=== PATIENT | male | born 1950 | race Hispanic/Latino ===

== ENCOUNTER 2020-04-29 21:01 | Inpatient (IN) | payer OTHER ==
--- OUTSIDE RECORDS SUMMARY | 2020-04-29 21:08 | XMS REPORT | Continuity of Care Document ---
:[address] [facility] t Address [address] [place] [address] Care Team Providers Name Role Phone Juan Manuel Rice Attending Clinician Millie ALFARO Attending Clinician Problems This patient has no known problems. Allergies, Adverse Reactions, Alerts This patient has no known allergies or adverse reactions. Medications This patient has no known medications. Procedures This patient has no known procedures. Encounters Start End Encounter Admission Attending Care Care Encounter Source Date/Time Date/Time Type Type Clinicians Facility Department ID 2019-09-11 2019-09-11 Telephone DENYS James [id number] 00:00:00 00:00:00 [facility] [id number] [facility] [id number] 2019-01-11 2019-01-11 [facility] [id number] 10:33:32 23:59:00 Encounter Iliana Catherine [id number] [place] [id number] [place] [id number] 2019-01-11 2019-01-11 [place] [id number] 10:20:00 10:32:00 Encounter Iliana Catherine [id number] [place] [id number] [place] [id number] 2019-01-04 2019-01-04 [facility] [id number] 10:21:42 18:59:26 Visit Iliana Alexander [id number] [place] [id number] [place] [id number] [address] Results This patient has no known results.
[2020-04-29] MEDS ORDERED: IBUPROFEN 400 MG TAB ONE ×2 (22:07→22:15)
[2020-04-29] MEDS ORDERED: IBUPROFEN 200 MG TAB PO ONE ×2 (22:07→22:15)
[2020-04-29] MEDS ORDERED: NA CHLORIDE 0.9% 1,000 ML ONE ×2 (22:07→22:15)
[2020-04-29 22:09] LABS: Absolute Lymphocytes (CBC) 0.7 K/uL (0.7-4.9); Basophils % 0.2 % (0-1.3); Hematocrit 40.7 % (39.6-49.0); Lymphocytes % 3.8 % (15.3-44.8); MPV 9.4 fL (7.6-11.3)
[2020-04-29 22:12] LABS: Protime INR 1.02
[2020-04-29 22:30] LABS: ALT/SGPT 34 U/L (12-78); AST/SGOT 35 U/L (15-37); Albumin 3.7 g/dL (3.4-5.0); Alkaline Phosphatase 106 U/L (45-117); Amylase 57 U/L (25-115); BUN Blood Urea Nitrogen 6 mg/dL (7-18); Bicarbonate 19 mmol/L (21-32); Bilirubin Direct 0.2 mg/dL (0-0.2); Bilirubin Total 0.7 mg/dL (0.2-1.0); CKMB Creatine Kinase MB < 1.0 ng/mL (0.3-3.6); Creatine Phosphokinase 101 U/L (39-308); Glucose Level 118 mg/dL (74-106); Lipase 139 U/L (73-393); Potassium 3.5 mmol/L (3.5-5.1); Protein, Total 7.9 g/dL (6.4-8.2); Sodium Level 131 mmol/L (136-145); Troponin (Emerg Dept Use Only) < 0.02 ng/mL (0.0-0.045)
--- NOTE | 2020-04-30 00:45 | EDPHYS ---
Physician Documentation [facility] Name: Houston Neely Age: 69 yrs Sex: Male : 1950 Arrival Date: 04/29/2020 Time: 21:04 Bed 5 Private MD: ED Physician Dax Santacruz HPI: 04/30 00:10 This 69 yrs old Male presents to ER via Wheelchair with complaints of kb Abdominal Pain, Weakness. 00:12 The patient presents with abdominal pain that is diffuse. Onset: The symptoms/episode kb began/occurred today. The symptoms do not radiate. Associated signs and symptoms: Pertinent positives: fever. The symptoms are described as constant. Modifying factors: The symptoms are alleviated by nothing, the symptoms are aggravated by pressure. Severity of pain: At its worst the pain was moderate in the emergency department the pain is unchanged. The patient has not experienced similar symptoms in the past. The patient has not recently seen a physician. Daughter reports pt started complaining of abd pain today and seemed more weak. She felt his head and noticed he had a fever. Gave 500mg tylenol and brought pt in for evaluation. Historical: - Allergies: 04/29 21:21 No Known Allergies; ss - PMHx: 21:21 CVA; Hypertension; Seizures; R sided weakness; ss - Immunization history:: Adult Immunizations up to date. - Social history:: Smoking status: Patient reports the use of cigarette tobacco products, denies chronic smoking, but will smoke occasionally. ROS: 04/30 00:12 Cardiovascular: Negative for chest pain, palpitations, and edema, Respiratory: Negative kb for shortness of breath, cough, wheezing, and pleuritic chest pain, Back: Negative for injury and pain, MS/Extremity: Negative for injury and deformity, Skin: Negative for injury, rash, and discoloration. Constitutional: Positive for fever. Abdomen/GI: Positive for abdominal pain. Neuro: Positive for weakness. Exam: 00:12 Constitutional: This is a well developed, well nourished patient who is awake, alert, kb and in no acute distress. Head/Face: Normocephalic, atraumatic. Chest/axilla: Normal chest wall appearance and motion. Nontender with no deformity. No lesions are appreciated. Cardiovascular: Regular rate and rhythm with a normal S1 and S2. No gallops, murmurs, or rubs. Normal PMI, no JVD. No pulse deficits. Respiratory: Lungs have equal breath sounds bilaterally, clear to auscultation and percussion. No rales, rhonchi or wheezes noted. No increased work of breathing, no retractions or nasal flaring. Back: No spinal tenderness. No costovertebral tenderness. Full range of motion. Skin: Warm, dry with normal turgor. Normal color with no rashes, no lesions, and no evidence of cellulitis. MS/ Extremity: Pulses equal, no cyanosis. Neurovascular intact. Full, normal range of motion. Neuro: Awake and alert, GCS 15, oriented to person, place, time, and situation. Cranial nerves II-XII grossly intact. Motor strength 5/5 in all extremities. Sensory grossly intact. Cerebellar exam normal. Normal gait. 00:12 Abdomen/GI: Inspection: abdomen appears normal, Bowel sounds: normal, Palpation: soft, in all quadrants, moderate abdominal tenderness, in all quadrants. Vital Signs: 04/29 21:17 BP 111 / 58; Pulse 126; Resp 20; Temp 101.1(O); Pulse Ox 93% on R/A; Height 5 ft. 7 in. ss (170.18 cm); 22:10 BP 135 / 62; Pulse 123; Resp 25; Temp 100; Pulse Ox 95% ; ea 04/30 00:14 BP 115 / 65; Pulse 99; Resp 20; Pulse Ox 93% on R/A; ea MDM: 04/29 21:31 Patient medically screened. kb 04/30 00:14 Data reviewed: vital signs, nurses notes. Data interpreted: Pulse oximetry: on room air kb is 95 %. Interpretation: normal. 00:42 Counseling: I had a detailed discussion with the patient and/or guardian regarding: the kb historical points, exam findings, and any diagnostic results supporting the discharge/admit diagnosis, lab results, radiology results, the need for further work-up and treatment in the hospital. Physician consultation: Papa Ochoa MD was contacted at 00:43, regarding admission, to the telemetry unit. patient's condition, and will see patient in ED, shortly. 04/29 21:48 Order name: Amylase, Serum kb 04/29 21:48 Order name: Basic Metabolic Panel kb 04/29 21:48 Order name: Blood Culture Adult (2) kb 04/29 21:48 Order name: CBC with Diff kb 04/29 21:48 Order name: Ckmb kb 04/29 21:48 Order name: CPK; Complete Time: 22:52 kb 04/29 21:48 Order name: Lactate; Complete Time: 22:52 kb 04/29 21:48 Order name: LFT's; Complete Time: 22:52 kb 04/29 21:48 Order name: Lipase; Complete Time: 22:52 kb 04/29 21:48 Order name: Procalcitonin; Complete Time: 23:11 kb 04/29 21:48 Order name: Protime (+inr); Complete Time: 22:20 kb 04/29 21:48 Order name: Ptt, Activated; Complete Time: 22:20 kb 04/29 21:48 Order name: Troponin (emerg Dept Use Only); Complete Time: 22:52 kb 04/29 21:48 Order name: Urine Microscopic Only; Complete Time: 04:27 kb 04/29 21:48 Order name: Chest Single View XRAY; Complete Time: 12:59 kb 04/29 21:49 Order name: CT Abd/Pelvis - IV Contrast Only kb 04/29 21:49 Order name: Amylase; Complete Time: 22:52 EDMS 04/29 21:49 Order name: Basic Metabolic Panel; Complete Time: 22:52 EDMS 04/29 21:49 Order name: Blood Culture EDMS 04/29 21:49 Order name: CBC with Automated Diff; Complete Time: 22:20 EDMS 04/29 21:49 Order name: CKMB Creatine Kinase MB; Complete Time: 22:52 EDMS 04/30 01:01 Order name: SARS-COV-2 RT PCR; Complete Time: 04:27 EDMS 04/30 03:11 Order name: Urine Dipstick--Ancillary (enter results); Complete Time: 04:27 rv 04/30 05:10 Order name: CBC with Automated Diff EDMS 04/30 05:10 Order name: CBC with Automated Diff EDMS 04/30 05:10 Order name: Comprehensive Metabolic Panel EDMS 04/30 05:10 Order name: Comprehensive Metabolic Panel EDMS 04/30 12:07 Order name: CBC with Automated Diff; Complete Time: 12:59 EDMS 04/30 12:36 Order name: Manual Differential; Complete Time: 12:59 EDMS 04/29 21:48 Order name: Accucheck; Complete Time: 05:53 kb 04/29 21:48 Order name: Cardiac monitoring; Complete Time: 21:49 kb 04/29 21:49 Order name: EKG - Nurse/Tech; Complete Time: 21:50 kb 04/29 21:49 Order name: IV Saline Lock - Large Bore; Complete Time: 21:50 kb 04/29 21:49 Order name: Labs collected and sent; Complete Time: 21:50 kb 04/29 21:49 Order name: O2 Per Protocol; Complete Time: 21:50 kb 04/29 21:49 Order name: O2 Sat Monitoring; Complete Time: 21:50 kb 04/29 21:49 Order name: Urine Dipstick-Ancillary (obtain specimen); Complete Time: 11:54 kb 04/30 05:10 Order name: CONS Pharmacy Consult EDMT 04/30 05:10 Order name: Heart Healthy EDMT Administered Medications: 04/29 22:09 Drug: NS 0.9% 1000 ml Route: IV; Rate: 1000 ml; Site: left forearm; ea 04/30 00:38 Follow up: Response: No adverse reaction; IV Status: Completed infusion; IV Intake: ea 1000ml 04/29 22:10 Drug: Ibuprofen 600 mg Route: PO; ea 04/30 00:38 Follow up: Response: No adverse reaction ea 01:08 Drug: Rocephin 1 grams Route: IV; Rate: calculated rate; Site: left forearm; ea 01:19 Follow up: Response: No adverse reaction; IV Status: Completed infusion; IV Intake: 10mlea 01:19 Drug: Zithromax 500 mg Route: IVPB; Infused Over: 1 hrs; Site: left forearm; ea Disposition: 04/30/20 00:44 Hospitalization ordered by Papa Ochoa for Inpatient Admission. Preliminary diagnosis are Pneumonia, unspecified organism, Elevated white blood cell count. - Bed requested for Telemetry/MedSurg (Inpatient). - Status is Inpatient Admission. aa5 - Condition is Stable. - Problem is new. - Symptoms are unchanged. Signatures: Dispatcher [employer] EDMT Cierra Ruiz, EKTA DANG-Hillary Gamino RN RN Sujatha Connor RN RN aa5 Kim Molina RN RN Genesis Maradiaga, RN RN tl1 Julissa Sethi, FLAVIA RN ea Dax Santacruz MD MD [id number] Corrections: (The following items were deleted from the chart) 04/29 23:50 21:49 CORONAVIRUS+MR.LAB.BRZ ordered. EDMT EDMT 04/30 03:44 00:44 Hospitalization Ordered by Papa Ochoa MD for Inpatient Admission. Preliminary tl1 diagnosis is Pneumonia, unspecified organism; Elevated white blood cell count. Bed requested for Telemetry/MedSurg (Inpatient). Status is Inpatient Admission. Condition is Stable. Problem is new. Symptoms are unchanged. kb 13:49 03:44 04/30/2020 00:44 Hospitalization Ordered by Papa Ochoa MD for Inpatient dw Admission. Preliminary diagnosis is Pneumonia, unspecified organism; Elevated white blood cell count. Bed requested for [facility] ER HOLD. Status is Inpatient Admission. Condition is Stable. Problem is new. Symptoms are unchanged. tl1 15:25 13:49 04/30/2020 00:44 Hospitalization Ordered by Papa Ochoa MD for Inpatient aa5 Admission. Preliminary diagnosis is Pneumonia, unspecified organism; Elevated white blood cell count. Bed requested for Telemetry/MedSurg (Inpatient). Status is Inpatient Admission. Condition is Stable. Problem is new. Symptoms are unchanged. dw
--- NOTE | 2020-04-30 00:45 | ER ---
Nurse's Notes [facility] Name: Houston Neely Age: 69 yrs Sex: Male : 1950 Arrival Date: 04/29/2020 Time: 21:04 Bed 5 Private MD: Diagnosis: Pneumonia, unspecified organism;Elevated white blood cell count Presentation: 04/29 21:17 Chief complaint: Patient states: Fever and abd pain that began tonight. TMAX 101.7. 500 ss mg Tylenol given 20 minutes ago. Pt is also out of Lisinopril and Keppra. Coronavirus screen: fever, Client presents with at least one sign or symptom that may indicate coronavirus-19. Standard/surgical mask placed on the client. Provider contacted for isolation considerations. tested positive for COVID this morning. Ebola Screen: Patient denies exposure to infectious person. Patient denies travel to an Ebola-affected area in the 21 days before illness onset. Initial Sepsis Screen: Does the patient meet any 2 criteria? Temp <36.0*C (96.8*F)) or > 38.3*C (100.9*F). HR > 90 bpm. Does the patient have a suspected source of infection? No. Patient's initial sepsis screen is negative. Risk Assessment: Do you want to hurt yourself or someone else? Patient reports no desire to harm self or others. Onset of symptoms was April 29, 2020. 21:17 Method Of Arrival: Wheelchair ss 21:17 Acuity: CHUCK 2 ss Historical: - Allergies: 21:21 No Known Allergies; ss - PMHx: 21:21 CVA; Hypertension; Seizures; R sided weakness; ss - Immunization history:: Adult Immunizations up to date. - Social history:: Smoking status: Patient reports the use of cigarette tobacco products, denies chronic smoking, but will smoke occasionally. Screenin:12 Abuse screen: Denies threats or abuse. Nutritional screening: No deficits noted. ea Tuberculosis screening: No symptoms or risk factors identified. Fall Risk IV access (20 points). Assessment: 22:12 General: Appears uncomfortable, Behavior is calm, cooperative. Pain: Complains of pain ea in abdomen. Neuro: Level of Consciousness is awake, alert, obeys commands, Oriented to person, place, time, pt has aphasia from previous stroke . GI: Abdomen is non-distended. Derm: Skin is dry, Skin is pale, Skin temperature is warm. 23:02 Reassessment: Patient and/or family updated on plan of care and expected duration. Pain ea level reassessed. Patient is alert, oriented x 3, equal unlabored respirations, skin warm/dry/pink. Awaiting on lab results. 23:39 Reassessment: Pt taken to CT. ea 04/30 00:17 Reassessment: Patient and/or family updated on plan of care and expected duration. Pain ea level reassessed. Patient is alert, oriented x 3, equal unlabored respirations, skin warm/dry/pink. 01:09 Reassessment: Patient and/or family updated on plan of care and expected duration. Pain ea level reassessed. Patient is alert, oriented x 3, equal unlabored respirations, skin warm/dry/pink. 02:00 GI: Bowel sounds present X 4 quads. Abd is soft and non tender X 4 quads. rv Vital Signs: 04/29 21:17 BP 111 / 58; Pulse 126; Resp 20; Temp 101.1(O); Pulse Ox 93% on R/A; Height 5 ft. 7 in. ss (170.18 cm); 22:10 BP 135 / 62; Pulse 123; Resp 25; Temp 100; Pulse Ox 95% ; ea 04/30 00:14 BP 115 / 65; Pulse 99; Resp 20; Pulse Ox 93% on R/A; ea ED Course: 04/29 21:04 Patient arrived in ED. cl3 21:20 Triage completed. ss 21:21 Arm band placed on right wrist. ss 21:29 Adalberto Harris, FLAVIA is Primary Nurse. rv 21:30 Cierra Ruiz FNP-C is PHCP. kb 21:30 Dax Santacruz MD is Attending Physician. kb 21:48 Initial lab(s) drawn, by me, sent to lab. Inserted saline lock: 20 gauge in left rv forearm, using aseptic technique. 22:12 Patient has correct armband on for positive identification. Bed in low position. Call ea light in reach. Side rails up X 1. child monitor on. Pulse ox on. NIBP on. 22:14 Chest Single View XRAY In Process Unspecified. EDMS 04/30 00:20 CT Abd/Pelvis - IV Contrast Only In Process Unspecified. EDMS 00:44 Papa Ochoa MD is Hospitalizing Provider. kb 01:09 No provider procedures requiring assistance completed. Patient admitted, IV remains in ea place. Administered Medications: 04/29 22:09 Drug: NS 0.9% 1000 ml Route: IV; Rate: 1000 ml; Site: left forearm; ea 04/30 00:38 Follow up: Response: No adverse reaction; IV Status: Completed infusion; IV Intake: ea 1000ml 04/29 22:10 Drug: Ibuprofen 600 mg Route: PO; ea 04/30 00:38 Follow up: Response: No adverse reaction ea 01:08 Drug: Rocephin 1 grams Route: IV; Rate: calculated rate; Site: left forearm; ea 01:19 Follow up: Response: No adverse reaction; IV Status: Completed infusion; IV Intake: 10mlea 01:19 Drug: Zithromax 500 mg Route: IVPB; Infused Over: 1 hrs; Site: left forearm; ea Intake: 00:38 IV: 1000ml; Total: 1000ml. ea 01:19 IV: 10ml; Total: 1010ml. ea Outcome: 00:44 Decision to Hospitalize by Provider. kb 05:56 Admitted to ER Hold. Please see [facility] for further documentation. rv 05:56 Condition: good 05:56 Instructed on the need for admit. 15:20 Admitted to Tele accompanied by tech, room 223, with oxygen, with chart, Other via aa5 hospital bed Report called to FLAVIA Lebron 15:25 Patient left the ED. aa Signatures: Dispatcher [employer] EDMS Cierra Ruiz, EKTA DANG-Suajtha Holt, RN FLAVIA aa Kim Molina RN RN ss Antunez, Elena, RN RN ea Vicente, Ronaldo, RN RN rv Lewis, Charde cl3
[2020-04-30] MEDS ORDERED: CEFTRIAXONE/SWI 1gm 1 GM/10 ML SYR ONE (01:10)
[2020-04-30] MEDS ORDERED: NA CHLORIDE 0.9% 250 ML ONE ×2 (01:10→22:01)
[2020-04-30] MEDS ORDERED: AZITHROMYCIN 500 MG INJ IVPB ONE (01:10)
[2020-04-30 03:43] LABS: Urine Bacteria <20 /HPF (NONE SEEN); Urine RBC <5 /HPF (NONE SEEN)
[2020-04-30 03:46] LABS: Urine Blood NEGATIVE (NEG); Urine Glucose NEGATIVE (NEG); Urine Protein NEGATIVE (NEG); Urine Specific Gravity <1.005 (1.005-1.030); Urine pH 5.5 (5.0-7.0)
[2020-04-30] MEDS ORDERED: ACETAMINOPHEN 500 MG TAB PO PRN (05:06)
[2020-04-30] MEDS ORDERED: MORPHINE 2 MG/ML SYR IV PRN (05:06)
[2020-04-30] MEDS ORDERED: ONDANSETRON 4 MG/2 ML VIAL IV PRN (05:06)
--- NOTE | 2020-04-30 05:20 | P.HP ---
Certification for Inpatient Patient admitted to: Inpatient With expected LOS: >2 Midnights Practitioner: I am a practitioner with admitting privileges, knowledge of patient current condition, hospital course, and medical plan of care. Services: Services provided to patient in accordance with Admission requirements found in Title 42 Section 412.3 of the Code of Federal Regulations Patient History Date of Service: 04/30/20 Reason for admission: Fever, abdominal Pain , Generalised weakness History of Present Illness: 69 yrs old male with past medical history of Hypertension , Hyperlipidemia ,CVA and seizure disorder presents to ER with complaints of Abdominal Pain, Weakness and fever . Patient is a poor historian hence most of the history is obtained from chart review and also talking to the family member . He started having diffuse abdominal pain which started today associated with nausea but no vomiting or diarrhea. He was also having generalized weakness and subjective fever. Quick associated with cough. Denies any shortness of breath or chest pain.. No sick contacts. Pain is nonradiating not associated with any frequency of micturition or dysuria. He was given Tylenol for fever and was brought to ER. In the ER the patient was seen and underwent workup for abdominal pain and fever. Found to have leukocytosis and x-ray suggestive of atelectasis versus pneumonia. CT still pending. Patient is being admitted for further management Allergies No Known Allergies Allergy (Verified 06/19/15 00:27) Home medications list reviewed: Yes Home Medications: Amlodipine Besylate 10 mg PO DAILY 06/19/15 Atorvastatin Calcium [Lipitor] 80 mg PO BEDTIME 06/19/15 Folic Acid 1 mg PO DAILY 06/19/15 Levetiracetam 1,000 mg PO BID 06/19/15 Lisinopril 20 mg PO DAILY 06/19/15 Enoxaparin Sodium [Lovenox 80 MG INJ] 80 mg SQ BID #6 syr 10/21/15 Warfarin Sodium [Coumadin] 5 mg PO DAILY #90 tablet 10/21/15 Levetiracetam [Keppra] 1,000 mg PO DAILY 05/11/17 Albuterol Neb [Proventil 0.083% Neb Soln] 2.5 mg IH Q6HR PRN #100 amp 05/13/17 Budesonide [Pulmicort] 1 mg IH BID #180 ampul.neb 05/13/17 predniSONE [Deltasone*] 10 mg PO DAILY #9 tab 05/13/17 - Past Medical/Surgical History Diabetic: No Past Medical History: Reviewed- Non-Contributory -: CVA -: HTN -: hyperlipidemia Past Surgical History: Reviewed- Non-Contributory -: Appy - Family History Mother -: Hypertension Notes: states no health problems - Social History Smoking Status: Never smoker Alcohol use: No CD- Drugs: No Caffeine use: Yes Review of Systems 10-point ROS is otherwise unremarkable Physical Examination - Vital Signs Temperature: 99.2 F Blood Pressure: 128/68 Pulse: 88 Respirations: 18 - Physical Exam General: Alert, Mild distress HEENT: Atraumatic, Normocephalic Neck: Supple, 2+ carotid pulse no bruit Respiratory: Clear to auscultation bilaterally, Crackles/rales Cardiovascular: Normal pulses, Regular rate/rhythm, Normal S1 S2 Capillary refill: <2 Seconds Gastrointestinal: W/out hepatosplenomegaly, Tenderness Musculoskeletal: No clubbing, No swelling Integumentary: No rashes Neurological: Other (Alert, Awake ) Lymphatics: No axilla or inguinal lymphadenopathy - Studies Laboratory Data (last 24 hrs) 04/29/20 21:57: PT 12.0, INR 1.02, APTT 25.2 04/29/20 21:57: WBC 19.6 H, Hgb 13.9, Hct 40.7, Plt Count 228 04/29/20 21:57: Sodium 131 L, Potassium 3.5, BUN 6 L, Creatinine 0.88, Glucose 118 H, Total Bilirubin 0.7, AST 35, ALT 34, Alkaline Phosphatase 106, Amylase 57, Lipase 139 Assessment and Plan - Problems (Diagnosis) (1) Anticoagulant long-term use Onset Date: 05/11/17 Current Visit: No Status: Acute (2) HTN (hypertension) Onset Date: 05/11/17 Current Visit: No Status: Acute Qualifiers: (3) Hyperlipidemia Current Visit: No Status: Acute Qualifiers: (4) Leukocytosis Current Visit: No Status: Acute (5) Seizure disorder Current Visit: No Status: Chronic (6) Stroke Current Visit: No Status: Chronic - Plan Right lower lobe pneumonia Leukocytosis Elevated pro calcitonin Hypertension Hyperlipidemia History of CVA Seizure disorder Nonspecific abdominal pain Plan monitor closely under telemetry Start on empiric antibiotics will get cultures Covid 19 test is negative Change antibiotic as was sensitivities CT of the abdomen pelvis is still pending Continue home medications and titrate as needed GI/DVT prophylaxis Advanced directives full code - Advance Directives Does patient have a Living Will: No Does patient have a Durable POA for Healthcare: No Time Spent Managing Pts Care (In Minutes): 42
[2020-04-30 06:17] VITALS: BMI 25.0
--- NOTE | 2020-04-30 08:40 | RAD REPORT ---
EXAM DESCRIPTION: RAD - Chest Single View - 04/29/2020 10:17 pm CLINICAL HISTORY: DYSPNEA Chest pain. COMPARISON: Chest Single View dated 05/10/2017; Chest Single View dated 10/16/2015; CHEST SINGLE VIEW dated 06/20/2015; CHEST SINGLE VIEW dated 06/19/2015 FINDINGS: Portable technique limits examination quality. The lungs are grossly clear. The heart is normal in size. No displaced fractures. IMPRESSION: No acute intrathoracic process suspected.
[2020-04-30] MEDS ORDERED: CEFEPIME 1 GM/VIAL IV SCH (09:00)
[2020-04-30] MEDS: CEFEPIME/SWI 1gm 10 ML IV SCH ×2 (09:00→21:33)
[2020-04-30] MEDS ORDERED: CEFEPIME/SWI 1gm 10 ML ONE (09:35)
[2020-04-30 11:52] LABS: Absolute Lymphocytes (CBC) 1.6 K/uL (0.7-4.9); Basophils % 0.2 % (0-1.3); Hematocrit 38.3 % (39.6-49.0); Lymphocytes % 7.3 % (15.3-44.8); MPV 9.6 fL (7.6-11.3); RBC Red Blood Cell Count 3.84 M/uL (4.33-5.43)
[2020-04-30 12:36] LABS: Blood Morphology Comment NOT SEEN (NOT SEEN); Platelet Estimate ADEQ; Platelets, Giant FEW
--- NOTE | 2020-04-30 15:56 | P.PN ---
Date of Service: 04/30/20 Patient seen and examined. He is complaining of wheezing and shortness of breath. Nursing staff report patient desaturated to 88% on room air during sleep. Has significant leukocytosis. Imp: Pneumonia. Continue current antibiotics. Start bronchodilators. Follow cultures.
--- NOTE | 2020-04-30 18:56 | RAD REPORT ---
EXAM DESCRIPTION: CT Abdomen and Pelvis With Intravenous Contrast CLINICAL HISTORY: The patient is 69 years old and is Male; ABD PAIN TECHNIQUE: Axial computed tomography images of the abdomen and pelvis with intravenous contrast. S agittal and coronal reformatted images were created and reviewed. This CT exam was performed using one or more of the following dose reduction techniques: automated exposure control, adjustment of t he mA and/or kV according to patient size, and/or use of iterative reconstruction technique. COMPARISON: CT of the abdomen and pelvis September 16, 2016 FINDINGS: ARTIFACTS: The exam is suboptimal secondary to motion artifact. LUNG BASES: Patchy consolidation within the right lower lobe is present. A 6 mm left lower lobe pul monary nodule is present, unchanged from prior exam of September 16, 2016. No follow-up imaging is recommen ded. ABDOMEN: LIVER: The liver is enlarged and diffusely fatty. GALLBLADDER AND BILE DUCTS: No calcified stones. No ductal dilation. PANCREAS: No ductal dilation. No mass. SPLEEN: Unremarkable. ADRENALS: Unremarkable. No mass. KIDNEYS AND URETERS: Bilateral exophytic renal cysts are noted, the largest on the left measures 2.5 cm. No follow-up imaging is recommended. The kidneys enhance symmetrically. No obstructing renal or ureteral calculus is seen. There is no hydronephrosis or hydroureter of either kidney. STOMACH AND BOWEL: The stomach is decompressed. The small bowel is normal in caliber. Stool is pr esent throughout the colon. There is no mucosal thickening or evidence of bowel obstruction. PELVIS: APPENDIX: The appendix is surgically absent. BLADDER: The bladder is well distended. REPRODUCTIVE: Unremarkable as visualized. ABDOMEN and PELVIS: INTRAPERITONEAL SPACE: Unremarkable. No free air. No significant fluid collection. BONES/JOINTS: Minimal degenerative change of the bones is noted. SOFT TISSUES: The soft tissues are normal. VASCULATURE: Atherosclerosis of the vasculature is present. The vessels are normal in caliber. No abdominal aortic aneurysm. LYMPH NODES: Unremarkable. No enlarged lymph nodes. OTHER FINDINGS: Elevation right hemidiaphragm is present. IMPRESSION: 1. Findings suggest right lower lobe pneumonia. 2. No bowel obstruction. No renal or ureteral calculi. Electronically signed by: Angelina Fisher MD 04/30/2020 12:30 AM [employer]IST Due to temporary technical issues with the PACS/Fluency reporting system, reports are being signed by the in house radiologists without review as a courtesy to insure prompt reporting. The interpreting radiologist is fully responsible for the content of the report
[2020-04-30] MEDS: ALBUTEROL 2.5 MG/3 ML NEB SOL NEB SCH (19:45)
[2020-04-30] MEDS: IPRATROPIUM BROM 0.5MG/2.5ML NEB SCH (19:45)
[2020-04-30] MEDS: levETIRAcetam 500 MG TAB PO SCH (21:18)
[2020-04-30] MEDS: ATORVASTATIN 80 MG TAB PO SCH (21:18)
[2020-04-30] MEDS ORDERED: NA CHLORIDE 0.9% 0 ML ONE (22:00)
[2020-04-30] MEDS: AZITHROMYCIN IV 500 MG in NA CHLORIDE 0.9% 250 ML IVPB SCH (23:24)
[2020-05-01] MEDS: ALBUTEROL 2.5 MG/3 ML NEB SOL NEB SCH ×4 (02:25→20:50)
[2020-05-01] MEDS: IPRATROPIUM BROM 0.5MG/2.5ML NEB SCH ×4 (02:25→20:50)
[2020-05-01 05:43] LABS: Absolute Lymphocytes (CBC) 2.5 K/uL (0.7-4.9); Basophils % 0.2 % (0-1.3); Hematocrit 36.1 % (39.6-49.0); Lymphocytes % 13.3 % (15.3-44.8); MPV 10.1 fL (7.6-11.3); RBC Red Blood Cell Count 3.59 M/uL (4.33-5.43)
[2020-05-01 06:11] LABS: ALT/SGPT 22 U/L (12-78); AST/SGOT 22 U/L (15-37); Alkaline Phosphatase 81 U/L (45-117); BUN Blood Urea Nitrogen 8 mg/dL (7-18); Bicarbonate 23 mmol/L (21-32); Bilirubin Total 0.6 mg/dL (0.2-1.0); Ferritin 140.7 ng/mL (26-388); Glucose Level 103 mg/dL (74-106); Potassium 3.5 mmol/L (3.5-5.1); Protein, Total 6.9 g/dL (6.4-8.2); Sodium Level 136 mmol/L (136-145)
[2020-05-01] MEDS: ASPIRIN EC 81 MG TAB PO SCH (09:53)
[2020-05-01] MEDS: levETIRAcetam 500 MG TAB PO SCH ×2 (09:53→21:14)
[2020-05-01] MEDS: CEFEPIME/SWI 1gm 10 ML IV SCH ×2 (09:55→21:14)
--- NOTE | 2020-05-01 10:21 | P.PN ---
Subjective Date of Service: 05/01/20 Chief Complaint: Fever, abdominal Pain , Generalised weakness Patient states he feels much better. He desires to go home but he still has significant leukocytosis. He is saturating well on room air. He has been afebrile. Physical Examination - Vital Signs Temperature: 97.9 F Blood Pressure: 129/60 Pulse: 91 Respirations: 20 Pulse Ox (%): 93 - Physical Exam General: Alert, In no apparent distress, Oriented x3 Neck: Supple, JVD not distended Respiratory: Expiratory wheezes (Mild bilateral), Other (No crackles.) Cardiovascular: No edema, Regular rate/rhythm, Normal S1 S2 Gastrointestinal: Normal bowel sounds, Soft and benign, Non-distended, No tenderness Musculoskeletal: No swelling, No tenderness Integumentary: No rashes, No erythema Neurological: Normal speech, Normal strength at 5/5 x4 extr - Studies Laboratory Data (last 24 hrs) 04/30/20 11:43: WBC 21.8 H*, Hgb 12.8 L, Hct 38.3 L, Plt Count 222 Assessment And Plan - Current Problems (Diagnosis) (1) Pneumonia Current Visit: Yes Status: Acute (2) COPD (chronic obstructive pulmonary disease) with acute bronchitis Current Visit: No Status: Acute (3) Warfarin-induced coagulopathy Current Visit: No Status: Acute (4) Seizure disorder Current Visit: No Status: Chronic - Plan Continue current antibiotics. Scheduled Bronchodilators. Follow cultures. Monitor CBC. Continue treatment for pneumonia and COPD exacerbation for 1 more day as inpatient. Continue home medications for seizure disorder.
--- NOTE | 2020-05-01 16:12 | EKG ---
Test Date: 2020-04-29 Test Time: 21:37:39 [place] Net: CARLEE MEASUREMENT RESULTS: Intervals: Rate: 120 ID: [id number] QRSD: 64 QT: 298 QTc: 421 [place]: P: 45 ID: [id number] QRS: 54 T: 60 INTERPRETIVE STATEMENTS: Sinus tachycardia Nonspecific T wave abnormality Abnormal ECG Compared to ECG 05/10/2017 10:18:45 Sinus rhythm no longer present T-wave abnormality still present Electronically Signed On 05-01-20 16:09:41 CARTOGRAPHIC TECHNICIAN by Gustavo Limon
[2020-05-01] MEDS: ATORVASTATIN 80 MG TAB PO SCH (21:14)
[2020-05-02] MEDS: AZITHROMYCIN IV 500 MG in NA CHLORIDE 0.9% 250 ML IVPB SCH (00:01)
[2020-05-02] MEDS: IPRATROPIUM BROM 0.5MG/2.5ML NEB SCH ×2 (01:11→08:25)
[2020-05-02] MEDS: ALBUTEROL 2.5 MG/3 ML NEB SOL NEB SCH ×2 (01:11→08:25)
[2020-05-02 06:28] VITALS: O2SAT 96
[2020-05-02 06:44] LABS: Absolute Lymphocytes (CBC) 2.4 K/uL (0.7-4.9); Basophils % 0.5 % (0-1.3); Hematocrit 35.6 % (39.6-49.0); Lymphocytes % 17.8 % (15.3-44.8); MPV 11.3 fL (7.6-11.3); RBC Red Blood Cell Count 3.53 M/uL (4.33-5.43)
[2020-05-02 07:48] LABS: Blood Morphology Comment NOT SEEN (NOT SEEN); Platelet Estimate ADEQ; White Blood Cell Scan OK (OK)
[2020-05-02] MEDS: CEFEPIME/SWI 1gm 10 ML IV SCH (09:33)
[2020-05-02] MEDS: levETIRAcetam 500 MG TAB PO SCH (09:34)
[2020-05-02] MEDS: ASPIRIN EC 81 MG TAB PO SCH (09:34)
[2020-05-02 10:12] VITALS: BP 156/80; TEMP 98.2
--- NOTE | 2020-05-02 10:55 | P.DS ---
Admission Date: 04/30/20 Discharge Date: 05/02/20 Disposition: ROUTINE DISCHARGE Discharge Condition: FAIR Reason for Admission: Fever, abdominal Pain , Generalised weakness - Problems (1) Pneumonia Current Visit: Yes Status: Acute (2) COPD (chronic obstructive pulmonary disease) with acute bronchitis Current Visit: No Status: Acute (3) Warfarin-induced coagulopathy Current Visit: No Status: Acute (4) Seizure disorder Current Visit: No Status: Chronic Brief History of Present Illness: (69-year-old gentleman with a history of hypertension presented to the emergency department with a complaint of abdominal pain and fever. CT abdomen and pelvis show left lower lobe pneumonia. No other intra-abdominal pathology. Patient noted to have severe leukocytes. UA negative for UTI. Patient was started on antibiotic after blood cultures were taken and admitted for further management. Hospital Course: Patient admitted to the medical floor and treated for pneumonia with IV Zithromax and IV cefepime. He was also wheezing intermittently. Patient diagnosed with COPD exacerbation and also treated with bronchodilators. He clinically improved with treatment. Leukocytosis significantly improved. His symptoms got resolved. He was ambulatory without oxygen. He was not hypoxic. Patient deemed clinically stable for discharge. He is discharged with oral Augmentin to continue treatment for the pneumonia. Vital Signs/Physical Exam: Temp Pulse Resp BP Pulse Ox 98.2 F 86 24 H 156/80 H 94 05/02/20 08:00 05/02/20 08:00 05/02/20 08:00 05/02/20 08:00 05/02/20 08:00 General: Alert, In no apparent distress, Oriented x3 Neck: JVD not distended Respiratory: Clear to auscultation bilaterally, Normal air movement Cardiovascular: No edema, Regular rate/rhythm, Normal S1 S2 Gastrointestinal: Soft and benign, Non-distended, No tenderness Musculoskeletal: No swelling Integumentary: No rashes Neurological: Normal strength at 5/5 x4 extr Laboratory Data at Discharge: WBC 13.4 K/uL (4.3-10.9) H D 05/02/20 05:22 Hgb 11.8 g/dL (13.6-17.9) L 05/02/20 05:22 Hct 35.6 % (39.6-49.0) L 05/02/20 05:22 Plt Count 184 K/uL (152-406) 05/02/20 05:22 PT 12.0 SECONDS (9.5-12.5) 04/29/20 21:57 INR 1.02 04/29/20 21:57 APTT 25.2 SECONDS (24.3-36.9) 04/29/20 21:57 Sodium 136 mmol/L (136-145) 05/01/20 05:06 Potassium 3.5 mmol/L (3.5-5.1) 05/01/20 05:06 BUN 8 mg/dL (7-18) 05/01/20 05:06 Creatinine 0.83 mg/dL (0.55-1.3) 05/01/20 05:06 Glucose 103 mg/dL (74-106) 05/01/20 05:06 Total Bilirubin 0.6 mg/dL (0.2-1.0) 05/01/20 05:06 AST 22 U/L (15-37) 05/01/20 05:06 ALT 22 U/L (12-78) 05/01/20 05:06 Alkaline Phosphatase 81 U/L (45-117) 05/01/20 05:06 Amylase 57 U/L (25-115) 04/29/20 21:57 Lipase 139 U/L (73-393) 04/29/20 21:57 Home Medications: Amlodipine Besylate 10 mg PO DAILY 06/19/15 Atorvastatin Calcium [Lipitor] 80 mg PO BEDTIME 06/19/15 Lisinopril 20 mg PO DAILY 06/19/15 Levetiracetam [Keppra] 1,000 mg PO BID 05/11/17 Aspirin [Aspirin EC 81 MG] 81 mg PO DAILY 04/30/20 Albuterol Inhaler [Ventolin Inhaler*] 2 puff IH Q6H PRN #1 hfa.aer.ad 05/02/20 Amox/Clavulanate [Augmentin 875-125 Tab] 1 each PO BID #14 tab 05/02/20 Fluticasone/Salmeterol [Advair 250-50 Diskus] 1 each IH BID #1 disk.w.dev 05/02/20 New Medications: Fluticasone/Salmeterol [Advair 250-50 Diskus] 1 each IH BID #1 disk.w.dev Amox/Clavulanate [Augmentin 875-125 Tab] 1 each PO BID #14 tab Albuterol Inhaler [Ventolin Inhaler*] 2 puff IH Q6H PRN #1 hfa.aer.ad PRN Reason: Shortness Of Breath Diet: AHA Activity: Ad jalil Followup: NONE,NONE [Primary Care Provider] - 1-2 Weeks Time spent managing pt's care (in minutes): 38
== END 2020-05-02 11:50 | disposition home or self-care (01) | DRG 194 ==
LOC: ER 21:01 → INTOOBSV 04-30 05:14 → ERHOLD 04-30 05:14 → OBSVTOIN 04-30 14:23 → 2ND 04-30 15:16
PROVIDERS: ADMIT Family Medicine; ATTEND Internal Medicine
DX: J18.9 Pneumonia, unspecified organism (principal); J44.1 Chronic obstructive pulmonary disease with (acute) exacerbation; J44.0 Chronic obstructive pulmonary disease with (acute) lower respiratory infection; D68.9 Coagulation defect, unspecified; J20.9 Acute bronchitis, unspecified; I10 Essential (primary) hypertension; E78.5 Hyperlipidemia, unspecified; D72.829 Elevated white blood cell count, unspecified; F17.210 Nicotine dependence, cigarettes, uncomplicated; T45.515A Adverse effect of anticoagulants, initial encounter; Z79.01 Long term (current) use of anticoagulants; Z86.73 Personal history of transient ischemic attack (TIA), and cerebral infarction without residual deficits; Z79.82 Long term (current) use of aspirin; Z79.52 Long term (current) use of systemic steroids; Z79.899 Other long term (current) drug therapy; Z20.822 Contact with and (suspected) exposure to COVID-19
CPT/HCPCS: 36415; 71045; 74177; 80048; 80053; 80076; 81003; 81015; 82150; 82550; 82553; 82728; 83605; 83690; 84145; 84484; 85025; 85610; 85730; 86140; 87040; 93005; 94640; 94760; 96361; 96374; 96375; 99285; G0378; J0456; J0692; J0696; J7030; J7040; J7050; Q9967; U0003

== ENCOUNTER 2020-08-01 22:04 | Emergency (ER) | payer OTHER ==
--- OUTSIDE RECORDS SUMMARY | 2020-08-01 22:06 | XMS REPORT | Continuity of Care Document ---
:1950 Author Organization [facility] t Address [address] [place] [address] Care Team Providers Name Role Phone Juan [...] 2019-09-11 2019-09-11 Telephone DENYS James [id number] 00:00:00 00:00:00 [facility] [id number] [facility] [id number] [id number] 2019-01-11 2019-01-11 [place] [id number] 10:33:32 23:59:00 Encounter Iliana Catherine [id number] [place] [id number] [place] [id number] [id number] 2019-01-11 2019-01-11 [place] [id number] 10:20:00 10:32:00 Encounter Iliana Catherine [id number] [place] [id number] [place] [id number] 2019-01-04 2019-01-04 [place], [facility] [id number] 10:21:42 18:59:26 Visit Iliana Alexander [id number] [place] [id number] [place] [id number] [address] Results This patient has no known results.
--- NOTE | 2020-08-01 22:27 | EDPHYS ---
Physician Documentation [facility] Name: Houston Neely Age: 69 yrs Sex: Male : 1950 Arrival Date: 08/01/2020 Time: 22:08 Bed 15 Private MD: ED Physician Vincent Frias HPI: 08/02 03:52 This 69 yrs old Male presents to ER via Wheelchair with complaints of MOUTH tw4 PAIN. 03:52 The patient presents with pain. The problem is located in the lower left third molar, tw4 lower left second molar, lower left first molar, lower left cuspid, lower left central incisor and lower right central incisor. Onset: The symptoms/episode began/occurred today. Duration: The symptoms are continuous, and are steadily getting worse. Modifying factors: The symptoms are alleviated by nothing. Associated signs and symptoms: The patient has no apparent associated signs or symptoms. The patient has not experienced similar symptoms in the past. Historical: - Allergies: 08/01 22:29 No Known Allergies; sg - PMHx: 22:29 CVA; Hypertension; R sided weakness; Seizures; sg - Immunization history:: Adult Immunizations up to date. - Social history:: Smoking status: Patient denies any tobacco usage or history of. ROS: 08/02 03:52 Constitutional: Negative for fever, chills, and weight loss, Eyes: Negative for injury, tw4 pain, redness, and discharge, Cardiovascular: Negative for chest pain, palpitations, and edema, Respiratory: Negative for shortness of breath, cough, wheezing, and pleuritic chest pain, Abdomen/GI: Negative for abdominal pain, nausea, vomiting, diarrhea, and constipation, Back: Negative for injury and pain, MS/Extremity: Negative for injury and deformity, Skin: Negative for injury, rash, and discoloration. ENT: Positive for dental pain. Exam: 03:52 Constitutional: This is a well developed, well nourished patient who is awake, alert, tw4 and in no acute distress. Head/Face: Normocephalic, atraumatic. Chest/axilla: Normal chest wall appearance and motion. Nontender with no deformity. No lesions are appreciated. Cardiovascular: Regular rate and rhythm with a normal S1 and S2. No gallops, murmurs, or rubs. Normal PMI, no JVD. No pulse deficits. Respiratory: Lungs have equal breath sounds bilaterally, clear to auscultation and percussion. No rales, rhonchi or wheezes noted. No increased work of breathing, no retractions or nasal flaring. Abdomen/GI: Soft, non-tender, with normal bowel sounds. No distension or tympany. No guarding or rebound. No evidence of tenderness throughout. Back: No spinal tenderness. No costovertebral tenderness. Full range of motion. Skin: Warm, dry with normal turgor. Normal color with no rashes, no lesions, and no evidence of cellulitis. MS/ Extremity: Pulses equal, no cyanosis. Neurovascular intact. Full, normal range of motion. Vital Signs: 08/01 22:25 BP 158 / 91; Pulse 78; Resp 18; Temp 98(O); Pulse Ox 99% on R/A; em MDM: 22:13 Patient medically screened. tw4 22:25 Differential diagnosis: dental caries, gingivitis, dental abscess. Data reviewed: vital tw4 signs, nurses notes, EMS record. Data interpreted: Pulse oximetry: Interpretation: normal. Counseling: I had a detailed discussion with the patient and/or guardian regarding: the historical points, exam findings, and any diagnostic results supporting the discharge/admit diagnosis. Special discussion: I discussed with the patient/guardian in detail that at this point there is no indication for admission to the hospital. It is understood, however, that if the symptoms persist or worsen the patient needs to return immediately for re-evaluation. Administered Medications: 22:37 Drug: [place] (HYDROcodone-acetaminophen) (7.5 mg-325 mg) 1 tabs Route: PO; em Disposition: 08/01/20 22:27 Discharged to Home. Impression: Dental root caries, Dental caries on smooth surface penetrating into dentin, DENTAL PAIN. - Condition is Stable. - Discharge Instructions: Dental Caries, Adult, Dental Pain, Diet and Dental Disease, Dental Caries, [id number]. - Prescriptions for Amoxicillin 500 mg Oral Capsule - take 1 capsule by ORAL route every 8 hours for 10 days; 30 tablet. Tramadol 50 mg Oral Tablet - take 1 tablet by ORAL route every 8 hours as needed; 12 tablet. - Medication Reconciliation Form, Thank You Letter, Antibiotic Education, Prescription Opioid Use form. - Follow up: Private Physician; When: Upon discharge from the Emergency Department; Reason: Recheck today's complaints, Continuance of care, Re-evaluation by your physician. - Problem is an ongoing problem. - Symptoms have improved. Signatures: Carlos Saleh RN RN Nish Christina RN RN em Wadley, Terrence, MD MD tw4 Corrections: (The following items were deleted from the chart) 22:41 22:27 08/01/2020 22:27 Discharged to Home. Impression: Dental root caries; Dental em caries on smooth surface penetrating into dentin; DENTAL PAIN. Condition is Stable. Forms are Medication Reconciliation Form, Thank You Letter, Antibiotic Education, Prescription Opioid Use. Follow up: Private Physician; When: Upon discharge from the Emergency Department; Reason: Recheck today's complaints, Continuance of care, Re-evaluation by your physician. Problem is an ongoing problem. Symptoms have improved. tw4
--- NOTE | 2020-08-01 22:41 | ER ---
Nurse's Notes [facility] Name: Houston Neely Age: 69 yrs Sex: Male : 1950 Arrival Date: 08/01/2020 Time: 22:08 Bed 15 Private MD: Diagnosis: Dental root caries;Dental caries on smooth surface penetrating into dentin;DENTAL PAIN Presentation: 08/01 22:28 Chief complaint: Patient's son or daughter states: complaining of having pain to his sg mouth, like the inside. he had a stroke so his words are kind of hard to understand, but he is having pain he says. denies injury or trauma, states pain and swelling to the inside of mouth. Coronavirus screen: Client denies travel out of the [place] in the last 14 days. At this time, the client does not indicate any symptoms associated with coronavirus-19. Ebola Screen: Patient negative for fever greater than or equal to 101.5 degrees Fahrenheit, and additional compatible Ebola Virus Disease symptoms Patient denies exposure to infectious person. Patient denies travel to an Ebola-affected area in the 21 days before illness onset. No symptoms or risks identified at this time. Initial Sepsis Screen: Does the patient meet any 2 criteria? No. Patient's initial sepsis screen is negative. Does the patient have a suspected source of infection? No. Patient's initial sepsis screen is negative. Risk Assessment: Do you want to hurt yourself or someone else? Patient reports no desire to harm self or others. Onset of symptoms was August 01, 2020. Care prior to arrival: None. Transition of care: patient was not received from another setting of care. 22:28 Acuity: CHUCK 5 sg 22:28 Method Of Arrival: Wheelchair sg Historical: - Allergies: 22:29 No Known Allergies; sg - PMHx: 22:29 CVA; Hypertension; R sided weakness; Seizures; sg - Immunization history:: Adult Immunizations up to date. - Social history:: Smoking status: Patient denies any tobacco usage or history of. Screenin:25 Abuse screen: Denies threats or abuse. Nutritional screening: No deficits noted. em Tuberculosis screening: No symptoms or risk factors identified. Fall Risk None identified. Assessment: 22:25 General: Appears in no apparent distress. uncomfortable, Behavior is calm, cooperative, em appropriate for age. Pain: Complains of pain in mouth. Neuro: Level of Consciousness is awake, alert, obeys commands, Oriented to person, place, time, situation. Cardiovascular: Capillary refill < 3 seconds Patient's skin is warm and dry. Respiratory: Airway is patent Respiratory effort is even, unlabored, Respiratory pattern is regular, symmetrical. EENT: Oral mucosa is moist. Reports pain in right jaw. Derm: Skin is intact, is healthy with good turgor, Skin is pink, warm \T\ dry. Vital Signs: 22:25 BP 158 / 91; Pulse 78; Resp 18; Temp 98(O); Pulse Ox 99% on R/A; em ED Course: 22:08 Patient arrived in ED. cf2 22:13 Vincent Frias MD is Attending Physician. tw4 22:25 Patient has correct armband on for positive identification. Adult w/ patient. em 22:26 Nish Herrera RN is Primary Nurse. em 22:28 Arm band placed on. sg 22:29 Triage completed. sg 22:38 Patient did not have IV access during this emergency room visit. em 22:38 No provider procedures requiring assistance completed. em Administered Medications: 22:37 Drug: [place] (HYDROcodone-acetaminophen) (7.5 mg-325 mg) 1 tabs Route: PO; em Outcome: 22:27 Discharge ordered by . tw4 22:40 Discharged to home via wheelchair, with family. em 22:40 Condition: stable 22:40 Discharge instructions given to patient, Instructed on discharge instructions, follow up and referral plans. medication usage, Demonstrated understanding of instructions, follow-up care, medications, Prescriptions given X 2. 22:41 Patient left the ED. em Signatures: Carlos Saleh RN RN Nish Herrera, RN RN em Vincent Frias MD MD tw4 Lars Engel cf2
[2020-08-01] MEDS ORDERED: HYDROCODONE/APAP 7.5/325 MG TAB ONE (22:46)
[2020-08-02 01:41] VITALS: BP 158/91; TEMP 98; O2SAT 99
== END 2020-08-01 22:41 | disposition home or self-care (01) ==
LOC: ER 22:04
DX: K02.62 Dental caries on smooth surface penetrating into dentin (principal); K08.89 Other specified disorders of teeth and supporting structures; I69.351 Hemiplegia and hemiparesis following cerebral infarction affecting right dominant side; I10 Essential (primary) hypertension
CPT/HCPCS: 99283

== ENCOUNTER 2021-03-03 01:55 | Inpatient (IN) | payer OTHER ==
[2021-03-03 03:14] LABS: Urine Blood Negative (Negative); Urine Glucose Negative (Negative); Urine Protein Negative (Negative)
[2021-03-03 03:31] LABS: Protime INR 0.97
[2021-03-03 03:32] LABS: Absolute Lymphocytes (CBC) 1.5 K/uL (0.7-4.9); Basophils % 0.2 % (0-1.3); Hematocrit 45.1 % (39.6-49.0); Lymphocytes % 10.5 % (15.3-44.8); MPV 9.4 fL (7.6-11.3)
[2021-03-03] MEDS ORDERED: NA CHLORIDE 0.9% 1,000 ML ONE (03:36)
[2021-03-03 03:43] LABS: ALT/SGPT 43 U/L (12-78); AST/SGOT 39 U/L (15-37); Albumin 3.7 g/dL (3.4-5.0); Alkaline Phosphatase 103 U/L (45-117); BUN Blood Urea Nitrogen 5 mg/dL (7-18); Bicarbonate 25 mmol/L (21-32); Bilirubin Direct 0.1 mg/dL (0-0.2); Bilirubin Total 0.5 mg/dL (0.2-1.0); Glucose Level 121 mg/dL (74-106); Magnesium 1.9 mg/dL (1.8-2.4); NT PRO-BNP 41 pg/mL (<125); Potassium 3.9 mmol/L (3.5-5.1); Protein, Total 8.6 g/dL (6.4-8.2); Sodium Level 133 mmol/L (136-145); Troponin (Emerg Dept Use Only) < 0.02 ng/mL (0.0-0.045)
[2021-03-03 04:42] LABS: SARS-COV-2 RT PCR POSITIVE (NEGATIVE)
[2021-03-03] MEDS ORDERED: CEFTRIAXONE 1000 MG/VIAL ONE (04:54)
[2021-03-03] MEDS ORDERED: AZITHROMYCIN 500 MG INJ IVPB ONE (04:55)
[2021-03-03] MEDS ORDERED: NA CHLORIDE 0.9% 250 ML ONE (04:55)
--- NOTE | 2021-03-03 07:03 | ER ---
Nurse's Notes [facility] Name: Houston Neely Age: 70 yrs Sex: Male : 1950 Arrival Date: 03/03/2021 Time: 02:00 Bed 19 Private MD: Diagnosis: Coronavirus infection, unspecified;Chest pain, unspecified;Dyspnea;Tachycardia, unspecified Presentation: 03/03 02:17 Chief complaint: Patient states: cough, fever, SOB, sore throat x 1 day. Coronavirus df1 screen: Vaccine status: Patient reports receiving the 2nd dose of the covid vaccine. Client denies travel out of the [place] in the last 14 days. Client presents with at least one sign or symptom that may indicate coronavirus-19. Standard/surgical mask placed on the client. Ebola Screen: Patient negative for fever greater than or equal to 101.5 degrees Fahrenheit, and additional compatible Ebola Virus Disease symptoms Patient denies exposure to infectious person. Patient denies travel to an Ebola-affected area in the 21 days before illness onset. Initial Sepsis Screen: Does the patient meet any 2 criteria? RR > 20 per min. HR > 90 bpm. Does the patient have a suspected source of infection? Yes: Productive cough/pneumonia. Risk Assessment: Do you want to hurt yourself or someone else? Patient reports no desire to harm self or others. Onset of symptoms was March 02, 2021. 02:17 Method Of Arrival: Wheelchair df1 02:17 Acuity: CHUCK 3 df1 03:03 Note Pt nonverbal post CVA from home with family c/o sob, cough, sore throat and fever. df1 Pt has not taken HTN or Coumadin in 2 weeks. Family states young children in the house have had similar symptoms over past week. Covid vaccine up to date. Triage Assessment: 02:41 Respiratory: Airway is patent nonproductive cough Onset: The symptoms/episode cc4 began/occurred today, the patient has moderate shortness of breath. 02:41 Cardiovascular: Rhythm is sinus tachycardia. Respiratory: Reports cough that is cc4 non-productive, wheezing with at home albuterol nebulized treatment [employer]. Breath sounds with wheezes bilaterally. 03:07 General: Appears in no apparent distress. Behavior is calm, cooperative. df1 Historical: - Allergies: 02:19 No Known Allergies; df1 - Home Meds: 02:19 amlodipine 10 mg tab 1 tab once daily [Active]; atorvastatin 80 mg oral tab [Active]; df1 levetiracetam 500 mg oral tab 1 tab 2 times per day [Active]; lisinopril 20 mg Oral tab 1 tab once daily [Active]; warfarin 5 mg Oral tab 1 tab by mouth every Monday and at 5:00 pm [Active]; - PMHx: 02:19 CVA; Hypertension; R sided weakness; Seizures; df1 - PSHx: 02:21 Cholecystectomy; df1 - Immunization history:: Adult Immunizations unknown, Client reports receiving the 2nd dose of the Covid vaccine. - Social history:: Smoking status: Patient reports the use of cigarette tobacco products, smokes one-half pack cigarettes per day, Patient uses alcohol, on a daily basis. - Code Status:: Full code. Screenin:06 Abuse screen: Denies threats or abuse. Nutritional screening: No deficits noted. df1 Tuberculosis screening: No symptoms or risk factors identified. Fall Risk Fall in past 12 months (25 points). Secondary diagnosis (15 points) seizures, CVA, IV access (20 points). Ambulatory Aid- None/Bed Rest/Nurse Assist (0 pts). Gait- Impaired (20 pts.). Mental Status- Oriented to own ability (0 pts). Assessment: 02:41 General: Appears uncomfortable, Behavior is calm, cooperative. Pain: Denies pain. 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 son present \\T\\ answering for father.. Cardiovascular: Heart tones S1 S2 Capillary refill < 3 seconds Rhythm is sinus tachycardia. Respiratory: nonproductive cough noted. GI: No deficits noted. Abdomen is non-distended, Bowel sounds present X 4 quads. : No deficits noted. Urine is clear, yellow. EENT: No deficits noted. Eyes clear. Nares are clear Oral mucosa is moist. Derm: No deficits noted. Skin is intact. Musculoskeletal: Capillary refill < 3 seconds, right hemiplegia noted. 02:41 Respiratory: Breath sounds with wheezes bilaterally. cc4 02:50 Reassessment: # 20 g angiocath inserted right AC x 2 attempts \\T\\ converted to saline cc4 lock with blood drawn \\T\\ sent to lab; Dr. Santacruz in \\T\\ bedside \\T\\ assessing; CM intact \\T\\ monitoring S. tachycardia with VR 116-130; with son of pt reporting albuterol treatment [employer]. 03:06 Respiratory: Airway is patent Trachea midline Respiratory effort is even, Respiratory df1 pattern is regular, symmetrical, Breath sounds are clear bilaterally. 03:15 Reassessment: Standing \\T\\ bedside with assistance voiding 200 ml clear yellow urine; cc4 asst. back on stretcher. HR increases to 130's when up.\\T\\ decreases to 118-124 at rest. 05:00 Reassessment: Voiding approximately every 15 minutes clear yellow urine after asst up \\T\\ cc4 bedside 200 ml each time; son denies father having h/o enlarged prostate; condom catheter applied as ordered. 06:00 Reassessment: Returned from CT via stretcher; condom cath. lying in bed linen wet ; cc4 linen cahnged \\T\\ condom catheter reapplied; swinging \\T\\ staff with left hand when turned. 07:00 Reassessment: Report given to FLAVIA Vásquez. cc4 Vital Signs: 02:17 BP 171 / 78; Pulse 109; Resp 24; Temp 99.4; Pulse Ox 97% on R/A; Weight 86.18 kg; df1 Height 5 ft. 9 in. (175.26 cm); Pain 5/10; 02:41 BP 154 / 79; Pulse 115; Resp 22; Temp 99.2(O); Pulse Ox 97% on R/A; cc4 03:30 BP 165 / 82; Pulse 126; Resp 20; Pulse Ox 97% on R/A; cc4 04:30 BP 171 / 77; Pulse 118; Resp 24; Pulse Ox 95% on R/A; cc4 05:30 BP 155 / 82; Pulse 111; Resp 24; Pulse Ox 95% on R/A; cc4 06:23 BP 107 / 87; Pulse 107; Resp 23; Pulse Ox 93% on R/A; cc4 07:00 BP 145 / 81; Pulse 110; Resp 20; Pulse Ox 96% on R/A; cc4 07:45 BP 128 / 76; Pulse 112; Resp 20; Pulse Ox 96% on R/A; cc4 08:48 BP 148 / 71; Pulse 97; Resp 20; Temp 99.4; Pulse Ox 98% on 2 lpm NC; cc4 02:17 Body Mass Index 28.06 (86.18 kg, 175.26 cm) df1 ED Course: 02:00 Patient arrived in ED. bp1 02:19 Triage completed. df1 02:24 Dax Santacruz MD is Attending Physician. mh7 03:07 Arm band placed on right wrist. df1 03:07 Placed in gown. Bed in low position. Call light in reach. Side rails up X 1. Adult w/ df1 patient. 03:09 Inserted saline lock: 20 gauge in right antecubital area, using aseptic technique. oe Blood collected. 03:23 Dulce Durand, FLAVIA is Primary Nurse. cc4 03:34 COVID-19/FLU A+B Sent. cc4 03:34 Procalcitonin Sent. cc4 03:34 Lactate Sent. cc4 03:34 Blood Culture Adult (2) Sent. cc4 03:34 Rapid Strep Sent. cc4 03:34 Influenza Screen (a \\T\\ B) Sent. cc4 03:34 COVID-19 (Coronavirus) Document "Date of Onset" if Symptomatic Sent. cc4 03:34 Liver (Hepatic) Function Sent. cc4 03:35 Basic Metabolic Panel Sent. cc4 03:35 Basic Metabolic Panel Sent. cc4 03:35 CBC with Diff Sent. cc4 03:35 LFT's Sent. cc4 03:35 XRAY Chest (1 view) Sent. cc4 03:35 Magnesium Sent. cc4 03:35 NT PRO-BNP Sent. cc4 03:35 Troponin (emerg Dept Use Only) Sent. cc4 04:43 XRAY Chest (1 view) In Process Unspecified. EDMS 04:53 CT Chest For PE Angio Sent. cc4 05:56 CT Chest For PE Angio In Process Unspecified. EDMS 07:00 Ty Salomon MD is Hospitalizing Provider. 7 07:30 IV is patent, is intact, with fluids infusing freely, with good blood return, Flushed cc4 right antecubital. 07:59 Smith cath inserted, using sterile technique, 16 Fr., returned clear yellow urine. ss Patient tolerated well. 08:59 No apparent distress. transfer. cc4 08:59 No provider procedures requiring assistance completed. cc4 08:59 Repeat lab(s) drawn. by me, sent to lab. gd 09:30 Patient admitted, IV remains in place. cc4 Administered Medications: 03:35 Drug: NS 0.9% 1000 ml Route: IV; Rate: 1000 ml; Site: right antecubital; cc4 07:15 Follow up: Response: No adverse reaction; IV Status: Completed infusion; IV Intake: cc4 1000ml 04:58 Drug: Rocephin (cefTRIAXone) 1 grams Route: IV; Rate: per protocol; Site: right cc4 antecubital; 05:00 Drug: Zithromax (azithromycin) 500 mg Route: IVPB; Infused Over: 1 hrs; Site: right cc4 antecubital; 07:56 Drug: NS 0.9% 500 ml Route: IV; Rate: bolus; Site: left antecubital; cc4 08:26 Follow up: Response: No adverse reaction cc4 08:52 Follow up: IV Status: Completed infusion; IV Intake: 500ml cc4 07:56 Drug: SOLU-Medrol (methylPrednisoLONE) 80 mg Route: IVP; Site: left antecubital; cc4 08:24 Follow up: Response: No adverse reaction cc4 08:08 Drug: Albuterol HFA Inhaler 2 puffs Route: Inhalation; cc4 08:25 Follow up: Response: No adverse reaction cc4 08:25 Follow up: Response: No adverse reaction cc4 Intake: 07:15 IV: 1000ml; Total: 1000ml. cc4 08:52 IV: 500ml; Total: 1500ml. cc4 Outcome: 07:02 Decision to Hospitalize by Provider. [facility] 07:59 Instructed on the need for admit. 09:24 Admitted to ICU accompanied by nurse, via stretcher, room 3rd Floor - ICU # 7. cc4 09:24 Condition: stable 09:24 Discharge instructions given to patient, family, Instructed on the need for admit. 09:54 Patient left the ED. cc4 Signatures: Dispatcher [employer] EDMS Kim Molina RN RN Cody Henry Brittany bp1 Holmes, Maurice, MD MD 7 Dulce Durand RN RN cc4 [place] df1 Kel Ca gd Corrections: (The following items were deleted from the chart) 02:22 02:19 PSHx: Appendectomy; df1 df1 06:35 04:30 BP 107 / 87; Pulse 112bpm; Resp 23bpm; Pulse Ox 93% RA; cc4 cc4 06:55 02:41 Respiratory: Airway is patent Breath sounds are clear bilaterally. cc4 cc4
--- NOTE | 2021-03-03 07:03 | EDPHYS ---
Physician Documentation [facility] Name: Houston Neely Age: 70 yrs Sex: Male : 1950 Arrival Date: 03/03/2021 Time: 02:00 Bed 19 Private MD: ED Physician Dax Santacruz HPI: 03/03 02:48 This 70 yrs old Male presents to ER via Wheelchair with complaints of Cough, mh7 Breathing Difficulty, Chest Pain. 02:48 The patient or guardian reports cough, that is intermittent, described as moderate, mh7 with no sputum, difficulty breathing. Onset: The symptoms/episode began/occurred yesterday. Severity of symptoms: At their worst the symptoms were moderate, yesterday, in the emergency department the symptoms have improved, moderately. Modifying factors: The symptoms are alleviated by nebulizer treatment, the symptoms are aggravated by nothing. Associated signs and symptoms: Pertinent positives: chest pain, with cough, sore throat, Pertinent negatives: diarrhea, ear ache, fever, nausea, rhinorrhea, vomiting. Historical: - Allergies: 02:19 No Known Allergies; df1 - Home Meds: 02:19 amlodipine 10 mg tab 1 tab once daily [Active]; atorvastatin 80 mg oral tab [Active]; df1 levetiracetam 500 mg oral tab 1 tab 2 times per day [Active]; lisinopril 20 mg Oral tab 1 tab once daily [Active]; warfarin 5 mg Oral tab 1 tab by mouth every Monday and at 5:00 pm [Active]; - PMHx: 02:19 CVA; Hypertension; R sided weakness; Seizures; df1 - PSHx: 02:21 Cholecystectomy; df1 - Immunization history:: Adult Immunizations unknown, Client reports receiving the 2nd dose of the Covid vaccine. - Social history:: Smoking status: Patient reports the use of cigarette tobacco products, smokes one-half pack cigarettes per day, Patient uses alcohol, on a daily basis. - Code Status:: Full code. ROS: 02:48 Eyes: Negative for injury, pain, redness, and discharge, Neck: Negative for injury, mh7 pain, and swelling, Abdomen/GI: Negative for abdominal pain, nausea, vomiting, diarrhea, and constipation, Back: Negative for injury and pain, : Negative for injury, bleeding, discharge, and swelling, MS/Extremity: Negative for injury and deformity, Skin: Negative for injury, rash, and discoloration, Neuro: Negative for headache, weakness, numbness, tingling, and seizure, Psych: Negative for depression, anxiety, suicide ideation, homicidal ideation, and hallucinations, Allergy/Immunology: Negative for hives, rash, and allergies, Endocrine: Negative for neck swelling, polydipsia, polyuria, polyphagia, and marked weight changes, Hematologic/Lymphatic: Negative for swollen nodes, abnormal bleeding, and unusual bruising. Exam: 02:48 Constitutional: This is a well developed, well nourished patient who is awake, alert, mh7 and in no acute distress. Head/Face: Normocephalic, atraumatic. Eyes: Pupils equal round and reactive to light, extra-ocular motions intact. Lids and lashes normal. Conjunctiva and sclera are non-icteric and not injected. Cornea within normal limits. Periorbital areas with no swelling, redness, or edema. Neck: Trachea midline, no thyromegaly or masses palpated, and no cervical lymphadenopathy. Supple, full range of motion without nuchal rigidity, or vertebral point tenderness. No Meningismus. Chest/axilla: Normal chest wall appearance and motion. Nontender with no deformity. No lesions are appreciated. 02:48 ENT: Nares patent. No nasal discharge, no septal abnormalities noted. Tympanic membranes are normal and external auditory canals are clear. Oropharynx with no redness, swelling, or masses, exudates, or evidence of obstruction, uvula midline. Mucous membranes moist. Abdomen/GI: Soft, non-tender, with normal bowel sounds. No distension or tympany. No guarding or rebound. No evidence of tenderness throughout. Back: No spinal tenderness. No costovertebral tenderness. Full range of motion. Skin: Warm, dry with normal turgor. Normal color with no rashes, no lesions, and no evidence of cellulitis. MS/ Extremity: Pulses equal, no cyanosis. Neurovascular intact. Full, normal range of motion. Psych: Awake, alert, with orientation to person, place and time. Behavior, mood, and affect are within normal limits. 02:48 Cardiovascular: Rate: tachycardic, Rhythm: regular, Pulses: no pulse deficits are appreciated, Heart sounds: normal, normal S1and S2, Edema: is not appreciated, JVD: is not appreciated. 02:48 Respiratory: mild respiratory distress is noted, Respirations: prolonged exhalation, that is mild, Breath sounds: rhonchi, that are mild, are scattered, Respiratory rate: 24 02:48 Neuro: Orientation: appropriate for stated age, Mentation: is normal, Memory: mh7 appropriate for stated age, Cranial nerves: is grossly normal based on the patient's age, Cerebellar function: is grossly normal based on the patient's age, Motor: strength is 4/5 in the right arm, Baseline status post CVA, Sensation: no obvious gross deficits, Gait: not tested. seizure activity, is not displayed by the patient, Abnormal movements: there are no abnormal movements, Baseline nonverbal status post CVA but appropriate with questions. Vital Signs: 02:17 BP 171 / 78; Pulse 109; Resp 24; Temp 99.4; Pulse Ox 97% on R/A; Weight 86.18 kg; df1 Height 5 ft. 9 in. (175.26 cm); Pain 5/10; 02:41 BP 154 / 79; Pulse 115; Resp 22; Temp 99.2(O); Pulse Ox 97% on R/A; cc4 03:30 BP 165 / 82; Pulse 126; Resp 20; Pulse Ox 97% on R/A; cc4 04:30 BP 171 / 77; Pulse 118; Resp 24; Pulse Ox 95% on R/A; cc4 05:30 BP 155 / 82; Pulse 111; Resp 24; Pulse Ox 95% on R/A; cc4 06:23 BP 107 / 87; Pulse 107; Resp 23; Pulse Ox 93% on R/A; cc4 07:00 BP 145 / 81; Pulse 110; Resp 20; Pulse Ox 96% on R/A; cc4 07:45 BP 128 / 76; Pulse 112; Resp 20; Pulse Ox 96% on R/A; cc4 08:48 BP 148 / 71; Pulse 97; Resp 20; Temp 99.4; Pulse Ox 98% on 2 lpm NC; cc4 02:17 Body Mass Index 28.06 (86.18 kg, 175.26 cm) df1 MDM: 06:57 Differential Diagnosis: Bronchitis Influenza Upper Respiratory Infection Pharyngitis 7 Viral Syndrome Pneumonia Other chest pain. Data reviewed: vital signs, nurses notes, old medical records, lab test result(s), cardiac enzymes, CBC, electrolytes, Flu: negative Covid positive, EKG, radiologic studies, CT scan, plain films. Data interpreted: Pulse oximetry: on room air is 93 %. Interpretation: hypoxia. Plan: O2 by NC applied. Counseling: I had a detailed discussion with the patient and/or guardian regarding: the historical points, exam findings, and any diagnostic results supporting the discharge/admit diagnosis, lab results, radiology results, the need for further work-up and treatment in the hospital. Response to treatment: the patient's symptoms have mildly improved after treatment. 07:02 Patient medically screened. [facility] 03/03 02:45 Order name: Basic Metabolic Panel [facility] 03/03 02:45 Order name: CBC with Diff [facility] 03/03 02:45 Order name: LFT's [facility] 03/03 02:45 Order name: Magnesium; Complete Time: 04:06 [facility] 03/03 02:45 Order name: NT PRO-BNP; Complete Time: 04:06 [facility] 03/03 02:45 Order name: PT-INR; Complete Time: 03:34 [facility] 03/03 02:45 Order name: Troponin (emerg Dept Use Only); Complete Time: 04:06 [facility] 03/03 02:45 Order name: Basic Metabolic Panel; Complete Time: 04:06 [facility] 03/03 02:45 Order name: CBC with Automated Diff; Complete Time: 03:34 [facility] 03/03 02:46 Order name: Liver (Hepatic) Function; Complete Time: 04:06 [facility] 03/03 02:47 Order name: COVID-19 (Coronavirus) Document "Date of Onset" if Symptomatic [facility] 03/03 02:47 Order name: Influenza Screen (a \\T\\ B) [facility] 03/03 02:47 Order name: Rapid Strep; Complete Time: 04:06 [facility] 03/03 02:47 Order name: Blood Culture Adult (2) [facility] 03/03 02:45 Order name: XRAY Chest (1 view) [facility] 03/03 02:47 Order name: Lactate; Complete Time: 04:06 [facility] 03/03 02:47 Order name: Procalcitonin; Complete Time: 04:30 [facility] 03/03 03:13 Order name: Urine Dipstick-Ancillary; Complete Time: 03:23 [facility] 03/03 03:22 Order name: COVID-19/FLU A+B; Complete Time: 05:57 [facility] 03/03 03:57 Order name: Throat Culture [facility] 03/03 07:10 Order name: Basic Metabolic Panel [facility] 03/03 07:10 Order name: Basic Metabolic Panel [facility] 03/03 07:10 Order name: CBC with Automated Diff [facility] 03/03 07:10 Order name: Troponin I [facility] 03/03 07:10 Order name: Troponin I [facility] 03/03 07:10 Order name: Troponin I [facility] 03/03 07:10 Order name: CBC with Automated Diff [facility] 03/03 09:20 Order name: Lactate Sepsis 2 HR Follow-up [facility] 03/03 02:45 Order name: EKG; Complete Time: 02:46 [facility] 03/03 02:45 Order name: Cardiac monitoring; Complete Time: 03:35 [facility] 03/03 02:45 Order name: EKG - Nurse/Tech; Complete Time: 03:09 [facility] 03/03 02:45 Order name: IV Saline Lock; Complete Time: 03:09 [facility] 03/03 02:45 Order name: Labs collected and sent; Complete Time: 03:09 [facility] 03/03 02:45 Order name: O2 Sat Monitoring; Complete Time: 03:35 [facility] 03/03 02:47 Order name: Urine Dipstick-Ancillary (obtain specimen); Complete Time: 03:34 [facility] 03/03 04:45 Order name: CT Chest For PE Angio [facility] 03/03 06:59 Order name: Oxygen; Complete Time: 08:25 [facility] 03/03 07:10 Order name: 60g Consistent Carbohydrate (ADA 1800/2000) [facility] 03/03 07:10 Order name: EKG Electrocardiogram [facility] 03/03 07:10 Order name: EKG Electrocardiogram [facility] 03/03 07:10 Order name: EKG Electrocardiogram [facility] 03/03 07:10 Order name: EKG Electrocardiogram [facility] 03/03 07:25 Order name: Smith; Complete Time: 07:56 mh7 Administered Medications: 03:35 Drug: NS 0.9% 1000 ml Route: IV; Rate: 1000 ml; Site: right antecubital; cc4 07:15 Follow up: Response: No adverse reaction; IV Status: Completed infusion; IV Intake: cc4 1000ml 04:58 Drug: Rocephin (cefTRIAXone) 1 grams Route: IV; Rate: per protocol; Site: right cc4 antecubital; 05:00 Drug: Zithromax (azithromycin) 500 mg Route: IVPB; Infused Over: 1 hrs; Site: right cc4 antecubital; 07:56 Drug: NS 0.9% 500 ml Route: IV; Rate: bolus; Site: left antecubital; cc4 08:26 Follow up: Response: No adverse reaction cc4 08:52 Follow up: IV Status: Completed infusion; IV Intake: 500ml cc4 07:56 Drug: SOLU-Medrol (methylPrednisoLONE) 80 mg Route: IVP; Site: left antecubital; cc4 08:24 Follow up: Response: No adverse reaction cc4 08:08 Drug: Albuterol HFA Inhaler 2 puffs Route: Inhalation; cc4 08:25 Follow up: Response: No adverse reaction cc4 08:25 Follow up: Response: No adverse reaction cc4 Disposition Summary: 03/03/21 07:02 Hospitalization Ordered Hospitalization Status: Inpatient Admission [facility] Provider: Ty Salomon Christine Condition: Stable [facility] Problem: new [facility] Symptoms: have improved 7 Bed/Room Type: [place] [id number] Location: Intensive Care Unit(03/03/21 07:25) Room Assignment: 4-(03/03/21 07:25) dw Diagnosis - Coronavirus infection, unspecified mh7 - Chest pain, unspecified mh7 - Dyspnea mh7 - Tachycardia, unspecified mh7 Forms: - Medication Reconciliation Form 7 - SBAR form 7 Signatures: Dispatcher [employer] EDMS Hillary Zamora RN RN dw Dax Santacruz MD MD 7 Dulce Durand RN RN cc4 [place] df1 Corrections: (The following items were deleted from the chart) 02:22 02:19 PSHx: Appendectomy; df1 df1 03:22 02:47 CORONAVIRUS ordered. [facility] 03:22 02:47 Influenza Screen (A ordered. [facility] 07:25 07:02 Telemetry/MedSurg (Inpatient) 7 dw 07:25 07:02 [facility]
[2021-03-03] MEDS ORDERED: ONDANSETRON 4 MG/2 ML VIAL IV PRN (07:05)
[2021-03-03] MEDS ORDERED: ACETAMINOPHEN 325 MG TABLET PO PRN (07:05)
[2021-03-03] MEDS ORDERED: MORPHINE 2 MG/ML SYR IV PRN (07:05)
[2021-03-03] MEDS ORDERED: ALBUTEROL INHALER 60 PUFF/8 GM IH PRN (07:08)
[2021-03-03] MEDS ORDERED: ALBUTEROL INHALER 60 PUFF/8 GM IH ONE (07:50)
[2021-03-03] MEDS ORDERED: NA CHLORIDE 0.9% 500 ML ONE (07:50)
[2021-03-03] MEDS ORDERED: METHYLPREDNISOLONE 40 MG INJ ONE (07:50)
--- NOTE | 2021-03-03 07:52 | RAD REPORT ---
EXAM DESCRIPTION: Xiao Single View03/03/2021 4:43 am CLINICAL HISTORY: Chest pain COMPARISON: 2019 FINDINGS: The lungs appear clear of acute infiltrate. The heart is normal size IMPRESSION: No acute abnormalities displayed
--- NOTE | 2021-03-03 09:44 | P.HP ---
Certification for Inpatient Patient admitted to: Inpatient With expected LOS: >2 Midnights Patient will require the following post-hospital care: None Practitioner: I am a practitioner with admitting privileges, knowledge of patient current condition, hospital course, and medical plan of care. Services: Services provided to patient in accordance with Admission requirements found in Title 42 Section 412.3 of the Code of Federal Regulations Patient History Date of Service: 03/03/21 Primary Care Provider: Umm Reason for admission: covid infection History of Present Illness: Patient is a pleasant gentleman. 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 Has htn, hyperlipidemia. He as had a cough for 2 days Tues and today. The patient has had covid this past May. He has had 2 dosed of vaccination. Has not as yet had his booster vaccination. The patient is currently stable in the ER on 2 lts of o2. His cough seems to have improved with steroids. Allergies No Known Allergies Allergy (Verified 06/19/15 00:27) Home Medications: Amlodipine Besylate 10 mg PO DAILY 06/19/15 Atorvastatin Calcium [Lipitor] 80 mg PO BEDTIME 06/19/15 Lisinopril 20 mg PO DAILY 06/19/15 Levetiracetam [Keppra] 1,000 mg PO BID 05/11/17 Aspirin [Aspirin EC 81 MG] 81 mg PO DAILY 04/30/20 Albuterol Inhaler [Ventolin Inhaler*] 2 puff IH Q6H PRN #1 hfa.aer.ad 05/02/20 Amox/Clavulanate [Augmentin 875-125 Tab] 1 each PO BID #14 tab 05/02/20 Fluticasone/Salmeterol [Advair 250-50 Diskus] 1 each IH BID #1 disk.w.dev 05/02/20 - Past Medical/Surgical History Diabetic: No -: CVA -: HTN -: hyperlipidemia -: Appy - Family History Mother -: Hypertension Notes: states no health problems - Social History Alcohol use: No CD- Drugs: No Caffeine use: Yes Review of Systems 10-point ROS is otherwise unremarkable Respiratory: Cough Physical Examination - Physical Exam General: Alert, In no apparent distress HEENT: Atraumatic, PERRLA, Mucous membr. moist/pink, EOMI, Sclerae nonicteric Neck: Supple, 2+ carotid pulse no bruit, No LAD, Without JVD or thyroid abnormality Respiratory: Clear to auscultation bilaterally, Normal air movement Cardiovascular: Regular rate/rhythm, Normal S1 S2 Gastrointestinal: Normal bowel sounds, No tenderness Musculoskeletal: No tenderness Integumentary: No rashes Neurological: Normal gait, Normal speech, Normal strength at 5/5 x4 extr, Normal tone, Normal affect Lymphatics: No axilla or inguinal lymphadenopathy - Studies Laboratory Data (last 24 hrs) 03/03/21 02:45: PT 11.2, INR 0.97 03/03/21 02:45: WBC 13.90 H, Hgb 15.0, Hct 45.1, Plt Count 247 03/03/21 02:45: Sodium 133 L, Potassium 3.9, BUN 5 L, Creatinine 0.90, Glucose 121 H, Magnesium 1.9, Total Bilirubin 0.5, AST 39 H, ALT 43, Alkaline Phosphatase 103 Microbiology Data (last 24 hrs): 03/03/21 02:35 Throat Group A Streptococcus Rapid Screen - Final Assessment and Plan - Problems (Diagnosis) (1) COVID Current Visit: Yes Status: Acute Plan: Will continue him on methylprednisone. Add immune support Vitamin D, C Zinc and Melatonin. Discussed regeneron with Dr. Gambino. Would have worked earlier. He is doing well. Will see about possible discharge on home oxygen steroids. Can try fluvoxamine 100mg po tid for 15 days as per the NIH guidelines (2) HTN (hypertension) Onset Date: 05/11/17 Current Visit: No Status: Acute Plan: continue lisinopril and amlodipine Qualifiers: Hypertension type: primary hypertension Qualified Code(s): I10 - Essential (primary) hypertension (3) Hyperlipidemia Current Visit: No Status: Acute Plan: continue atorvastatin Qualifiers: Hyperlipidemia type: moderate mixed hyperlipidemia not requiring statin therapy Qualified Code(s): E78.2 - Mixed hyperlipidemia (4) Seizure Onset Date: 05/11/17 Current Visit: No Status: Acute Plan: restart Keppra Discharge Plan: Home Plan to discharge in: 24 Hours - Advance Directives Does patient have a Living Will: No Does patient have a Durable POA for Healthcare: No - Code Status/Comfort Care Code Status Assessed: No Code Status: Full Code Physician Review: Patient Assessed, Agree with Above Assessment and Plan Critical Care: No Time Spent Managing Pts Care (In Minutes): 75
[2021-03-03] MEDS: ASPIRIN EC 81 MG TAB PO SCH (10:15)
[2021-03-03] MEDS: VITAMIN D 5,000 UNIT CAP PO SCH (10:16)
[2021-03-03] MEDS: METHYLPREDNISOLONE 40 MG INJ IV SCH ×2 (10:16→17:00)
[2021-03-03] MEDS: ZINC SULFATE 220 MG CAP PO SCH (10:16)
[2021-03-03 10:29] VITALS: BMI 28.0
--- NOTE | 2021-03-03 11:22 | RAD REPORT ---
EXAM DESCRIPTION: CT - Chest For Pe Angio - 03/03/2021 6:46 am CLINICAL HISTORY: The patient is 70 years old and is Male; Cough;Dyspnea TECHNIQUE: Axial computed tomographic angiography images of the chest with intravenous contrast. S agittal and coronal reformatted images were created and reviewed. This CT exam was performed using one or more of the following dose reduction techniques: automated exposure control, adjustment of t he mA and/or kV according to patient size, and/or use of iterative reconstruction technique. MIP reconstructed images were created and reviewed. COMPARISON: No relevant prior studies available. FINDINGS: ARTIFACTS: The exam is suboptimal secondary to motion artifact. PULMONARY ARTERIES: The main pulmonary arteries and proximal segmental branches opacify normally and are without filling defect. AORTA: Atherosclerosis of the aorta is present. No thoracic aortic aneurysm. SUPERIOR VENA CAVA: Artifact from the bolus of contrast within the SVC limits evaluation. LUNGS: The lungs are clear. There is no mass or consolidation. PLEURAL SPACE: Unremarkable. No significant effusion. No pneumothorax. HEART: Unremarkable. No cardiomegaly. No significant pericardial effusion. No evidence of RV dysfunction. MEDIASTINUM: The tracheobronchial tree is widely patent. BONES/JOINTS: No acute fracture. No dislocation. SOFT TISSUES: Unremarkable. LYMPH NODES: Unremarkable. No enlarged lymph nodes. LIVER: The liver is enlarged and mildly fatty. IMPRESSION: 1. The main pulmonary arteries and proximal segmental branches opacify normally and ar e without filling defect. The remainder of the pulmonary vessels are not as well evaluated secondar y to motion and streak artifact. 2. No acute findings. Electronically signed by: Angelina Fisher MD 03/03/2021 6:25 AM CDT Due to temporary technical issues with the PACS/Fluency reporting system, reports are being signed by the in house radiologist without review as a courtesy to ensure prompt reporting. The interpreting r adiologist is fully responsible for the content of the report.
[2021-03-03] MEDS: ASCORBIC ACID 500 MG TABLET PO SCH ×3 (12:42→23:45)
--- NOTE | 2021-03-03 13:12 | EKG ---
Test Date: 2021-03-03 Test Time: 02:40:17 Print Line Feeder: ANA MEASUREMENT RESULTS: Intervals: Rate: 108 CO: 160 QRSD: 68 QT: 316 QTc: 423 Belt: P: 67 CO: 160 QRS: 61 T: 65 INTERPRETIVE STATEMENTS: Sinus tachycardia with occasional premature ventricular complexes Nonspecific T wave abnormality Abnormal ECG Compared to ECG 04/29/2020 21:37:39 Ventricular premature complex(es) now present T-wave abnormality still present Electronically Signed On 03-03-21 13:10:21 CDT by Gustavo Limon
[2021-03-03] MEDS: levETIRAcetam 500 MG TAB PO SCH (20:17)
[2021-03-03] MEDS ORDERED: ATORVASTATIN 80 MG TAB PO SCH (21:00)
[2021-03-03] MEDS ORDERED: HOME MED 1 EA UNK (Fluticasone/Salmeterol [Advair 250-50 Diskus] Blst.W.Dev) IH SCH (21:00)
[2021-03-04] MEDS: METHYLPREDNISOLONE 40 MG INJ IV SCH ×2 (00:01→08:05)
[2021-03-04 04:07] VITALS: TEMP 97.1
[2021-03-04 04:48] LABS: Basophils % 0.1 % (0-1.3); Hematocrit 43.8 % (39.6-49.0); Lymphocytes % 7.1 % (15.3-44.8); MPV 9.7 fL (7.6-11.3); RBC Red Blood Cell Count 4.54 M/uL (4.33-5.43)
[2021-03-04 05:03] LABS: BUN Blood Urea Nitrogen 8 mg/dL (7-18); Bicarbonate 25 mmol/L (21-32); Glucose Level 162 mg/dL (74-106); Potassium 3.8 mmol/L (3.5-5.1); Sodium Level 136 mmol/L (136-145)
[2021-03-04] MEDS: ASCORBIC ACID 500 MG TABLET PO SCH (05:16)
[2021-03-04 05:47] LABS: Blood Morphology Comment NOT SEEN (NOT SEEN); Platelet Estimate ADEQ
[2021-03-04] MEDS: ZINC SULFATE 220 MG CAP PO SCH (08:00)
[2021-03-04] MEDS: levETIRAcetam 500 MG TAB PO SCH (08:00)
[2021-03-04] MEDS: ASPIRIN EC 81 MG TAB PO SCH (08:04)
[2021-03-04] MEDS: VITAMIN D 5,000 UNIT CAP PO SCH (08:07)
[2021-03-04 08:08] VITALS: BP 126/66
--- NOTE | 2021-03-04 08:55 | P.DS ---
Admission Date: 03/03/21 Discharge Date: 03/04/21 Primary Care Provider: Umm Disposition: ROUTINE DISCHARGE Discharge Condition: GOOD Reason for Admission: covid infection - Problems (1) COVID Current Visit: Yes Status: Acute (2) HTN (hypertension) Onset Date: 05/11/17 Current Visit: No Status: Acute Qualifiers: Hypertension type: primary hypertension Qualified Code(s): I10 - Essential (primary) hypertension (3) Hyperlipidemia Current Visit: No Status: Acute Qualifiers: Hyperlipidemia type: moderate mixed hyperlipidemia not requiring statin therapy Qualified Code(s): E78.2 - Mixed hyperlipidemia (4) Seizure Onset Date: 05/11/17 Current Visit: No Status: Acute Brief History of Present Illness: Patient is a pleasant gentleman. 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 Has htn, hyperlipidemia. He as had a cough for 2 days Tues and today. The patient has had covid this past May. He has had 2 dosed of vaccination. Has not as yet had his booster vaccination. The patient is currently stable in the ER on 2 lts of o2. His cough seems to have improved with steroids. Hospital Course: Patient is doing well this morning. No fevers, sob, no loss of taste. Occasional cough. He is on no oxygen. Will discharge him home on [facility]. Fluvoxamine and prednisone taper. Vital Signs/Physical Exam: Temp Pulse Resp BP Pulse Ox 97.1 F 77 15 126/66 96 03/04/21 04:00 03/04/21 08:07 03/04/21 08:00 03/04/21 08:07 03/04/21 08:00 General: Alert, In no apparent distress HEENT: Atraumatic, PERRLA, EOMI Neck: Supple, JVD not distended Respiratory: Clear to auscultation bilaterally, Normal air movement Cardiovascular: Regular rate/rhythm, Normal S1 S2 Gastrointestinal: Normal bowel sounds, No tenderness Musculoskeletal: No tenderness Integumentary: No rashes Neurological: Normal speech, Normal tone, Normal affect Lymphatics: No axilla or inguinal lymphadenopathy Laboratory Data at Discharge: WBC 13.70 K/uL (4.3-10.9) H 03/04/21 04:30 Hgb 14.5 g/dL (13.6-17.9) 03/04/21 04:30 Hct 43.8 % (39.6-49.0) 03/04/21 04:30 Plt Count 222 K/uL (152-406) 03/04/21 04:30 PT 11.2 SECONDS (9.5-12.5) 03/03/21 02:45 INR 0.97 03/03/21 02:45 Sodium 136 mmol/L (136-145) 03/04/21 04:30 Potassium 3.8 mmol/L (3.5-5.1) 03/04/21 04:30 BUN 8 mg/dL (7-18) 03/04/21 04:30 Creatinine 0.78 mg/dL (0.55-1.3) 03/04/21 04:30 Glucose 162 mg/dL (74-106) H 03/04/21 04:30 Magnesium 1.9 mg/dL (1.8-2.4) 03/03/21 02:45 Total Bilirubin 0.5 mg/dL (0.2-1.0) 03/03/21 02:45 AST 39 U/L (15-37) H 03/03/21 02:45 ALT 43 U/L (12-78) 03/03/21 02:45 Alkaline Phosphatase 103 U/L (45-117) 03/03/21 02:45 Troponin I < 0.02 ng/mL (0.0-0.045) 03/03/21 16:42 Home Medications: Amlodipine Besylate 10 mg PO DAILY 06/19/15 Atorvastatin Calcium [Lipitor] 80 mg PO BEDTIME 06/19/15 Lisinopril 20 mg PO DAILY 06/19/15 Levetiracetam [Keppra] 1,000 mg PO BID 05/11/17 Aspirin [Aspirin EC 81 MG] 81 mg PO DAILY 04/30/20 Albuterol Inhaler [Ventolin Inhaler*] 2 puff IH Q6H PRN #1 hfa.aer.ad 05/02/20 Amox/Clavulanate [Augmentin 875-125 Tab] 1 each PO BID #14 tab 05/02/20 Fluticasone/Salmeterol [Advair 250-50 Diskus] 1 each IH BID #1 disk.w.dev 05/02/20 Ascorbic Acid [Vitamin C*] 500 mg PO BID 90 Days #180 tablet 03/04/21 Cholecalciferol (Vitamin D3) [Vitamin D 5,000 IU Cap*] 5,000 unit PO DAILY 90 Days #90 cap 03/04/21 Fluvoxamine Maleate [Fluvoxamine Maleate ER] 100 mg PO TID 7 Days #21 cap.er.24h 03/04/21 Prednisone [Sterapred Ds] 10 mg PO BID #21 tab.ds.pk 03/04/21 Zinc 50 mg PO 30 MIN BEFORE HS 30 Days #30 tablet 03/04/21 New Medications: Fluvoxamine Maleate [Fluvoxamine Maleate ER] 100 mg PO TID 7 Days #21 cap.er.24h Prednisone [Sterapred Ds] 10 mg PO BID #21 tab.ds.pk Ascorbic Acid [Vitamin C*] 500 mg PO BID 90 Days #180 tablet Cholecalciferol (Vitamin D3) [Vitamin D 5,000 IU Cap*] 5,000 unit PO DAILY 90 Days #90 cap Zinc 50 mg PO 30 MIN BEFORE HS 30 Days #30 tablet Diet: Regular Activity: Ad jalil Followup: NONE,NONE [Primary Care Provider] - Ty Salomon MD [ACTIVE - CAN ADMIT] - (Monday telehealth appointment) Physician Review: Patient Assessed, Agree with Above Assessment and Plan Time spent managing pt's care (in minutes): 30
[2021-03-04] MEDS ORDERED: AMLODIPINE 10 MG TAB PO SCH (09:00)
[2021-03-04] MEDS ORDERED: ASPIRIN EC 81 MG TAB PO SCH (09:00)
[2021-03-04] MEDS ORDERED: lisinopriL 20 MG TAB PO SCH (09:00)
[2021-03-04] MEDS ORDERED: FINASTERIDE 5 MG TAB PO SCH (09:00)
[2021-03-04 13:16] VITALS: O2SAT 92
== END 2021-03-04 12:43 | disposition home or self-care (01) | DRG 178 ==
LOC: ER 01:55 → ERHOLD 07:04 → 3RD-ICU 09:17
PROVIDERS: ADMIT Internal Medicine; ATTEND Internal Medicine
DX: U07.1 COVID-19 (principal); I69.351 Hemiplegia and hemiparesis following cerebral infarction affecting right dominant side; I10 Essential (primary) hypertension; E78.5 Hyperlipidemia, unspecified; R56.9 Unspecified convulsions
CPT/HCPCS: 0240U; 36415; 51702; 71045; 71275; 80048; 80076; 81003; 83605; 83735; 83880; 84145; 84484; 85025; 85610; 87040; 87070; 87081; 93005; 99285; J0456; J2920; J7030; J7040; J7050; Q9967

== ENCOUNTER 2021-03-14 21:27 | Emergency (ER) | payer OTHER ==
--- OUTSIDE RECORDS SUMMARY | 2021-03-14 21:32 | XMS REPORT | Continuity of Care Document ---
:1950 Author Organization [facility] t Address [address] [place] [address] [address]. [address] [place] [address] Care Team Providers Name Role Phone RANI Attending Clinician Unavailable Juan Manuel Rice Attending Clinician Millie ALFARO Attending Clinician Rani ALFARO Attending Clinician Tech, Cardio Fac Attending Clinician Unavailable 1, Cardio Fac Room Attending Clinician Unavailable 2, Cardio Fac Room Attending Clinician Unavailable Doctor Unassigned, Name Attending Clinician Unavailable Payers Payer Name Policy Type Policy Number Effective Date Expiration Date S jose MEDICARE PART A [id number] 2016 \T\ B 00:00:00 MEDICAID OF [place] [id number] 2016 00:00:00 Problems This patient has no known problems. Allergies, Adverse Reactions, Alerts Allergy Allergy Status Severity Reaction(s) Onset Inactive Treating Comm ents Source Name Type Date Date Clinician NO KNOWN Drug Active Univers ALLERGIE Class ity of S [facility] Social History Social Habit Start Date Stop Date Quantity Comments Source History of tobacco Cigarette Smoker University of use [facility] Sex Assigned At Universit y of [facility] Cigarettes smoked 2018-12-19 2018-12-19 Univers ity of current (pack per 00:00:00 00:00:00 [facility] ) - Reported Branch Alcohol intake 2018-12-19 2018-12-19 University of 00:00:00 00:00:00 [facility] Smoking Status Start Date Stop Date Source Current every day smoker 2018-12-19 00:00:00 Uni versity of [facility] Medications Ordered Filled Start Stop Current Ordering Indication Dosage Frequency Signature Comments Components Source Medication Medication Date Date Medication? Clinician (SIG) Name Name marck 2020- No [id number] 40mg Take 1 Univers n 40 mg 09-10 tablet by ity of tablet 00:00: 04:59 mouth at [place] 00 :00 bedtime Medical for 90 Branch days. contrast 2019- No Intravenou Un royal previously 01-11 s, ONCE, 1 it y of administere 17:15: 16:30 dose, Fri [place] d 0 mL 00 :00 01/11/19 at Medical 1215, Branch Routine iohexol 2019- No 100mL 100 mL, Unive rs (OMNIPAQUE 01-11 Intravenou it y of 350 17:15: 16:30 s, ONCE, 1 [place] BULK-100 00 :00 dose, Fri Medica l mL) 01/11/19 at [place] injection 1215, 100 mL Routine ezetimibe Yes 10mg Take 10 mg Un royal 10 mg 9-06 by mouth ity of tablet 15:56: daily. [address] albuterol Yes 2.5mg Inhale 2.5 U nivers 2.5 mg /3 9-06 mg every 8 ity of mL (0.083 15:56: (eight) [place] %) 28 hours as Medical nebulizer needed. [place] solution albuterol Yes 2{puff} Inhale 2 U nivers 90 9-06 Puffs ity of mcg/actuati 15:56: every 6 [place] as on inhaler 28 (six) Medical hours as Branch needed. montelukast Yes 10mg Take 10 mg Univers 10 mg 9-06 by mouth ity of tablet 15:56: daily. [address] ezetimibe 0 Yes 10mg Take 10 mg Un royal 10 mg 9-06 by mouth ity of tablet 15:56: daily. [address] albuterol 0 Yes 2.5mg Inhale 2.5 U nivers 2.5 mg /3 9-06 mg every 8 ity of mL (0.083 15:56: (eight) [place] %) 28 hours as Medical nebulizer needed. [place] solution albuterol Yes 2{puff} Inhale 2 U nivers 90 9-06 Puffs ity of mcg/actuati 15:56: every 6 [place] on inhaler 28 (six) Medical hours as Branch needed. montelukast Yes 10mg Take 10 mg Univers 10 mg 9-06 by mouth ity of tablet 15:56: daily. [address] ezetimibe Yes 10mg Take 10 mg Un royal 10 mg 9-06 by mouth ity of tablet 15:56: daily. [address] albuterol Yes 2.5mg Inhale 2.5 U nivers 2.5 mg /3 9-06 mg every 8 ity of mL (0.083 15:56: (eight) [place] %) 28 hours as Medical nebulizer needed. [place] solution albuterol Yes 2{puff} Inhale 2 U nivers 90 9-06 Puffs ity of mcg/actuati 15:56: every 6 [place] on inhaler 28 (six) Medical hours as Branch needed. montelukast Yes 10mg Take 10 mg Univers 10 mg 9-06 by mouth ity of tablet 15:56: daily. [address] ezetimibe Yes 10mg Take 10 mg Un royal 10 mg 9-06 by mouth ity of tablet 15:56: daily. [address] albuterol 0 Yes 2.5mg Inhale 2.5 U nivers 2.5 mg /3 9-06 mg every 8 ity of mL (0.083 15:56: (eight) [place] %) 28 hours as Medical nebulizer needed. [place] solution albuterol Yes 2{puff} Inhale 2 U nivers 90 9-06 Puffs ity of mcg/actuati 15:56: every 6 [place] as on inhaler 28 (six) Medical hours as Branch needed. montelukast 2018-0 Yes 10mg Take 10 mg Univers 10 mg 9-06 by mouth ity of tablet 15:56: daily. [address] ezetimibe 0 Yes 10mg Take 10 mg Un royal 10 mg 9-06 by mouth ity of tablet 15:56: daily. [address] albuterol 2019-0 Yes 2.5mg Inhale 2.5 U nivers 2.5 mg /3 9-06 mg every 8 ity of mL (0.083 15:56: (eight) [place] %) 28 hours as Medical nebulizer needed. [place] solution albuterol 2019-0 Yes 2{puff} Inhale 2 U nivers 90 9-06 Puffs ity of mcg/actuati 15:56: every 6 [place] on inhaler 28 (six) Medical hours as Branch needed. montelukast 2019-0 Yes 10mg Take 10 mg Univers 10 mg 9-06 by mouth ity of tablet 15:56: daily. [address] ezetimibe 2019-0 Yes 10mg Take 10 mg Un royal 10 mg 9-06 by mouth ity of tablet 15:56: daily. [address] albuterol 2019-0 Yes 2.5mg Inhale 2.5 U nivers 2.5 mg /3 9-06 mg every 8 ity of mL (0.083 15:56: (eight) [place] %) 28 hours as Medical nebulizer needed. [place] solution albuterol 2019-0 Yes 2{puff} Inhale 2 U nivers 90 9-06 Puffs ity of mcg/actuati 15:56: every 6 [place] on inhaler 28 (six) Medical hours as Branch needed. montelukast 2019-0 Yes 10mg Take 10 mg Univers 10 mg 9-06 by mouth ity of tablet 15:56: daily. [address] lisinopril 2019-0 Yes 20mg Take 20 mg U nivers 20 mg 9-06 by mouth ity of tablet 15:53: daily. [address] foLIC acid 2019-0 Yes 1mg Take 1 mg Un royal 1 mg tablet 9-06 by mouth ity of 15:53: daily. [address] levETIRAcet 2019-0 Yes 1000mg Take 1,000 Univers am (KEPPRA) 9-06 mg by ity of 1,000 mg 15:53: mouth 2 [place] tablet 50 (two) Medical times Branch daily. amLODIPine 2019-0 Yes 10mg Take 10 mg U nivers 10 mg 9-06 by mouth ity of tablet 15:53: daily. [address] lisinopril 2019-0 Yes 20mg Take 20 mg U nivers 20 mg 9-06 by mouth ity of tablet 15:53: daily. [address] foLIC acid 2019-0 Yes 1mg Take 1 mg Un royal 1 mg tablet 9-06 by mouth ity of 15:53: daily. [address] levETIRAcet 2019-0 Yes 1000mg Take 1,000 Univers am (KEPPRA) 9-06 mg by ity of 1,000 mg 15:53: mouth 2 [place] tablet 50 (two) Medical times [place] daily. amLODIPine 2019-0 Yes 10mg Take 10 mg U nivers 10 mg 9-06 by mouth ity of tablet 15:53: daily. [address] lisinopril 2019-0 Yes 20mg Take 20 mg U nivers 20 mg 9-06 by mouth ity of tablet 15:53: daily. [address] foLIC acid 2019-0 Yes 1mg Take 1 mg Un royal 1 mg tablet 9-06 by mouth ity of 15:53: daily. [address] levETIRAcet 2019-0 Yes 1000mg Take 1,000 Univers am (KEPPRA) 9-06 mg by ity of 1,000 mg 15:53: mouth 2 [place] tablet 50 (two) Medical times [place] daily. amLODIPine 2019-0 Yes 10mg Take 10 mg U nivers 10 mg 9-06 by mouth ity of tablet 15:53: daily. [address] lisinopril 2019-0 Yes 20mg Take 20 mg U nivers 20 mg 9-06 by mouth ity of tablet 15:53: daily. [address] foLIC acid 2019-0 Yes 1mg Take 1 mg Un royal 1 mg tablet 9-06 by mouth ity of 15:53: daily. [address] levETIRAcet 2019-0 Yes 1000mg Take 1,000 Univers am (KEPPRA) 9-06 mg by ity of 1,000 mg 15:53: mouth 2 [place] tablet 50 (two) Medical times [place] daily. amLODIPine 2019-0 Yes 10mg Take 10 mg U nivers 10 mg 9-06 by mouth ity of tablet 15:53: daily. [address] lisinopril 2019-0 Yes 20mg Take 20 mg U nivers 20 mg 9-06 by mouth ity of tablet 15:53: daily. [address] foLIC acid 2019-0 Yes 1mg Take 1 mg Un royal 1 mg tablet 9-06 by mouth ity of 15:53: daily. [address] levETIRAcet Yes 1000mg Take 1,000 Univers am (KEPPRA) 9-06 mg by ity of 1,000 mg 15:53: mouth 2 [place] tablet 50 (two) Medical times [place] daily. amLODIPine 20190 Yes 10mg Take 10 mg U nivers 10 mg 9-06 by mouth ity of tablet 15:53: daily. [address] lisinopril 0 Yes 20mg Take 20 mg U nivers 20 mg 9-06 by mouth ity of tablet 15:53: daily. [address] foLIC acid 0 Yes 1mg Take 1 mg Un royal 1 mg tablet 9-06 by mouth ity of 15:53: daily. [address] levETIRAcet Yes 1000mg Take 1,000 Univers am (KEPPRA) 9-06 mg by ity of 1,000 mg 15:53: mouth 2 [place] tablet 50 (two) Medical times [place] daily. amLODIPine Yes 10mg Take 10 mg U nivers 10 mg 9-06 by mouth ity of tablet 15:53: daily. [address] atorvastati Yes [id number] 40mg Take 1 Univers n 40 mg 9-06 07 tablet by ity of tablet 00:00: mouth at [place] [address] bedtime. [facility] Branch atorvastati Yes [id number] 40mg Take 1 Univers n 40 mg 9-06 07 tablet by ity of tablet 00:00: mouth at [place] [address] bedtime. [facility] Branch atorvastati Yes [id number] 40mg Take 1 Univers n 40 mg 9-06 07 tablet by ity of tablet 00:00: mouth at [place] [address] bedtime. [facility] Branch atorvastati Yes [id number] 40mg Take 1 Univers n 40 mg 9-06 07 tablet by ity of tablet 00:00: mouth at [place] [address] bedtime. [facility] Branch atorvastati Yes [id number] 40mg Take 1 Univers n 40 mg 9-06 07 tablet by ity of tablet 00:00: mouth at [place] [address] bedtime. [facility] Branch atorvastati Yes [id number] 40mg Take 1 Univers n 40 mg 01-04 07 tablet by ity of tablet 00:00: mouth at [place] 00 bedtime. Medical Branch sulfur 2019- No 5mL Univers hexafluorid 01-01 ity of e microsphr 22:30: 21:28 [place] (LUMASON) 00 :00 Medical injection 5 Branch mL sulfur 2019- No 5mL 5 mL, Univers hexafluorid 01-01 Intravenou i ty of e microsphr 22:30: 21:28 s, ONCE, 1 [place] (LUMASON) 00 :00 dose, Tue Medic al injection 5 01/01/19 at [facility] mL 1730, Routine montelukast Yes 10mg Take 10 mg Univers 10 mg 8-26 by mouth ity of tablet 14:36: daily. [address] montelukast Yes 10mg Take 10 mg Univers 10 mg 8-26 by mouth ity of tablet 14:36: daily. [address] montelukast Yes 10mg Take 10 mg Univers 10 mg 8-26 by mouth ity of tablet 14:36: daily. [address] montelukast Yes 10mg Take 10 mg Univers 10 mg 8-26 by mouth ity of tablet 14:36: daily. [address] montelukast Yes 10mg Take 10 mg Univers 10 mg 8-26 by mouth ity of tablet 14:36: daily. [address] albuterol Yes 2{puff} Inhale 2 U nivers 90 8-26 Puffs ity of mcg/actuati 14:36: every 6 [place] on inhaler 28 (six) Medical hours as Branch needed. albuterol Yes 2{puff} Inhale 2 U nivers 90 8-26 Puffs ity of mcg/actuati 14:36: every 6 [place] on inhaler 28 (six) Medical hours as Branch needed. albuterol Yes 2{puff} Inhale 2 U nivers 90 8-26 Puffs ity of mcg/actuati 14:36: every 6 [place] on inhaler 28 (six) Medical hours as Branch needed. albuterol Yes 2{puff} Inhale 2 U nivers 90 8-26 Puffs ity of mcg/actuati 14:36: every 6 [place] on inhaler 28 (six) Medical hours as Branch needed. albuterol 2019-0 Yes 2{puff} Inhale 2 U nivers 90 8-26 Puffs ity of mcg/actuati 14:36: every 6 [place] on inhaler 28 (six) Medical hours as Branch needed. albuterol 2019-0 Yes 2.5mg Inhale 2.5 U nivers 2.5 mg /3 8-26 mg every 8 ity of mL (0.083 14:35: (eight) [place] %) 59 hours as Medical nebulizer needed. Branch solution albuterol 2019-0 Yes 2.5mg Inhale 2.5 U nivers 2.5 mg /3 8-26 mg every 8 ity of mL (0.083 14:35: (eight) [place] %) 59 hours as Medical nebulizer needed. Branch solution albuterol 2018-0 Yes 2.5mg Inhale 2.5 U nivers 2.5 mg /3 8-26 mg every 8 ity of mL (0.083 14:35: (eight) [place] %) 59 hours as Medical nebulizer needed. Branch solution albuterol 2019-0 Yes 2.5mg Inhale 2.5 U nivers 2.5 mg /3 8-26 mg every 8 ity of mL (0.083 14:35: (eight) [place] %) 59 hours as Medical nebulizer needed. Branch solution albuterol 2019-0 Yes 2.5mg Inhale 2.5 U nivers 2.5 mg /3 8-26 mg every 8 ity of mL (0.083 14:35: (eight) [place] %) 59 hours as Medical nebulizer needed. Branch solution ezetimibe 2018-0 Yes 10mg Take 10 mg Un royal 10 mg 8-26 by mouth ity of tablet 14:34: daily. [address] ezetimibe 2019-0 Yes 10mg Take 10 mg Un royal 10 mg 8-26 by mouth ity of tablet 14:34: daily. [address] ezetimibe 2019-0 Yes 10mg Take 10 mg Un royal 10 mg 8-26 by mouth ity of tablet 14:34: daily. [address] ezetimibe 2019-0 Yes 10mg Take 10 mg Un royal 10 mg 8-26 by mouth ity of tablet 14:34: daily. [address] ezetimibe 2019-0 Yes 10mg Take 10 mg Un royal 10 mg 8-26 by mouth ity of tablet 14:34: daily. [address] foLIC acid 2018-0 Yes 1mg Take 1 mg Un royal 1 mg tablet 8-21 by mouth ity of 14:22: daily. [address] levETIRAcet 2018-0 Yes 1000mg Take 1,000 Univers am (KEPPRA) 8-21 mg by ity of 1,000 mg 14:22: mouth 2 [place] tablet 48 (two) Medical times [place] daily. amLODIPine 2018-0 Yes 10mg Take 10 mg U nivers 10 mg 8-21 by mouth ity of tablet 14:22: daily. [address] foLIC acid 0 Yes 1mg Take 1 mg Un royal 1 mg tablet 8-21 by mouth ity of 14:22: daily. [address] levETIRAcet 0 Yes 1000mg Take 1,000 Univers am (KEPPRA) 8-21 mg by ity of 1,000 mg 14:22: mouth 2 [place] tablet 48 (two) Medical times [place] daily. amLODIPine 2018-0 Yes 10mg Take 10 mg U nivers 10 mg 8-21 by mouth ity of tablet 14:22: daily. [address] foLIC acid 2018-0 Yes 1mg Take 1 mg Un royal 1 mg tablet 8-21 by mouth ity of 14:22: daily. [address] levETIRAcet 0 Yes 1000mg Take 1,000 Univers am (KEPPRA) 8-21 mg by ity of 1,000 mg 14:22: mouth 2 [place] tablet 48 (two) Medical times [place] daily. amLODIPine 2019-0 Yes 10mg Take 10 mg U nivers 10 mg 8-21 by mouth ity of tablet 14:22: daily. [address] foLIC acid 2019-0 Yes 1mg Take 1 mg Un royal 1 mg tablet 8-21 by mouth ity of 14:22: daily. [address] levETIRAcet 2018-0 Yes 1000mg Take 1,000 Univers am (KEPPRA) 8-21 mg by ity of 1,000 mg 14:22: mouth 2 [place] tablet 48 (two) Medical times [place] daily. amLODIPine 2019-0 Yes 10mg Take 10 mg U nivers 10 mg 8-21 by mouth ity of tablet 14:22: daily. [address] foLIC acid 2019-0 Yes 1mg Take 1 mg Un royal 1 mg tablet 8-21 by mouth ity of 14:22: daily. [address] levETIRAcet 2019-0 Yes 1000mg Take 1,000 Univers am (KEPPRA) 8-21 mg by ity of 1,000 mg 14:22: mouth 2 [place] tablet 48 (two) Medical times [place] daily. amLODIPine 2019-0 Yes 10mg Take 10 mg U nivers 10 mg 8-21 by mouth ity of tablet 14:22: daily. [address] foLIC acid 2019-0 Yes 1mg Take 1 mg Un royal 1 mg tablet 8-21 by mouth ity of 14:22: daily. [address] levETIRAcet 2019-0 Yes 1000mg Take 1,000 Univers am (KEPPRA) 8-21 mg by ity of 1,000 mg 14:22: mouth 2 [place] tablet 48 (two) Medical times [place] daily. amLODIPine 2019-0 Yes 10mg Take 10 mg U nivers 10 mg 8-21 by mouth ity of tablet 14:22: daily. [address] foLIC acid 2019-0 Yes 1mg Take 1 mg Un royal 1 mg tablet 8-21 by mouth ity of 14:22: daily. [address] levETIRAcet 2019-0 Yes 1000mg Take 1,000 Univers am (KEPPRA) 8-21 mg by ity of 1,000 mg 14:22: mouth 2 [place] tablet 48 (two) Medical times [place] daily. amLODIPine 2019-0 Yes 10mg Take 10 mg U nivers 10 mg 8-21 by mouth ity of tablet 14:22: daily. [address] foLIC acid 2019-0 Yes 1mg Take 1 mg Un royal 1 mg tablet 8-21 by mouth ity of 14:22: daily. [address] levETIRAcet 2019-0 Yes 1000mg Take 1,000 Univers am (KEPPRA) 8-21 mg by ity of 1,000 mg 14:22: mouth 2 [place] tablet 48 (two) Medical times Branch daily. amLODIPine 2019-0 Yes 10mg Take 10 mg U nivers 10 mg 8-21 by mouth ity of tablet 14:22: daily. [address] Branch foLIC acid 2019-0 Yes 1mg Take 1 mg Un royal 1 mg tablet 8-21 by mouth ity of 14:22: daily. [address] Branch levETIRAcet 2019-0 Yes 1000mg Take 1,000 Univers am (KEPPRA) 8-21 mg by ity of 1,000 mg 14:22: mouth 2 [place] tablet 48 (two) Medical times Branch daily. amLODIPine 2019-0 Yes 10mg Take 10 mg U nivers 10 mg 8-21 by mouth ity of tablet 14:22: daily. [address] foLIC acid 2019-0 Yes 1mg Take 1 mg Un royal 1 mg tablet 8-21 by mouth ity of 14:22: daily. [address] levETIRAcet 2019-0 Yes 1000mg Take 1,000 Univers am (KEPPRA) 8-21 mg by ity of 1,000 mg 14:22: mouth 2 [place] tablet 48 (two) Medical times [place] daily. amLODIPine 2019-0 Yes 10mg Take 10 mg U nivers 10 mg 8-21 by mouth ity of tablet 14:22: daily. [address] lisinopril 2019-0 Yes 20mg Take 20 mg U nivers 20 mg 8-21 by mouth ity of tablet 14:22: daily. [address] lisinopril 2019-0 Yes 20mg Take 20 mg U nivers 20 mg 8-21 by mouth ity of tablet 14:22: daily. [address] lisinopril 2019-0 Yes 20mg Take 20 mg U nivers 20 mg 8-21 by mouth ity of tablet 14:22: daily. [address] lisinopril 2019-0 Yes 20mg Take 20 mg U nivers 20 mg 8-21 by mouth ity of tablet 14:22: daily. [address] lisinopril 2019-0 Yes 20mg Take 20 mg U nivers 20 mg 8-21 by mouth ity of tablet 14:22: daily. [address] lisinopril 2019-0 Yes 20mg Take 20 mg U nivers 20 mg 8-21 by mouth ity of tablet 14:22: daily. [address] lisinopril Yes 20mg Take 20 mg U nivers 20 mg 8-21 by mouth ity of tablet 14:22: daily. [address] lisinopril 2019 Yes 20mg Take 20 mg U nivers 20 mg 8-21 by mouth ity of tablet 14:22: daily. [address] lisinopril Yes 20mg Take 20 mg U nivers 20 mg 8-21 by mouth ity of tablet 14:22: daily. [address] lisinopril Yes 20mg Take 20 mg U nivers 20 mg 8-21 by mouth ity of tablet 14:22: daily. [address] atorvastati 2017-05 Yes 80mg Take 1 Univ ers n 80 mg 2-06 tablet by ity of tablet 00:00: mouth at [place] 00 bedtime. Medical onstatin Branch per recent notes. Updated chart with new order atorvastati 2017-05 Yes 80mg Take 1 Univ ers n 80 mg 2-06 tablet by ity of tablet 00:00: mouth at [place] [address] bedtime. Medical onstatin Branch per recent notes. Updated chart with new order atorvastati 2017-05 Yes 80mg Take 1 Univ ers n 80 mg 2-06 tablet by ity of tablet 00:00: mouth at [place] 00 bedtime. Medical onstatin Branch per recent notes. Updated chart with new order atorvastati 2017-05 Yes 80mg Take 1 Univ ers n 80 mg 2-06 tablet by ity of tablet 00:00: mouth at [place] 00 bedtime. Medical onstatin Branch per recent notes. Updated chart with new order atorvastati 2017-05 Yes 80mg Take 1 Univ ers n 80 mg 2-06 tablet by ity of tablet 00:00: mouth at [place] 00 bedtime. Medical onstatin Branch per recent notes. Updated chart with new order atorvastati 2017-05 Yes 80mg Take 1 Univ ers n 80 mg 2-06 tablet by ity of tablet 00:00: mouth at [place] 00 bedtime. Medical onstatin Branch per recent notes. Updated chart with new order atorvastati 2017-05 Yes 80mg Take 1 Univ ers n 80 mg 2-06 tablet by ity of tablet 00:00: mouth at [place] [address] bedtime. Medical onstatin Branch per recent notes. Updated chart with new order atorvastati 2017-05 Yes 80mg Take 1 Univ ers n 80 mg 2-06 tablet by ity of tablet 00:00: mouth at [place] 00 bedtime. Medical onstatin Branch per recent notes. Updated chart with new order atorvastati 2017-05 Yes 80mg Take 1 Univ ers n 80 mg 2-06 tablet by ity of tablet 00:00: mouth at [place] 00 bedtime. Medical onstatin Branch per recent notes. Updated chart with new order atorvastati 2017-05 Yes 80mg Take 1 Univ ers n 80 mg 2-06 tablet by ity of tablet 00:00: mouth at [place] 00 bedtime. Medical onstatin Branch per recent notes. Updated chart with new order atorvastati 2017-05 Yes 80mg Take 1 Univ ers n 80 mg 2-06 tablet by ity of tablet 00:00: mouth at [place] 00 bedtime. Medical onstatin Branch per recent notes. Updated chart with new order atorvastati 2017-05 Yes 80mg Take 1 Univ ers n 80 mg 2-06 tablet by ity of tablet 00:00: mouth at [place] 00 bedtime. Medical onstatin Branch per recent notes. Updated chart with new order atorvastati 2017-05 Yes 80mg Take 1 Univ ers n 80 mg 2-06 tablet by ity of tablet 00:00: mouth at [place] 00 bedtime. Medical onstatin Branch per recent notes. Updated chart with new order atorvastati 2017-05 Yes 80mg Take 1 Univ ers n 80 mg 2-06 tablet by ity of tablet 00:00: mouth at [place] 00 bedtime. Medical onstatin Branch per recent notes. Updated chart with new order atorvastati 2017-05 Yes 80mg Take 1 Univ ers n 80 mg 2-06 tablet by ity of tablet 00:00: mouth at [place] 00 bedtime. Medical onstatin Branch per recent notes. Updated chart with new order atorvastati 2017-05 Yes 80mg Take 1 Univ ers n 80 mg 2-06 tablet by ity of tablet 00:00: mouth at [place] 00 bedtime. Medical onstatin Branch per recent notes. Updated chart with new order atorvastati 2017-05 Yes 80mg Take 1 Univ ers n 80 mg 2-06 tablet by ity of tablet 00:00: mouth at [place] 00 bedtime. Medical onstatin Branch per recent notes. Updated chart with new order amLODIPine 2018-0 Yes 10mg Take 10 mg U nivers 10 mg 8-21 by mouth ity of tablet 14:41: daily. [place] [address] Medical Branch lisinopril 2018-0 Yes 20mg Take 20 mg U nivers 20 mg 8-21 by mouth ity of tablet 14:41: daily. [place] [address] Medical Branch foLIC acid 2018-0 Yes 1mg Take 1 mg Un royal 1 mg tablet 8-21 by mouth ity of 14:41: daily. [place] [address] Medical Branch levETIRAcet 2018-0 Yes 1000mg Take 1,000 Univers am (KEPPRA) 8-21 mg by ity of 1,000 mg 14:41: mouth 2 [place] tablet 35 (two) Medical times Branch daily. aspirin 81 2018-0 Yes 81mg Take 1 Unive rs mg EC 8-21 tablet by ity of tablet 00:00: mouth [place] 00 daily. Medical Branch aspirin 81 2018-0 Yes 81mg Take 1 Unive rs mg EC 8-21 tablet by ity of tablet 00:00: mouth [place] 00 daily. Medical Branch aspirin 81 2018-0 Yes 81mg Take 1 Unive rs mg EC 8-21 tablet by ity of tablet 00:00: mouth [place] 00 daily. Medical Branch aspirin 81 2018-0 Yes 81mg Take 1 Unive rs mg EC 8-21 tablet by ity of tablet 00:00: mouth [place] 00 daily. Medical Branch aspirin 81 2018-0 Yes 81mg Take 1 Unive rs mg EC 8-21 tablet by ity of tablet 00:00: mouth [place] 00 daily. Medical Branch aspirin 81 2018-0 Yes 81mg Take 1 Unive rs mg EC 8-21 tablet by ity of tablet 00:00: mouth [place] 00 daily. Medical Branch aspirin 81 2018-0 Yes 81mg Take 1 Unive rs mg EC 8-21 tablet by ity of tablet 00:00: mouth [place] 00 daily. Medical Branch aspirin 81 2018-0 Yes 81mg Take 1 Unive rs mg EC 8-21 tablet by ity of tablet 00:00: mouth [place] 00 daily. Medical Branch aspirin 81 2018-0 Yes 81mg Take 1 Unive rs mg EC 8-21 tablet by ity of tablet 00:00: mouth [place] 00 daily. Medical Branch aspirin 81 2018-0 Yes 81mg Take 1 Unive rs mg EC 8-21 tablet by ity of tablet 00:00: mouth [place] 00 daily. Medical Branch aspirin 81 2018-0 Yes 81mg Take 1 Unive rs mg EC 8-21 tablet by ity of tablet 00:00: mouth [place] 00 daily. Medical Branch aspirin 81 2018-0 Yes 81mg Take 1 Unive rs mg EC 8-21 tablet by ity of tablet 00:00: mouth [place] 00 daily. Medical Branch aspirin 81 2018-0 Yes 81mg Take 1 Unive rs mg EC 8-21 tablet by ity of tablet 00:00: mouth [place] 00 daily. Medical Branch aspirin 81 2018-0 Yes 81mg Take 1 Unive rs mg EC 8-21 tablet by ity of tablet 00:00: mouth [place] 00 daily. Medical Branch aspirin 81 2018-0 Yes 81mg Take 1 Unive rs mg EC 8-21 tablet by ity of tablet 00:00: mouth [place] 00 daily. Medical Branch aspirin 81 2018-0 Yes 81mg Take 1 Unive rs mg EC 8-21 tablet by ity of tablet 00:00: mouth [place] 00 daily. Medical Branch aspirin 81 2018-0 Yes 81mg Take 1 Unive rs mg EC 8-21 tablet by ity of tablet 00:00: mouth [place] 00 daily. Medical Branch Vital Signs Vital Name Observation Time Observation Value Comments Source Systolic blood 2019-01-04 15:52:00 133 mm[Hg] Univer sity of [facility] Diastolic blood 2019-01-04 15:52:00 67 mm[Hg] Unive rsity [facility] [place] [facility] Heart rate 2019-01-04 15:52:00 75 /min [facility] Body temperature 2019-01-04 15:52:00 36.78 [facility] 2019-01-04 15:52:00 20 /min [facility] Body weight 2019-01-04 15:52:00 84.732 kg [facility] BMI 2019-01-04 15:52:00 29.26 kg/m2 [facility] Systolic blood 2019-01-04 15:52:00 133 mm[Hg] [facility]iver [facility]ity [facility] [place] Diastolic blood 2019-01-04 15:52:00 67 mm[Hg] [facility] Heart rate 2019-01-04 15:52:00 75 /min [facility] Body temperature 2019-01-04 15:52:00 36.78 Janett [facility] Respiratory rate 2019-01-04 15:52:00 20 /min [facility] Body weight 2019-01-04 15:52:00 84.732 kg [facility] BMI 2019-01-04 15:52:00 29.26 kg/m2 [facility] Systolic blood 2018-12-19 14:21:00 111 mm[Hg] [facility] Diastolic blood 2018-12-19 14:21:00 62 mm[Hg] [facility] Heart rate 2018-12-19 14:21:00 68 /min [facility] Respiratory rate 2018-12-19 14:21:00 18 /min Univ [facility] Body height 2018-12-19 14:21:00 170.2 cm [facility] Body weight 2018-12-19 14:21:00 85.684 kg [facility] BMI 2018-12-19 14:21:00 29.59 kg/m2 [facility] Oxygen saturation in 2018-12-19 14:21:00 97 /min [facility] Arterial blood by [facility] Pulse oximetry Branch Systolic blood 2019-01-01 20:52:00 141 mm[Hg] [facility] Diastolic blood 2019-01-01 20:52:00 71 mm[Hg] [facility] Heart rate 2019-01-01 20:52:00 87 /min [facility] Body height 2019-01-01 20:52:00 170.2 cm [facility] Body weight 2019-01-01 20:52:00 85.276 kg [facility] BMI 2019-01-01 20:52:00 29.44 kg/m2 [facility] Procedures Procedure Date / Time Performed Performing Clinician Britta campos CT ANGIOGRAM NECK 2019-01-11 17:12:41 Adolph Huitron [facility] CT ANGIOGRAM HEAD 2019-01-11 17:10:04 Adolph Huitron [facility] NOTICE OF BILLING 2019-01-11 15:34:57 Doctor Unassigned, No [facility] PRACTICES FOR MEDICARE Name Medical B ranch PATIENTS [facility] PATIENT FINANCIAL 2019-01-11 15:34:09 Doctor Unassigned, No [facility] POLICY Name Medical Branch POCT CREATININE 2019-01-11 15:10:00 Iliana Pinto [facility] EKG-12 LEAD 2018-12-19 14:29:02 Sudhir Downs [facility] ASSIGNMENT OF BENEFITS 2018-12-19 14:07:02 Doctor Unassigned, No [facility] Encounters Start End Encounter Admission Attending Care Care Encounter Source Date/Time Date/Time Type Type Clinicians Facility Department ID 2020-01-22 2020-01-22 Outpatient R RANI, [facility] [id number] Univers 15:20:00 15:20:00 SUDHIR [id number] [facility] 2020-01-22 2020-01-22 Outpatient R RANI, [facility] [id number] Univers 15:20:00 15:20:00 [facility] 2019-12-23 2019-12-23 Outpatient R RANI, [facility] [id number] Univers 09:40:00 09:40:00 SUDHIR [id number] [facility] 2019-12-23 2019-12-23 Outpatient R RANI, [facility] [id number] Univers 09:40:00 09:40:00 [facility] 2019-09-11 2019-09-11 Telephone James, [facility]ERS[facility] [id number] 00:00:00 00:00:00 [facility] [id number] [facility] [id number] 2019-09-11 2019-09-11 Telephone James, UNIVERSIT [id number] Univers 00:00:00 00:00:00 [facility] [id number] [id number] [id number] [address] 2019-01-11 2019-01-11 [facility] [id number] 10:33:32 23:59:00 Encounter Iliana Rodriguezton [id number] [place] [id number] [place] [id number] [facility] 2019-01-11 2019-01-11 [facility] [id number] [facility] 10:33:32 23:59:00 Encounter Iliana Catherine [id number] [id number] [phone] [address] 2019-01-11 2019-01-11 [facility] [id number] 10:20:00 10:32:00 Encounter Iliana Rodriguezton [id number] [place] [id number] [place] [address] [id number] [facility] 2019-01-11 2019-01-11 [facility] [id number] [facility] 10:20:00 10:32:00 Encounter Iilana Rodriguezton [id number] [id number] [phone] [address] 2019-01-04 2019-01-04 [facility] [id number] 10:21:42 18:59:26 Visit Iliana Catherine [id number] [place] 4.2.7.2.686 Professio [id number] [address] 2019-01-04 2019-01-04 [facility] [id number] [facility] 10:21:42 18:59:26 Visit Iliana Alexander [id number] [id number] [phone] [place] [address] 2018-12-19 2019-01-03 Office [facility] [id number] Univers 09:07:06 15:22:45 Visit Sudhir Alexander [id number] [id number] [phone] [place] [id number] [facility] 2019-01-03 2019-01-03 Telephone [facility] [id number] [facility] 00:00:00 00:00:00 Sudhir Alexander [id number] ity of [place] [phone] [address] 2019-01-01 2019-01-01 [employer] Hel[employer], Adc Cardio Fac [facility] 1. [id number] [facility] 14:30:23 16:38:50 Only 1, [facility] Cardio Fac Room [place] 350.1. 13.10 ity of Sudhir Downs 4.2.7.2.686 [place] Professio [phone] [address] 2019-01-01 2019-01-01 [employer] Tech, Adc Cardio Fac [facility] 1. [id number] [facility] 14:29:39 15:29:39 Visit 2, [facility] Cardio Fac Room [place] 350.1. 13.10 ity of Sudhir Downs 4.2.7.2.686 [place] Professio [phone] [address] 2018-12-24 2018-12-24 Telephone [facility] [id number] [facility] 00:00:00 00:00:00 Sudhir Alexander 350.1.13.10 ity [place] [phone] [address] 2018-12-19 2018-12-19 Orders Doctor DELTA [id number] Univers 00:00:00 00:00:00 Only Unassigned, DONITA 350.1.13.10 ity of [facility] 4.2.7.2.686 [place] [phone] [place] [address] Branch Results Test Test Test Results Result Source Description Time Comments Comments CT ANGIOGRAM 2019-09 Nonvisualization of the left University of NECK -13 internal carotid artery from [facility] 19:52:1 its cervicalorigin/carotid Branch 1 bifurcation up to its terminal intracranial segment. This issuggestive of occlusion due to atherosclerotic disease. Diffuse attenuation of the left MCA is noted. A large, chronic left MCAterritory infarct is also identified. Moderate to severe atherosclerotic disease in the right carotid bifurcationwith stenosis that is slightly greater than 50%. This is concerning forflow limitation. Distal to this the right ICA remains opacified. Moderate atherosclerotic the vertebral artery origins bilaterally, leftgreater than right. Dense calcification limits evaluation of the underlyinglumen. The stenosis is borderline and felt to be close to 50%. No other significant stenosis is seen in the head and neck vessels.? I, Violet Yang MD., have reviewed this study and agree with the abovereport.CT ANGIOGRAM NECK, CT ANGIOGRAM HEAD HISTORY: Male 68 years hx of right carotid artery stenosis, left carotidartery occlusion COMPARISON: None TECHNIQUE: CT angiographic is of the head and neck were obtained afteradministration of IV contrast. FINDINGS: CTA NECK: A three-vessel aortic arch is seen. Bjwe-sc-htszxftw atheroscleroticdisease is noted in the arch. The vessels originating from the arch arepatent. Mild scattered atherosclerotic disease is noted in the common carotidarteries bilaterally, left greater than right. No flow-limiting stenosis isidentified. Prou-sh-ciiampko atherosclerotic disease is seen in the left subclavianartery without flow-limiting stenosis. Moderate to severe atherosclerotic disease is seen in the right carotidbifurcation and proximal ICA. The atherosclerotic disease is probablycalcified. The stenosis is slightly greater than 50% and borderline forflow limitation. Severe atherosclerotic disease is seen in the left carotid bifurcation andproximal ICA with nonopacification of the left ICA throughout itsvisualized cervical course. The vertebral arteries originate from the subclavian arteries bilaterally.Moderate atherosclerotic disease is seen at the vertebral artery originsbilaterally, left greater than right the stenosis is close to 50% andborderline for flow limitation. Dense atherosclerotic calcifications,especially of the left vertebral artery origin limits evaluation of theunderlying lumen. Distal to this, the vessels remain opacified withoutother foci of stenosis. Mild scattered atherosclerotic calcifications arenoted in the left cervical ICA. CTA HEAD: The left internal carotid artery remains nonopacified majority of itsintracranial course with mild reconstitution in its terminal segment. Theleft MCA is diffusely attenuated with a small left A1. The remaining CHIDI and MCA branches are unremarkable. Mild atheroscleroticdisease is seen in the right intracranial ICA without flow-limitingstenosis. A small left P-comm is seen. No sizable right P-comm is identified. Thebasilar and posterior cerebral vertebral arteries are unremarkable. ThePICA origins are seen. Large chronic infarction identified in the left MCA territory involving theleft frontal, parietal and temporal lobes. [facility], Radiant Results Inft User - 01/11/2019 2:52 PM CDTCT ANGIOGRAM NECK, CT ANGIOGRAM HEADHISTORY: Male 68 years hx of right carotid artery stenosis, left carotidartery occlusion COMPARISON: NoneTECHNIQUE: CT angiographic is of the head and neck were obtained afteradministration of IV contrast.FINDINGS:CTA NECK: A three-vessel aortic arch is seen. Coyq-ia-rmwguqwc atheroscleroticdisease is noted in the arch. The vessels originating from the arch arepatent.Mild scattered atherosclerotic disease is noted in the common carotidarteries bilaterally, left greater than right. No flow-limiting stenosis isidentified.Sxcc-kx-mucehnzf atherosclerotic disease is seen in the left subclavianartery without flow-limiting stenosis.Moderate to severe atherosclerotic disease is seen in the right carotidbifurcation and proximal ICA. The atherosclerotic disease is probablycalcified. The stenosis is slightly greater than 50% and borderline forflow limitation.Severe atherosclerotic disease is seen in the left carotid bifurcation andproximal ICA with nonopacification of the left ICA throughout itsvisualized cervical course.The vertebral arteries originate from the subclavian arteries bilaterally.Moderate atherosclerotic disease is seen at the vertebral artery originsbilaterally, left greater than right the stenosis is close to 50% andborderline for flow limitation. Dense atherosclerotic calcifications,especially of the left vertebral artery origin limits evaluation of theunderlying lumen. Distal to this, the vessels remain opacified withoutother foci of stenosis. Mild scattered atherosclerotic calcifications arenoted in the left cervical ICA.CTA HEAD:The left internal carotid artery remains nonopacified majority of itsintracranial course with mild reconstitution in its terminal segment. Theleft MCA is diffusely attenuated with a small left A1. The remaining CHIDI and MCA branches are unremarkable. Mild atheroscleroticdisease is seen in the right intracranial ICA without flow-limitingstenosis.A small left P-comm is seen. No sizable right P-comm is identified. Thebasilar and posterior cerebral vertebral arteries are unremarkable. ThePICA origins are seen. Large chronic infarction identified in the left MCA territory involving theleft frontal, parietal and temporal lobes. IMPRESSIONNonvisualization of the left internal carotid artery from its cervicalorigin/carotid bifurcation up to its terminal intracranial segment. This issuggestive of occlusion due to atherosclerotic disease.Diffuse attenuation of the left MCA is noted. A large, chronic left MCAterritory infarct is also identified.Moderate to severe atherosclerotic disease in the right carotid bifurcationwith stenosis that is slightly greater than 50%. This is concerning forflow limitation. Distal to this the right ICA remains opacified. Moderate atherosclerotic the vertebral artery origins bilaterally, leftgreater than right. Dense calcification limits evaluation of the underlyinglumen. The stenosis is borderline and felt to be close to 50%. No other significant stenosis is seen in the head and neck vessels. IViolet MD., have reviewed this study and agree with the abovereport. CT ANGIOGRAM 2018-12 Nonvisualization of the left University of HEAD -13 internal carotid artery from [facility] 19:52:1 its cervicalorigin/carotid Branch 1 bifurcation up to its terminal intracranial segment. This issuggestive of occlusion due to atherosclerotic disease. Diffuse attenuation of the left MCA is noted. A large, chronic left MCAterritory infarct is also identified. Moderate to severe atherosclerotic disease in the right carotid bifurcationwith stenosis that is slightly greater than 50%. This is concerning forflow limitation. Distal to this the right ICA remains opacified. Moderate atherosclerotic the vertebral artery origins bilaterally, leftgreater than right. Dense calcification limits evaluation of the underlyinglumen. The stenosis is borderline and felt to be close to 50%. No other significant stenosis is seen in the head and neck vessels.? Violet Hughes MD., have reviewed this study and agree with the abovereport.CT ANGIOGRAM NECK, CT ANGIOGRAM HEAD HISTORY: Male 68 years hx of right carotid artery stenosis, left carotidartery occlusion COMPARISON: None TECHNIQUE: CT angiographic is of the head and neck were obtained afteradministration of IV contrast. FINDINGS: CTA NECK: A three-vessel aortic arch is seen. Ahir-yo-zpnocwml atheroscleroticdisease is noted in the arch. The vessels originating from the arch arepatent. Mild scattered atherosclerotic disease is noted in the common carotidarteries bilaterally, left greater than right. No flow-limiting stenosis isidentified. Wkbh-oo-wbhczftx atherosclerotic disease is seen in the left subclavianartery without flow-limiting stenosis. Moderate to severe atherosclerotic disease is seen in the right carotidbifurcation and proximal ICA. The atherosclerotic disease is probablycalcified. The stenosis is slightly greater than 50% and borderline forflow limitation. Severe atherosclerotic disease is seen in the left carotid bifurcation andproximal ICA with nonopacification of the left ICA throughout itsvisualized cervical course. The vertebral arteries originate from the subclavian arteries bilaterally.Moderate atherosclerotic disease is seen at the vertebral artery originsbilaterally, left greater than right the stenosis is close to 50% andborderline for flow limitation. Dense atherosclerotic calcifications,especially of the left vertebral artery origin limits evaluation of theunderlying lumen. Distal to this, the vessels remain opacified withoutother foci of stenosis. Mild scattered atherosclerotic calcifications arenoted in the left cervical ICA. CTA HEAD: The left internal carotid artery remains nonopacified majority of itsintracranial course with mild reconstitution in its terminal segment. Theleft MCA is diffusely attenuated with a small left A1. The remaining CHIDI and MCA branches are unremarkable. Mild atheroscleroticdisease is seen in the right intracranial ICA without flow-limitingstenosis. A small left P-comm is seen. No sizable right P-comm is identified. Thebasilar and posterior cerebral vertebral arteries are unremarkable. ThePICA origins are seen. Large chronic infarction identified in the left MCA territory involving theleft frontal, parietal and temporal lobes. [facility], Radiant Results Inft User - 01/11/2019 2:52 PM CDTCT ANGIOGRAM NECK, CT ANGIOGRAM HEADHISTORY: Male 68 years hx of right carotid artery stenosis, left carotidartery occlusion COMPARISON: NoneTECHNIQUE: CT angiographic is of the head and neck were obtained afteradministration of IV contrast.FINDINGS:CTA NECK: A three-vessel aortic arch is seen. Rvyh-tp-vnjhxilj atheroscleroticdisease is noted in the arch. The vessels originating from the arch arepatent.Mild scattered atherosclerotic disease is noted in the common carotidarteries bilaterally, left greater than right. No flow-limiting stenosis isidentified.Locj-hw-tzmtikii atherosclerotic disease is seen in the left subclavianartery without flow-limiting stenosis.Moderate to severe atherosclerotic disease is seen in the right carotidbifurcation and proximal ICA. The atherosclerotic disease is probablycalcified. The stenosis is slightly greater than 50% and borderline forflow limitation.Severe atherosclerotic disease is seen in the left carotid bifurcation andproximal ICA with nonopacification of the left ICA throughout itsvisualized cervical course.The vertebral arteries originate from the subclavian arteries bilaterally.Moderate atherosclerotic disease is seen at the vertebral artery originsbilaterally, left greater than right the stenosis is close to 50% andborderline for flow limitation. Dense atherosclerotic calcifications,especially of the left vertebral artery origin limits evaluation of theunderlying lumen. Distal to this, the vessels remain opacified withoutother foci of stenosis. Mild scattered atherosclerotic calcifications arenoted in the left cervical ICA.CTA HEAD:The left internal carotid artery remains nonopacified majority of itsintracranial course with mild reconstitution in its terminal segment. Theleft MCA is diffusely attenuated with a small left A1. The remaining CHIDI and MCA branches are unremarkable. Mild atheroscleroticdisease is seen in the right intracranial ICA without flow-limitingstenosis.A small left P-comm is seen. No sizable right P-comm is identified. Thebasilar and posterior cerebral vertebral arteries are unremarkable. ThePICA origins are seen. Large chronic infarction identified in the left MCA territory involving theleft frontal, parietal and temporal lobes. IMPRESSIONNonvisualization of the left internal carotid artery from its cervicalorigin/carotid bifurcation up to its terminal intracranial segment. This issuggestive of occlusion due to atherosclerotic disease.Diffuse attenuation of the left MCA is noted. A large, chronic left MCAterritory infarct is also identified.Moderate to severe atherosclerotic disease in the right carotid bifurcationwith stenosis that is slightly greater than 50%. This is concerning forflow limitation. Distal to this the right ICA remains opacified. Moderate atherosclerotic the vertebral artery origins bilaterally, leftgreater than right. Dense calcification limits evaluation of the underlyinglumen. The stenosis is borderline and felt to be close to 50%. No other significant stenosis is seen in the head and neck vessels. IViolet MD., have reviewed this study and agree with the abovereport. POCT CREATININE 2019-01-11 19:18:00 Test Item Value Reference Range Interpretation Comme nts POCT Creatinine (test code = [id number]) 0.8 mg/dL 0.6-1.3 Lab Interpretation (test code = 39533-6) Normal [facility]
--- NOTE | 2021-03-14 22:00 | RAD REPORT ---
EXAM DESCRIPTION: CT - Head Brain Wo Cont - 03/14/2021 9:49 pm CLINICAL HISTORY: CONFUSED COMPARISON: Head angio dated 10/17/2015; Ct Stroke Brain Wo Cont dated 10/16/2015 TECHNIQUE: All CT scans are performed using dose optimization technique as appropriate and may inclu de automated exposure control or mA/KV adjustment according to patient size. FINDINGS: No intracranial hemorrhage, hydrocephalus or extra-axial fluid collection.No areas of brai n edema or evidence of midline shift. Limited by motion. Sequela of remote large left MCA territory i nfarct. Cerebral atrophy. The paranasal sinuses and mastoids are clear. The calvarium is intact. IMPRESSION: Mild limitation due to motion. Re- demonstrated remote large left MCA territory infarct. No acute intracranial abnormality is identified.
[2021-03-14] MEDS ORDERED: LEVETIRACETAM 500 MG/5 ML VIAL IV ONE (22:11)
[2021-03-14 22:23] LABS: Absolute Lymphocytes (CBC) 2.4 K/uL (0.7-4.9); Basophils % 0.5 % (0-1.3); Hematocrit 43.5 % (39.6-49.0); Lymphocytes % 31.1 % (15.3-44.8); RBC Red Blood Cell Count 4.49 M/uL (4.33-5.43)
[2021-03-14 22:25] LABS: Protime INR 0.94
[2021-03-14 22:46] LABS: ALT/SGPT 79 U/L (12-78); AST/SGOT 53 U/L (15-37); Albumin 3.3 g/dL (3.4-5.0); Alkaline Phosphatase 89 U/L (45-117); BUN Blood Urea Nitrogen 9 mg/dL (7-18); Bicarbonate 21 mmol/L (21-32); Bilirubin Direct 0.1 mg/dL (0-0.2); Bilirubin Total 0.3 mg/dL (0.2-1.0); Glucose Level 100 mg/dL (74-106); Potassium 3.8 mmol/L (3.5-5.1); Protein, Total 7.5 g/dL (6.4-8.2); Sodium Level 135 mmol/L (136-145)
[2021-03-14 23:19] LABS: Urine Blood Negative (Negative); Urine Glucose Negative (Negative); Urine Protein Negative (Negative); Urine Specific Gravity 1.025 (1.005-1.030)
--- NOTE | 2021-03-14 23:20 | ER ---
Nurse's Notes [facility] Name: Houston Neely Age: 70 yrs Sex: Male : 1950 Arrival Date: 03/14/2021 Time: 21:30 Bed 6 Private MD: Diagnosis: Other seizures Presentation: 03/14 21:41 Chief complaint: Patient's son or daughter states: pt fell out of recliner with seizure bs2 per daughter pt has no had Keppra or lisinopril in approximately 2 weeks. Coronavirus screen: Vaccine status: Patient reports receiving the 2nd dose of the covid vaccine. At this time, the client does not indicate any symptoms associated with coronavirus-19. pt is 10 days post positive covid results, was admitted here for covid sypmtoms. Ebola Screen: No symptoms or risks identified at this time. Initial Sepsis Screen: Does the patient meet any 2 criteria? No. Patient's initial sepsis screen is negative. Does the patient have a suspected source of infection? No. Patient's initial sepsis screen is negative. Risk Assessment: Do you want to hurt yourself or someone else? Patient reports no desire to harm self or others. Onset of symptoms was March 14, 2021. 21:41 Method Of Arrival: EMS: [facility] bs2 21:41 Acuity: CHUCK 3 bs2 21:41 Care prior to arrival: IV initiated. 20 GA, in the left hand, Glucose check: 70. bs2 Historical: - Home Meds: 23:54 lisinopril 20 mg Oral tab 1 tab once daily [Active]; Keppra Oral [Active]; bs2 - PMHx: 23:54 CVA; Hypertension; R sided weakness; Seizures; bs2 - PSHx: 23:54 Cholecystectomy; bs2 - Immunization history:: Adult Immunizations up to date. - Social history:: Patient/guardian denies using alcohol, street drugs, The patient lives with family, Smoking status: Patient reports the use of cigarette tobacco products, smokes one pack cigarettes per day. Screenin:30 Abuse screen: Denies threats or abuse. Denies injuries from another. Nutritional bs2 screening: No deficits noted. Tuberculosis screening: No symptoms or risk factors identified. Fall Risk None identified. Secondary diagnosis (15 points) CVA, Ambulatory Aid- None/Bed Rest/Nurse Assist (0 pts). Gait- Impaired (20 pts.). Assessment: 21:30 General: Appears in no apparent distress. comfortable, well groomed, well developed, bs2 well nourished, Behavior is cooperative, anxious. Pain: Denies pain. Neuro: Level of Consciousness is awake, alert, obeys commands, pt has residual symptoms of an old CVA, per family pt is normal for him. Neuro: Seizure activity reported prior to arrival. Seizure lasted approximately 10 minutes. Family reports 10 min seizure and EMS reports pt was postictal upon their arrival and it lasted about 10 minutes for them. Cardiovascular: No deficits noted. Respiratory: No deficits noted. GI: No signs and/or symptoms were reported involving the gastrointestinal system. : Parent/caregiver report the patient having urinary frequency. EENT: No signs and/or symptoms were reported regarding the EENT system. Derm: No signs and/or symptoms reported regarding the dermatologic system. Vital Signs: 21:41 BP 149 / 79 LA Sitting (auto/reg); Pulse 104 MON; Resp 19 S; Temp 98.1(O); Pulse Ox 97% bs2 on R/A; Weight 90.72 kg (R); Height 5 ft. 8 in. (172.72 cm) (R); Pain 0/10; 03/15 00:32 BP 137 / 66 LA Sitting (auto/reg); Pulse 74 MON; Resp 17 S; Temp 98.6(O); Pulse Ox 100% bs2 on R/A; Pain 0/10; 03/14 21:41 Body Mass Index 30.41 (90.72 kg, 172.72 cm) bs2 ED Course: 03/14 21:30 Patient arrived in ED. mw2 21:30 No provider procedures requiring assistance completed. Maintain EMS IV. Dressing bs2 intact. Site clean \T\ dry. Gauge \T\ site: 20 ga RT hand. 21:31 Hugo Elkins MD is Attending Physician. ma2 21:39 Aide Gonzalez, FLAVIA is Primary Nurse. bs2 21:44 Triage completed. bs2 21:50 CT Head Brain wo Cont In Process Unspecified. EDMS 22:00 Door closed. Noise minimized. Lights dimmed. Warm blanket given. PO fluids given. bs2 23:12 Acetaminophen Sent. bs2 23:12 Urine Drug Screen Sent. bs2 23:33 Urine Drug Screen Sent. bs2 03/15 00:30 Arm band placed on right wrist. bs2 00:30 Patient has correct armband on for positive identification. Call light in reach. Side bs2 rails up X2. Adult w/ patient. first breaker feeder on. Pulse ox on. NIBP on. 00:31 IV discontinued, intact, bleeding controlled, No redness/swelling at site. bs2 Administered Medications: 03/14 22:13 Drug: Keppra (levETIRAcetam) 1000 mg Route: IV; Rate: bolus; Site: left antecubital; mr2 23:33 Follow up: IV Status: Completed infusion bs2 22:14 Drug: NS 0.9% 1000 ml Route: IV; Rate: 1 bolus; Site: right antecubital; mr2 03/15 00:16 Follow up: IV Status: Completed infusion bs2 Outcome: 03/14 23:19 Discharge ordered by . vt2 03/15 00:31 Discharged to home via wheelchair, with family. bs2 Condition: improved Discharge instructions given to patient, family, Instructed on discharge instructions, follow up and referral plans. medication usage, Demonstrated understanding of instructions, follow-up care, medications, Prescriptions given X 1. 00:32 Patient left the ED. bs2 Signatures: Dispatcher [employer] EDMS Hugo Elkins MD MD vt2 Claire Christianson 2 Aide Gonzalez RN RN bs2 Mikey Reese RN RN mr2
--- NOTE | 2021-03-14 23:21 | EDPHYS ---
Physician Documentation [facility] Name: Houston Neely Age: 70 yrs Sex: Male : 1950 Arrival Date: 03/14/2021 Time: 21:30 Bed 6 Private MD: ED Physician Hugo Elkins HPI: 03/14 21:32 This 70 yrs old Male presents to ER via Unassigned with complaints of seizure. ma2 21:32 The patient presents after having a single isolated seizure. Character of seizure(s): ma2 Loss of consciousness: the patient experienced loss of consciousness, Motor activity: generalized, Incontinence: none. Seizure onset: just prior to arrival. Seizure Hx: the patient has no previous seizure history. Associated injury: The patient did not suffer any apparent associated injury. Current symptoms: confusion. The patient has not experienced similar symptoms in the past. 22:12 The patient has experienced similar episodes in the past, Altered patient does have ma2 history of seizure, last seizure was a year ago, they are out of [place] because unable to get hold of the primary care doctor.. Historical: - Home Meds: 23:54 lisinopril 20 mg Oral tab 1 tab once daily [Active]; Keppra Oral [Active]; bs2 - PMHx: 23:54 CVA; Hypertension; R sided weakness; Seizures; bs2 - PSHx: 23:54 Cholecystectomy; bs2 - Immunization history:: Adult Immunizations up to date. - Social history:: Patient/guardian denies using alcohol, street drugs, The patient lives with family, Smoking status: Patient reports the use of cigarette tobacco products, smokes one pack cigarettes per day. ROS: 21:32 Constitutional: Negative for fever, chills, and weight loss. ma2 21:32 All other systems are negative. Exam: 21:32 Constitutional: This is a well developed, well nourished patient who is awake, alert, ma2 and is post ectal, patient is non verbal at this time Head/Face: Normocephalic, atraumatic. Eyes: Pupils equal round and reactive to light, extra-ocular motions intact. Lids and lashes normal. Conjunctiva and sclera are non-icteric and not injected. Cornea within normal limits. Periorbital areas with no swelling, redness, or edema. ENT: Nares patent. No nasal discharge, no septal abnormalities noted. Tympanic membranes are normal and external auditory canals are clear. Oropharynx with no redness, swelling, or masses, exudates, or evidence of obstruction, uvula midline. Mucous membranes moist. Neck: Trachea midline, no thyromegaly or masses palpated, and no cervical lymphadenopathy. Supple, full range of motion without nuchal rigidity, or vertebral point tenderness. No Meningismus. Chest/axilla: Normal chest wall appearance and motion. Nontender with no deformity. No lesions are appreciated. Cardiovascular: Regular rate and rhythm with a normal S1 and S2. No gallops, murmurs, or rubs. Normal PMI, no JVD. No pulse deficits. Respiratory: Lungs have equal breath sounds bilaterally, clear to auscultation and percussion. No rales, rhonchi or wheezes noted. No increased work of breathing, no retractions or nasal flaring. Abdomen/GI: Soft, non-tender, with normal bowel sounds. No distension or tympany. No guarding or rebound. No evidence of tenderness throughout. Back: No spinal tenderness. No costovertebral tenderness. Full range of motion. Skin: Warm, dry with normal turgor. Normal color with no rashes, no lesions, and no evidence of cellulitis. MS/ Extremity: Pulses equal, no cyanosis. Neurovascular intact. Full, normal range of motion. Neuro: Awake and alert, no nverbal post etal, moving all extremities, he is uncooperative with exam Vital Signs: 21:41 BP 149 / 79 LA Sitting (auto/reg); Pulse 104 MON; Resp 19 S; Temp 98.1(O); Pulse Ox 97% bs2 on R/A; Weight 90.72 kg (R); Height 5 ft. 8 in. (172.72 cm) (R); Pain 0/10; 03/15 00:32 BP 137 / 66 LA Sitting (auto/reg); Pulse 74 MON; Resp 17 S; Temp 98.6(O); Pulse Ox 100% bs2 on R/A; Pain 0/10; 03/14 21:41 Body Mass Index 30.41 (90.72 kg, 172.72 cm) bs2 MDM: 03/14 21:32 Differential diagnosis: cerebral vascular accident, drug overdose, cardiac arrhythmia, [facility] seizure, TIA. 21:36 Patient medically screened. [facility] 23:19 Data reviewed: vital signs, nurses notes. Counseling: I had a detailed discussion with [facility] the patient and/or guardian regarding: the historical points, exam findings, and any diagnostic results supporting the discharge/admit diagnosis, the presence of at least one elevated blood pressure reading (>120/80) during this emergency department visit, the need for outpatient follow up. Response to treatment: the patient's symptoms have markedly improved after treatment. 23:20 ED course: Seizure is likely patient does not take medication, for seizure,. In the [facility] setting of concurrent Covid infection.. 03/14 21:32 Order name: Acetaminophen [facility] 03/14 21:32 Order name: Basic Metabolic Panel; Complete Time: 23:07 [facility] 03/14 21:32 Order name: CBC with Diff; Complete Time: 22:25 [facility] 03/14 21:32 Order name: ETOH Level; Complete Time: 23:07 [facility] 03/14 21:32 Order name: Hepatic Function; Complete Time: 23:07 [facility] 03/14 21:32 Order name: PT-INR; Complete Time: 23:07 [facility] 03/14 21:32 Order name: Ptt, Activated; Complete Time: 23:07 [facility] 03/14 21:32 Order name: Salicylate; Complete Time: 23:07 [facility] 03/14 21:32 Order name: Urine Drug Screen [facility] 03/14 21:32 Order name: CT Head Brain wo Cont; Complete Time: 22:18 [facility] 03/14 21:33 Order name: Acetaminophen Level; Complete Time: 23:07 [facility] 03/14 23:18 Order name: Urine Dipstick-Ancillary; Complete Time: 23:21 [facility] 03/14 21:32 Order name: EKG; Complete Time: 21:33 [facility] 03/14 21:32 Order name: EKG - Nurse/Tech; Complete Time: 23:33 [facility] 03/14 21:32 Order name: IV Saline Lock; Complete Time: 23:12 [facility] 03/14 21:32 Order name: Labs collected and sent; Complete Time: 23:12 [facility] 03/14 21:32 Order name: Urine Dipstick-Ancillary (obtain specimen); Complete Time: 23:12 ma2 Administered Medications: 22:13 Drug: Keppra (levETIRAcetam) 1000 mg Route: IV; Rate: bolus; Site: left antecubital; mr2 23:33 Follow up: IV Status: Completed infusion bs2 22:14 Drug: NS 0.9% 1000 ml Route: IV; Rate: 1 bolus; Site: right antecubital; mr2 03/15 00:16 Follow up: IV Status: Completed infusion bs2 Disposition Summary: 03/14/21 23:19 Discharge Ordered Location: Home ma2 Condition: Stable ma2 Diagnosis - Other seizures ma2 Followup: ma2 - With: Private Physician - When: Tomorrow - Reason: If symptoms return, Continuance of care Discharge Instructions: - Discharge Summary Sheet ma2 - Seizure, Adult ma2 Forms: - Medication Reconciliation Form ma2 - Thank You Letter ma2 - Antibiotic Education ma2 - Prescription Opioid Use ma2 Prescriptions: - Keppra 500 mg Oral Tablet - take 1 tablet by ORAL route every 12 hours; 20 tablet; Refills: 0, Product ma2 Selection Permitted Signatures: Dispatcher [employer] EDMS Hugo Elkins MD MD ma2 Aide Gonzalez RN RN bs2 Mikey Reese RN RN mr2
[2021-03-14 23:38] LABS: Barbiturates NEGATIVE (NEGATIVE); Benzodiazepines NEGATIVE (NEGATIVE); Cocaine NEGATIVE (NEGATIVE); METHAMPHETAM NEGATIVE (NEGATIVE); Methadone NEGATIVE (NEGATIVE); Opiates NEGATIVE (NEGATIVE); Phencyclidine NEGATIVE (NEGATIVE); THC Cannibis NEGATIVE (NEGATIVE)
[2021-03-15 01:12] VITALS: BP 137/66; TEMP 98.6; O2SAT 100
== END 2021-03-15 00:32 | disposition home or self-care (01) ==
LOC: ER 21:27
DX: G40.909 Epilepsy, unspecified, not intractable, without status epilepticus (principal); I10 Essential (primary) hypertension; F17.210 Nicotine dependence, cigarettes, uncomplicated
CPT/HCPCS: 96365; 96361; 93005; 85025; 80048; 36415; 80320; 80329 ×2; 85610; 80076; 85730; 81003; 80307; 70450; 99284; J1953

== ENCOUNTER 2021-05-15 14:03 | Emergency (ER) | payer OTHER ==
--- OUTSIDE RECORDS SUMMARY | 2021-05-15 14:07 | XMS REPORT | Continuity of Care Document ---
:1950 Author Organization [facility] t Address [address] [place] [address] Dr. Boss. [address] [place] [address] Care Team Providers Name Role Phone RANI Attending Clinician Unavailable Juan Manuel Rice Attending Clinician C_Hall Attending Clinician Unavailable Millie ALFARO Attending Clinician Rani ALFARO Attending Clinician Tech, Cardio Fac Attending Clinician Unavailable 1, Cardio Fac Room Attending Clinician Unavailable 2, Cardio Fac Room Attending Clinician Unavailable Doctor Unassigned, Name Attending Clinician Unavailable C_Hall Admitting Clinician Unavailable Payers Payer Name Policy Type Policy Number Effective Date Expiration Date Bernie garcia MEDICARE PART A [id number] 2016 \T\ B 00:00:00 MEDICAID OF [place] [id number] 2016 00:00:00 Problems This patient has no known problems. Allergies, Adverse Reactions, Alerts Allergy Allergy Status Severity Reaction(s) Onset Inactive Treating Comm ents Source Name Type Date Date Clinician NO KNOWN Drug Active Univers ALLERGIE Class ity of S [facility] Social History Social Habit Start Date Stop Date Quantity Comments Source History of tobacco Cigarette Smoker University of use [facility] Sex Assigned At [facility]it y of [facility] Cigarettes smoked 2018-12-19 2018-12-19 Univers ity of current (pack per 00:00:00 00:00:00 ) - Reported Branch Alcohol intake 2018-12-19 2018-12-19 University 00:00:00 00:00:00 [facility] Smoking Status Start Date Stop Date Source Current every day smoker 2018-12-19 00:00:00 Uni versity of [facility] Medications Ordered Filled Start Stop Current Ordering Indication Dosage Frequency Signature Comments Components Source Medication Medication Date Date Medication? Clinician (SIG) Name Name marck 2020- No [id number] 40mg Take 1 Univers n 40 mg 09-10 tablet by ity of tablet 00:00: 04:59 mouth at [place] 00 :00 bedtime Medical for 90 Branch days. contrast 2019- No Intravenou Un royal previously 01-11 s, ONCE, 1 it y of administere 17:15: 16:30 dose, Fri [place] d 0 mL 00 :00 01/11/19 at [facility] 1215, [place] Routine iohexol 2019- No 100mL 100 mL, Unive rs (OMNIPAQUE 01-11 Intravenou it y of 350 17:15: 16:30 s, ONCE, 1 [place] BULK-100 00 :00 dose, Fri Medica l mL) 01/11/19 at Branch injection 1215, 100 mL Routine ezetimibe Yes 10mg Take 10 mg Un royal 10 mg 9-06 by mouth ity of tablet 15:56: daily. [address] albuterol Yes 2.5mg Inhale 2.5 U nivers 2.5 mg /3 9-06 mg every 8 ity of mL (0.083 15:56: (eight) [place] %) 28 hours as Medical nebulizer needed. [place] solution albuterol Yes 2{puff} Inhale 2 U nivers 90 9-06 Puffs ity of mcg/actuati 15:56: every 6 [place] as on inhaler 28 (six) Medical hours as Branch needed. montelukast Yes 10mg Take 10 mg Univers 10 mg 9-06 by mouth ity of tablet 15:56: daily. [address] ezetimibe Yes 10mg Take 10 mg Un royal 10 mg 9-06 by mouth ity of tablet 15:56: daily. [address] albuterol 2018-0 Yes 2.5mg Inhale 2.5 U nivers 2.5 mg /3 9-06 mg every 8 ity of mL (0.083 15:56: (eight) [place] %) 28 hours as Medical nebulizer needed. Branch solution albuterol 2019-0 Yes 2{puff} Inhale 2 U nivers 90 9-06 Puffs ity of mcg/actuati 15:56: every 6 [place] as on inhaler 28 (six) Medical hours as Branch needed. montelukast 2019-0 Yes 10mg Take 10 mg Univers 10 mg 9-06 by mouth ity of tablet 15:56: daily. [address] ezetimibe 2018-0 Yes 10mg Take 10 mg Un royal 10 mg 9-06 by mouth ity of tablet 15:56: daily. [address] Branch albuterol 2018- Yes 2.5mg Inhale 2.5 U nivers 2.5 mg /3 9-06 mg every 8 ity of mL (0.083 15:56: (eight) [place] %) 28 hours as Medical nebulizer needed. [place] solution albuterol 2018- Yes 2{puff} Inhale 2 U nivers 90 9-06 Puffs ity of mcg/actuati 15:56: every 6 [place] as on inhaler 28 (six) Medical hours as Branch needed. montelukast 2018-0 Yes 10mg Take 10 mg Univers 10 mg 9-06 by mouth ity of tablet 15:56: daily. [address] ezetimibe 2018-0 Yes 10mg Take 10 mg Un royal 10 mg 9-06 by mouth ity of tablet 15:56: daily. [address] albuterol 2018-0 Yes 2.5mg Inhale 2.5 U nivers 2.5 mg /3 9-06 mg every 8 ity of mL (0.083 15:56: (eight) [place] %) 28 hours as Medical nebulizer needed. [place] solution albuterol 0 Yes 2{puff} Inhale 2 U nivers 90 9-06 Puffs ity of mcg/actuati 15:56: every 6 [place] as on inhaler 28 (six) Medical hours as Branch needed. montelukast 2019-0 Yes 10mg Take 10 mg Univers 10 mg 9-06 by mouth ity of tablet 15:56: daily. [address] ezetimibe 2019-0 Yes 10mg Take 10 mg Un royal 10 mg 9-06 by mouth ity of tablet 15:56: daily. [address] albuterol 2019-0 Yes 2.5mg Inhale 2.5 U nivers 2.5 mg /3 9-06 mg every 8 ity of mL (0.083 15:56: (eight) [place] %) 28 hours as Medical nebulizer needed. [place] solution albuterol 2018-0 Yes 2{puff} Inhale 2 U nivers 90 9-06 Puffs ity of mcg/actuati 15:56: every 6 [place] as on inhaler 28 (six) Medical hours as Branch needed. montelukast 2019-0 Yes 10mg Take 10 mg Univers 10 mg 9-06 by mouth ity of tablet 15:56: daily. [address] ezetimibe 2018-0 Yes 10mg Take 10 mg Un royal 10 mg 9-06 by mouth ity of tablet 15:56: daily. [address] albuterol 2018-0 Yes 2.5mg Inhale 2.5 U nivers 2.5 mg /3 9-06 mg every 8 ity of mL (0.083 15:56: (eight) [place] %) 28 hours as Medical nebulizer needed. [place] solution albuterol 0 Yes 2{puff} Inhale 2 U nivers 90 9-06 Puffs ity of mcg/actuati 15:56: every 6 [place] as on inhaler 28 (six) Medical hours as Branch needed. montelukast 2018-0 Yes 10mg Take 10 mg Univers 10 mg 9-06 by mouth ity of tablet 15:56: daily. [address] lisinopril 2018-0 Yes 20mg Take 20 mg U nivers 20 mg 9-06 by mouth ity of tablet 15:53: daily. [address] foLIC acid 2018-0 Yes 1mg Take 1 mg Un royal 1 mg tablet 9-06 by mouth ity of 15:53: daily. [address] levETIRAcet 2019-0 Yes 1000mg Take 1,000 Univers am (KEPPRA) 9-06 mg by ity of 1,000 mg 15:53: mouth 2 [place] tablet 50 (two) Medical times Branch daily. amLODIPine 2019-0 Yes 10mg Take 10 mg U nivers 10 mg 9-06 by mouth ity of tablet 15:53: daily. [address] lisinopril 2019-0 Yes 20mg Take 20 mg U nivers 20 mg 9-06 by mouth ity of tablet 15:53: daily. [address] foLIC acid 2019-0 Yes 1mg Take 1 mg Un royal 1 mg tablet 9-06 by mouth ity of 15:53: daily. [address] levETIRAcet 2019-0 Yes 1000mg Take 1,000 Univers am (KEPPRA) 9-06 mg by ity of 1,000 mg 15:53: mouth 2 [place] tablet 50 (two) Medical times [place] daily. amLODIPine 2019-0 Yes 10mg Take 10 mg U nivers 10 mg 9-06 by mouth ity of tablet 15:53: daily. [address] lisinopril 2019-0 Yes 20mg Take 20 mg U nivers 20 mg 9-06 by mouth ity of tablet 15:53: daily. [address] foLIC acid 2019-0 Yes 1mg Take 1 mg Un royal 1 mg tablet 9-06 by mouth ity of 15:53: daily. [address] levETIRAcet 2019-0 Yes 1000mg Take 1,000 Univers am (KEPPRA) 9-06 mg by ity of 1,000 mg 15:53: mouth 2 [place] tablet 50 (two) [facility] times [place] daily. amLODIPine 2019-0 Yes 10mg Take 10 mg U nivers 10 mg 9-06 by mouth ity of tablet 15:53: daily. [address] lisinopril 2019-0 Yes 20mg Take 20 mg U nivers 20 mg 9-06 by mouth ity of tablet 15:53: daily. [address] foLIC acid 2019-0 Yes 1mg Take 1 mg Un royal 1 mg tablet 9-06 by mouth ity of 15:53: daily. [address] levETIRAcet 2019-0 Yes 1000mg Take 1,000 Univers am (KEPPRA) 9-06 mg by ity of 1,000 mg 15:53: mouth 2 [place] tablet 50 (two) Medical times [place] daily. amLODIPine 2019-0 Yes 10mg Take 10 mg U nivers 10 mg 9-06 by mouth ity of tablet 15:53: daily. [address] lisinopril 2019-0 Yes 20mg Take 20 mg U nivers 20 mg 9-06 by mouth ity of tablet 15:53: daily. [address] foLIC acid Yes 1mg Take 1 mg Un royal 1 mg tablet 9-06 by mouth ity of 15:53: daily. [address] levETIRAcet Yes 1000mg Take 1,000 Univers am (KEPPRA) 9-06 mg by ity of 1,000 mg 15:53: mouth 2 [place] tablet 50 (two) Medical times [place] daily. amLODIPine Yes 10mg Take 10 mg U nivers 10 mg 9-06 by mouth ity of tablet 15:53: daily. [address] lisinopril Yes 20mg Take 20 mg U nivers 20 mg 9-06 by mouth ity of tablet 15:53: daily. [address] foLIC acid Yes 1mg Take 1 mg Un royal 1 mg tablet 9-06 by mouth ity of 15:53: daily. [address] levETIRAcet Yes 1000mg Take 1,000 Univers am (KEPPRA) 9-06 mg by ity of 1,000 mg 15:53: mouth 2 [place] tablet 50 (two) Medical times [place] daily. amLODIPine Yes 10mg Take 10 mg U nivers 10 mg 9-06 by mouth ity of tablet 15:53: daily. [address] atorvastati Yes [id number] 40mg Take 1 Univers n 40 mg 9-06 07 tablet by ity of tablet 00:00: mouth at [place] [address] bedtime. [facility] Branch atorvastati Yes [id number] 40mg Take 1 Univers n 40 mg 9-06 07 tablet by ity of tablet 00:00: mouth at [place] [address] bedtime. [facility] Branch atorvastati Yes [id number] 40mg Take 1 Univers n 40 mg 9-06 07 tablet by ity of tablet 00:00: mouth at [place] 00 bedtime. [facility] Branch atorvastati Yes [id number] 40mg Take 1 Univers n 40 mg 9-06 07 tablet by ity of tablet 00:00: mouth at [place] [address] bedtime. [facility] Branch atorvastati Yes [id number] 40mg Take 1 Univers n 40 mg 9-06 07 tablet by ity of tablet 00:00: mouth at [place] 00 bedtime. Medical Branch atorvastati Yes [id number] 40mg Take 1 Univers n 40 mg 01-04 07 tablet by ity of tablet 00:00: mouth at [place] 00 bedtime. Medical Branch sulfur 2019- No 5mL Univers hexafluorid 01-01 ity of e microsphr 22:30: 21:28 [place] (LUMASON) 00 :00 Medical injection 5 Branch mL sulfur 2019- No 5mL 5 mL, Univers hexafluorid 01-01 Intravenou i ty of e microsphr 22:30: 21:28 s, ONCE, 1 [place] (LUMASON) 00 :00 dose, Tue Medic al injection 5 01/01/19 at [facility] mL 1730, Routine montelukast Yes 10mg Take 10 mg Univers 10 mg 8-26 by mouth ity of tablet 14:36: daily. [address] montelukast Yes 10mg Take 10 mg Univers 10 mg 8-26 by mouth ity of tablet 14:36: daily. [address] montelukast Yes 10mg Take 10 mg Univers 10 mg 8-26 by mouth ity of tablet 14:36: daily. [address] montelukast Yes 10mg Take 10 mg Univers 10 mg 8-26 by mouth ity of tablet 14:36: daily. [address] montelukast Yes 10mg Take 10 mg Univers 10 mg 8-26 by mouth ity of tablet 14:36: daily. [address] albuterol Yes 2{puff} Inhale 2 U [...] (six) Medical hours as Branch needed. albuterol 2018-0 Yes 2.5mg Inhale 2.5 U nivers 2.5 mg /3 8-26 mg every 8 ity of mL (0.083 14:35: (eight) [place] %) 59 hours as Medical nebulizer needed. Branch solution albuterol 2018-0 Yes 2.5mg Inhale 2.5 U nivers 2.5 mg /3 8-26 mg every 8 ity of mL (0.083 14:35: (eight) [place] %) 59 hours as Medical nebulizer needed. Branch solution albuterol 0 Yes 2.5mg Inhale 2.5 U [...] by mouth ity of tablet 14:34: daily. [address] Branch ezetimibe 2018-0 Yes 10mg Take 10 mg Un royal 10 mg 8-26 by mouth ity of tablet 14:34: daily. [address] Branch ezetimibe 2018-0 Yes 10mg Take 10 mg Un royal 10 mg 8-26 by mouth ity of tablet 14:34: daily. [address] ezetimibe 2019-0 Yes 10mg Take 10 mg Un royal 10 mg 8-26 by mouth ity of tablet 14:34: daily. [address] ezetimibe 2019-0 Yes 10mg Take 10 mg Un royal 10 mg 8-26 by mouth ity of tablet 14:34: daily. [address] foLIC acid 2019-0 Yes 1mg Take 1 mg Un royal 1 mg tablet 8-21 by mouth ity of 14:22: daily. [address] levETIRAcet 2019-0 Yes 1000mg Take 1,000 Univers am (KEPPRA) 8-21 mg by ity of 1,000 mg 14:22: mouth 2 [place] tablet 48 (two) Medical times [place] daily. amLODIPine 2019-0 Yes 10mg Take 10 mg U nivers 10 mg 8-21 by mouth ity of tablet 14:22: daily. [address] foLIC acid 2018-0 Yes 1mg Take 1 mg Un royal 1 mg tablet 8-21 by mouth ity of 14:22: daily. [address] levETIRAcet 2018-0 Yes 1000mg Take 1,000 Univers am (KEPPRA) 8-21 mg by ity of 1,000 mg 14:22: mouth 2 [place] tablet 48 (two) Medical times [place] daily. amLODIPine 2019-0 Yes 10mg Take 10 mg U nivers 10 mg 8-21 by mouth ity of tablet 14:22: daily. [address] foLIC acid 2019-0 Yes 1mg Take 1 mg Un royal 1 mg tablet 8-21 by mouth ity of 14:22: daily. [address] levETIRAcet 2019-0 Yes 1000mg Take 1,000 Univers am (KEPPRA) 8-21 mg by ity of 1,000 mg 14:22: mouth 2 [place] tablet 48 (two) Medical times [place] daily. amLODIPine 2019-0 Yes 10mg Take 10 mg U nivers 10 mg 8-21 by mouth ity of tablet 14:22: daily. [address] foLIC acid 2019-0 Yes 1mg Take 1 mg Un royal 1 mg tablet 8-21 by mouth ity of 14:22: daily. [address] levETIRAcet 2019-0 Yes 1000mg Take 1,000 Univers am (KEPPRA) 8-21 mg by ity of 1,000 mg 14:22: mouth 2 [place] tablet 48 (two) Medical times [place] daily. amLODIPine 2019-0 Yes 10mg Take 10 mg U nivers 10 mg 8-21 by mouth ity of tablet 14:22: daily. [address] foLIC acid 2018-0 Yes 1mg Take 1 mg Un royal 1 mg tablet 8-21 by mouth ity of 14:22: daily. [address] levETIRAcet 2018-0 Yes 1000mg Take 1,000 Univers am (KEPPRA) 8-21 mg by ity of 1,000 mg 14:22: mouth 2 [place] tablet 48 (two) Medical times [place] daily. amLODIPine 2018-0 Yes 10mg Take 10 mg U nivers 10 mg 8-21 by mouth ity of tablet 14:22: daily. [address] foLIC acid 2018-0 Yes 1mg Take 1 mg Un royal 1 mg tablet 8-21 by mouth ity of 14:22: daily. [address] levETIRAcet 0 Yes 1000mg Take 1,000 Univers am (KEPPRA) 8-21 mg by ity of 1,000 mg 14:22: mouth 2 [place] tablet 48 (two) Medical times [place] daily. amLODIPine 2018-0 Yes 10mg Take 10 mg U nivers 10 mg 8-21 by mouth ity of tablet 14:22: daily. [address] foLIC acid 2018-0 Yes 1mg Take 1 mg Un royal 1 mg tablet 8-21 by mouth ity of 14:22: daily. [address] levETIRAcet 0 Yes 1000mg Take 1,000 Univers am (KEPPRA) 8-21 mg by ity of 1,000 mg 14:22: mouth 2 [place] tablet 48 (two) Medical times [place] daily. amLODIPine 2019-0 Yes 10mg Take 10 mg U nivers 10 mg 8-21 by mouth ity of tablet 14:22: daily. [address] foLIC acid 2019-0 Yes 1mg Take 1 mg Un royal 1 mg tablet 8-21 by mouth ity of 14:22: daily. [address] levETIRAcet 2018-0 Yes 1000mg Take 1,000 Univers am (KEPPRA) 8-21 mg by ity of 1,000 mg 14:22: mouth 2 [place] tablet 48 (two) Medical times Branch daily. amLODIPine 2019-0 Yes 10mg Take 10 mg U nivers 10 mg 8-21 by mouth ity of tablet 14:22: daily. [address] foLIC acid 2019-0 Yes 1mg Take 1 mg Un royal 1 mg tablet 8-21 by mouth ity of 14:22: daily. [address] levETIRAcet 2019-0 Yes 1000mg Take 1,000 Univers am (KEPPRA) 8-21 mg by ity of 1,000 mg 14:22: mouth 2 [place] tablet 48 (two) Medical times [place] daily. amLODIPine 2019-0 Yes 10mg Take 10 mg U nivers 10 mg 8-21 by mouth ity of tablet 14:22: daily. [address] foLIC acid 2019-0 Yes 1mg Take 1 mg Un royal 1 mg tablet 8-21 by mouth ity of 14:22: daily. [address] levETIRAcet 2019-0 Yes 1000mg Take 1,000 Univers am (KEPPRA) 8-21 mg by ity of 1,000 mg 14:22: mouth 2 [place] tablet 48 (two) Medical times [place] daily. amLODIPine 2019-0 Yes 10mg Take 10 mg U nivers 10 mg 8-21 by mouth ity of tablet 14:22: daily. [address] lisinopril 2019-0 Yes 20mg Take 20 mg U nivers 20 mg 8-21 by mouth ity of tablet 14:22: daily. [address] lisinopril 2019-0 Yes 20mg Take 20 mg U nivers 20 mg 8-21 by mouth ity of tablet 14:22: daily. [address] lisinopril 2019-0 Yes 20mg Take 20 mg U nivers 20 mg 8-21 by mouth ity of tablet 14:22: daily. [address] lisinopril 2019-0 Yes 20mg Take 20 mg U nivers 20 mg 8-21 by mouth ity of tablet 14:22: daily. [address] lisinopril 2019-0 Yes 20mg Take 20 mg U nivers 20 mg 8-21 by mouth ity of tablet 14:22: daily. [address] lisinopril 2019-0 Yes 20mg Take 20 mg U nivers 20 mg 8-21 by mouth ity of tablet 14:22: daily. [address] lisinopril Yes 20mg Take 20 mg U nivers 20 mg 8-21 by mouth ity of tablet 14:22: daily. [address] lisinopril Yes 20mg Take 20 mg U nivers 20 mg 8-21 by mouth ity of tablet 14:22: daily. [address] lisinopril Yes 20mg Take 20 mg U nivers 20 mg 8-21 by mouth ity of tablet 14:22: daily. [address] lisinopril Yes 20mg Take 20 mg U nivers 20 mg 8-21 by mouth ity of tablet 14:22: daily. [address] atorvastati 2017-05 Yes 80mg Take 1 Univ ers n 80 mg 2-06 tablet by ity of tablet 00:00: mouth at [place] [address] bedtime. Medical onstatin Branch per recent notes. Updated chart with new order atorvastati 2017-05 Yes 80mg Take 1 Univ ers n 80 mg 2-06 tablet by ity of tablet 00:00: mouth at [place] [address] bedtime. Medical onstatin Branch per recent notes. Updated chart with new order atorvastati 2017-05 Yes 80mg Take 1 Univ ers n 80 mg 2-06 tablet by ity of tablet 00:00: mouth at [place] [address] bedtime. Medical onstatin Branch per recent notes. Updated chart with new order atorvastati 2017-05 Yes 80mg Take 1 Univ ers n 80 mg 2-06 tablet by ity of tablet 00:00: mouth at [place] [address] bedtime. Medical onstatin Branch per recent notes. Updated chart with new order atorvastati 2017-05 Yes 80mg Take 1 Univ ers n 80 mg 2-06 tablet by ity of tablet 00:00: mouth at [place] 00 bedtime. Medical onstatin Branch per recent notes. Updated chart with new order atorvastati 2017-05 Yes 80mg Take 1 Univ ers n 80 mg 2-06 tablet by ity of tablet 00:00: mouth at [place] [address] bedtime. Medical onstatin Branch per recent notes. Updated chart with new order atorvastati 2017-05 Yes 80mg Take 1 Univ ers n 80 mg 2-06 tablet by ity of tablet 00:00: mouth at [place] 00 bedtime. Medical onstatin Branch per recent notes. Updated chart with new order atorvastati 2017-05 Yes 80mg Take 1 Univ ers n 80 mg 2-06 tablet by ity of tablet 00:00: mouth at [place] 00 bedtime. Medical onstatin Branch per recent notes. Updated chart with new order atorvastati 2017-05 Yes 80mg Take 1 Univ ers n 80 mg 2-06 tablet by ity of tablet 00:00: mouth at [place] 00 bedtime. Medical onstatin Branch per recent notes. Updated chart with new order atorvastati 2017-05 Yes 80mg Take 1 Univ ers n 80 mg 2-06 tablet by ity of tablet 00:00: mouth at [place] 00 bedtime. Medical onstatin Branch per recent notes. Updated chart with new order atorvastati 2017-05 Yes 80mg Take 1 Univ ers n 80 mg 2-06 tablet by ity of tablet 00:00: mouth at [place] 00 bedtime. Medical onstatin Branch per recent notes. Updated chart with new order atorvastati 2017-05 Yes 80mg Take 1 Univ ers n 80 mg 2-06 tablet by ity of tablet 00:00: mouth at [place] 00 bedtime. Medical onstatin Branch per recent notes. Updated chart with new order atorvastati 2017-05 Yes 80mg Take 1 Univ ers n 80 mg 2-06 tablet by ity of tablet 00:00: mouth at [place] 00 bedtime. Medical onstatin Branch per recent notes. Updated chart with new order atorvastati 2017-05 Yes 80mg Take 1 Univ ers n 80 mg 2-06 tablet by ity of tablet 00:00: mouth at [place] 00 bedtime. Medical onstatin Branch per recent notes. Updated chart with new order atorvastati 2017-05 Yes 80mg Take 1 Univ ers n 80 mg 2-06 tablet by ity of tablet 00:00: mouth at [place] 00 bedtime. Medical onstatin Branch per recent notes. Updated chart with new order atorvastati 2017-05 Yes 80mg Take 1 Univ ers n 80 mg 2-06 tablet by ity of tablet 00:00: mouth at [place] 00 bedtime. Medical onstatin Branch per recent notes. Updated chart with new order atorvastati 2017-05 Yes 80mg Take 1 Univ ers n 80 mg 2-06 tablet by ity of tablet 00:00: mouth at [place] 00 bedtime. Medical onstatin Branch per recent notes. Updated chart with new order amLODIPine 2017-0 Yes 10mg Take 10 mg U nivers 10 mg 8-21 by mouth ity of tablet 14:41: daily. [place] [address] Medical Branch lisinopril 2017-0 Yes 20mg Take 20 mg U nivers 20 mg 8-21 by mouth ity of tablet 14:41: daily. [place] [address] Medical Branch foLIC acid 2017-0 Yes 1mg Take 1 mg Un royal 1 mg tablet 8-21 by mouth ity of 14:41: daily. [place] [address] Medical Branch levETIRAcet 2017-0 Yes 1000mg Take 1,000 Univers am (KEPPRA) [...] 2019-01-04 15:52:00 133 mm[Hg] Univer sity of [facility] Diastolic blood 2019-01-04 15:52:00 67 mm[Hg] [facility] 2019-01-04 15:52:00 75 /min [facility] Body temperature 2019-01-04 15:52:00 36.78 Janett [facility] [place] [facility] 2019-01-04 15:52:00 20 /min [facility] [place] [facility] Body weight 2019-01-04 15:52:00 84.732 kg [facility] BMI 2019-01-04 15:52:00 29.26 kg/m2 [facility] Systolic blood 2019-01-04 15:52:00 133 mm[Hg] Univer sity [facility] Diastolic blood 2019-01-04 15:52:00 67 mm[Hg] Unive rsity of pressure [place] [facility] Heart rate 2019-01-04 15:52:00 75 /min Universi ty [facility] [place] [facility] Body temperature 2019-01-04 15:52:00 36.78 Janett Univ ersity of [place] [facility] Respiratory rate 2019-01-04 15:52:00 20 /min Univ ersity of [place] [facility] Body weight 2019-01-04 15:52:00 84.732 kg Universi ty of [place] [facility] BMI 2019-01-04 15:52:00 29.26 kg/m2 [facility] [place] [facility] Systolic blood 2018-12-19 14:21:00 111 mm[Hg] Univer sity of pressure [place] [facility] Diastolic blood 2018-12-19 14:21:00 62 mm[Hg] Unive rsity of pressure [place] [facility] Heart rate 2018-12-19 14:21:00 68 /min Universi ty of [place] [facility] Respiratory rate 2018-12-19 14:21:00 18 /min Univ ersity of [facility] Body height 2018-12-19 14:21:00 170.2 cm Universi [facility] [place] [facility] Body weight 2018-12-19 14:21:00 85.684 kg [facility]i ty [facility] [place] [facility] BMI 2018-12-19 14:21:00 29.59 kg/m2 [facility] [place] [facility] Oxygen saturation in 2018-12-19 14:21:00 97 /min [facility] Arterial blood by [facility] Pulse oximetry Branch Systolic blood 2019-01-01 20:52:00 141 mm[Hg] Univer sity of [facility] [place] [facility] Diastolic blood 2019-01-01 20:52:00 71 mm[Hg] Unive rsity of pressure [place] [facility] Heart rate 2019-01-01 20:52:00 87 /min [facility] [place] [facility] Body height 2019-01-01 20:52:00 170.2 cm [facility] [place] [facility] Body weight 2019-01-01 20:52:00 85.276 kg [facility] [place] [facility] BMI 2019-01-01 20:52:00 29.44 kg/m2 [facility] [place] [facility] Procedures Procedure Date / Time Performed Performing Clinician Britta campos CT ANGIOGRAM NECK 2019-01-11 17:12:41 Adolph Huitron [facility] [place] CT ANGIOGRAM HEAD 2019-01-11 17:10:04 Adolph Huitron [facility] [place] NOTICE OF BILLING 2019-01-11 15:34:57 Doctor Unassigned, No [facility] PRACTICES FOR MEDICARE Name [facility] PATIENTS [facility] PATIENT FINANCIAL 2019-01-11 15:34:09 Doctor Unassigned, No [facility] POLICY Name [facility] Branch POCT CREATININE 2019-01-11 15:10:00 Iliana Pinto [facility] [place] EKG-12 LEAD 2018-12-19 14:29:02 Migue Downsjelena [facility] ASSIGNMENT OF BENEFITS 2018-12-19 14:07:02 Doctor Unassigned, No [facility] Encounters Start End Encounter Admission Attending Care Care Encounter Source Date/Time Date/Time Type Type Clinicians Facility Department ID 2020-01-22 2020-01-22 Outpatient R RANI, [facility] [id number] Univers 15:20:00 15:20:00 SUDHIR [id number] [facility] 2020-01-22 2020-01-22 Outpatient R RANI, [facility] [id number] Univers 15:20:00 15:20:00 [facility] 2019-12-23 2019-12-23 Outpatient R RANI, [facility] [id number] Univers 09:40:00 09:40:00 SUDHIR [id number] [facility] 2019-12-23 2019-12-23 Outpatient R RANI, [facility] [id number] Univers 09:40:00 09:40:00 MIGUEJELENA [facility] 2019-09-11 2019-09-11 Telephone James, UNIVERSIT 1.2.840.11 [id number] 00:00:00 00:00:00 [facility] [id number] CLINICS 4.2.7.2.686 [id number] [facility] 2019-09-11 2019-09-11 Telephone James, UNIVERSIT 1.2.840.11 [id number] [facility] 00:00:00 00:00:00 [facility] HE[facility] 350.1.13.10 it[place] CLINICS [place] [id number] [facility] [address] 2019-08-27 2019-08-27 [id number] [place] 04:13:00 04:13:00 0428 Medical Group 2019-01-11 2019-01-11 [facility] [id number] 10:33:32 23:59:00 Encounter Iliana Alexander 350.1.13.10 [place] 4.2.7.2.686 [place] [id number] [facility] 2019-01-11 2019-01-11 [facility] [id number] [facility] 10:33:32 23:59:00 Encounter Iliana Alexander 350.1.13.10 ity of [place].2.[place] [phone] [place] [address] [address] 2019-01-11 2019-01-11 [facility] [id number] 10:20:00 10:32:00 Encounter Iliana [place] 350.1.13.10 [place] 4.2.7.2.686 [place] [id number] [facility] 2019-01-11 2019-01-11 [facility] [id number] [facility] 10:20:00 10:32:00 Encounter Iliana [place] 350.1.13.10 it[place]2.[place].2.686 [place] [id number] [place] [address] [address] 2019-01-04 2019-01-04 [facility] 1.2.840.114 [id number] 10:21:42 18:59:26 Visit Iliana Alexander 350.1.13.10 [place] 4.2.7.2.686 Professio [id number] [address] 2019-01-04 2019-01-04 [facility] 1.2.840.114 [id number] [facility] 10:21:42 18:59:26 Visit Iliana Alexander 350.1.13.10 [place]2.[place] [phone] Fl collette herron 205 [facility] 2018-12-19 2019-01-03 Office [facility] 1.2.840.114 [id number] Univers 09:07:06 15:22:45 Visit Sudhir Alexander 350.1.13.10 ity [place] 4.2.7.2.[place] [phone] [place] [id number] [facility] 2019-01-03 2019-01-03 Telephone [facility] [id number] [facility] 00:00:00 00:00:00 Sudhir Alexander 350.1.13.10 it[place]2.[place] [phone] [address] 2019-01-01 2019-01-01 Lead Mason Tender, [facility] Cardio Fac [facility] 1. 2.840.114 [id number] [facility] 14:30:23 16:38:50 Only 1, [facility] Room [place] 350.1. 13.10 ity of [place] 4.2.7.2.686 [place] Professio [id number] [address] 2019-01-01 2019-01-01 Adjunct English Instructor [facility], [facility] 1. 2.840.114 [id number] [facility] 14:29:39 15:29:39 Visit 2, [facility] Room [place] 350.1. 13.10 ity of [place] 4.2.7.2.686 [place] Professio [id number] [address] 2018-12-24 2018-12-24 Telephone [facility] [id number] [facility] 00:00:00 00:00:00 Miguedenysjelena [place] 350.1.13.10 ity [place] 4[place]2.[place].2.[place] [id number] [address] 2018-12-19 2018-12-19 Orders Doctor SORENSON 1.2.840.114 [id number] Univers 00:00:00 00:00:00 Only Unassigned, DONITA 350.1.13.10 ity of [place] [facility] 4.2.7.2.686 [place] [phone] [facility] [address] Results Test Test Test Results Result Source Description Time Comments Comments CT ANGIOGRAM 2018-12 Nonvisualization of the left University of NECK -13 internal carotid artery from [facility] 19:52:1 its cervicalorigin/carotid Branch 1 bifurcation up [...] NECK: A three-vessel aortic arch is seen. Xknc-zb-tawsdtuk atheroscleroticdisease is noted in the arch. The vessels originating from the arch arepatent. Mild scattered atherosclerotic disease is noted in the common carotidarteries bilaterally, left greater than right. No flow-limiting stenosis isidentified. Wpsu-xh-denhmthi atherosclerotic disease is seen in the left [...] involving theleft frontal, parietal and temporal lobes. Vamb, Radiant Results Inft User - 01/11/2019 2:52 PM CDTCT ANGIOGRAM NECK, CT ANGIOGRAM HEADHISTORY: Male 68 years hx of right carotid artery stenosis, left carotidartery occlusion COMPARISON: NoneTECHNIQUE: CT angiographic is of the head and neck were obtained afteradministration of IV contrast.FINDINGS:CTA NECK: A three-vessel aortic arch is seen. Zvur-an-zwjrgnyg atheroscleroticdisease is noted in the arch. The vessels originating from the arch arepatent.Mild scattered atherosclerotic disease is noted in the common carotidarteries bilaterally, left greater than right. No flow-limiting stenosis isidentified.Efla-vu-chscdhha atherosclerotic disease is seen in the left [...] seen in the head and neck vessels. Violet Hughes MD., have reviewed this study and agree with the abovereport. CT ANGIOGRAM 2018-12 Nonvisualization of the left University of HEAD -13 internal carotid artery from [facility] 19:52:1 its cervicalorigin/carotid Branch 1 bifurcation up [...] NECK: A three-vessel aortic arch is seen. Ywru-ri-zrlaaunx atheroscleroticdisease is noted in the arch. The vessels originating from the arch arepatent. Mild scattered atherosclerotic disease is noted in the common carotidarteries bilaterally, left greater than right. No flow-limiting stenosis isidentified. Xmbc-yc-wqvoghpy atherosclerotic disease is seen in the left [...] involving theleft frontal, parietal and temporal lobes. Vamb, Radiant Results Inft User - 01/11/2019 2:52 PM CDTCT ANGIOGRAM NECK, CT ANGIOGRAM HEADHISTORY: Male 68 years hx of right carotid artery stenosis, left carotidartery occlusion COMPARISON: NoneTECHNIQUE: CT angiographic is of the head and neck were obtained afteradministration of IV contrast.FINDINGS:CTA NECK: A three-vessel aortic arch is seen. Gfhs-dj-jkoriwha atheroscleroticdisease is noted in the arch. The vessels originating from the arch arepatent.Mild scattered atherosclerotic disease is noted in the common carotidarteries bilaterally, left greater than right. No flow-limiting stenosis isidentified.Mxhj-vf-fgbkqayj atherosclerotic disease is seen in the left [...] Comme nts POCT Creatinine (test code = [id number]) 0.8 mg/dL 0.6-1.3 Lab Interpretation (test code = 38476-6) Normal [facility] [place]
--- NOTE | 2021-05-15 15:32 | RAD REPORT ---
EXAM DESCRIPTION: RAD - Foot Right 3 View - 05/15/2021 3:10 pm CLINICAL HISTORY: PAIN COMPARISON: Ankle Right 3 View dated 05/15/2021 FINDINGS: Nondisplaced fracture at the base fifth metatarsal. Distal fibular avulsion fracture also noted. Degenerative changes are present at the first MTP. IMPRESSION: Nondisplaced fracture at the base of the fifth metatarsal. Distal fibular avulsion fract ure.
--- NOTE | 2021-05-15 15:32 | RAD REPORT ---
EXAM DESCRIPTION: RAD - Ankle Right 3 View - 05/15/2021 3:10 pm CLINICAL HISTORY: PAIN COMPARISON: No comparisons FINDINGS/IMPRESSION: Distal fibular avulsion fracture with soft tissue swelling laterally. Nondispla sylvia fracture at the fifth metatarsal. No malalignment of the ankle. Calcaneal spurring .
--- NOTE | 2021-05-15 15:57 | EDPHYS ---
Physician Documentation [facility] Name: Houston Neely Age: 70 yrs Sex: Male : 1950 Arrival Date: 05/15/2021 Time: 14:05 Bed 12 Private MD: ED Physician Mj Wood HPI: 05/15 14:16 This 70 yrs old Male presents to ER via EMS with complaints of Ankle Injury. pm1 14:16 The patient presents with pain, that is acute, swelling. The complaints affect the pm1 right ankle. Onset: The symptoms/episode began/occurred yesterday. Context: The problem was sustained at home, resulted from Trip and fall, The mechanism of injury involved inversion of the affected ankle. Associated signs and symptoms: Pertinent positives: swelling, Pertinent negatives: numbness, tingling. Modifying factors: The symptoms are alleviated by elevation of extremity, the symptoms are aggravated by wearing shoes. Severity of symptoms: in the emergency department the symptoms are unchanged. The patient has not experienced similar symptoms in the past. The patient has not recently seen a physician. Historical: - Allergies: 14:18 No Known Allergies; ab2 - Home Meds: 14:18 Keppra Oral [Active]; lisinopril 20 mg Oral tab 1 tab once daily [Active]; ab2 - PMHx: 14:18 CVA; Hypertension; R sided weakness; Seizures; ab2 - PSHx: 14:18 Cholecystectomy; ab2 - Immunization history:: Adult Immunizations unknown. - Social history:: Smoking status: unknown. ROS: 14:20 Constitutional: Negative for fever, chills, and weight loss, Neck: Negative for injury, pm1 pain, and swelling, Cardiovascular: Negative for chest pain, palpitations, and edema, Respiratory: Negative for shortness of breath, cough, wheezing, and pleuritic chest pain, Skin: Negative for injury, rash, and discoloration, Neuro: Negative for headache, weakness, numbness, tingling, and seizure. 14:20 MS/extremity: Positive for pain, of the right foot and right ankle, Negative for deformity. 14:20 All other systems are negative. Exam: 14:20 Constitutional: This is a well developed, well nourished patient who is awake, alert, pm1 and in no acute distress. Head/Face: Normocephalic, atraumatic. 14:20 Skin: Warm, dry with normal turgor. Normal color with no rashes, no lesions, and no evidence of cellulitis. 14:20 Cardiovascular: Exam negative for acute changes, Rate: normal, Rhythm: regular, Pulses: no pulse deficits are appreciated. 14:20 Respiratory: Exam negative for acute changes, respiratory distress, shortness of breath. 14:20 Musculoskeletal/extremity: Extremities: grossly normal except: noted in the lateral aspect of right ankle: swelling, tenderness, noted in the lateral side of right foot: tenderness, no evidence of decreased ROM, deformity, the right foot Sensation intact. 14:20 Neuro: Exam negative for acute changes, Motor: moves all fours. Vital Signs: 14:17 BP 142 / 70; Pulse 16; Resp 86; Temp 98.3(O); Pulse Ox 99% on R/A; Weight 74.84 kg; ab2 Height 5 ft. 8 in. (172.72 cm); Pain 7/10; 15:00 BP 136 / 69; Pulse 82; Resp 16; Pulse Ox 99% on R/A; Pain 0/10; ab2 16:05 BP 131 / 77; Pulse 78; Resp 16; Pulse Ox 98% on R/A; ab2 14:17 Body Mass Index 25.09 (74.84 kg, 172.72 cm) ab2 MDM: 14:16 Patient medically screened. pm1 15:35 ED course: Patient with right sided weakness as a result of his CVA. Therefore patient pm1 is not able to use crutches or a walker, so I will give the patient a walking boot. 15:53 Data reviewed: vital signs. Data interpreted: Pulse oximetry: on room air is 99 %. pm1 Interpretation: normal. Counseling: I had a detailed discussion with the patient and/or guardian regarding: the historical points, exam findings, and any diagnostic results supporting the discharge/admit diagnosis, radiology results, the need for outpatient follow up, for definitive care, a orthopedic surgeon, a lmft, to return to the emergency department if symptoms worsen or persist or if there are any questions or concerns that arise at home. 15:53 ED course: Patient refused pain medications offered multiple times during ER visit. pm1 05/15 14:16 Order name: Ankle Right 3 View XRAY; Complete Time: 15:33 pm1 05/15 14:16 Order name: Foot Right 3 View XRAY; Complete Time: 15:33 pm1 05/15 15:35 Order name: Walking boot; Complete Time: 16:05 pm1 Administered Medications: No medications were administered Disposition Summary: 05/15/21 15:56 Discharge Ordered Location: Home pm1 Problem: new pm1 Symptoms: have improved pm1 Condition: Stable pm1 Diagnosis - Right distal fibular avulsion fracture pm1 - Nondisplaced right proximal fifth metatarsal fracture pm1 Followup: pm1 - With: Emergency Department - When: As needed - Reason: Worsening of condition Followup: pm1 - With: Sourav Armstrong MD - When: 2 - 3 days - Reason: Recheck today's complaints, Continuance of care, Re-evaluation by your physician Discharge Instructions: - Discharge Summary Sheet pm1 - Ankle Fracture pm1 - Metatarsal Fracture pm1 - Walking Boot, Adult pm1 Forms: - Medication Reconciliation Form pm1 - Thank You Letter pm1 - Antibiotic Education pm1 - Prescription Opioid Use pm1 Prescriptions: - Tylenol-Codeine #3 300 mg-30 mg Oral - take 1 tablet by ORAL route every 6 hours As needed; 12 tablet; Refills: 0, pm1 Product Selection Permitted Addendum: 05/16/2021 18:42 Co-signature as Attending Physician, Mj Wood MD I agree with the assessment and c anderson plan of care. Signatures: Dispatcher [employer] Mj Park MD MD cha Marinas, Patrick, JANIE ENVIRONMENTAL GEOLOGIST pm1 oRbbie Stevenson ab2
--- NOTE | 2021-05-15 15:57 | ER ---
Nurse's Notes [facility] Name: Houston Neely Age: 70 yrs Sex: Male : 1950 Arrival Date: 05/15/2021 Time: 14:05 Bed 12 Private MD: Diagnosis: Right distal fibular avulsion fracture;Nondisplaced right proximal fifth metatarsal fracture Presentation: 05/15 14:05 Chief complaint: EMS states: pt has hx of CVA with right sided weakness, fell sometime iw yesterday and has pain to right ankle/foot and is unable to bear weight today. Coronavirus screen: At this time, the client does not indicate any symptoms associated with coronavirus-19. Ebola Screen: Patient negative for fever greater than or equal to 101.5 degrees Fahrenheit, and additional compatible Ebola Virus Disease symptoms Patient denies exposure to infectious person. Patient denies travel to an Ebola-affected area in the 21 days before illness onset. No symptoms or risks identified at this time. Initial Sepsis Screen: Does the patient meet any 2 criteria? No. Patient's initial sepsis screen is negative. Does the patient have a suspected source of infection? No. Patient's initial sepsis screen is negative. Risk Assessment: Do you want to hurt yourself or someone else? Patient reports no desire to harm self or others. Onset of symptoms was May 14, 2020. 14:05 Method Of Arrival: EMS: [facility] iw 14:05 Acuity: CHUCK 4 iw Historical: - Allergies: 14:18 No Known Allergies; ab2 - Home Meds: 14:18 Keppra Oral [Active]; lisinopril 20 mg Oral tab 1 tab once daily [Active]; ab2 - PMHx: 14:18 CVA; Hypertension; R sided weakness; Seizures; ab2 - PSHx: 14:18 Cholecystectomy; ab2 - Immunization history:: Adult Immunizations unknown. - Social history:: Smoking status: unknown. Screenin:15 Abuse screen: Denies threats or abuse. Denies injuries from another. Nutritional ab2 screening: No deficits noted. Tuberculosis screening: No symptoms or risk factors identified. Fall Risk Fall in past 12 months (25 points). Secondary diagnosis (15 points) No IV (0 pts). Ambulatory Aid- Crutches/Cane/Walker (15 pts). Gait- Impaired (20 pts.). Mental Status- Overestimates/Forgets Limitations (15 pts.). Total Roberto Fall Scale indicates High Risk Score (45 or more points). Fall prevention measures have been instituted. Side Rails Up X 2 Placed Close to Nursing Station Frequent Obs/Assessments Occuring As available patient and family educated on Fall Prevention Program and Strategies. Assessment: 14:15 General: Appears in no apparent distress. comfortable, Behavior is calm, cooperative, ab2 appropriate for age. Pain: Complains of pain in right ankle Pain currently is 7 out of 10 on a pain scale. Quality of pain is described as burning. Neuro: Level of Consciousness is awake, alert, obeys commands, Oriented to person, place, time, situation, Appropriate for age Stock Puller are weak on right Gait is unsteady, Speech with expressive aphasia noted, Facial droop on right, Denies weakness. Cardiovascular: No deficits noted. Denies chest pain, shortness of breath, Patient's skin is warm and dry. Chest pain is denied. Respiratory: No deficits noted. Airway is patent Breath sounds are clear bilaterally. GI: No deficits noted. No signs and/or symptoms were reported involving the gastrointestinal system. Abdomen is round non-distended, Bowel sounds present X 4 quads. : No deficits noted. No signs and/or symptoms were reported regarding the genitourinary system. EENT: No deficits noted. No signs and/or symptoms were reported regarding the EENT system. Derm: No deficits noted. No signs and/or symptoms reported regarding the dermatologic system. Musculoskeletal: Reports pain in right ankle. Injury Description: fall. Vital Signs: 14:17 BP 142 / 70; Pulse 16; Resp 86; Temp 98.3(O); Pulse Ox 99% on R/A; Weight 74.84 kg; ab2 Height 5 ft. 8 in. (172.72 cm); Pain 7/10; 15:00 BP 136 / 69; Pulse 82; Resp 16; Pulse Ox 99% on R/A; Pain 0/10; ab2 16:05 BP 131 / 77; Pulse 78; Resp 16; Pulse Ox 98% on R/A; ab2 14:17 Body Mass Index 25.09 (74.84 kg, 172.72 cm) ab2 ED Course: 14:05 Patient arrived in ED. pm1 14:06 Triage completed. iw 14:11 Yandel Caballero NP is PHCP. pm1 14:11 Mj Wood MD is Attending Physician. pm1 14:15 Robbie Stevenson is Primary Nurse. ab2 14:18 Arm band placed on right wrist. ab2 14:18 No provider procedures requiring assistance completed. ab2 14:19 Patient has correct armband on for positive identification. Bed in low position. Call ab2 light in reach. Side rails up X2. 15:10 Ankle Right 3 View XRAY In Process Unspecified. EDMS 15:10 Foot Right 3 View XRAY In Process Unspecified. EDMS 15:54 Sourav Armstrong MD is Referral Physician. pm1 16:01 Daughter contacted to come pick patient up as he is discharged. ab2 16:02 Applied boot to right foot. ab2 16:04 Patient did not have IV access during this emergency room visit. ab2 Administered Medications: No medications were administered Outcome: 15:56 Discharge ordered by MD. pm1 16:03 Discharged to home via wheelchair, with family. ab2 16:03 Condition: good 16:03 Discharge instructions given to patient, family, Instructed on discharge instructions, follow up and referral plans. Demonstrated understanding of instructions, follow-up care. 16:20 Patient left the ED. ab2 Signatures: Dispatcher [employer] Karoline Magana, FLAVIA ALEJANDRO Yandel Caballero, JANIE HYDRO SPRAYER OPERATOR pm1 Robbie Stevenson ab2
[2021-05-15 16:49] VITALS: TEMP 98.3
[2021-05-15 16:52] VITALS: BP 131/77; O2SAT 98
== END 2021-05-15 16:20 | disposition home or self-care (01) ==
LOC: ER 14:03
DX: S82.401A Unspecified fracture of shaft of right fibula, initial encounter for closed fracture (principal); S92.354A Nondisplaced fracture of fifth metatarsal bone, right foot, initial encounter for closed fracture; W01.0XXA Fall on same level from slipping, tripping and stumbling without subsequent striking against object, initial encounter; Y93.01 Activity, walking, marching and hiking; Y92.009 Unspecified place in unspecified non-institutional (private) residence as the place of occurrence of the external cause; I10 Essential (primary) hypertension
CPT/HCPCS: 99283

== ENCOUNTER 2022-01-30 20:59 | Inpatient (IN) | payer OTHER ==
--- OUTSIDE RECORDS SUMMARY | 2022-01-30 21:04 | XMS REPORT | Continuity of Care Document ---
:1950 Author Organization [facility] [place] [facility] t Address [address] [place] [address] Dr. [address] [place] [address] Care Team Providers Name Role Phone TOYA Attending Clinician Unavailable Kendra Attending Clinician Unavailable SUDHIR SARAVIA Attending Clinician Unavailable Royal Rice Attending Clinician Toni Attending Clinician Unavailable Iliana Pinto MD Attending Clinician Sudhir Saravia MD Attending Clinician [facility] [place] [facility] Fac Attending Clinician Unavailable 1, [facility] Room Attending Clinician Unavailable 2, [facility] Room Attending Clinician Unavailable Doctor Unassigned, [place] Attending Clinician Unavailable TOYA Admitting Clinician Unavailable Kendra Admitting Clinician Unavailable Toni Admitting Clinician Unavailable Payers Payer Name Policy Type Policy Number Effective Date Expiration Date S jose [place]: [id number] 2016 [place] 00:00:00 MEDICARE PART A [id number] 2016 \T\ B 00:00:00 MEDICAID OF [place] [id number] 2016 00:00:00 Problems This patient has no known problems. Allergies, Adverse Reactions, Alerts Allergy Allergy Status Severity Reaction(s) Onset Inactive Treating Comm ents Source Name Type Date Date Clinician NO KNOWN Drug Active Univers ALLERGIE Class ity of S [facility] Social History Social Habit Start Date Stop Date Quantity Comments Source History of tobacco Cigarette Smoker [facility] Sex Assigned At Universit y of [facility] Cigarettes smoked 2018-12-19 2018-12-19 Univers ity of current (pack per 00:00:00 00:00:00 ) - Reported [place] Alcohol intake 2018-12-19 2018-12-19 University 00:00:00 00:00:00 [facility] Smoking Status Start Date Stop Date Source Current every day smoker 2018-12-19 00:00:00 Uni versity of [facility] Medications Ordered Filled Start Stop Current Ordering Indication Dosage Frequency Signature Comments Components Source Medication Medication Date Date Medication? Clinician (SIG) Name Name atorvastati 2020- No [id number] 40mg Take 1 Univers n 40 mg 09-10 tablet by ity of tablet 00:00: 04:59 mouth at [place] 00 :00 bedtime Medical for 90 Branch days. contrast 2019- No Intravenou Un royal previously 01-11 s, ONCE, 1 it y of administere 17:15: 16:30 dose, Fri [place] d 0 mL 00 :00 01/11/19 at [place] [id number], [place] Routine iohexol 2019- No 100mL 100 mL, Unive rs (OMNIPAQUE 01-11 Intravenou it y of 350 17:15: 16:30 s, ONCE, 1 [place] BULK-100 00 :00 dose, Fri Medica l mL) 01/11/19 at [place] injection 1215, 100 mL Routine ezetimibe 2018- Yes 10mg Take 10 mg Un royal 10 mg 9-06 by mouth ity of tablet 15:56: daily. [place] 28 [facility] Branch albuterol 2018-0 Yes 2.5mg Inhale 2.5 U nivers 2.5 mg /3 9-06 mg every 8 ity of mL (0.083 15:56: (eight) [place] %) 28 hours as Medical nebulizer needed. [place] solution albuterol 2018-0 Yes 2{puff} Inhale 2 U nivers 90 9-06 Puffs ity of mcg/actuati 15:56: every 6 [place] as on inhaler 28 (six) Medical hours as Branch needed. montelukast 2018- Yes 10mg Take 10 mg Univers 10 mg 9-06 by mouth ity of tablet 15:56: daily. [address] ezetimibe 2018- Yes 10mg Take 10 mg Un royal 10 mg 9-06 by mouth ity of tablet 15:56: daily. [address] albuterol 2018-0 Yes 2.5mg Inhale 2.5 U nivers 2.5 mg /3 9-06 mg every 8 ity of mL (0.083 15:56: (eight) [place] %) 28 hours as Medical nebulizer needed. [place] solution albuterol Yes 2{puff} Inhale 2 U nivers 90 9-06 Puffs ity of mcg/actuati 15:56: every 6 [place] as on inhaler 28 (six) Medical hours as Branch needed. montelukast 2018- Yes 10mg Take 10 mg Univers 10 mg 9-06 by mouth ity of tablet 15:56: daily. [address] ezetimibe Yes 10mg Take 10 mg Un royal 10 mg 9-06 by mouth ity of tablet 15:56: daily. [address] albuterol Yes 2.5mg Inhale 2.5 U nivers 2.5 mg /3 9-06 mg every 8 ity of mL (0.083 15:56: (eight) [place] %) 28 hours as Medical nebulizer needed. [place] solution albuterol Yes 2{puff} Inhale 2 U nivers 90 9-06 Puffs ity of mcg/actuati 15:56: every 6 [place] as on inhaler 28 (six) Medical hours as Branch needed. montelukast 2018-0 Yes 10mg Take 10 mg Univers 10 mg 9-06 by mouth ity of tablet 15:56: daily. [address] ezetimibe 0 Yes 10mg Take 10 mg Un royal 10 mg 9-06 by mouth ity of tablet 15:56: daily. [address] albuterol 0 Yes 2.5mg Inhale 2.5 U nivers 2.5 mg /3 9-06 mg every 8 ity of mL (0.083 15:56: (eight) [place] %) 28 hours as Medical nebulizer needed. Branch solution albuterol 2018-0 Yes 2{puff} Inhale 2 U nivers 90 9-06 Puffs ity of mcg/actuati 15:56: every 6 [place] as on inhaler 28 (six) Medical hours as Branch needed. montelukast 2019-0 Yes 10mg Take 10 mg Univers 10 mg 9-06 by mouth ity of tablet 15:56: daily. [address] ezetimibe 0 Yes 10mg Take 10 mg Un royal 10 mg 9-06 by mouth ity of tablet 15:56: daily. [address] albuterol 2018-0 Yes 2.5mg Inhale 2.5 U nivers 2.5 mg /3 9-06 mg every 8 ity of mL (0.083 15:56: (eight) [place] %) 28 hours as Medical nebulizer needed. [place] solution albuterol Yes 2{puff} Inhale 2 U nivers 90 9-06 Puffs ity of mcg/actuati 15:56: every 6 [place] as on inhaler 28 (six) Medical hours as Branch needed. montelukast 2018-0 Yes 10mg Take 10 mg Univers 10 mg 9-06 by mouth ity of tablet 15:56: daily. [address] ezetimibe Yes 10mg Take 10 mg Un royal 10 mg 9-06 by mouth ity of tablet 15:56: daily. [address] albuterol 0 Yes 2.5mg Inhale 2.5 U nivers 2.5 mg /3 9-06 mg every 8 ity of mL (0.083 15:56: (eight) [place] %) 28 hours as Medical nebulizer needed. [place] solution albuterol 0 Yes 2{puff} Inhale 2 U nivers 90 9-06 Puffs ity of mcg/actuati 15:56: every 6 [place] as on inhaler 28 (six) Medical hours as Branch needed. montelukast 2018-0 Yes 10mg Take 10 mg Univers 10 mg 9-06 by mouth ity of tablet 15:56: daily. [address] lisinopril 2018-0 Yes 20mg Take 20 mg U nivers 20 mg 9-06 by mouth ity of tablet 15:53: daily. [address] foLIC acid 2018-0 Yes 1mg Take 1 mg Un royal 1 mg tablet 9-06 by mouth ity of 15:53: daily. [address] levETIRAcet 2019-0 Yes 1000mg Take 1,000 Univers am (KEPPRA) 9-06 mg by ity of 1,000 mg 15:53: mouth 2 [place] tablet 50 (two) Medical times [place] daily. amLODIPine 2019-0 Yes 10mg Take 10 mg U nivers 10 mg 9-06 by mouth ity of tablet 15:53: daily. [address] lisinopril 2019-0 Yes 20mg Take 20 mg U nivers 20 mg 9-06 by mouth ity of tablet 15:53: daily. [address] foLIC acid 2019-0 Yes 1mg Take 1 mg Un royal 1 mg tablet 9-06 by mouth ity of 15:53: daily. [address] levETIRAcet 2019-0 Yes 1000mg Take 1,000 Univers am (KEPPRA) 9-06 mg by ity of 1,000 mg 15:53: mouth 2 [place] tablet 50 (two) Medical times [place] daily. amLODIPine 2019-0 Yes 10mg Take 10 mg U nivers 10 mg 9-06 by mouth ity of tablet 15:53: daily. [address] lisinopril 2019-0 Yes 20mg Take 20 mg U nivers 20 mg 9-06 by mouth ity of tablet 15:53: daily. [address] foLIC acid 2019-0 Yes 1mg Take 1 mg Un royal 1 mg tablet 9-06 by mouth ity of 15:53: daily. [address] levETIRAcet 2019-0 Yes 1000mg Take 1,000 Univers am (KEPPRA) 9-06 mg by ity of 1,000 mg 15:53: mouth 2 [place] tablet 50 (two) Medical times [place] daily. amLODIPine 2019-0 Yes 10mg Take 10 mg U nivers 10 mg 9-06 by mouth ity of tablet 15:53: daily. [address] lisinopril 2019-0 Yes 20mg Take 20 mg U nivers 20 mg 9-06 by mouth ity of tablet 15:53: daily. [address] foLIC acid 2019-0 Yes 1mg Take 1 mg Un royal 1 mg tablet 9-06 by mouth ity of 15:53: daily. [address] levETIRAcet 2019-0 Yes 1000mg Take 1,000 Univers am (KEPPRA) 9-06 mg by ity of 1,000 mg 15:53: mouth 2 [place] tablet 50 (two) Medical times Branch daily. amLODIPine 2019-0 Yes 10mg Take 10 mg U nivers 10 mg 9-06 by mouth ity of tablet 15:53: daily. [address] lisinopril 2019-0 Yes 20mg Take 20 mg U nivers 20 mg 9-06 by mouth ity of tablet 15:53: daily. [address] foLIC acid 2019-0 Yes 1mg Take 1 mg Un royal 1 mg tablet 9-06 by mouth ity of 15:53: daily. [address] levETIRAcet 2019-0 Yes 1000mg Take 1,000 Univers am (KEPPRA) 9-06 mg by ity of 1,000 mg 15:53: mouth 2 [place] tablet 50 (two) Medical times [place] daily. amLODIPine 2019-0 Yes 10mg Take 10 mg U nivers 10 mg 9-06 by mouth ity of tablet 15:53: daily. [address] lisinopril 0 Yes 20mg Take 20 mg U nivers 20 mg 9-06 by mouth ity of tablet 15:53: daily. [address] foLIC acid 2018-0 Yes 1mg Take 1 mg Un royal 1 mg tablet 9-06 by mouth ity of 15:53: daily. [address] levETIRAcet 2018-0 Yes 1000mg Take 1,000 Univers am (KEPPRA) 9-06 mg by ity of 1,000 mg 15:53: mouth 2 [place] tablet 50 (two) Medical times [place] daily. amLODIPine 2019-0 Yes 10mg Take 10 mg U nivers 10 mg 9-06 by mouth ity of tablet 15:53: daily. [address] atorvastati 2019-0 Yes [id number] 40mg Take 1 Univers n 40 mg 9-06 07 tablet by ity of tablet 00:00: mouth at [place] [address] bedtime. [facility] atorvastati 2019-0 Yes [id number] 40mg Take 1 Univers n 40 mg 9-06 07 tablet by ity of tablet 00:00: mouth at [place] [address] bedtime. [facility] atorvastati 2019-0 Yes [id number] 40mg Take 1 Univers n 40 mg 9-06 07 tablet by ity of tablet 00:00: mouth at [place] 00 bedtime. Medical Branch atorvastati Yes [id number] 40mg Take 1 Univers n 40 mg 9- 07 tablet by ity of tablet 00:00: mouth at [place] 00 bedtime. Medical Branch atorvastati Yes [id number] 40mg Take 1 Univers n 40 mg 9- 07 tablet by ity of tablet 00:00: mouth at [place] 00 bedtime. Medical Branch atorvastati Yes [id number] 40mg Take 1 Univers n 40 mg - 07 tablet by ity of tablet 00:00: mouth at [place] 00 bedtime. Medical Branch sulfur 2019- No 5mL Univers hexafluorid 01-01 ity of e microsphr 22:30: 21:28 [place] (LUMASON) 00 :00 Medical injection 5 Branch mL sulfur 2018- No 5mL 5 mL, Univers hexafluorid 01-01 Intravenou i ty of e microsphr 22:30: 21:28 s, ONCE, 1 [place] (LUMASON) 00 :00 dose, Tue Medic al injection 5 01/01/19 at [facility] mL 1730, Routine montelukast Yes 10mg Take 10 mg Univers 10 mg 8-26 by mouth ity of tablet 14:36: daily. [address] montelukast Yes 10mg Take 10 mg Univers 10 mg 8-26 by mouth ity of tablet 14:36: daily. [address] montelukast Yes 10mg Take 10 mg Univers 10 mg 8-26 by mouth ity of tablet 14:36: daily. [address] montelukast Yes 10mg Take 10 mg Univers 10 mg 8-26 by mouth ity of tablet 14:36: daily. [address] montelukast Yes 10mg Take 10 mg Univers 10 mg 8-26 by mouth ity of tablet 14:36: daily. [address] Branch albuterol 2018-0 Yes 2{puff} Inhale 2 U nivers 90 8-26 Puffs ity of mcg/actuati 14:36: every 6 [place] as on inhaler 28 (six) Medical hours as Branch needed. albuterol 0 Yes 2{puff} Inhale 2 U [...] by mouth ity of tablet 14:34: daily. [address] ezetimibe 2019-0 Yes 10mg Take 10 mg Un royal 10 mg 8-26 by mouth ity of tablet 14:34: daily. [address] ezetimibe 2019-0 Yes 10mg Take 10 mg Un royal 10 mg 8-26 by mouth ity of tablet 14:34: daily. [address] ezetimibe 2019-0 Yes 10mg Take 10 mg Un royal 10 mg 8-26 by mouth ity of tablet 14:34: daily. [address] ezetimibe 2019-0 Yes 10mg Take 10 mg Un royal 10 mg 8-26 by mouth ity of tablet 14:34: daily. [address] foLIC acid 2019-0 Yes 1mg Take 1 mg Un royal 1 mg tablet 8-21 by mouth ity of 14:22: daily. [address] levETIRAcet 2019-0 Yes 1000mg Take 1,000 Univers am (KEPPRA) 8-21 mg by ity of 1,000 mg 14:22: mouth 2 [place] tablet 48 (two) Medical times [place] daily. amLODIPine 2019-0 Yes 10mg Take 10 mg U nivers 10 mg 8-21 by mouth ity of tablet 14:22: daily. [address] foLIC acid 2019-0 Yes 1mg Take 1 mg Un royal 1 mg tablet 8-21 by mouth ity of 14:22: daily. [address] levETIRAcet 2019-0 Yes 1000mg Take 1,000 Univers am (KEPPRA) 8-21 mg by ity of 1,000 mg 14:22: mouth 2 [place] tablet 48 (two) Medical times [place] daily. amLODIPine 2019-0 Yes 10mg Take 10 mg U nivers 10 mg 8-21 by mouth ity of tablet 14:22: daily. [address] foLIC acid 2019-0 Yes 1mg Take 1 mg Un royal 1 mg tablet 8-21 by mouth ity of 14:22: daily. [address] levETIRAcet 2019-0 Yes 1000mg Take 1,000 Univers am (KEPPRA) 8-21 mg by ity of 1,000 mg 14:22: mouth 2 [place] tablet 48 (two) Medical times [place] daily. amLODIPine 2019-0 Yes 10mg Take 10 mg U nivers 10 mg 8-21 by mouth ity of tablet 14:22: daily. [address] foLIC acid 2019-0 Yes 1mg Take 1 mg Un royal 1 mg tablet 8-21 by mouth ity of 14:22: daily. [address] levETIRAcet 2019-0 Yes 1000mg Take 1,000 Univers am (KEPPRA) 8-21 mg by ity of 1,000 mg 14:22: mouth 2 [place] tablet 48 (two) Medical times [place] daily. amLODIPine 2019-0 Yes 10mg Take 10 mg U nivers 10 mg 8-21 by mouth ity of tablet 14:22: daily. [address] foLIC acid 2019-0 Yes 1mg Take 1 mg Un royal 1 mg tablet 8-21 by mouth ity of 14:22: daily. [address] levETIRAcet 2019-0 Yes 1000mg Take 1,000 Univers am (KEPPRA) 8-21 mg by ity of 1,000 mg 14:22: mouth 2 [place] tablet 48 (two) Medical times [place] daily. amLODIPine 2019-0 Yes 10mg Take 10 mg U nivers 10 mg 8-21 by mouth ity of tablet 14:22: daily. [address] foLIC acid 2019-0 Yes 1mg Take 1 mg Un royal 1 mg tablet 8-21 by mouth ity of 14:22: daily. [address] levETIRAcet 2019-0 Yes 1000mg Take 1,000 Univers am (KEPPRA) 8-21 mg by ity of 1,000 mg 14:22: mouth 2 [place] tablet 48 (two) Medical times [place] daily. amLODIPine 2019-0 Yes 10mg Take 10 mg U nivers 10 mg 8-21 by mouth ity of tablet 14:22: daily. [address] foLIC acid 2019-0 Yes 1mg Take 1 mg Un royal 1 mg tablet 8-21 by mouth ity of 14:22: daily. [address] levETIRAcet 2019-0 Yes 1000mg Take 1,000 Univers am (KEPPRA) 8-21 mg by ity of 1,000 mg 14:22: mouth 2 [place] tablet 48 (two) Medical times [place] daily. amLODIPine 2019-0 Yes 10mg Take 10 mg U nivers 10 mg 8-21 by mouth ity of tablet 14:22: daily. [address] foLIC acid 2019-0 Yes 1mg Take 1 mg Un royal 1 mg tablet 8-21 by mouth ity of 14:22: daily. [address] levETIRAcet 2019-0 Yes 1000mg Take 1,000 Univers am (KEPPRA) 8-21 mg by ity of 1,000 mg 14:22: mouth 2 [place] tablet 48 (two) Medical times [place] daily. amLODIPine 2019-0 Yes 10mg Take 10 mg U nivers 10 mg 8-21 by mouth ity of tablet 14:22: daily. [address] foLIC acid 2019-0 Yes 1mg Take 1 mg Un royal 1 mg tablet 8-21 by mouth ity of 14:22: daily. [address] levETIRAcet 2019-0 Yes 1000mg Take 1,000 Univers am (KEPPRA) 8-21 mg by ity of 1,000 mg 14:22: mouth 2 [facility] [place] 48 (two) Medical times [place] daily. amLODIPine 2019-0 Yes 10mg Take 10 mg U nivers 10 mg 8-21 by mouth ity of tablet 14:22: daily. [address] foLIC acid 2019-0 Yes 1mg Take 1 mg Un royal 1 mg tablet 8-21 by mouth ity of 14:22: daily. [address] levETIRAcet 2019-0 Yes 1000mg Take 1,000 Univers am (KEPPRA) 8-21 mg by ity of 1,000 mg 14:22: mouth 2 [place] tablet 48 (two) Medical times [place] daily. amLODIPine 2019-0 Yes 10mg Take 10 mg U nivers 10 mg 8-21 by mouth ity of tablet 14:22: daily. [address] lisinopril 2019-0 Yes 20mg Take 20 mg U nivers 20 mg 8-21 by mouth ity of tablet 14:22: daily. [address] lisinopril 2019-0 Yes 20mg Take 20 mg U nivers 20 mg 8-21 by mouth ity of tablet 14:22: daily. [address] lisinopril 2019-0 Yes 20mg Take 20 mg U nivers 20 mg 8-21 by mouth ity of tablet 14:22: daily. [address] lisinopril Yes 20mg Take 20 mg U nivers 20 mg 8-21 by mouth ity of tablet 14:22: daily. [address] lisinopril Yes 20mg Take 20 mg U nivers 20 mg 8-21 by mouth ity of tablet 14:22: daily. [address] lisinopril Yes 20mg Take 20 mg U nivers 20 mg 8-21 by mouth ity of tablet 14:22: daily. [address] lisinopril Yes 20mg Take 20 mg U nivers 20 mg 8-21 by mouth ity of tablet 14:22: daily. [address] lisinopril Yes 20mg Take 20 mg U nivers 20 mg 8-21 by mouth ity of tablet 14:22: daily. [address] lisinopril Yes 20mg Take 20 mg U nivers 20 mg 8-21 by mouth ity of tablet 14:22: daily. [address] lisinopril Yes 20mg Take 20 mg U nivers 20 mg 8-21 by mouth ity of tablet 14:22: daily. [address] atorvastati 2017-05 Yes 80mg Take 1 Univ ers n 80 mg 2-06 tablet by ity of tablet 00:00: mouth at [place] [address] bedtime. Medical onstatin Branch per recent notes. Updated chart with new order atorvastati 2017-05 Yes 80mg Take 1 Univ ers n 80 mg 2-06 tablet by ity of tablet 00:00: mouth at [place] [address] bedtime. Medical onstatin Branch per recent notes. Updated chart with new order atorvastati 2017-05 Yes 80mg Take 1 Univ ers n 80 mg 2-06 tablet by ity of tablet 00:00: mouth at [place] [address] bedtime. Medical onstatin Branch per recent notes. Updated chart with new order atorvastati 2017-05 Yes 80mg Take 1 Univ ers n 80 mg 2-06 tablet by ity of tablet 00:00: mouth at [place] [address] bedtime. Medical onstatin Branch per recent notes. [...] by ity of tablet 00:00: mouth at [place] 00 bedtime. Medical onstatin Branch per recent notes. Updated chart with new order atorvastati 2017-05 Yes 80mg Take 1 Univ ers n 80 mg 2-06 tablet by ity of tablet 00:00: mouth at [place] 00 bedtime. Medical onstatin Branch per recent notes. Updated chart with new order atorvastati 2017-05 Yes 80mg Take 1 Univ ers n 80 mg 2-06 tablet by ity of tablet 00:00: mouth at [place] 00 bedtime. Medical onstatin Branch per recent notes. Updated chart with new order atorvastati 2017-05 Yes 80mg Take 1 Univ ers n 80 mg 2-06 tablet by ity of tablet 00:00: mouth at [place] 00 bedtime. Medical onstatin Branch per recent notes. Updated chart with new order atorvastati 2017-05 Yes 80mg Take 1 Univ ers n 80 mg 2-06 tablet by ity of tablet 00:00: mouth at [place] 00 bedtime. Medical onstatin Branch per recent notes. Updated chart with new order atorvastati 2017-05 Yes 80mg Take 1 Univ ers n 80 mg 2-06 tablet by ity of tablet 00:00: mouth at [place] 00 bedtime. Medical onstatin Branch per recent notes. Updated chart with new order atorvastati 2017-05 Yes 80mg Take 1 Univ ers n 80 mg 2-06 tablet by ity of tablet 00:00: mouth at [place] 00 bedtime. Medical onstatin Branch per recent notes. Updated chart with new order atorvastati 2017-05 Yes 80mg Take 1 Univ ers n 80 mg 2-06 tablet by ity of tablet 00:00: mouth at [place] 00 bedtime. Medical onstatin Branch per recent notes. Updated chart with new order atorvastati 2017-05 Yes 80mg Take 1 Univ ers n 80 mg 2-06 tablet by ity of tablet 00:00: mouth at [place] 00 bedtime. Medical onstatin Branch per recent [...] by ity of tablet 00:00: mouth at [place] 00 bedtime. Medical onstatin Branch per recent notes. Updated chart with new order amLODIPine Yes 10mg Take 10 mg U nivers 10 mg 8-21 by mouth ity of tablet 14:41: daily. [place] [address] Medical Branch lisinopril Yes 20mg Take 20 mg U nivers 20 mg 8-21 by mouth ity of tablet 14:41: daily. [place] [address] Medical Branch foLIC acid Yes 1mg Take 1 mg Un royal 1 mg tablet 8-21 by mouth ity of 14:41: daily. [place] [address] Medical Branch levETIRAcet Yes 1000mg Take 1,000 Univers am [...] 2019-01-04 15:52:00 133 mm[Hg] Univer sity of pressure [place] [facility] Diastolic blood 2019-01-04 15:52:00 67 mm[Hg] Unive rsity of pressure [facility] Branch Heart rate 2019-01-04 15:52:00 75 /min [facility] Body temperature 2019-01-04 15:52:00 36.78 Janett Univ ersity [facility] Respiratory rate 2019-01-04 15:52:00 20 /min Univ ersity of [place] [facility] Body weight 2019-01-04 15:52:00 84.732 kg Universi ty of [place] [facility] BMI 2019-01-04 15:52:00 29.26 kg/m2 [facility] [place] [facility] Systolic blood 2019-01-04 15:52:00 133 mm[Hg] Univer sity of pressure [place] [facility] Diastolic blood 2019-01-04 15:52:00 67 mm[Hg] Unive rsity of pressure [place] [facility] Heart rate 2019-01-04 15:52:00 75 /min [facility] [place] [facility] Body temperature 2019-01-04 15:52:00 36.78 Janett Univ ersity of [place] [facility] Respiratory rate 2019-01-04 15:52:00 20 /min Univ ersity of [place] [facility] Body weight 2019-01-04 15:52:00 84.732 kg [facility]i [facility] [place] [facility] BMI 2019-01-04 15:52:00 29.26 kg/m2 [facility] [place] [facility] Systolic blood 2018-12-19 14:21:00 111 mm[Hg] Univer sity of pressure [place] [facility] Diastolic blood 2018-12-19 14:21:00 62 mm[Hg] Unive rsity of pressure [place] [facility] Heart rate 2018-12-19 14:21:00 68 /min [facility]i [facility] [place] [facility] Respiratory rate 2018-12-19 14:21:00 18 /min Univ ersity of [place] [facility] Body height 2018-12-19 14:21:00 170.2 cm [facility] [place] [facility] Body weight 2018-12-19 14:21:00 85.684 kg [facility] [place] [facility] BMI 2018-12-19 14:21:00 29.59 kg/m2 [facility] [place] [facility] Oxygen saturation in 2018-12-19 14:21:00 97 /min [facility] Arterial blood by [facility] Pulse oximetry Branch Systolic blood 2019-01-01 20:52:00 141 mm[Hg] Univer sity of pressure [place] [facility] Diastolic blood 2019-01-01 20:52:00 71 mm[Hg] Unive rsity of pressure [place] [facility] Heart rate 2019-01-01 20:52:00 87 /min [facility] [place] [facility] Body height 2019-01-01 20:52:00 170.2 cm [facility] Body weight 2019-01-01 20:52:00 85.276 kg [facility] BMI 2019-01-01 20:52:00 29.44 kg/m2 [facility] Procedures Procedure Date / Time Performed Performing Clinician Britta campos CT ANGIOGRAM NECK 2019-01-11 17:12:41 Adolph Huitron [facility] CT ANGIOGRAM HEAD 2019-01-11 17:10:04 Adolph Huitron [facility] NOTICE OF BILLING 2019-01-11 15:34:57 Doctor Unassigned, No [facility] PRACTICES FOR MEDICARE Name Medical B ranch PATIENTS [facility] PATIENT FINANCIAL 2019-01-11 15:34:09 Doctor Unassigned, No [facility] POCT CREATININE 2019-01-11 15:10:00 Iliana Pinto [facility] EKG-12 LEAD 2018-12-19 14:29:02 Sudhir Saravia [facility] ASSIGNMENT OF BENEFITS 2018-12-19 14:07:02 Doctor Unassigned, No [facility] Encounters Start End Encounter Admission Attending Care Care Encounter Source Date/Time Date/Time Type Type Clinicians Facility Department ID 2021-11-10 2021-11-10 Outpatient COLETTE DOSHI [id number] [place] 02:08:00 02:08:00 HN [id number] da [facility] 2021-10-14 2021-10-14 Outpatient FOG_Loncari AOSM AOSM [id number] Jennifer 02:06:00 02:06:00 Camilla [id number] [facility] 2021-10-05 2021-10-05 Outpatient FOG_Loncari AOSM AOSM [id number] Jennifer 08:13:00 08:13:00 Camilla [id number] [facility] 2020-01-22 2020-01-22 Outpatient Juan Manuel SARAVIA [facility] [id number] [facility] 15:20:00 15:20:00 SUDHIR [id number] ity o f [facility] 2020-01-22 2020-01-22 Outpatient R RANI, [facility] [id number] Univers 15:20:00 15:20:00 SUDHIR garcia [facility] 2019-12-23 2019-12-23 Outpatient R RANI, [facility] [id number] Univers 09:40:00 09:40:00 SUDHIR [id number] yumiko garcia [facility] 2019-12-23 2019-12-23 Outpatient R RANI, [facility] [id number] Univers 09:40:00 09:40:00 SUDHIR garcia [facility] 2019-09-11 2019-09-11 Telephone [facility] [id number] 00:00:00 00:00:00 [facility] [id number] [facility] [id number] [facility] 2019-09-11 2019-09-11 Telephone James, [facility] [id number] Univers 00:00:00 00:00:00 [facility] [id number] ity of [facility] [id number] [facility] s [id number] [facility] [address] 2019-08-27 2019-08-27 Outpatient C_Hall [facility] [id number] [place] 04:13:00 04:13:00 0428 Medical Group 2019-01-11 2019-01-11 [facility] [id number] [facility] 10:33:32 23:59:00 Encounter Iliana Alexander [id number] ity [facility] 4[place]2.7.2.[place] [phone] [facility] [address] 2019-01-11 2019-01-11 [facility] [id number] 10:33:32 23:59:00 Encounter Iliana Alexander [id number] [place] 4.2.7.2.686 [place] [id number] 801 2019-01-11 2019-01-11 [facility] [id number] [facility] 10:20:00 10:32:00 Encounter Iliana Catherine [id number] ity [place] [phone] [address] 2019-01-11 2019-01-11 [facility] [id number] 10:20:00 10:32:00 Encounter Iliana Catherine [id number] [place] 4.2.7.2.686 [place] [id number] [facility] 2019-01-04 2019-01-04 [facility] [id number] [facility] 10:21:42 18:59:26 Visit Iliana Catherine [id number] it[place] [id number] [address] 2019-01-04 2019-01-04 [facility] [id number] 10:21:42 18:59:26 Visit Iliana Catherine 350.1.13.10 [place] 4.2.7.2.686 Professio [id number] [address] 2018-12-19 2019-01-03 [facility] [id number] Univers 09:07:06 15:22:45 Visit Sudhir Alexander [id number] it[place] [phone] [address] 2019-01-03 2019-01-03 [facility] [id number] [facility] 00:00:00 00:00:00 Miguedenysjelena Catherine [id number] it[place] [phone] [address] 2019-01-01 2019-01-01 [facility], Adc Cardio Fac [facility] [id number]. [id number] Univers 14:30:23 16:38:50 Only 1, Adc Cardio Fac [facility] [place] 350.1. 13.10 ity of [place] 4.2.7.2.686 [place] Profess[place] [phone] Wy collette Francis9 Branch [facility] 2019-01-01 2019-01-01 Personnel Director Frankie, Adc Cardio Fac [facility] 1. [id number] [facility] 14:29:39 15:29:39 Visit 2, Adc Cardio Fac Room Catherine 350.1. 13.10 ity of [place] 4.2.7.2.686 [place] Profess[place] [phone] Wy dicdania Francis9 Branch [facility] 2018-12-24 2018-12-24 Telephone [facility] [id number] Univers 00:00:00 00:00:00 Sudhir Alexander 350.1.13.10 ity of [place] 4.2.7.2.686 [place] Professio [phone] [place] [id number] [facility] 2018-12-19 2018-12-19 Orders Doctor DELTA [id number] Univers 00:00:00 00:00:00 Only Unassigned, DONITA [id number] ity of [place] [facility] 4.2.7.2.686 [place] [phone] [place] [address] Branch Results Test Test Test Results Result Source Description Time Comments Comments CT ANGIOGRAM 2018-12 Nonvisualization of the left University of NECK -13 internal carotid artery from [facility] 19:52:1 its cervicalorigin/carotid Branch 1 bifurcation up [...] NECK: A three-vessel aortic arch is seen. Wnum-lk-rtpxawyi atheroscleroticdisease is noted in the arch. The vessels originating from the arch arepatent. Mild scattered atherosclerotic disease is noted in the common carotidarteries bilaterally, left greater than right. No flow-limiting stenosis isidentified. Kbiw-hk-majwcjdu atherosclerotic disease is seen in the left [...] involving theleft frontal, parietal and temporal lobes. Gamb, Radiant Results Inft User - 01/11/2019 2:52 PM CDTCT ANGIOGRAM NECK, CT ANGIOGRAM HEADHISTORY: Male 68 years hx of right carotid artery stenosis, left carotidartery occlusion COMPARISON: NoneTECHNIQUE: CT angiographic is of the head and neck were obtained afteradministration of IV contrast.FINDINGS:CTA NECK: A three-vessel aortic arch is seen. Lrsz-iw-arfrbsss atheroscleroticdisease is noted in the arch. The vessels originating from the arch arepatent.Mild scattered atherosclerotic disease is noted in the common carotidarteries bilaterally, left greater than right. No flow-limiting stenosis isidentified.Cvaj-yv-aypamtlv atherosclerotic disease is seen in the left [...] of HEAD -13 internal carotid artery from [facility] 19:52:1 its cervicalorigin/carotid Branch 1 bifurcation up [...] NECK: A three-vessel aortic arch is seen. Qqcs-bf-zvmbjupk atheroscleroticdisease is noted in the arch. The vessels originating from the arch arepatent. Mild scattered atherosclerotic disease is noted in the common carotidarteries bilaterally, left greater than right. No flow-limiting stenosis isidentified. Tgqa-jw-xhvijpxv atherosclerotic disease is seen in the left [...] NECK: A three-vessel aortic arch is seen. Mkpb-yp-nuawehwc atheroscleroticdisease is noted in the arch. The vessels originating from the arch arepatent.Mild scattered atherosclerotic disease is noted in the common carotidarteries bilaterally, left greater than right. No flow-limiting stenosis isidentified.Ywuc-qo-sjfsuerl atherosclerotic disease is seen in the left [...] Comme nts POCT Creatinine (test code = [id number]) 0.8 mg/dL 0.6-1.3 Lab Interpretation (test code = 47669-3) Normal [facility]
[2022-01-30 21:41] LABS: Absolute Lymphocytes (CBC) 1.7 K/uL (0.7-4.9); Hematocrit 45.7 % (39.6-49.0); Lymphocytes % 13.9 % (15.3-44.8); MCV 99.6 fL (80-100); MPV 8.8 fL (7.6-11.3); RBC Red Blood Cell Count 4.59 M/uL (4.33-5.43)
--- NOTE | 2022-01-30 21:48 | RAD REPORT ---
EXAM DESCRIPTION: CT - Ct Stroke Brain Wo Cont - 01/30/2022 9:29 pm CLINICAL HISTORY: AMS Headache, drowsiness, CVA symptomology COMPARISON: Head Brain Wo Cont dated 03/14/2021; Head angio dated 10/17/2015 TECHNIQUE: All CT scans are performed using dose optimization technique as appropriate and may inclu de automated exposure control or mA/KV adjustment according to patient size. FINDINGS: No intracranial hemorrhage, hydrocephalus or extra-axial fluid collection.Large area of ol d infarction changes seen left MCA distribution.No midline shift is evident. The paranasal sinuses and mastoids are clear. The calvarium is intact. IMPRESSION: No acute intracranial abnormality. If there is continued clinical concern for CVA, MR imaging of the brain would be recommended. The findings were discussed with Dr Burris in the ER on 01/30/2022 at 9:40 p.m. by telephone.
--- NOTE | 2022-01-30 22:16 | RAD REPORT ---
EXAM DESCRIPTION: RAD - Chest Single View - 01/30/2022 9:56 pm CLINICAL HISTORY: AMS Chest pain. COMPARISON: Chest Single View dated 03/03/2021; Chest Single View dated 04/29/2020; Chest Single View dated 05/10/2017; Chest Single View dated 10/16/2015 FINDINGS: Portable technique limits examination quality. The lungs are emphysematous but grossly clear. The heart is normal in size. No displaced fractures.
[2022-01-30 22:25] LABS: Potassium 3.8 mmol/L (3.5-5.1); Protime INR 0.96
--- NOTE | 2022-01-31 00:30 | ER ---
Nurse's Notes [facility] Name: Houston Neely Age: 71 yrs Sex: Male : 1950 Arrival Date: 01/30/2022 Time: 21:01 Bed 4 Private MD: Diagnosis: Confusion, weakness, seizure Presentation: 01/30 21:17 Chief complaint: EMS states: pt found on the floor, family states he was shouting aa9 1-2-1-2, EMS observed full body seizure, family states hx of seizures, off seizure meds 7 months ago. fell yesterday pt refused transport to hospital. family states pt smokes, BS 162 on scene, 20 G R hand. Coronavirus screen: unable to obtain. Ebola Screen: Unable to complete the Ebola screening because: The patient is disoriented. Initial Sepsis Screen: Does the patient meet any 2 criteria? HR > 90 bpm. No. Patient's initial sepsis screen is negative. Does the patient have a suspected source of infection? No. Patient's initial sepsis screen is negative. Risk Assessment: Do you want to hurt yourself or someone else? Patient reports no desire to harm self or others. Onset of symptoms was January 30, 2022. Care prior to arrival: IV initiated. 20 GA, in the right hand, Glucose check: 162. 21:17 Method Of Arrival: EMS: [facility] aa9 21:17 Acuity: CHUCK 3 aa9 Historical: - Allergies: 21:15 Unable to obtain; aa9 - PMHx: 21:15 Seizures; R sided weakness; Hypertension; CVA; aa9 - PSHx: 21:15 Cholecystectomy; aa9 - Immunization history:: unable to obtain. - Social history:: Smoking status: Patient reports the use of cigarette tobacco products, unknown amount. Screenin:17 Abuse screen: Denies threats or abuse. Denies injuries from another. Nutritional aa9 screening: No deficits noted. Tuberculosis screening: No symptoms or risk factors identified. Fall Risk None identified. 21:44 Patient has been NPO before screening. The patient is alert, able to follow commands. jb4 The patient exhibits slurred or garbled speech. Provider notified of indication for Speech Therapy consult. The patient is exhibiting difficulty speaking. Provider notified of indication for Speech Therapy consult. The patient does not exhibit difficulty understanding words. The patient is able to swallow own secretions with no drooling or need for suction. The patient failed the bedside swallow screening. The patient will be kept NPO until cleared by Speech Therapy or Physician. Provider notified of bedside swallow screening results: Maurilio Burris MD. Assessment: 21:13 General: Appears uncomfortable, Behavior is flat. Pain: Unable to use pain scale. aa9 Patient is disoriented. Does not appear to understand pain scale. Patient appears confused, quiet. Neuro: Level of Consciousness is awake, confused, post ictal, Oriented to none Facial droop on right. Cardiovascular: Patient's skin is warm and dry. Respiratory: Airway is patent Respiratory effort is even, unlabored, Respiratory pattern is regular, symmetrical. 22:30 Reassessment: Pt is resting in bed with eyes closed, respirations are even and jb4 unlabored with no s/s of pain or distress noted. 23:30 Reassessment: Patient appears in no apparent distress at this time. No changes from jb4 previously documented assessment. 01/31 00:30 Reassessment: Patient appears in no apparent distress at this time. Patient and/or jb4 family updated on plan of care and expected duration. Pain level reassessed. Patient is alert, oriented x 3, equal unlabored respirations, skin warm/dry/pink. 01:35 Reassessment: Pt continues to have a hard time speaking, is unable to right. When asked jb4 if this was his normal, pt shook his head saying no. Asked pt if he was able to speak prior to his fall, he nodded his head saying yes. Denies any needs at this time. 02:30 Reassessment: Patient appears in no apparent distress at this time. Patient and/or jb4 family updated on plan of care and expected duration. Pain level reassessed. Patient is alert, oriented x 3, equal unlabored respirations, skin warm/dry/pink. 03:33 Reassessment: Patient appears in no apparent distress at this time. Patient and/or jb4 family updated on plan of care and expected duration. Pain level reassessed. Patient is alert, oriented x 3, equal unlabored respirations, skin warm/dry/pink. Given warm blanket and lemon flavored swabs to wet mouth. PT denies any other concerns at this time. 05:01 Reassessment: Pt is resting in bed with eyes closed, respirations are even and jb4 unlabored with no s/s of pain or distress noted. 06:00 Reassessment: Patient appears in no apparent distress at this time. No changes from jb4 previously documented assessment. Patient and/or family updated on plan of care and expected duration. Pain level reassessed. 06:54 Reassessment: Patient appears in no apparent distress at this time. No changes from jb4 previously documented assessment. Patient and/or family updated on plan of care and expected duration. Pain level reassessed. 07:05 Reassessment: Report received from international logistics coordinator RN. ll1 13:26 Pain: cannot assess due to aphasia Pain began unable to assess due to aphasia. kr3 Vital Signs: 01/30 21:16 BP 126 / 61; Pulse 114; Resp 21 S; Temp 97.9(A); Pulse Ox 92% on R/A; aa9 21:30 BP 128 / 70; Pulse 105; Resp 21 S; Pulse Ox 91% on R/A; aa9 21:33 BP 116 / 63; Pulse 103; Resp 18 S; Pulse Ox 91% on R/A; aa9 22:01 BP 111 / 55; Pulse 99; Resp 18 S; Pulse Ox 92% on R/A; aa9 22:18 BP 125 / 61; Pulse 95; Resp 20 S; Pulse Ox 96% on 2 lpm NC; aa9 22:32 BP 113 / 63; Pulse 84; Resp 21 S; Pulse Ox 96% on 2 lpm NC; aa9 23:45 BP 153 / 69; Pulse 93; Resp 20; Pulse Ox 97% on R/A; jb4 01/31 01:00 BP 154 / 69; Pulse 76; Resp 16; Pulse Ox 96% on R/A; jb4 02:00 BP 143 / 69; Pulse 84; Resp 16; Pulse Ox 95% on R/A; jb4 03:00 BP 162 / 70; Pulse 88; Resp 19 S; Pulse Ox 94% on R/A; aa9 04:00 BP 144 / 68; Pulse 79; Resp 18; Pulse Ox 94% on R/A; jb4 05:00 BP 151 / 67; Pulse 74; Resp 18; Pulse Ox 94% on R/A; jb4 06:00 BP 143 / 72; Pulse 77; Resp 20; Pulse Ox 93% on R/A; jb4 ED Course: 01/30 21:01 Patient arrived in ED. bp1 21:08 Tim Barrett, FLAVIA is Primary Nurse. ke1 21:16 Maurilio Burris MD is Attending Physician. kdr 21:21 Triage completed. aa9 21:21 Arm band placed on. aa9 21:45 Maintain EMS IV. Dressing intact. Good blood return noted. Site clean \T\ dry. Gauge \T\ humera 4 site: 20g right hand. Patient maintains SpO2 saturation greater than 95% on room air. 21:54 Inserted saline lock: 20 gauge in left forearm, using aseptic technique. Blood aa9 collected. 22:01 Basic Metabolic Panel Sent. aa9 22:01 CBC with Diff Sent. aa9 22:01 Ptt, Activated Sent. aa9 22:01 Protime (+inr) Sent. aa9 22:23 Primary Nurse role handed off by Tim Barrett RN aa9 22:23 Michelle Shahid, FLAVIA is Primary Nurse. aa9 22:35 Patient has correct armband on for positive identification. Bed in low position. Side aa9 rails up X2. Client placed on continuous cardiac and pulse oximetry monitoring. NIBP monitoring applied. 23:30 Contact numbers for family called with no answer, voicemail message recorded and saved. ds4 01/31 00:28 Ty Salomon MD is Hospitalizing Provider. kdr 01:47 SARS RAPID Sent. jb4 05:52 Contact numbers for family called with no answer, voicemail messge recorded and saved. ds4 13:25 No provider procedures requiring assistance completed. Patient admitted, IV remains in ll1 place. Administered Medications: No medications were administered Medication: 01:35 VIS not applicable for this client. jb4 Outcome: 00:29 Decision to Hospitalize by Provider. kdr 13:25 Admitted to Med/surg accompanied by tech, via stretcher, Report called to FLAVIA Alegria kr3 13:25 Condition: stable 13:25 Instructed on the need for admit. 13:51 Patient left the ED. kr3 Signatures: Maurilio Burris MD MD kdr John Galindo ds4 Kwaku Burrell RN RN jb4 Ronan Teresa RN RN ll1 Nerissa Hernandez bp1 Tim Barrett RN RN ke1 Michelle Shahid RN RN aa9 Guadalupe Diego RN RN kr3 Corrections: (The following items were deleted from the chart) 02: 01:35 Admitted to ER Hold. Please see [facility] for further documentation. jb4 jb4 02:19 01:35 Condition: stable jb4 jb4 05:52 05:47 Contact numbers for family called with no answer, voicemail message recorded and ds4 saved. ds4
--- NOTE | 2022-01-31 00:30 | EDPHYS ---
Physician Documentation [facility] Name: Houston Neely Age: 71 yrs Sex: Male : 1950 Arrival Date: 01/30/2022 Time: 21:01 Bed 4 Private MD: ED Physician Maurilio Burris Historical: - Allergies: 01/30 21:15 Unable to obtain; aa9 - PMHx: 21:15 Seizures; R sided weakness; Hypertension; CVA; aa9 - PSHx: 21:15 Cholecystectomy; aa9 - Immunization history:: unable to obtain. - Social history:: Smoking status: Patient reports the use of cigarette tobacco products, unknown amount. Vital Signs: 21:16 BP 126 / 61; Pulse 114; Resp 21 S; Temp 97.9(A); Pulse Ox 92% on R/A; aa9 21:30 BP 128 / 70; Pulse 105; Resp 21 S; Pulse Ox 91% on R/A; aa9 21:33 BP 116 / 63; Pulse 103; Resp 18 S; Pulse Ox 91% on R/A; aa9 22:01 BP 111 / 55; Pulse 99; Resp 18 S; Pulse Ox 92% on R/A; aa9 22:18 BP 125 / 61; Pulse 95; Resp 20 S; Pulse Ox 96% on 2 lpm NC; aa9 22:32 BP 113 / 63; Pulse 84; Resp 21 S; Pulse Ox 96% on 2 lpm NC; aa9 23:45 BP 153 / 69; Pulse 93; Resp 20; Pulse Ox 97% on R/A; jb4 1003 01:00 BP 154 / 69; Pulse 76; Resp 16; Pulse Ox 96% on R/A; jb4 02:00 BP 143 / 69; Pulse 84; Resp 16; Pulse Ox 95% on R/A; jb4 03:00 BP 162 / 70; Pulse 88; Resp 19 S; Pulse Ox 94% on R/A; aa9 04:00 BP 144 / 68; Pulse 79; Resp 18; Pulse Ox 94% on R/A; jb4 05:00 BP 151 / 67; Pulse 74; Resp 18; Pulse Ox 94% on R/A; jb4 06:00 BP 143 / 72; Pulse 77; Resp 20; Pulse Ox 93% on R/A; jb4 MDM: 00:28 ED course: Patient did not have any family present to verify his baseline. Patient kdr appeared to be generally able to communicate in a crude fashion but otherwise without able to verbalize his intentions or needs. The CAT scan did not show any obvious acute new infarction and his evaluation was otherwise unremarkable other than his apparent previously existing neurologic deficit from the prior stroke. After numerous attempts to contact family, we admitted the patient to Dr. Salomon. 00:29 Patient medically screened. [facility] 01/30 21:17 Order name: Basic Metabolic Panel kdr 01/30 21:17 Order name: CBC with Diff kdr 01/30 21:17 Order name: Protime (+inr) kdr 01/30 21:17 Order name: Ptt, Activated kdr 01/30 22:06 Order name: CBC with Automated Diff; Complete Time: 23:17 EDMS 01/30 22:09 Order name: Glucose, Ancillary Testing; Complete Time: 23:17 EDMS 01/30 21:17 Order name: CT Stroke Brain w/o Contrast kdr 01/30 21:17 Order name: Stroke CXR 1 View kdr 01/30 21:50 Order name: CT; Complete Time: 23:17 EDMS 01/30 22:25 Order name: Protime (+INR); Complete Time: 23:17 EDMS 01/30 22:25 Order name: PTT, Activated Partial Thromb; Complete Time: 23:17 EDMS 01/30 22:26 Order name: Basic Metabolic Panel; Complete Time: 23:17 EDMS 01/31 01:40 Order name: SARS RAPID vc1 01/31 02:42 Order name: SARS-COV-2 Antigen Rapid EDMS 01/30 21:17 Order name: EKG; Complete Time: 21:17 [facility] 01/30 21:17 Order name: Accucheck; Complete Time: 22:01 [facility] 01/30 21:17 Order name: Cardiac monitoring; Complete Time: 21:43 kdr 01/30 21:17 Order name: EKG - Nurse/Tech; Complete Time: 21:43 [facility] 01/30 21:17 Order name: IV Saline Lock; Complete Time: 21:43 [facility] 01/30 21:17 Order name: Labs collected and sent; Complete Time: 21:43 [facility] 01/30 21:17 Order name: NPO; Complete Time: 21:44 [facility] 01/30 21:17 Order name: O2 Per Protocol; Complete Time: 21:44 kdr 01/30 21:17 Order name: O2 Sat Monitoring; Complete Time: 21:44 kdr 01/30 21:17 Order name: Stroke Swallow Screen; Complete Time: 21:44 kdr 01/30 22:16 Order name: RAD; Complete Time: 23:17 EDMS Administered Medications: No medications were administered Disposition Summary: 01/31/22 00:29 Hospitalization Ordered Hospitalization Status: Observation kdr Provider: Ty Salomon Condition: Stable kdr Problem: an ongoing problem kdr Symptoms: are unchanged kdr Bed/Room Type: Standard kdr Location: Telemetry/MedSurg (observation)(01/31/22 12:09) bd Room Assignment: 406(01/31/22 12:09) bd Diagnosis - Confusion, weakness, seizure kdr Forms: - Medication Reconciliation Form kdr - SBAR form kdr Signatures: Dispatcher [employer] EDMS Norma Reyes Kevin, MD MD kdr Basinger, Emily, RN RN eb1 Michelle Shahid RN RN aa9 Corrections: (The following items were deleted from the chart) 01:03 00:29 Telemetry/MedSurg (observation) kdr eb1 01:03 00:29 kdr eb1 01:04 01:03 [facility] ER HOLD eb1 eb1 01:04 01:03 ERHOLD- eb1 eb1 04:14 01:04 Telemetry/MedSurg (observation) eb1 eb1 04:14 01:04 eb1 eb1 12:09 04:14 [facility] ER HOLD eb1 bd 12:09 04:14 ERHOLD- eb1 bd
[2022-01-31 02:41] LABS: SARS-CoV-2 Antigen Rapid Res Negative (Negative)
[2022-01-31] MEDS ORDERED: ACETAMINOPHEN 500 MG TAB PO PRN (07:08)
[2022-01-31 10:16] VITALS: BMI 25.0
--- NOTE | 2022-01-31 14:25 | P.HP ---
Certification for Inpatient Patient admitted to: Inpatient With expected LOS: >2 Midnights Patient will require the following post-hospital care: Home Health Services Practitioner: I am a practitioner with admitting privileges, knowledge of patient current condition, hospital course, and medical plan of care. Services: Services provided to patient in accordance with Admission requirements found in Title 42 Section 412.3 of the Code of Federal Regulations Patient History Date of Service: 01/31/22 Primary Care Provider: Umm Reason for admission: seizure History of Present Illness: Patient is an office patient of [facility] with a history of cva with residual right sided hemiplegia. He came in after having a fall and some seizure activity. He is not able to speak except for grunts yes and no. this is his baseline. . He is currently in no pain. Seems at his baseline mental function. Allergies No Known Allergies Allergy (Verified 06/19/15 00:27) Home Medications: Amlodipine Besylate 10 mg PO DAILY 06/19/15 Atorvastatin Calcium [Lipitor] 80 mg PO BEDTIME 06/19/15 Lisinopril 20 mg PO DAILY 06/19/15 Levetiracetam [Keppra] 1,000 mg PO BID 05/11/17 Aspirin [Aspirin EC 81 MG] 81 mg PO DAILY 04/30/20 Albuterol Inhaler [Ventolin Inhaler*] 2 puff IH Q6H PRN #1 hfa.aer.ad 05/02/20 Amox/Clavulanate [Augmentin 875-125 Tab] 1 each PO BID #14 tab 05/02/20 Fluticasone/Salmeterol [Advair 250-50 Diskus] 1 each IH BID #1 disk.w.dev 05/02/20 Ascorbic Acid [Vitamin C*] 500 mg PO BID 90 Days #180 tablet 03/04/21 Cholecalciferol (Vitamin D3) [Vitamin D 5,000 IU Cap*] 5,000 unit PO DAILY 90 Days #90 cap 03/04/21 Fluvoxamine Maleate [Fluvoxamine Maleate ER] 100 mg PO TID 7 Days #21 cap.er.24h 03/04/21 Prednisone [Sterapred Ds] 10 mg PO BID #21 tab.ds.pk 03/04/21 Zinc 50 mg PO 30 MIN BEFORE HS 30 Days #30 tablet 11/04/21 - Past Medical/Surgical History Diabetic: No -: CVA -: HTN -: hyperlipidemia -: Appy - Family History Mother History Unknown: Yes -: Hypertension Notes: states no health problems - Social History Smoking Status: Unknown if ever smoked Alcohol use: Yes CD- Drugs: No Caffeine use: Yes Review of Systems is unable to be obtained Physical Examination - Vital Signs Temperature: 98.4 F Blood Pressure: 132/72 Pulse: 75 Respirations: 18 Pulse Ox (%): 96 - Physical Exam General: Alert, In no apparent distress HEENT: Atraumatic, PERRLA, Mucous membr. moist/pink, EOMI, Sclerae nonicteric Neck: Supple, 2+ carotid pulse no bruit, No LAD, Without JVD or thyroid abnormality Respiratory: Clear to auscultation bilaterally, Normal air movement Cardiovascular: Regular rate/rhythm, Normal S1 S2 Gastrointestinal: Normal bowel sounds, No tenderness Musculoskeletal: No tenderness Integumentary: No rashes Neurological: Normal gait, Normal speech, Normal tone, Normal affect, Abnormal strength (chronic weakness of the right side. No significant difference ) Lymphatics: No axilla or inguinal lymphadenopathy - Studies Laboratory Data (last 24 hrs) 01/30/22 21:52: PT 10.6, INR 0.96, APTT 26.8 01/30/22 21:52: Sodium 133 L, Potassium 3.8, BUN 9, Creatinine 1.41 H, Glucose 118 H 01/30/22 21:30: WBC 12.30 H, Hgb 15.2, Hct 45.7, Plt Count 246 Assessment and Plan - Problems (Diagnosis) (1) Seizure disorder Current Visit: No Status: Chronic Plan: will restart his keppra. Consult to Dr. Arnold. Will put him on seizure precautions. Will keep him on neurochecks as well. (2) HTN (hypertension) Onset Date: 05/11/17 Current Visit: No Status: Chronic Plan: will restart his lisinopril and amlodipine. Will adjust as needed. Qualifiers: Hypertension type: primary hypertension (3) Hyperlipidemia Current Visit: No Status: Chronic Plan: continue his home dosage of atorvastatin Qualifiers: Hyperlipidemia type: moderate mixed hyperlipidemia not requiring statin therapy Discharge Plan: Home Plan to discharge in: 48 Hours - Advance Directives Does patient have a Living Will: No Does patient have a Durable POA for Healthcare: No - Code Status/Comfort Care Code Status Assessed: No Code Status: Full Code Physician Review: Patient Assessed, Agree with Above Assessment and Plan Critical Care: No Time Spent Managing Pts Care (In Minutes): 30
[2022-01-31] MEDS: NA CHLORIDE 0.9% 1,000 ML IV SCH (15:15)
[2022-01-31] MEDS: ENOXAPARIN 30 MG/0.3 ML SQ SCH (16:28)
[2022-01-31] MEDS: NICOTINE 21 MG/PAT TD SCH (17:26)
[2022-01-31] MEDS ORDERED: ZINC SULFATE 220 MG CAP PO SCH (20:30)
[2022-01-31] MEDS ORDERED: HOME MED 1 EA UNK (Zinc [Zinc] 50 MG Tablet) PO SCH (20:30)
[2022-01-31] MEDS ORDERED: levETIRAcetam 500 MG TAB PO SCH (21:00)
[2022-01-31] MEDS ORDERED: HOME MED 1 EA UNK (Levetiracetam [Keppra] 1,000 MG Tablet) PO SCH (21:00)
[2022-01-31] MEDS ORDERED: ATORVASTATIN 80 MG TAB PO SCH (21:00)
[2022-01-31] MEDS: ASCORBIC ACID 500 MG TABLET PO SCH (21:00)
[2022-01-31] MEDS: levETIRAcetam 1,000 MG in NA CHLORIDE 0.9% 100 ML IV SCH (21:52)
[2022-02-01] MEDS: NA CHLORIDE 0.9% 1,000 ML IV SCH (06:24)
--- NOTE | 2022-02-01 06:26 | EKG ---
Test Date: 2022-01-30 Test Time: 22:01:05 School Photograph Editor: ANA MEASUREMENT RESULTS: Intervals: Rate: 99 WY: 176 QRSD: 62 QT: 324 QTc: 415 [place]: P: 51 WY: 176 QRS: 47 T: 51 INTERPRETIVE STATEMENTS: Normal sinus rhythm Nonspecific T wave abnormality Abnormal ECG Compared to ECG 03/14/2021 22:02:36 No significant changes Electronically Signed On 02-01-22 06:25:13 CDT by Gustavo Limon
[2022-02-01 06:27] LABS: Absolute Lymphocytes (CBC) 2.4 K/uL (0.7-4.9); Hematocrit 44.1 % (39.6-49.0); MPV 8.9 fL (7.6-11.3); RBC Red Blood Cell Count 4.41 M/uL (4.33-5.43)
[2022-02-01 06:53] LABS: Potassium 3.7 mmol/L (3.5-5.1)
[2022-02-01 06:54] LABS: Albumin 3.2 g/dL (3.4-5.0); Bilirubin Total 1.1 mg/dL (0.2-1.0); Protein, Total 7.2 g/dL (6.4-8.2)
[2022-02-01 06:55] LABS: Thyroid Stimulating Hormone 2.61 uIU/mL (0.360-3.740)
[2022-02-01] MEDS: NICOTINE 21 MG/PAT TD SCH (08:14)
[2022-02-01] MEDS: ASCORBIC ACID 500 MG TABLET PO SCH (08:19)
[2022-02-01] MEDS ORDERED: VITAMIN D 5,000 UNIT CAP PO SCH (09:00)
[2022-02-01] MEDS ORDERED: NICOTINE 21 MG/PAT TD SCH (09:00)
[2022-02-01] MEDS ORDERED: AMLODIPINE 10 MG TAB PO SCH (09:00)
[2022-02-01] MEDS ORDERED: lisinopriL 20 MG TAB PO SCH (09:00)
[2022-02-01] MEDS: levETIRAcetam 1,000 MG in NA CHLORIDE 0.9% 100 ML IV SCH (09:34)
--- NOTE | 2022-02-01 11:21 | P.PN ---
Subjective Date of Service: 02/01/22 Primary Care Provider: Umm Chief Complaint: seizure Subjective: Improving (Pt admits to missing some of his medication dosages.) Review of Systems 10-point ROS is otherwise unremarkable Physical Examination - Vital Signs Temperature: 97.3 F Blood Pressure: 132/75 Pulse: 69 Respirations: 14 Pulse Ox (%): 95 - Physical Exam General: Alert, In no apparent distress HEENT: Atraumatic, PERRLA, EOMI Neck: Supple, JVD not distended Respiratory: Clear to auscultation bilaterally, Normal air movement Cardiovascular: Regular rate/rhythm, Normal S1 S2 Gastrointestinal: Normal bowel sounds, No tenderness Musculoskeletal: No tenderness Integumentary: No rashes Neurological: Normal speech, Normal tone, Normal affect Lymphatics: No axilla or inguinal lymphadenopathy - Studies Laboratory Data (last 24 hrs) 02/01/22 05:56: Sodium 137, Potassium 3.7, BUN 8, Creatinine 0.80, Glucose 93, Total Bilirubin 1.1 H, AST 17, ALT 21, Alkaline Phosphatase 82, Triglycerides 202 H, Cholesterol 175, HDL Cholesterol 34 L, Cholesterol/HDL Ratio 5.15 02/01/22 05:56: WBC 8.70, Hgb 14.8, Hct 44.1, Plt Count 213 02/01/22 05:00: Sodium Cancelled, Potassium Cancelled, BUN Cancelled, Creatinine Cancelled, Glucose Cancelled, Triglycerides Cancelled, Cholesterol Cancelled, HDL Cholesterol Cancelled, Cholesterol/HDL Ratio Cancelled 02/01/22 05:00: WBC Cancelled, Hgb Cancelled, Hct Cancelled, Plt Count Cancelled Assessment And Plan - Current Problems (Diagnosis) (1) Seizure disorder Current Visit: No Status: Chronic Plan: will restart his keppra. Consult to Dr. Arnold. Will put him on seizure precautions. Will keep him on neurochecks as well. 02/01 Patient admits to missing some dosages of keppra at home. Most likely the cause of breakthrough seizures. Will consider sending him home today (2) HTN (hypertension) Onset Date: 05/11/17 Current Visit: No Status: Chronic Plan: will restart his lisinopril and amlodipine. Will adjust as needed. Qualifiers: Hypertension type: primary hypertension (3) Hyperlipidemia Current Visit: No Status: Chronic Plan: continue his home dosage of atorvastatin Qualifiers: Hyperlipidemia type: moderate mixed hyperlipidemia not requiring statin therapy (4) Dysphagia Current Visit: Yes Status: Acute Qualifiers: Dysphagia type: oral phase Qualified Code(s): R13.11 - Dysphagia, oral phase Discharge Plan: Home Plan to discharge in: 24 Hours - Code Status/Comfort Care Code Status Assessed: No Physician Review: Patient Assessed, Agree with Above Assessment and Plan Critical Care: No Time Spent Managing PTS Care (In Minutes): 25
[2022-02-01] MEDS: ENOXAPARIN 30 MG/0.3 ML SQ SCH (16:06)
[2022-02-01 16:10] VITALS: O2SAT 96
[2022-02-01 16:39] VITALS: BP 175/96; TEMP 98
--- NOTE | 2022-02-01 19:57 | P.DS ---
Admission Date: 02/01/22 Discharge Date: 02/01/22 Primary Care Provider: Umm Disposition: ROUTINE DISCHARGE Reason for Admission: seizure - Problems (1) Seizure disorder Status: Chronic (2) HTN (hypertension) Onset Date: 05/11/17 Status: Chronic Qualifiers: Hypertension type: primary hypertension (3) Hyperlipidemia Status: Chronic Qualifiers: Hyperlipidemia type: moderate mixed hyperlipidemia not requiring statin therapy (4) Dysphagia Status: Acute Qualifiers: Dysphagia type: oral phase Qualified Code(s): R13.11 - Dysphagia, oral phase Brief History of Present Illness: Patient is an office patient of [facility] with a history of cva with residual right sided hemiplegia. He came in after having a fall and some seizure activity. He is not able to speak except for grunts yes and no. this is his baseline. . He is currently in no pain. Seems at his baseline mental function. Hospital Course: Patient was admitted after a seizure. He had a negative CT. He does admit to occasionally missing medications such as his keppra. This is a common causes of breakthrough seizures. Started a diet based on his last swallow evaluation. Which the patient tolerated. He wishes to go home this evening. Will comply with his wishes. Have him follow up in the office in a week. Vital Signs/Physical Exam: Temp Pulse Resp BP Pulse Ox 98.0 F 85 14 175/96 H 96 02/01/22 16:00 02/01/22 16:00 02/01/22 16:00 02/01/22 16:00 02/01/22 16:00 General: Alert, In no apparent distress HEENT: Atraumatic, PERRLA, EOMI Neck: Supple, JVD not distended Respiratory: Clear to auscultation bilaterally, Normal air movement Cardiovascular: Regular rate/rhythm, Normal S1 S2 Gastrointestinal: Normal bowel sounds, No tenderness Musculoskeletal: No tenderness Integumentary: No rashes Neurological: Normal affect, Abnormal speech (right sided hemiparesis ), Abnormal strength, Abnormal tone Lymphatics: No axilla or inguinal lymphadenopathy Laboratory Data at Discharge: WBC 8.70 K/uL (4.3-10.9) 02/01/22 05:56 Hgb 14.8 g/dL (13.6-17.9) 02/01/22 05:56 Hct 44.1 % (39.6-49.0) 02/01/22 05:56 Plt Count 213 K/uL (152-406) 02/01/22 05:56 PT 10.6 SECONDS (9.5-12.5) 01/30/22 21:52 INR 0.96 01/30/22 21:52 APTT 26.8 SECONDS (24.3-36.9) 01/30/22 21:52 Sodium 137 mmol/L (136-145) 02/01/22 05:56 Potassium 3.7 mmol/L (3.5-5.1) 02/01/22 05:56 BUN 8 mg/dL (7-18) 02/01/22 05:56 Creatinine 0.80 mg/dL (0.55-1.3) 02/01/22 05:56 Glucose 93 mg/dL (74-106) 02/01/22 05:56 Total Bilirubin 1.1 mg/dL (0.2-1.0) H 02/01/22 05:56 AST 17 U/L (15-37) 02/01/22 05:56 ALT 21 U/L (12-78) 02/01/22 05:56 Alkaline Phosphatase 82 U/L (45-117) 02/01/22 05:56 Triglycerides 202 mg/dL (<150) H 02/01/22 05:56 Cholesterol 175 mg/dL (<200) 02/01/22 05:56 HDL Cholesterol 34 mg/dL (40-60) L 02/01/22 05:56 Cholesterol/HDL Ratio 5.15 02/01/22 05:56 Home Medications: RX: Amlodipine Besylate 10 mg PO DAILY 06/19/15 RX: Atorvastatin Calcium [Lipitor] 80 mg PO BEDTIME 06/19/15 RX: Lisinopril 20 mg PO DAILY 06/19/15 RX: Levetiracetam [Keppra] 1,000 mg PO BID 05/11/17 RX: Aspirin [Aspirin EC 81 MG] 81 mg PO DAILY 04/30/20 Amox/Clavulanate [Augmentin 875-125 Tab] 1 each PO BID #14 tab 05/02/20 Fluticasone/Salmeterol [Advair 250-50 Diskus] 1 each IH BID #1 disk.w.dev 05/02/20 RX: Albuterol Inhaler [Ventolin Inhaler*] 2 puff IH Q6H PRN #1 hfa.aer.ad 05/02/20 RX: Ascorbic Acid [Vitamin C*] 500 mg PO BID 90 Days #180 tablet 03/04/21 RX: Cholecalciferol (Vitamin D3) [Vitamin D 5,000 IU Cap*] 5,000 unit PO DAILY 90 Days #90 cap 03/04/21 RX: Fluvoxamine Maleate [Fluvoxamine Maleate ER] 100 mg PO TID 7 Days #21 cap.er.24h 03/04/21 RX: Prednisone [Sterapred Ds] 10 mg PO BID #21 tab.ds.pk 03/04/21 RX: Zinc 50 mg PO 30 MIN BEFORE HS 30 Days #30 tablet 03/04/21 Diet: small sip Followup: Ty Salomon MD [ACTIVE - CAN ADMIT] - 1 Week (call to schedule an appointment) Time spent managing pt's care (in minutes): 30
== END 2022-02-01 19:00 | disposition home or self-care (01) | DRG 101 ==
LOC: ER 20:59 → ERHOLD 01-31 07:10 → 4TH 01-31 13:15 → OBSVTOIN 02-01 10:27
PROVIDERS: ADMIT Internal Medicine; ATTEND Internal Medicine
DX: G40.909 Epilepsy, unspecified, not intractable, without status epilepticus (principal); I69.351 Hemiplegia and hemiparesis following cerebral infarction affecting right dominant side; E78.2 Mixed hyperlipidemia; I10 Essential (primary) hypertension; F17.210 Nicotine dependence, cigarettes, uncomplicated; R13.11 Dysphagia, oral phase; Z90.49 Acquired absence of other specified parts of digestive tract; Z79.82 Long term (current) use of aspirin; Z79.52 Long term (current) use of systemic steroids; Z91.14 Patient's other noncompliance with medication regimen; Z79.899 Other long term (current) drug therapy; Z20.822 Contact with and (suspected) exposure to COVID-19
CPT/HCPCS: 36415; 70450; 71045; 80048; 80053; 80061; 82947; 84443; 85025; 85610; 85730; 87811; 93005; 99285; G0378; J1650; J1953; J7030

== ENCOUNTER 2022-04-29 10:03 | Emergency (ER) | payer OTHER ==
--- OUTSIDE RECORDS SUMMARY | 2022-04-29 10:07 | XMS REPORT | Continuity of Care Document ---
:1950 Author Organization [facility] t Address [address] [place] [address] [address]. [address] [place] [address] Care Team Providers Name Role Phone TOYA Attending Clinician Unavailable Kendra Attending Clinician Unavailable SUDHIR SARAVIA Attending Clinician Unavailable Royal Rice Attending Clinician Toni Attending Clinician Unavailable Iliana Pinto MD Attending Clinician Sudhir Saravia MD Attending Clinician [facility] Cardio Fac Attending Clinician Unavailable 1, [facility] Cardio Fac Room Attending Clinician Unavailable 2, [facility] Cardio Fac Room Attending Clinician Unavailable Doctor Unassigned, [place] Attending Clinician Unavailable TOYA Admitting Clinician Unavailable Kendra Admitting Clinician Unavailable Toni Admitting Clinician Unavailable Payers Payer Name Policy Type Policy Number Effective Date Expiration Date S jose [place]: [id number] 2016 [place] 00:00:00 MEDICARE PART A [id number] 2016 \T\ B 00:00:00 MEDICAID OF [place] [id number] 2016 00:00:00 Problems This patient has no known problems. Allergies, Adverse Reactions, Alerts Allergy Allergy Status Severity Reaction(s) Onset Inactive Treating Comm ents Source Name Type Date Date Clinician NO KNOWN Drug Active Univers ALLERGIE Class ity of S [facility] Social History Social Habit Start Date Stop Date Quantity Comments Source History of tobacco Cigarette Smoker [facility] Sex Assigned At Universit y of [facility] Cigarettes smoked 2018-12-19 2018-12-19 Univers ity of current (pack per 00:00:00 00:00:00 ) - Reported [place] Alcohol intake 2018-12-19 2018-12-19 University 00:00:00 00:00:00 [facility] Smoking Status Start Date Stop Date Source Current every day smoker 2018-12-19 00:00:00 Uni versity of [facility] Medications Ordered Filled Start Stop Current Ordering Indication Dosage Frequency Signature Comments Components Source Medication Medication Date Date Medication? Clinician (SIG) Name Name atorvastati 2020- No [id number] 40mg Take 1 Univers n 40 mg 09-10 tablet by ity of tablet 00:00: 04:59 mouth at [place] 00 :00 bedtime Medical for 90 Branch days. contrast 2019- No Intravenou Un royal previously 01-11 s, ONCE, 1 it y of administere 17:15: 16:30 dose, Fri [place] d 0 mL 00 :00 01/11/19 at [place] [id number], [place] Routine iohexol 2019- No 100mL 100 mL, Unive rs (OMNIPAQUE 01-11 Intravenou it y of 350 17:15: 16:30 s, ONCE, 1 [place] BULK-100 00 :00 dose, Fri Medica l mL) 01/11/19 at [place] injection 1215, 100 mL Routine ezetimibe 2018- Yes 10mg Take 10 mg Un royal 10 mg 9-06 by mouth ity of tablet 15:56: daily. [place] 28 [facility] albuterol 2018-0 Yes 2.5mg Inhale 2.5 U nivers 2.5 mg /3 9-06 mg every 8 ity of mL (0.083 15:56: (eight) [place] %) 28 hours as Medical nebulizer needed. [place] solution albuterol 2018-0 Yes 2{puff} Inhale 2 U nivers 90 9-06 Puffs ity of mcg/actuati 15:56: every 6 [place] as on inhaler 28 (six) Medical hours as Branch needed. montelukast 2018- Yes 10mg Take 10 mg Univers 10 mg 9-06 by mouth ity of tablet 15:56: daily. [address] ezetimibe 2018- Yes 10mg Take 10 mg Un royal 10 mg 9-06 by mouth ity of tablet 15:56: daily. [address] albuterol 2018-0 Yes 2.5mg Inhale 2.5 U nivers 2.5 mg /3 9-06 mg every 8 ity of mL (0.083 15:56: (eight) [place] %) 28 hours as Medical nebulizer needed. [place] solution albuterol Yes 2{puff} Inhale 2 U nivers 90 9-06 Puffs ity of mcg/actuati 15:56: every 6 [place] as on inhaler 28 (six) Medical hours as Branch needed. montelukast 2018- Yes 10mg Take 10 mg Univers 10 mg 9-06 by mouth ity of tablet 15:56: daily. [address] ezetimibe Yes 10mg Take 10 mg Un royal 10 mg 9-06 by mouth ity of tablet 15:56: daily. [address] albuterol Yes 2.5mg Inhale 2.5 U nivers 2.5 mg /3 9-06 mg every 8 ity of mL (0.083 15:56: (eight) [place] %) 28 hours as Medical nebulizer needed. [place] solution albuterol Yes 2{puff} Inhale 2 U nivers 90 9-06 Puffs ity of mcg/actuati 15:56: every 6 [place] as on inhaler 28 (six) Medical hours as Branch needed. montelukast 2018-0 Yes 10mg Take 10 mg Univers 10 mg 9-06 by mouth ity of tablet 15:56: daily. [address] ezetimibe 0 Yes 10mg Take 10 mg Un royal 10 mg 9-06 by mouth ity of tablet 15:56: daily. [address] albuterol 0 Yes 2.5mg Inhale 2.5 [...] by mouth ity of tablet 15:56: daily. [address] ezetimibe 0 Yes 10mg Take 10 mg Un royal 10 mg 9-06 by mouth ity of tablet 15:56: daily. [address] albuterol 2018-0 Yes 2.5mg Inhale 2.5 U nivers 2.5 mg /3 9-06 mg every 8 ity of mL (0.083 15:56: (eight) [place] %) 28 hours as Medical nebulizer needed. [place] solution albuterol Yes 2{puff} Inhale 2 U nivers 90 9-06 Puffs ity of mcg/actuati 15:56: every 6 [place] as on inhaler 28 (six) Medical hours as Branch needed. montelukast 2018-0 Yes 10mg Take 10 mg Univers 10 mg 9-06 by mouth ity of tablet 15:56: daily. [address] ezetimibe Yes 10mg Take 10 mg Un royal 10 mg 9-06 by mouth ity of tablet 15:56: daily. [address] albuterol 0 Yes 2.5mg Inhale 2.5 U nivers 2.5 mg /3 9-06 mg every 8 ity of mL (0.083 15:56: (eight) [place] %) 28 hours as Medical nebulizer needed. [place] solution albuterol 0 Yes 2{puff} Inhale 2 U nivers 90 9-06 Puffs ity of mcg/actuati 15:56: every 6 [place] as on inhaler 28 (six) Medical hours as Branch needed. montelukast 2018-0 Yes 10mg Take 10 mg Univers 10 mg 9-06 by mouth ity of tablet 15:56: daily. [address] lisinopril 2018-0 Yes 20mg Take 20 mg U nivers 20 mg 9-06 by mouth ity of tablet 15:53: daily. [address] foLIC acid 2018-0 Yes 1mg Take 1 mg Un royal 1 mg tablet 9-06 by mouth ity of 15:53: daily. [address] levETIRAcet 2019-0 Yes 1000mg Take 1,000 Univers am (KEPPRA) 9-06 mg by ity of 1,000 mg 15:53: mouth 2 [place] tablet 50 (two) Medical times [place] daily. amLODIPine 2019-0 Yes 10mg Take 10 mg U nivers 10 mg 9-06 by mouth ity of tablet 15:53: daily. [address] lisinopril 2019-0 Yes 20mg Take 20 mg U nivers 20 mg 9-06 by mouth ity of tablet 15:53: daily. [address] foLIC acid 2019-0 Yes 1mg Take 1 mg Un royal 1 mg tablet 9-06 by mouth ity of 15:53: daily. [address] levETIRAcet 2019-0 Yes 1000mg Take 1,000 Univers am (KEPPRA) 9-06 mg by ity of 1,000 mg 15:53: mouth 2 [place] tablet 50 (two) Medical times [place] daily. amLODIPine 2019-0 Yes 10mg Take 10 mg U nivers 10 mg 9-06 by mouth ity of tablet 15:53: daily. [address] lisinopril 2019-0 Yes 20mg Take 20 mg U nivers 20 mg 9-06 by mouth ity of tablet 15:53: daily. [address] foLIC acid 2019-0 Yes 1mg Take 1 mg Un royal 1 mg tablet 9-06 by mouth ity of 15:53: daily. [address] levETIRAcet 2019-0 Yes 1000mg Take 1,000 Univers am (KEPPRA) 9-06 mg by ity of 1,000 mg 15:53: mouth 2 [place] tablet 50 (two) Medical times [place] daily. amLODIPine 2019-0 Yes 10mg Take 10 mg U nivers 10 mg 9-06 by mouth ity of tablet 15:53: daily. [address] lisinopril 2019-0 Yes 20mg Take 20 mg U nivers 20 mg 9-06 by mouth ity of tablet 15:53: daily. [address] foLIC acid 2019-0 Yes 1mg Take 1 mg Un royal 1 mg tablet 9-06 by mouth ity of 15:53: daily. [address] levETIRAcet 2019-0 Yes 1000mg Take 1,000 Univers am (KEPPRA) 9-06 mg by ity of 1,000 mg 15:53: mouth 2 [place] tablet 50 (two) Medical times Branch daily. amLODIPine 2019-0 Yes 10mg Take 10 mg U nivers 10 mg 9-06 by mouth ity of tablet 15:53: daily. [address] lisinopril 2019-0 Yes 20mg Take 20 mg U nivers 20 mg 9-06 by mouth ity of tablet 15:53: daily. [address] foLIC acid 2019-0 Yes 1mg Take 1 mg Un royal 1 mg tablet 9-06 by mouth ity of 15:53: daily. [address] levETIRAcet 2019-0 Yes 1000mg Take 1,000 Univers am (KEPPRA) 9-06 mg by ity of 1,000 mg 15:53: mouth 2 [place] tablet 50 (two) Medical times [place] daily. amLODIPine 2019-0 Yes 10mg Take 10 mg U nivers 10 mg 9-06 by mouth ity of tablet 15:53: daily. [address] lisinopril 0 Yes 20mg Take 20 mg U nivers 20 mg 9-06 by mouth ity of tablet 15:53: daily. [address] foLIC acid 2018-0 Yes 1mg Take 1 mg Un royal 1 mg tablet 9-06 by mouth ity of 15:53: daily. [address] levETIRAcet 2018-0 Yes 1000mg Take 1,000 Univers am (KEPPRA) 9-06 mg by ity of 1,000 mg 15:53: mouth 2 [place] tablet 50 (two) Medical times [place] daily. amLODIPine 2019-0 Yes 10mg Take 10 mg U nivers 10 mg 9-06 by mouth ity of tablet 15:53: daily. [address] atorvastati 2019-0 Yes [id number] 40mg Take 1 Univers n 40 mg 9-06 07 tablet by ity of tablet 00:00: mouth at [place] [address] bedtime. [facility] atorvastati 2019-0 Yes [id number] 40mg Take 1 Univers n 40 mg 9-06 07 tablet by ity of tablet 00:00: mouth at [place] [address] bedtime. [facility] atorvastati 2019-0 Yes [id number] 40mg Take 1 Univers n 40 mg 9-06 07 tablet by ity of tablet 00:00: mouth at [place] 00 bedtime. Medical Branch atorvastati Yes [id number] 40mg Take 1 Univers n 40 mg 9- 07 tablet by ity of tablet 00:00: mouth at [place] 00 bedtime. Medical Branch atorvastati Yes [id number] 40mg Take 1 Univers n 40 mg 9- 07 tablet by ity of tablet 00:00: mouth at [place] 00 bedtime. Medical Branch atorvastati Yes [id number] 40mg Take 1 Univers n 40 mg - 07 tablet by ity of tablet 00:00: mouth at [place] 00 bedtime. Medical Branch sulfur 2019- No 5mL Univers hexafluorid 01-01 ity of e microsphr 22:30: 21:28 [place] (LUMASON) 00 :00 Medical injection 5 Branch mL sulfur 2018- No 5mL 5 mL, Univers hexafluorid 01-01 Intravenou i ty of e microsphr 22:30: 21:28 s, ONCE, 1 [place] (LUMASON) 00 :00 dose, Tue Medic al injection 5 01/01/19 at [facility] mL 1730, Routine montelukast Yes 10mg Take 10 mg Univers 10 mg 8-26 by mouth ity of tablet 14:36: daily. [address] montelukast Yes 10mg Take 10 mg Univers 10 mg 8-26 by mouth ity of tablet 14:36: daily. [address] montelukast Yes 10mg Take 10 mg Univers 10 mg 8-26 by mouth ity of tablet 14:36: daily. [address] montelukast Yes 10mg Take 10 mg Univers 10 mg 8-26 by mouth ity of tablet 14:36: daily. [address] montelukast Yes 10mg Take 10 mg Univers 10 mg 8-26 by mouth ity of tablet 14:36: daily. [address] Branch albuterol 2018-0 Yes 2{puff} Inhale [...] by mouth ity of tablet 14:34: daily. [address] ezetimibe 2019-0 Yes 10mg Take 10 mg Un royal 10 mg 8-26 by mouth ity of tablet 14:34: daily. [address] ezetimibe 2019-0 Yes 10mg Take 10 mg Un royal 10 mg 8-26 by mouth ity of tablet 14:34: daily. [address] ezetimibe 2019-0 Yes 10mg Take 10 mg Un royal 10 mg 8-26 by mouth ity of tablet 14:34: daily. [address] ezetimibe 2019-0 Yes 10mg Take 10 mg Un royal 10 mg 8-26 by mouth ity of tablet 14:34: daily. [address] foLIC acid 2019-0 Yes 1mg Take 1 mg Un royal 1 mg tablet 8-21 by mouth ity of 14:22: daily. [address] levETIRAcet 2019-0 Yes 1000mg Take 1,000 Univers am (KEPPRA) 8-21 mg by ity of 1,000 mg 14:22: mouth 2 [place] tablet 48 (two) Medical times [place] daily. amLODIPine 2019-0 Yes 10mg Take 10 mg U nivers 10 mg 8-21 by mouth ity of tablet 14:22: daily. [address] foLIC acid 2019-0 Yes 1mg Take 1 mg Un royal 1 mg tablet 8-21 by mouth ity of 14:22: daily. [address] levETIRAcet 2019-0 Yes 1000mg Take 1,000 Univers am (KEPPRA) 8-21 mg by ity of 1,000 mg 14:22: mouth 2 [place] tablet 48 (two) Medical times [place] daily. amLODIPine 2019-0 Yes 10mg Take 10 mg U nivers 10 mg 8-21 by mouth ity of tablet 14:22: daily. [address] foLIC acid 2019-0 Yes 1mg Take 1 mg Un royal 1 mg tablet 8-21 by mouth ity of 14:22: daily. [address] levETIRAcet 2019-0 Yes 1000mg Take 1,000 Univers am (KEPPRA) 8-21 mg by ity of 1,000 mg 14:22: mouth 2 [place] tablet 48 (two) Medical times [place] daily. amLODIPine 2019-0 Yes 10mg Take 10 mg U nivers 10 mg 8-21 by mouth ity of tablet 14:22: daily. [address] foLIC acid 2019-0 Yes 1mg Take 1 mg Un royal 1 mg tablet 8-21 by mouth ity of 14:22: daily. [address] levETIRAcet 2019-0 Yes 1000mg Take 1,000 Univers am (KEPPRA) 8-21 mg by ity of 1,000 mg 14:22: mouth 2 [place] tablet 48 (two) Medical times [place] daily. amLODIPine 2019-0 Yes 10mg Take 10 mg U nivers 10 mg 8-21 by mouth ity of tablet 14:22: daily. [address] foLIC acid 2019-0 Yes 1mg Take 1 mg Un royal 1 mg tablet 8-21 by mouth ity of 14:22: daily. [address] levETIRAcet 2019-0 Yes 1000mg Take 1,000 Univers am (KEPPRA) 8-21 mg by ity of 1,000 mg 14:22: mouth 2 [place] tablet 48 (two) Medical times [place] daily. amLODIPine 2019-0 Yes 10mg Take 10 mg U nivers 10 mg 8-21 by mouth ity of tablet 14:22: daily. [address] foLIC acid 2019-0 Yes 1mg Take 1 mg Un royal 1 mg tablet 8-21 by mouth ity of 14:22: daily. [address] levETIRAcet 2019-0 Yes 1000mg Take 1,000 Univers am (KEPPRA) 8-21 mg by ity of 1,000 mg 14:22: mouth 2 [place] tablet 48 (two) Medical times [place] daily. amLODIPine 2019-0 Yes 10mg Take 10 mg U nivers 10 mg 8-21 by mouth ity of tablet 14:22: daily. [address] foLIC acid 2019-0 Yes 1mg Take 1 mg Un royal 1 mg tablet 8-21 by mouth ity of 14:22: daily. [address] levETIRAcet 2019-0 Yes 1000mg Take 1,000 Univers am (KEPPRA) 8-21 mg by ity of 1,000 mg 14:22: mouth 2 [place] tablet 48 (two) Medical times [place] daily. amLODIPine 2019-0 Yes 10mg Take 10 mg U nivers 10 mg 8-21 by mouth ity of tablet 14:22: daily. [address] foLIC acid 2019-0 Yes 1mg Take 1 mg Un royal 1 mg tablet 8-21 by mouth ity of 14:22: daily. [address] levETIRAcet 2019-0 Yes 1000mg Take 1,000 Univers am (KEPPRA) 8-21 mg by ity of 1,000 mg 14:22: mouth 2 [place] tablet 48 (two) Medical times [place] daily. amLODIPine 2019-0 Yes 10mg Take 10 mg U nivers 10 mg 8-21 by mouth ity of tablet 14:22: daily. [address] foLIC acid 2019-0 Yes 1mg Take 1 mg Un oryal 1 mg tablet 8-21 by mouth ity of 14:22: daily. [address] levETIRAcet 2019-0 Yes 1000mg Take 1,000 Univers am (KEPPRA) 8-21 mg by ity of 1,000 mg 14:22: mouth 2 [facility] [place] [facility] 48 (two) Medical times [place] daily. amLODIPine 2019-0 Yes 10mg Take 10 mg U nivers 10 mg 8-21 by mouth ity of tablet 14:22: daily. [address] foLIC acid 2019-0 Yes 1mg Take 1 mg Un royal 1 mg tablet 8-21 by mouth ity of 14:22: daily. [address] levETIRAcet 2019-0 Yes 1000mg Take 1,000 Univers am (KEPPRA) 8-21 mg by ity of 1,000 mg 14:22: mouth 2 [place] tablet 48 (two) Medical times [place] daily. amLODIPine 2019-0 Yes 10mg Take 10 mg U nivers 10 mg 8-21 by mouth ity of tablet 14:22: daily. [address] lisinopril 2019-0 Yes 20mg Take 20 mg U nivers 20 mg 8-21 by mouth ity of tablet 14:22: daily. [address] lisinopril 2019-0 Yes 20mg Take 20 mg U nivers 20 mg 8-21 by mouth ity of tablet 14:22: daily. [address] lisinopril 2019-0 Yes 20mg Take 20 mg U nivers 20 mg 8-21 by mouth ity of tablet 14:22: daily. [address] lisinopril Yes 20mg Take 20 mg U nivers 20 mg 8-21 by mouth ity of tablet 14:22: daily. [address] lisinopril Yes 20mg Take 20 mg U nivers 20 mg 8-21 by mouth ity of tablet 14:22: daily. [address] lisinopril Yes 20mg Take 20 mg U nivers 20 mg 8-21 by mouth ity of tablet 14:22: daily. [address] lisinopril Yes 20mg Take 20 mg U nivers 20 mg 8-21 by mouth ity of tablet 14:22: daily. [address] lisinopril Yes 20mg Take 20 mg U nivers 20 mg 8-21 by mouth ity of tablet 14:22: daily. [address] lisinopril Yes 20mg Take 20 mg U nivers 20 mg 8-21 by mouth ity of tablet 14:22: daily. [address] lisinopril Yes 20mg Take 20 mg U nivers 20 mg 8-21 by mouth ity of tablet 14:22: daily. [address] atorvastati 2017-05 Yes 80mg Take 1 Univ ers n 80 mg 2-06 tablet by ity of tablet 00:00: mouth at [place] [address] bedtime. Medical onstatin Branch per recent notes. Updated chart with new order atorvastati 2017-05 Yes 80mg Take 1 Univ ers n 80 mg 2-06 tablet by ity of tablet 00:00: mouth at [place] [address] bedtime. Medical onstatin Branch per recent notes. Updated chart with new order atorvastati 2017-05 Yes 80mg Take 1 Univ ers n 80 mg 2-06 tablet by ity of tablet 00:00: mouth at [place] [address] bedtime. Medical onstatin Branch per recent notes. Updated chart with new order atorvastati 2017-05 Yes 80mg Take 1 Univ ers n 80 mg 2-06 tablet by ity of tablet 00:00: mouth at [place] [address] bedtime. Medical onstatin Branch per recent notes. [...] by ity of tablet 00:00: mouth at [place] 00 bedtime. Medical onstatin Branch per recent notes. Updated chart with new order atorvastati 2017-05 Yes 80mg Take 1 Univ ers n 80 mg 2-06 tablet by ity of tablet 00:00: mouth at [place] 00 bedtime. Medical onstatin Branch per recent notes. Updated chart with new order atorvastati 2017-05 Yes 80mg Take 1 Univ ers n 80 mg 2-06 tablet by ity of tablet 00:00: mouth at [place] 00 bedtime. Medical onstatin Branch per recent notes. Updated chart with new order atorvastati 2017-05 Yes 80mg Take 1 Univ ers n 80 mg 2-06 tablet by ity of tablet 00:00: mouth at [place] 00 bedtime. Medical onstatin Branch per recent notes. Updated chart with new order atorvastati 2017-05 Yes 80mg Take 1 Univ ers n 80 mg 2-06 tablet by ity of tablet 00:00: mouth at [place] 00 bedtime. Medical onstatin Branch per recent notes. Updated chart with new order atorvastati 2017-05 Yes 80mg Take 1 Univ ers n 80 mg 2-06 tablet by ity of tablet 00:00: mouth at [place] 00 bedtime. Medical onstatin Branch per recent notes. Updated chart with new order atorvastati 2017-05 Yes 80mg Take 1 Univ ers n 80 mg 2-06 tablet by ity of tablet 00:00: mouth at [place] 00 bedtime. Medical onstatin Branch per recent notes. Updated chart with new order atorvastati 2017-05 Yes 80mg Take 1 Univ ers n 80 mg 2-06 tablet by ity of tablet 00:00: mouth at [place] 00 bedtime. Medical onstatin Branch per recent notes. Updated chart with new order atorvastati 2017-05 Yes 80mg Take 1 Univ ers n 80 mg 2-06 tablet by ity of tablet 00:00: mouth at [place] 00 bedtime. Medical onstatin Branch per recent [...] by ity of tablet 00:00: mouth at [place] 00 bedtime. Medical onstatin Branch per recent notes. Updated chart with new order amLODIPine Yes 10mg Take 10 mg U nivers 10 mg 8-21 by mouth ity of tablet 14:41: daily. [place] [address] Medical Branch lisinopril Yes 20mg Take 20 mg U nivers 20 mg 8-21 by mouth ity of tablet 14:41: daily. [place] [address] Medical Branch foLIC acid Yes 1mg Take 1 mg Un royal 1 mg tablet 8-21 by mouth ity of 14:41: daily. [place] [address] Medical Branch levETIRAcet Yes 1000mg Take 1,000 [...] 15:52:00 133 mm[Hg] Univer sity of pressure [place] [facility] Diastolic blood 2019-01-04 15:52:00 67 mm[Hg] Unive rsity of pressure [facility] Branch Heart rate 2019-01-04 15:52:00 75 /min [facility] Body temperature 2019-01-04 15:52:00 36.78 Janett Univ ersity [facility] Respiratory rate 2019-01-04 15:52:00 20 /min Univ ersity of [place] [facility] Body weight 2019-01-04 15:52:00 84.732 kg Universi ty of [place] [facility] BMI 2019-01-04 15:52:00 29.26 kg/m2 Universi ty of [place] [facility] Systolic blood 2019-01-04 15:52:00 133 mm[Hg] Univer sity of pressure [place] [facility] Diastolic blood 2019-01-04 15:52:00 67 mm[Hg] Unive rsity of pressure [place] [facility] Heart rate 2019-01-04 15:52:00 75 /min Universi ty of [place] [facility] Body temperature 2019-01-04 15:52:00 36.78 Janett Univ ersity of [place] [facility] Respiratory rate 2019-01-04 15:52:00 20 /min Univ ersity of [place] [facility] Body weight 2019-01-04 15:52:00 84.732 kg Universi ty of [place] [facility] BMI 2019-01-04 15:52:00 29.26 kg/m2 Universi ty of [place] [facility] Systolic blood 2018-12-19 14:21:00 111 mm[Hg] Univer sity of pressure [place] [facility] Diastolic blood 2018-12-19 14:21:00 62 mm[Hg] Unive rsity of pressure [place] [facility] Heart rate 2018-12-19 14:21:00 68 /min Universi ty of [place] [facility] Respiratory rate 2018-12-19 14:21:00 18 /min Univ ersity of [place] [facility] Body height 2018-12-19 14:21:00 170.2 cm [facility]i ty [facility] [place] [facility] Body weight 2018-12-19 14:21:00 85.684 kg Universi ty of [place] [facility] BMI 2018-12-19 14:21:00 29.59 kg/m2 Universi ty of [place] [facility] Oxygen saturation in 2018-12-19 14:21:00 97 /min [facility] Arterial blood by [facility] Pulse oximetry Branch Systolic blood 2019-01-01 20:52:00 141 mm[Hg] Univer sity of pressure [place] [facility] Diastolic blood 2019-01-01 20:52:00 71 mm[Hg] Unive rsity of pressure [place] [facility] Heart rate 2019-01-01 20:52:00 87 /min Universi ty of [place] [facility] Body height 2019-01-01 20:52:00 170.2 cm [facility] Body weight 2019-01-01 20:52:00 85.276 kg [facility] BMI 2019-01-01 20:52:00 29.44 kg/m2 [facility] Procedures Procedure Date / Time Performed Performing Clinician Britta campos CT ANGIOGRAM NECK 2019-01-11 17:12:41 Adolph Huitron [facility] [place] CT ANGIOGRAM HEAD 2019-01-11 17:10:04 Adolph Huitron [facility] [place] NOTICE OF BILLING 2019-01-11 15:34:57 Doctor Unassigned, No [facility] PRACTICES FOR MEDICARE Name Medical B ranch PATIENTS [facility] PATIENT FINANCIAL 2019-01-11 15:34:09 Doctor Unassigned, No [facility] POCT CREATININE 2019-01-11 15:10:00 Iliana Pinto [facility] [place] EKG-12 LEAD 2018-12-19 14:29:02 Sudhir Saravia [facility] ASSIGNMENT OF BENEFITS 2018-12-19 14:07:02 Doctor Unassigned, No [facility] Encounters Start End Encounter Admission Attending Care Care Encounter Source Date/Time Date/Time Type Type Clinicians Facility Department ID 2021-11-10 2021-11-10 Outpatient COLETTE DOSHI [id number] [place] 02:08:00 02:08:00 HN [id number] da [facility] Program 2021-10-14 2021-10-14 Outpatient FOG_Loncari AOSM AOSM [id number] Jennifer 02:06:00 02:06:00 Camilla [id number] [facility] 2021-10-05 2021-10-05 Outpatient FOG_Loncari AOSM AOSM [id number] Jennifer 08:13:00 08:13:00 Camilla [id number] Orth [facility] Medicin e 2020-01-22 2020-01-22 Outpatient Juan Manuel SARAVIA [facility] [id number] Univers 15:20:00 15:20:00 SUDHIR garcia [facility] 2019-12-23 2019-12-23 Outpatient R RANI, [facility] [id number] Univers 09:40:00 09:40:00 SUDHIR calderon o f [facility] 2019-09-11 2019-09-11 Telephone FUAD JamesIT [id number] 00:00:00 00:00:00 [facility] [id number] CLINICS [id number] [facility] 2019-09-11 2019-09-11 Telephone Erika, FUADIT [id number] [facility] 00:00:00 00:00:00 [facility] [id number] ity of [facility] [id number] [facility] s [id number] [address] 2019-08-27 2019-08-27 Outpatient C_Hall MMG MMG [id number] [place] 04:13:00 04:13:00 [facility] Group 2019-01-11 2019-01-11 [place] [id number] 10:33:32 23:59:00 Encounter Iliana Alexander [id number] [place] [id number] [place] [id number] [facility] 2019-01-11 2019-01-11 [place] [id number] [facility] 10:33:32 23:59:00 Encounter Iliana Alexander [id number] ity of [place] [id number] [facility] [place] [facility] [place] [id number] [address] 2019-01-11 2019-01-11 [facility] [id number] 10:20:00 10:32:00 Encounter Iliana Alexander [id number] [place] 4.2.7.2.686 [place] [phone] [facility] 2019-01-11 2019-01-11 [place] [id number] [facility] 10:20:00 10:32:00 Encounter Iliana Alexander [id number] [place] [phone] [facility] [address] 2019-01-04 2019-01-04 Office [facility] [id number] [facility] 10:21:42 18:59:26 Visit Iliana Catherine [id number] [place] [phone] [facility] 205 [facility] 2019-01-04 2019-01-04 Office [facility] [id number] 10:21:42 18:59:26 Visit Iliana Catherine [id number] [place] 4.2.7.2.686 Professio [phone] [address] 2018-12-19 2019-01-03 Office [facility] [id number] [facility] 09:07:06 15:22:45 Visit Sudhir Alexander [id number] [place] [phone] [address] 2019-01-03 2019-01-03 [facility] [id number] [facility] 00:00:00 00:00:00 Miguedenysjelena Catherine [id number] [place] [phone] [address] 2019-01-01 2019-01-01 Tab 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 [id number] [facility] 14:30:23 16:38:50 Only 1, Adc Cardio Fac [facility] 350.1. 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 [id number] [id number] [facility] 14:29:39 15:29:39 Visit 2, Adc Cardio Fac [place] 350.1. 13.10 ity of [place] 4.2.7.2.686 [place] Profess[place] [phone] [place] dicdania nal [address] 2018-12-24 2018-12-24 Telephone KHANG Saravia [id number] [facility] 00:00:00 00:00:00 Sudhir Alexander [id number] ity of [place] 4.2.7.2.686 [facility] [phone] [place] [address] [facility] 2018-12-19 2018-12-19 Orders Doctor DELTA 1.2.840.114 [id number] Univers 00:00:00 00:00:00 Only Unassigned, DONITA 350.1.13.10 ity of [place] [facility] 4.2.7.2.686 [place] [phone] [facility] sha 009 Branch Results Test Test Test Results Result Source Description Time Comments Comments CT ANGIOGRAM 2018-12 Nonvisualization of the left [facility] -13 internal carotid artery from [facility] 19:52:1 its cervicalorigin/carotid Branch 1 bifurcation up [...] NECK: A three-vessel aortic arch is seen. Qszl-hy-tzamzjow atheroscleroticdisease is noted in the arch. The vessels originating from the arch arepatent. Mild scattered atherosclerotic disease is noted in the common carotidarteries bilaterally, left greater than right. No flow-limiting stenosis isidentified. Nvdn-jt-ptnkwouu atherosclerotic disease is seen in the left [...] NECK: A three-vessel aortic arch is seen. Bcle-dh-kokaadsq atheroscleroticdisease is noted in the arch. The vessels originating from the arch arepatent.Mild scattered atherosclerotic disease is noted in the common carotidarteries bilaterally, left greater than right. No flow-limiting stenosis isidentified.Hzgg-kt-sqfmwhzl atherosclerotic disease is seen in the left [...] of HEAD -13 internal carotid artery from [facility] 19:52:1 its cervicalorigin/carotid Branch 1 bifurcation up [...] NECK: A three-vessel aortic arch is seen. Ccnn-hm-lmccglmj atheroscleroticdisease is noted in the arch. The vessels originating from the arch arepatent. Mild scattered atherosclerotic disease is noted in the common carotidarteries bilaterally, left greater than right. No flow-limiting stenosis isidentified. Acru-ap-whicrggh atherosclerotic disease is seen in the left [...] NECK: A three-vessel aortic arch is seen. Olsd-vx-covbezvt atheroscleroticdisease is noted in the arch. The vessels originating from the arch arepatent.Mild scattered atherosclerotic disease is noted in the common carotidarteries bilaterally, left greater than right. No flow-limiting stenosis isidentified.Cbos-si-qecqkuud atherosclerotic disease is seen in the left [...] seen in the head and neck vessels. IiVolet MD., have reviewed this study and agree with the abovereport. POCT CREATININE 2019-01-11 19:18:00 Test Item Value Reference Range Interpretation Comme nts POCT Creatinine (test code = [id number]) 0.8 mg/dL 0.6-1.3 Lab Interpretation (test code = 45269-4) Normal [facility]
--- NOTE | 2022-04-29 10:50 | RAD REPORT ---
EXAM DESCRIPTION: CT - CTHCSPWOC - 04/29/2022 10:24 am CLINICAL HISTORY: fall, head and neck injury COMPARISON: Neck Angio dated 10/17/2015 TECHNIQUE: Axial 5 mm thick images of the head were obtained. Axial 2 mm thick images of the cervic al spine were obtained with sagittal and coronal reconstruction images generated and reviewed. All CT scans are performed using dose optimization technique as appropriate and may include automated exposure control or mA/KV adjustment according to patient size. FINDINGS: No intracranial hemorrhage, mass, edema or acute intracranial finding. No acute cortical b ased infarction identified. Patient has a large area of encephalomalacia from prior CVA involving the left cerebral hemisphere. Moderate underlying chronic ischemic changes and mild atrophy changes pres ent. Ventricles are in proportion to the volume loss. No extra-axial fluid collections. Mastoid air c ells and paranasal sinuses are clear. No globe or orbit abnormality seen. Small left parietal scalp h ematoma is present. Underlying bone is intact. Cervical body height and alignment are normal. No disk space narrowing. No fracture or acute bony abn ormality. Endplate spurring changes are present. No significant foraminal stenosis no significant rustam tral spinal stenosis seen. Central canal detail is inherently limited. No paraspinal mass or hematoma. Dense carotid calcifications are present. IMPRESSION: No hemorrhage or other acute intracranial finding. Chronic changes are detailed in the b joe of the report. Negative CT cervical spine examination for acute or significant finding. Degenerative changes are de tailed in the body of the report.
--- NOTE | 2022-04-29 11:03 | RAD REPORT ---
EXAM DESCRIPTION: RAD - Humerus Right - 04/29/2022 10:57 am CLINICAL HISTORY: PAINafter fall COMPARISON: No comparisons FINDINGS: No fracture is identified. There is no dislocation or periosteal reaction noted. AC joint degenerative changes are present with inferiorly directed clavicle and acromion spurring. No AC separ ation. No abnormal soft tissue calcifications. Visualized portion of the ribcage is intact. No acute pleural or parenchymal process suspected. IMPRESSION: Right shoulder joint degenerative change with no acute findings to the humerus.
--- NOTE | 2022-04-29 11:09 | ER ---
Nurse's Notes [facility] Name: Houston Neely Age: 71 yrs Sex: Male : 1950 Arrival Date: 04/29/2022 Time: 10:08 Bed 16 Private MD: Diagnosis: Contusion of right shoulder Presentation: 04/29 10:00 Chief complaint: EMS states: Caregiver reports she arrived at 0900 and found pt on the kb3 carpeted floor. PT initially refused transport with no complaints but reports right shoulder pain/upper arm pain just prior to them leaving the residence. Per EMS, caregiver states pt lives with multiple family members and the family members had all left for work this morning around 8 a.m. and that pt falls often because he attempts to get up without assistance. Pt with history of stroke and right-sided weakness, ambulates with walker and assistance. 10:00 Coronavirus screen:. Ebola Screen: Patient negative for fever greater than or equal to kb3 101.5 degrees Fahrenheit, and additional compatible Ebola Virus Disease symptoms Patient denies exposure to infectious person. Patient denies travel to an Ebola-affected area in the 21 days before illness onset. Initial Sepsis Screen: Does the patient meet any 2 criteria? No. Patient's initial sepsis screen is negative. Does the patient have a suspected source of infection? No. Patient's initial sepsis screen is negative. Risk Assessment: Do you want to hurt yourself or someone else? Patient reports no desire to harm self or others. Onset of symptoms was April 29, 2022 at 09:00. 10:00 Method Of Arrival: EMS: [facility] kb3 10:00 Acuity: CHUCK 4 kb3 Triage Assessment: 10:21 General: Appears in no apparent distress. Behavior is calm, cooperative. Pain: kb3 Complains of pain in anterior aspect of right shoulder and right bicep Pain does not radiate. Pain currently is 5 out of 10 on a pain scale. Historical: - Allergies: 10:21 Unable to obtain; kb3 - Home Meds: 10:21 Keppra Oral [Active]; lisinopril 20 mg Oral tab 1 tab once daily [Active]; kb3 - PMHx: 10:21 CVA; Hypertension; R sided weakness; Seizures; kb3 - PSHx: 10:21 Cholecystectomy; kb3 - Immunization history:: Adult Immunizations unknown, Last tetanus immunization: unknown. - Social history:: Smoking status: Patient denies any tobacco usage or history of. - Family history:: not pertinent. - Hospitalizations: : No recent hospitalization is reported. Screenin:22 [facility] ED Fall Risk Assessment (Adult) History of falling in the last 3 months, kb3 including since admission Yes- fall prone (multiple falls) (3 pts) Confusion or Disorientation No (0 pts) Intoxicated or Sedated No (0 pts) Impaired Gait Yes (1 pt) Mobility Assist Device Used Yes (1 pt) Altered Elimination Yes (1 pt) Score/Fall Risk Level 3 or more points = High Risk Oriented to surroundings, Maintained a safe environment, Educated pt \T\ family on fall prevention, incl call for assistance when getting out of bed, Assessed \T\ reinforced patient's understanding of fall precautions, Provided non-skid footwear, Hourly rounding (assess needs \T\ fall precautionary measures) done, Used ambulatory aids as needed (educated on \T\ assisted with), Used gait belt as appropriate Implemented a Fall Risk Plan of Care, Apply high fall risk patient identification: yellow non skid footwear/ fall signage. Abuse screen: Denies threats or abuse. Denies injuries from another. Nutritional screening: No deficits noted. Tuberculosis screening: No symptoms or risk factors identified. Assessment: 10:22 General: see triage note. kb3 10:42 General: xray at bedside. kb3 12:08 General: Pt's family notified of pending discharge. Agatha Neely RN en route to [facility] transport pt home. 12:15 General: Assisted pt to WC awaiting daughter for transport home. PT with no needs at [facility] this time. 12:40 General: Pt's daughter at bedside to transport pt home. kb3 Vital Signs: 10:00 BP 121 / 59; Pulse 83; Resp 20; Temp 98; Pulse Ox 98% ; Weight 77.11 kg; Height 5 ft. 7 kb3 in. (170.18 cm); Pain 5/10; 12:00 BP 145 / 72; Pulse 81; Resp 20; Pulse Ox 100% ; kb3 10:00 Body Mass Index 26.63 (77.11 kg, 170.18 cm) kb3 ED Course: 10:08 Patient arrived in ED. eb 10:09 Ryan Medina MD is Attending Physician. rn 10:17 Lin Lyn, RN is Primary Nurse. kb3 10:18 Patient moved to radiology via stretcher. kb3 10:21 Triage completed. kb3 10:21 Arm band placed on right wrist. kb3 10:22 Patient has correct armband on for positive identification. Bed in low position. Call kb3 light in reach. Side rails up X2. Warm blanket given. 10:22 No provider procedures requiring assistance completed. kb3 10:26 CT Head C Spine In Process Unspecified. EDMS 10:58 XRAY Humerus RIGHT In Process Unspecified. EDMS 12:15 Patient did not have IV access during this emergency room visit. kb3 Administered Medications: No medications were administered Medication: 10:22 VIS not applicable for this client. kb3 Outcome: 11:09 Discharge ordered by . rn 12:15 Discharged to home via wheelchair, with family. kb3 12:15 Condition: stable 12:15 Discharge instructions given to patient, family, Instructed on discharge instructions, follow up and referral plans. medication usage, Demonstrated understanding of instructions, follow-up care, medications. 12:59 Patient left the ED. eb Signatures: Dispatcher [employer] EDRyan Han MD MD rn Botello, Elizabeth eb Bradberry, Kelly, RN RN kb3
--- NOTE | 2022-04-29 11:09 | EDPHYS ---
Physician Documentation [facility] Name: Houston Neely Age: 71 yrs Sex: Male : 1950 Arrival Date: 04/29/2022 Time: 10:08 Bed 16 Private MD: ED Physician Ryan Medina HPI: 04/29 10:17 This 71 yrs old Male presents to ER via Unassigned with complaints of right rn arm injury after fall. 10:17 The patient or guardian complains of injury, pain. The complaints affect the anterior rn aspect of right shoulder, right bicep and right antecubital area. Onset: The symptoms/episode began/occurred just prior to arrival. Modifying factors: The symptoms are alleviated by remaining still, the symptoms are aggravated by movement. Severity of symptoms: At their worst the symptoms were mild, in the emergency department the symptoms are unchanged. The patient has experienced similar episodes in the past. The patient has not recently seen a physician. EMS reports patient fell, unwitnessed, no LOC, no blood thinners. Initially refuses transport, but right arm began to hurt more so came in for evaluation. Pt denies injury to chest/abdomen/neck/pelvis/legs/left arm. Pt with seizures and right sided weakness as well as communication problem at baseline.. Historical: - Allergies: 10:21 Unable to obtain; kb3 - Home Meds: 10:21 Keppra Oral [Active]; lisinopril 20 mg Oral tab 1 tab once daily [Active]; kb3 - PMHx: 10:21 CVA; Hypertension; R sided weakness; Seizures; kb3 - PSHx: 10:21 Cholecystectomy; kb3 - Immunization history:: Adult Immunizations unknown, Last tetanus immunization: unknown. - Social history:: Smoking status: Patient denies any tobacco usage or history of. - Family history:: not pertinent. - Hospitalizations: : No recent hospitalization is reported. ROS: 10:17 Constitutional: Negative for fever, chills, and weight loss, Eyes: Negative for injury, rn pain, redness, and discharge, Neck: Negative for injury, pain, and swelling, Cardiovascular: Negative for chest pain, palpitations, and edema, Respiratory: Negative for shortness of breath, cough, wheezing, and pleuritic chest pain, Abdomen/GI: Negative for abdominal pain, nausea, vomiting, diarrhea, and constipation, Back: Negative for injury and pain, MS/Extremity: + RUE injury and pain Skin: Negative for injury, rash, and discoloration, Neuro: Negative for headache, numbness, tingling, and seizure. Exam: 10:17 Constitutional: This is a well developed, well nourished patient who is awake, alert, rn and in no acute distress. Head/Face: Normocephalic, atraumatic. Eyes: Periorbital areas with no swelling, redness, or edema. Neck: No midline cervical tenderness Chest/axilla: Normal chest wall appearance and motion. Nontender with no deformity. No lesions are appreciated. Cardiovascular: Regular rate and rhythm. No pulse deficits. Respiratory: No increased work of breathing, no retractions or nasal flaring. Abdomen/GI: Soft, non-tender Back: No spinal tenderness. No costovertebral tenderness. Full range of motion. Skin: Warm, dry with normal turgor. Normal color with no rashes, no lesions, and no evidence of cellulitis. MS/ Extremity: Pulses equal, no cyanosis. + right upper arm tenderness around shoulder/distal humerus/elbow. No gross deformity. Using right arm to hold urinal as he urinates in bed. Neuro: Awake and alert, GCS 15 Vital Signs: 10:00 BP 121 / 59; Pulse 83; Resp 20; Temp 98; Pulse Ox 98% ; Weight 77.11 kg; Height 5 ft. 7 kb3 in. (170.18 cm); Pain 5/10; 12:00 BP 145 / 72; Pulse 81; Resp 20; Pulse Ox 100% ; kb3 10:00 Body Mass Index 26.63 (77.11 kg, 170.18 cm) kb3 MDM: 10:09 Patient medically screened. rn 11:08 Differential diagnosis: dislocation, closed fracture, contusion. Data reviewed: vital rn signs, nurses notes, radiologic studies, CT scan, plain films, and as a result, I will discharge patient. Counseling: I had a detailed discussion with the patient and/or guardian regarding: the historical points, exam findings, and any diagnostic results supporting the discharge/admit diagnosis, radiology results, the need for outpatient follow up, to return to the emergency department if symptoms worsen or persist or if there are any questions or concerns that arise at home. Special discussion: I discussed with the patient/guardian in detail that at this point there is no indication for admission to the hospital. It is understood, however, that if the symptoms persist or worsen the patient needs to return immediately for re-evaluation. ED course: NO acute findings on imaging, will dc home with return precautions.. 04/29 10:13 Order name: CT Head C Spine; Complete Time: 11:08 rn 04/29 10:13 Order name: XRAY Humerus RIGHT; Complete Time: 11:08 rn Administered Medications: No medications were administered Disposition Summary: 04/29/22 11:09 Discharge Ordered Location: Home rn Problem: new rn Symptoms: have improved rn Condition: Stable rn Diagnosis - Contusion of right shoulder rn Followup: rn - With: Private Physician - When: As needed - Reason: Recheck today's complaints, Re-evaluation by your physician Discharge Instructions: - Discharge Summary Sheet rn - Contusion rn Forms: - Medication Reconciliation Form rn - Thank You Letter rn - 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 EDMS EDMS 10:58 10:14 Elbow Right 2 View+RAD.RAD.BRZ ordered. EDMS EDMS
[2022-04-29 13:03] VITALS: BP 145/72; O2SAT 100
== END 2022-04-29 12:59 | disposition home or self-care (01) ==
LOC: ER 10:03
DX: S40.011A Contusion of right shoulder, initial encounter (principal); I10 Essential (primary) hypertension
CPT/HCPCS: 70450; 72125; 99283

== ENCOUNTER 2022-08-31 01:09 | Emergency (ER) | payer OTHER ==
--- OUTSIDE RECORDS SUMMARY | 2022-09-01 01:19 | XMS REPORT | Continuity of Care Document ---
:1950 Author Organization [facility] t Address [address] [place] [address] [place] [id number] Care Team Providers Name Role Phone TOYA Attending Clinician Unavailable Kendra Attending Clinician Unavailable SUDHIR SARAVIA Attending Clinician Unavailable Royal Rice Attending Clinician Toni Attending Clinician Unavailable Iliana Pinto MD Attending Clinician Sudhir Saravia MD Attending Clinician [facility] Cardio Fac Attending Clinician Unavailable 1, [facility] Cardio Fac Room Attending Clinician Unavailable 2, [facility] Cardio Fac Room Attending Clinician Unavailable Doctor Unassigned, [place] Attending Clinician Unavailable TOYA Admitting Clinician Unavailable Kendra Admitting Clinician Unavailable Toni Admitting Clinician Unavailable Payers Payer Name Policy Type Policy Number Effective Date Expiration Date Bernie garcia [place]: [id number] 2016 [place] 00:00:00 MEDICARE PART A [id number] 2016 \T\ B 00:00:00 MEDICAID OF [place] [id number] 2016 00:00:00 Problems This patient has no known problems. Allergies, Adverse Reactions, Alerts Allergy Allergy Status Severity Reaction(s) Onset Inactive Treating Comm ents Source Name Type Date Date Clinician NO KNOWN Drug Active Univers ALLERGIE Class ity of [facility] Social History Social Habit Start Date Stop Date Quantity Comments Source History of tobacco Cigarette Smoker [facility] Sex Assigned At Universit y of [facility] Cigarettes smoked 2018-12-19 2018-12-19 Univers ity of current (pack per 00:00:00 00:00:00 ) - Reported Meally Alcohol intake 2018-12-19 2018-12-19 University 00:00:00 00:00:00 [facility] Smoking Status Start Date Stop Date Source Current every day smoker 2018-12-19 00:00:00 Uni versity of [facility] Medications Ordered Filled Start Stop Current Ordering Indication Dosage Frequency Signature Comments Components Source Medication Medication Date Date Medication? Clinician (SIG) Name Name atorkytati 2020- No [id number] 40mg Take 1 Univers n 40 mg 09-10 tablet by ity of tablet 00:00: 04:59 mouth at [place] 00 :00 bedtime Medical for 90 Branch days. contrast 2019- No Intravenou Un royal previously 01-11 s, ONCE, 1 it y of administere 17:15: 16:30 dose, Fri [place] d 0 mL 00 :00 01/11/19 at [place] [id number], Meally Routine iohexol 2019- No 100mL 100 mL, Unive rs (OMNIPAQUE 01-11 Intravenou it y of 350 17:15: 16:30 s, ONCE, 1 [place] BULK-100 00 :00 dose, Fri Medica l mL) 01/11/19 at Me[place] injection 1215, 100 mL Routine ezetimibe 2018- Yes 10mg Take 10 mg Un royal 10 mg 9-06 by mouth ity of tablet 15:56: daily. [address] Branch albuterol 2018- Yes 2.5mg Inhale 2.5 U nivers 2.5 mg /3 9-06 mg every 8 ity of mL (0.083 15:56: (eight) [place] %) 28 hours as Medical nebulizer needed. Meally solution albuterol 2018-0 Yes 2{puff} Inhale 2 U nivers 90 9-06 Puffs ity of mcg/actuati 15:56: every 6 [place] as on inhaler 28 (six) Medical hours as Branch needed. montelukast 2018- Yes 10mg Take 10 mg Univers 10 mg 9-06 by mouth ity of tablet 15:56: daily. [address] ezetimibe 2019-0 Yes 10mg Take 10 mg Un royal 10 mg 9-06 by mouth ity of tablet 15:56: daily. [address] albuterol 2019-0 Yes 2.5mg Inhale 2.5 U nivers 2.5 mg /3 9-06 mg every 8 ity of mL (0.083 15:56: (eight) [place] %) 28 hours as Medical nebulizer needed. Meally solution albuterol Yes 2{puff} Inhale 2 U nivers 90 9-06 Puffs ity of mcg/actuati 15:56: every 6 [place] as on inhaler 28 (six) Medical hours as Branch needed. montelukast 2018-0 Yes 10mg Take 10 mg Univers 10 mg 9-06 by mouth ity of tablet 15:56: daily. [address] ezetimibe Yes 10mg Take 10 mg Un royal 10 mg 9-06 by mouth ity of tablet 15:56: daily. [address] albuterol 0 Yes 2.5mg Inhale 2.5 U nivers 2.5 mg /3 9-06 mg every 8 ity of mL (0.083 15:56: (eight) [place] %) 28 hours as Medical nebulizer needed. Meally solution albuterol 0 Yes 2{puff} Inhale 2 U nivers 90 9-06 Puffs ity of mcg/actuati 15:56: every 6 [place] as on inhaler 28 (six) Medical hours as Branch needed. montelukast 2018-0 Yes 10mg Take 10 mg Univers 10 mg 9-06 by mouth ity of tablet 15:56: daily. [address] ezetimibe 0 Yes 10mg Take 10 mg Un royal 10 mg 9-06 by mouth ity of tablet 15:56: daily. [address] albuterol 2018-0 Yes 2.5mg Inhale 2.5 U nivers 2.5 mg /3 9-06 mg every 8 ity of mL (0.083 15:56: (eight) [place] %) 28 hours as Medical nebulizer needed. Branch solution albuterol 2018-0 Yes 2{puff} Inhale 2 U nivers 90 9-06 Puffs ity of mcg/actuati 15:56: every 6 [place] as on inhaler 28 (six) Medical hours as Branch needed. montelukast 2019- Yes 10mg Take 10 mg Univers 10 mg 9-06 by mouth ity of tablet 15:56: daily. [address] ezetimibe Yes 10mg Take 10 mg Un royal 10 mg 9-06 by mouth ity of tablet 15:56: daily. [address] albuterol Yes 2.5mg Inhale 2.5 U nivers 2.5 mg /3 9-06 mg every 8 ity of mL (0.083 15:56: (eight) [place] %) 28 hours as Medical nebulizer needed. Meally solution albuterol Yes 2{puff} Inhale 2 U nivers 90 9-06 Puffs ity of mcg/actuati 15:56: every 6 [place] as on inhaler 28 (six) Medical hours as Branch needed. montelukast 2018- Yes 10mg Take 10 mg Univers 10 mg 9-06 by mouth ity of tablet 15:56: daily. [address] ezetimibe Yes 10mg Take 10 mg Un royal 10 mg 9-06 by mouth ity of tablet 15:56: daily. [address] albuterol 0 Yes 2.5mg Inhale 2.5 U nivers 2.5 mg /3 9-06 mg every 8 ity of mL (0.083 15:56: (eight) [place] %) 28 hours as Medical nebulizer needed. Meally solution albuterol Yes 2{puff} Inhale 2 U nivers 90 9-06 Puffs ity of mcg/actuati 15:56: every 6 [place] as on inhaler 28 (six) Medical hours as Branch needed. montelukast 2018-0 Yes 10mg Take 10 mg Univers 10 mg 9-06 by mouth ity of tablet 15:56: daily. [address] lisinopril 2018-0 Yes 20mg Take 20 mg U nivers 20 mg 9-06 by mouth ity of tablet 15:53: daily. [address] foLIC acid 2018-0 Yes 1mg Take 1 mg Un royal 1 mg tablet 9-06 by mouth ity of 15:53: daily. [address] levETIRAcet 2019-0 Yes 1000mg Take 1,000 Univers am (KEPPRA) 9-06 mg by ity of 1,000 mg 15:53: mouth 2 [place] tablet 50 (two) Medical times Meally daily. amLODIPine 2019-0 Yes 10mg Take 10 mg U nivers 10 mg 9-06 by mouth ity of tablet 15:53: daily. [address] lisinopril 2019-0 Yes 20mg Take 20 mg U nivers 20 mg 9-06 by mouth ity of tablet 15:53: daily. [address] foLIC acid 2019-0 Yes 1mg Take 1 mg Un royal 1 mg tablet 9-06 by mouth ity of 15:53: daily. [address] levETIRAcet 2019-0 Yes 1000mg Take 1,000 Univers am (KEPPRA) 9-06 mg by ity of 1,000 mg 15:53: mouth 2 [place] tablet 50 (two) Medical times Meally daily. amLODIPine 2019-0 Yes 10mg Take 10 mg U nivers 10 mg 9-06 by mouth ity of tablet 15:53: daily. [address] lisinopril 2019-0 Yes 20mg Take 20 mg U nivers 20 mg 9-06 by mouth ity of tablet 15:53: daily. [address] foLIC acid 2019-0 Yes 1mg Take 1 mg Un royal 1 mg tablet 9-06 by mouth ity of 15:53: daily. [address] levETIRAcet 2019-0 Yes 1000mg Take 1,000 Univers am (KEPPRA) 9-06 mg by ity of 1,000 mg 15:53: mouth 2 [place] tablet 50 (two) Medical times Meally daily. amLODIPine 2019-0 Yes 10mg Take 10 mg U nivers 10 mg 9-06 by mouth ity of tablet 15:53: daily. [address] lisinopril 2019-0 Yes 20mg Take 20 mg U nivers 20 mg 9-06 by mouth ity of tablet 15:53: daily. [address] foLIC acid 2019-0 Yes 1mg Take 1 mg Un royal 1 mg tablet 9-06 by mouth ity of 15:53: daily. [address] levETIRAcet 2019-0 Yes 1000mg Take 1,000 Univers am (KEPPRA) 9-06 mg by ity of 1,000 mg 15:53: mouth 2 [place] tablet 50 (two) Medical times Branch daily. amLODIPine 2019-0 Yes 10mg Take 10 mg U nivers 10 mg 9-06 by mouth ity of tablet 15:53: daily. [address] lisinopril 2019-0 Yes 20mg Take 20 mg U nivers 20 mg 9-06 by mouth ity of tablet 15:53: daily. [address] foLIC acid 2019-0 Yes 1mg Take 1 mg Un royal 1 mg tablet 9-06 by mouth ity of 15:53: daily. [address] levETIRAcet 2019-0 Yes 1000mg Take 1,000 Univers am (KEPPRA) 9-06 mg by ity of 1,000 mg 15:53: mouth 2 [place] tablet 50 (two) Medical times Meally daily. amLODIPine 2018-0 Yes 10mg Take 10 mg U nivers 10 mg 9-06 by mouth ity of tablet 15:53: daily. [address] lisinopril 2018-0 Yes 20mg Take 20 mg U nivers 20 mg 9-06 by mouth ity of tablet 15:53: daily. [address] foLIC acid 2018-0 Yes 1mg Take 1 mg Un royal 1 mg tablet 9-06 by mouth ity of 15:53: daily. [address] levETIRAcet 2018-0 Yes 1000mg Take 1,000 Univers am (KEPPRA) 9-06 mg by ity of 1,000 mg 15:53: mouth 2 [place] tablet 50 (two) Medical times Meally daily. amLODIPine 2019-0 Yes 10mg Take 10 mg U nivers 10 mg 9-06 by mouth ity of tablet 15:53: daily. [address] atorvastati 2019-0 Yes [id number] 40mg Take 1 Univers n 40 mg 9-06 07 tablet by ity of tablet 00:00: mouth at [place] [address] bedtime. [facility] atorvastati 2019-0 Yes [id number] 40mg Take 1 Univers n 40 mg 9-06 07 tablet by ity of tablet 00:00: mouth at [place] [address] bedtime. [facility] atorvastati 2019-0 Yes [id number] 40mg Take 1 Univers n 40 mg 9-06 07 tablet by ity of tablet 00:00: mouth at [place] 00 bedtime. Medical Branch atorvastati Yes [id number] 40mg Take 1 Univers n 40 mg 9- 07 tablet by ity of tablet 00:00: mouth at [place] 00 bedtime. Medical Branch atorvastati Yes [id number] 40mg Take 1 Univers n 40 mg 9- 07 tablet by ity of tablet 00:00: mouth at [place] 00 bedtime. Medical Branch atorvastati Yes [id number] 40mg Take 1 Univers n 40 mg - 07 tablet by ity of tablet 00:00: mouth at [place] 00 bedtime. Medical Branch sulfur 2019- No 5mL Univers hexafluorid 01-01 ity of e microsphr 22:30: 21:28 [place] (LUMASON) 00 :00 Medical injection 5 Branch mL sulfur 2018- No 5mL 5 mL, Univers hexafluorid 01-01 Intravenou i ty of e microsphr 22:30: 21:28 s, ONCE, 1 [place] (LUMASON) 00 :00 dose, Tue Medic al injection 5 01/01/19 at [facility] mL 1730, Routine montelukast Yes 10mg Take 10 mg Univers 10 mg 8-26 by mouth ity of tablet 14:36: daily. [address] montelukast Yes 10mg Take 10 mg Univers 10 mg 8-26 by mouth ity of tablet 14:36: daily. [address] montelukast Yes 10mg Take 10 mg Univers 10 mg 8-26 by mouth ity of tablet 14:36: daily. [address] montelukast Yes 10mg Take 10 mg Univers 10 mg 8-26 by mouth ity of tablet 14:36: daily. [address] montelukast Yes 10mg Take 10 mg Univers 10 mg 8-26 by mouth ity of tablet 14:36: daily. [address] Branch albuterol 2018- Yes 2{puff} Inhale 2 U [...] as Medical nebulizer needed. Branch solution ezetimibe 2019-0 Yes 10mg Take 10 mg Un royal 10 mg 8-26 by mouth ity of tablet 14:34: daily. [address] ezetimibe 2019-0 Yes 10mg Take 10 mg Un royal 10 mg 8-26 by mouth ity of tablet 14:34: daily. [address] ezetimibe 2019-0 Yes 10mg Take 10 mg Un royal 10 mg 8-26 by mouth ity of tablet 14:34: daily. [address] ezetimibe 2019-0 Yes 10mg Take 10 mg Un royal 10 mg 8-26 by mouth ity of tablet 14:34: daily. [address] ezetimibe 2019-0 Yes 10mg Take 10 mg Un royal 10 mg 8-26 by mouth ity of tablet 14:34: daily. [address] foLIC acid 2019-0 Yes 1mg Take 1 mg Un royal 1 mg tablet 8-21 by mouth ity of 14:22: daily. [address] levETIRAcet 2019-0 Yes 1000mg Take 1,000 Univers am (KEPPRA) 8-21 mg by ity of 1,000 mg 14:22: mouth 2 [place] tablet 48 (two) Medical times Meally daily. amLODIPine 2019-0 Yes 10mg Take 10 mg U nivers 10 mg 8-21 by mouth ity of tablet 14:22: daily. [address] foLIC acid 2019-0 Yes 1mg Take 1 mg Un royal 1 mg tablet 8-21 by mouth ity of 14:22: daily. [address] levETIRAcet 2019-0 Yes 1000mg Take 1,000 Univers am (KEPPRA) 8-21 mg by ity of 1,000 mg 14:22: mouth 2 [place] tablet 48 (two) Medical times Meally daily. amLODIPine 2019-0 Yes 10mg Take 10 mg U nivers 10 mg 8-21 by mouth ity of tablet 14:22: daily. [address] foLIC acid 2019-0 Yes 1mg Take 1 mg Un royal 1 mg tablet 8-21 by mouth ity of 14:22: daily. [address] levETIRAcet 2019-0 Yes 1000mg Take 1,000 Univers am (KEPPRA) 8-21 mg by ity of 1,000 mg 14:22: mouth 2 [place] tablet 48 (two) Medical times Meally daily. amLODIPine 2019-0 Yes 10mg Take 10 mg U nivers 10 mg 8-21 by mouth ity of tablet 14:22: daily. [address] foLIC acid 2019-0 Yes 1mg Take 1 mg Un royal 1 mg tablet 8-21 by mouth ity of 14:22: daily. [address] levETIRAcet 2019-0 Yes 1000mg Take 1,000 Univers am (KEPPRA) 8-21 mg by ity of 1,000 mg 14:22: mouth 2 [place] tablet 48 (two) Medical times Meally daily. amLODIPine 2019-0 Yes 10mg Take 10 mg U nivers 10 mg 8-21 by mouth ity of tablet 14:22: daily. [address] foLIC acid 2019-0 Yes 1mg Take 1 mg Un royal 1 mg tablet 8-21 by mouth ity of 14:22: daily. [address] levETIRAcet 2019-0 Yes 1000mg Take 1,000 Univers am (KEPPRA) 8-21 mg by ity of 1,000 mg 14:22: mouth 2 [place] tablet 48 (two) Medical times Meally daily. amLODIPine 2019-0 Yes 10mg Take 10 mg U nivers 10 mg 8-21 by mouth ity of tablet 14:22: daily. [address] foLIC acid 2019-0 Yes 1mg Take 1 mg Un royal 1 mg tablet 8-21 by mouth ity of 14:22: daily. [address] levETIRAcet 2019-0 Yes 1000mg Take 1,000 Univers am (KEPPRA) 8-21 mg by ity of 1,000 mg 14:22: mouth 2 [place] tablet 48 (two) Medical times Meally daily. amLODIPine 2019-0 Yes 10mg Take 10 mg U nivers 10 mg 8-21 by mouth ity of tablet 14:22: daily. [address] foLIC acid 2019-0 Yes 1mg Take 1 mg Un royal 1 mg tablet 8-21 by mouth ity of 14:22: daily. [address] levETIRAcet 2019-0 Yes 1000mg Take 1,000 Univers am (KEPPRA) 8-21 mg by ity of 1,000 mg 14:22: mouth 2 [place] tablet 48 (two) Medical times Meally daily. amLODIPine 2019-0 Yes 10mg Take 10 mg U nivers 10 mg 8-21 by mouth ity of tablet 14:22: daily. [address] foLIC acid 2019-0 Yes 1mg Take 1 mg Un royal 1 mg tablet 8-21 by mouth ity of 14:22: daily. [address] levETIRAcet 2019-0 Yes 1000mg Take 1,000 Univers am (KEPPRA) 8-21 mg by ity of 1,000 mg 14:22: mouth 2 [place] tablet 48 (two) Medical times Meally daily. amLODIPine 2019-0 Yes 10mg Take 10 mg U nivers 10 mg 8-21 by mouth ity of tablet 14:22: daily. [address] foLIC acid 2019-0 Yes 1mg Take 1 mg Un royal 1 mg tablet 8-21 by mouth ity of 14:22: daily. [address] levETIRAcet 2018-0 Yes 1000mg Take 1,000 Univers am (KEPPRA) 8-21 mg by ity of 1,000 mg 14:22: mouth 2 [facility] 48 (two) Medical times Meally daily. amLODIPine 2019-0 Yes 10mg Take 10 mg U nivers 10 mg 8-21 by mouth ity of tablet 14:22: daily. [address] foLIC acid 2018-0 Yes 1mg Take 1 mg Un royal 1 mg tablet 8-21 by mouth ity of 14:22: daily. [address] levETIRAcet 2018-0 Yes 1000mg Take 1,000 Univers am (KEPPRA) 8-21 mg by ity of 1,000 mg 14:22: mouth 2 [place] tablet 48 (two) Medical times Meally daily. amLODIPine 2019-0 Yes 10mg Take 10 mg U nivers 10 mg 8-21 by mouth ity of tablet 14:22: daily. [address] lisinopril 2019-0 Yes 20mg Take 20 mg U nivers 20 mg 8-21 by mouth ity of tablet 14:22: daily. [address] lisinopril 2019-0 Yes 20mg Take 20 mg U nivers 20 mg 8-21 by mouth ity of tablet 14:22: daily. [address] lisinopril 2019-0 Yes 20mg Take 20 mg U nivers 20 mg 8-21 by mouth ity of tablet 14:22: daily. [address] lisinopril Yes 20mg Take 20 mg U nivers 20 mg 8-21 by mouth ity of tablet 14:22: daily. [address] lisinopril Yes 20mg Take 20 mg U nivers 20 mg 8-21 by mouth ity of tablet 14:22: daily. [address] lisinopril Yes 20mg Take 20 mg U nivers 20 mg 8-21 by mouth ity of tablet 14:22: daily. [address] lisinopril Yes 20mg Take 20 mg U nivers 20 mg 8-21 by mouth ity of tablet 14:22: daily. [address] lisinopril Yes 20mg Take 20 mg U nivers 20 mg 8-21 by mouth ity of tablet 14:22: daily. [address] lisinopril Yes 20mg Take 20 mg U nivers 20 mg 8-21 by mouth ity of tablet 14:22: daily. [address] lisinopril Yes 20mg Take 20 mg U nivers 20 mg 8-21 by mouth ity of tablet 14:22: daily. [address] atorvastati 2017-05 Yes 80mg Take 1 Univ ers n 80 mg 2-06 tablet by ity of tablet 00:00: mouth at [place] [address] bedtime. Medical onstatin Branch per recent notes. Updated chart with new order atorvastati 2017-05 Yes 80mg Take 1 Univ ers n 80 mg 2-06 tablet by ity of tablet 00:00: mouth at [place] [address] bedtime. Medical onstatin Branch per recent notes. Updated chart with new order atorvastati 2017-05 Yes 80mg Take 1 Univ ers n 80 mg 2-06 tablet by ity of tablet 00:00: mouth at [place] [address] bedtime. Medical onstatin Branch per recent notes. Updated chart with new order atorvastati 2017-05 Yes 80mg Take 1 Univ ers n 80 mg 2-06 tablet by ity of tablet 00:00: mouth at [place] [address] bedtime. Medical onstatin Branch per recent notes. [...] by ity of tablet 00:00: mouth at [place] 00 bedtime. Medical onstatin Branch per recent notes. Updated chart with new order atorvastati 2017-05 Yes 80mg Take 1 Univ ers n 80 mg 2-06 tablet by ity of tablet 00:00: mouth at [place] 00 bedtime. Medical onstatin Branch per recent notes. Updated chart with new order atorvastati 2017-05 Yes 80mg Take 1 Univ ers n 80 mg 2-06 tablet by ity of tablet 00:00: mouth at [place] 00 bedtime. Medical onstatin Branch per recent notes. Updated chart with new order atorvastati 2017-05 Yes 80mg Take 1 Univ ers n 80 mg 2-06 tablet by ity of tablet 00:00: mouth at [place] 00 bedtime. Medical onstatin Branch per recent notes. Updated chart with new order atorvastati 2017-05 Yes 80mg Take 1 Univ ers n 80 mg 2-06 tablet by ity of tablet 00:00: mouth at [place] 00 bedtime. Medical onstatin Branch per recent notes. Updated chart with new order atorvastati 2017-05 Yes 80mg Take 1 Univ ers n 80 mg 2-06 tablet by ity of tablet 00:00: mouth at [place] 00 bedtime. Medical onstatin Branch per recent notes. Updated chart with new order atorvastati 2017-05 Yes 80mg Take 1 Univ ers n 80 mg 2-06 tablet by ity of tablet 00:00: mouth at [place] 00 bedtime. Medical onstatin Branch per recent notes. Updated chart with new order atorvastati 2017-05 Yes 80mg Take 1 Univ ers n 80 mg 2-06 tablet by ity of tablet 00:00: mouth at [place] 00 bedtime. Medical onstatin Branch per recent notes. Updated chart with new order atorvastati 2017-05 Yes 80mg Take 1 Univ ers n 80 mg 2-06 tablet by ity of tablet 00:00: mouth at [place] 00 bedtime. Medical onstatin Branch per recent [...] by ity of tablet 00:00: mouth at [place] 00 bedtime. Medical onstatin Branch per recent notes. Updated chart with new order amLODIPine Yes 10mg Take 10 mg U nivers 10 mg 8-21 by mouth ity of tablet 14:41: daily. [place] [address] Medical Branch lisinopril Yes 20mg Take 20 mg U nivers 20 mg 8-21 by mouth ity of tablet 14:41: daily. [place] [address] Medical Branch foLIC acid Yes 1mg Take 1 mg Un royal 1 mg tablet 8-21 by mouth ity of 14:41: daily. [place] [address] Medical Branch levETIRAcet Yes 1000mg Take 1,000 [...] 15:52:00 133 mm[Hg] Univer sity of pressure [place] [facility] Diastolic blood 2019-01-04 15:52:00 67 mm[Hg] Unive rsity of pressure [place] [facility] Heart rate 2019-01-04 15:52:00 75 /min [facility] Body temperature 2019-01-04 15:52:00 36.78 Janett Univ ersity [facility] [place] [facility] Medical Meally Respiratory rate 2019-01-04 15:52:00 20 /min Univ ersity of [place] [facility] Body weight 2019-01-04 15:52:00 84.732 kg Universi ty of [place] [facility] BMI 2019-01-04 15:52:00 29.26 kg/m2 Universi ty of [place] [facility] Systolic blood 2019-01-04 15:52:00 133 mm[Hg] Univer sity of pressure [place] [facility] Diastolic blood 2019-01-04 15:52:00 67 mm[Hg] Unive rsity of pressure [place] [facility] Heart rate 2019-01-04 15:52:00 75 /min [facility]i ty of [place] [facility] Body temperature 2019-01-04 15:52:00 36.78 Janett Univ ersity of [place] [facility] Respiratory rate 2019-01-04 15:52:00 20 /min Univ ersity of [place] [facility] Body weight 2019-01-04 15:52:00 84.732 kg Universi ty of [place] [facility] BMI 2019-01-04 15:52:00 29.26 kg/m2 Universi ty of [place] [facility] Systolic blood 2018-12-19 14:21:00 111 mm[Hg] Univer sity of pressure [place] [facility] Diastolic blood 2018-12-19 14:21:00 62 mm[Hg] Unive rsity of pressure [place] [facility] Heart rate 2018-12-19 14:21:00 68 /min Universi ty of [place] [facility] Respiratory rate 2018-12-19 14:21:00 18 /min Univ ersity of [facility] Branch Body height 2018-12-19 14:21:00 170.2 cm Universi ty of [place] [facility] Body weight 2018-12-19 14:21:00 85.684 kg Universi ty of [place] [facility] BMI 2018-12-19 14:21:00 29.59 kg/m2 Universi ty of [place] [facility] Oxygen saturation in 2018-12-19 14:21:00 97 /min [facility] Arterial blood by [facility] Pulse oximetry Branch Systolic blood 2019-01-01 20:52:00 141 mm[Hg] Univer sity of pressure [place] [facility] Diastolic blood 2019-01-01 20:52:00 71 mm[Hg] Unive rsity of pressure [place] [facility] Heart rate 2019-01-01 20:52:00 87 /min Universi ty of [place] [facility] Body height 2019-01-01 20:52:00 170.2 cm [facility] Body weight 2019-01-01 20:52:00 85.276 kg [facility] BMI 2019-01-01 20:52:00 29.44 kg/m2 [facility] Procedures Procedure Date / Time Performed Performing Clinician Britta campos CT ANGIOGRAM NECK 2019-01-11 17:12:41 Adolph Huitron [facility] CT ANGIOGRAM HEAD 2019-01-11 17:10:04 Adolph Huitron [facility] NOTICE OF BILLING 2019-01-11 15:34:57 Doctor Unassigned, No [facility] PRACTICES FOR MEDICARE Name Medical B ranch PATIENTS [facility] PATIENT FINANCIAL 2019-01-11 15:34:09 Doctor Unassigned, No [facility] POCT CREATININE 2019-01-11 15:10:00 Iliana Pinto [facility] EKG-12 LEAD 2018-12-19 14:29:02 Sudhir Saravia [facility] ASSIGNMENT OF BENEFITS 2018-12-19 14:07:02 Doctor Unassigned, No [facility] Encounters Start End Encounter Admission Attending Care Care Encounter Source Date/Time Date/Time Type Type Clinicians Facility Department ID 2021-11-10 2021-11-10 Outpatient COLETTE DOSHI [id number] [place] 02:08:00 02:08:00 HN [id number] da [facility]renew [facility] 2021-10-14 2021-10-14 Outpatient FOG_Loncari AOSM AOSM [id number] Jennifer 02:06:00 02:06:00 Camilla [id number] [facility] 2021-10-05 2021-10-05 Outpatient FOG_Loncari AOSM AOSM [id number] Jennifer 08:13:00 08:13:00 Camilla [id number] Orth [facility] e 2020-01-22 2020-01-22 Outpatient Juan Manuel SARAVIA [facility] [id number] Univers 15:20:00 15:20:00 SUDHIR child f [facility] 2019-12-23 2019-12-23 Outpatient R RANI, [facility] [id number] Univers 09:40:00 09:40:00 SUDHIR calderon o f [facility] 2019-09-11 2019-09-11 Telephone FUAD JamesIT [id number] 00:00:00 00:00:00 [facility] [id number] CLINICS [id number] [facility] 2019-09-11 2019-09-11 Telephone Erika, FUADIT [id number] [facility] 00:00:00 00:00:00 [facility] [id number] ity of [facility] 4.2.7.2.686 [facility] [phone] [address] 2019-08-27 2019-08-27 [place] [id number] [place] 04:13:00 04:13:00 [facility] 2019-01-11 2019-01-11 [place] [id number] 10:33:32 23:59:00 Encounter Iliana Alexander [id number] [place] 4.2.7.2.686 [place] [phone] [facility] 2019-01-11 2019-01-11 [place] [id number] [facility] 10:33:32 23:59:00 Encounter Iliana Alexander [id number] ity of [place] 4.2.7.2.686 [facility] [place] [phone] [address] 2019-01-11 2019-01-11 [facility] [id number] 10:20:00 10:32:00 Encounter Iliana Alexander [id number] [place] [id number] [place] [phone] [facility] 2019-01-11 2019-01-11 [facility] [id number] [facility] 10:20:00 10:32:00 Encounter Iliana Alexander [id number] [place] of [place]7.2.686 [place] [id number] [facility] [address] 2019-01-04 2019-01-04 Office [facility] [id number] [facility] 10:21:42 18:59:26 Visit Iliana Catherine [id number] [place] of [place] 4[place]2.7.2.686 [place] [phone] [facility] 205 [facility] 2019-01-04 2019-01-04 Office [facility] [id number] 10:21:42 18:59:26 Visit Iliana Alexander [id number] [place] [id number] Professio [id number] [address] 2018-12-19 2019-01-03 Office [facility] [id number] Univers 09:07:06 15:22:45 Visit Miguedenysjelena [place] [id number] [place] of [place].2.686 [place] [phone] [address] 2019-01-03 2019-01-03 [facility] [id number] [facility] 00:00:00 00:00:00 Sudhir Alexander [id number] [place]2.[place] [phone] [address] 2019-01-01 2019-01-01 Extension 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 [id number] [facility] 14:30:23 16:38:50 Only 1, Adc Cardio Fac [facility] 350.1. 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 [id number] [facility] 14:29:39 15:29:39 Visit 2, Adc Cardio Fac Room [place] 350.1. 13.10 ity of Sudhir Saravia 4.2.7.2.686 [place] Professio [phone] Wi dicdania nal [address] 2018-12-24 2018-12-24 Telephone KHANG Saravia [id number] Univers 00:00:00 00:00:00 Sudhir Alexander 350.1.13.10 ity of [place] 4.2.7.2.686 [facility] [phone] Wi dicdania herron [address] [facility] 2018-12-19 2018-12-19 Orders Doctor DELTA [id number] Univers 00:00:00 00:00:00 Only Unassigned, DONITA [id number] ity of [place] [facility] 4.2.7.2.686 [place] [phone] [facility] sha 009 Branch Results Test Test Test Results Result Source Description Time Comments Comments CT ANGIOGRAM 2018-12 Nonvisualization of the left [facility] -13 internal carotid artery from [facility] 19:52:1 its cervicalorigin/carotid Branch 1 bifurcation up [...] NECK: A three-vessel aortic arch is seen. Ygja-tj-citwqyhv atheroscleroticdisease is noted in the arch. The vessels originating from the arch arepatent. Mild scattered atherosclerotic disease is noted in the common carotidarteries bilaterally, left greater than right. No flow-limiting stenosis isidentified. Btwo-ij-mqxueznl atherosclerotic disease is seen in the left [...] NECK: A three-vessel aortic arch is seen. Bppi-lz-uoupicpl atheroscleroticdisease is noted in the arch. The vessels originating from the arch arepatent.Mild scattered atherosclerotic disease is noted in the common carotidarteries bilaterally, left greater than right. No flow-limiting stenosis isidentified.Zewa-ma-hmfjdozd atherosclerotic disease is seen in the left [...] of HEAD -13 internal carotid artery from [facility] 19:52:1 its cervicalorigin/carotid Branch 1 bifurcation up [...] NECK: A three-vessel aortic arch is seen. Fswx-sy-ectwoxpc atheroscleroticdisease is noted in the arch. The vessels originating from the arch arepatent. Mild scattered atherosclerotic disease is noted in the common carotidarteries bilaterally, left greater than right. No flow-limiting stenosis isidentified. Qggk-ch-kcewjgjn atherosclerotic disease is seen in the left [...] NECK: A three-vessel aortic arch is seen. Kfnd-de-oaoakzvm atheroscleroticdisease is noted in the arch. The vessels originating from the arch arepatent.Mild scattered atherosclerotic disease is noted in the common carotidarteries bilaterally, left greater than right. No flow-limiting stenosis isidentified.Yyuw-bv-kcffrxow atherosclerotic disease is seen in the left [...] Test Item Value Reference Range Interpretation [facility] POCT Creatinine (test code = [id number]) 0.8 mg/dL 0.6-1.3 Lab Interpretation (test code = 31805-5) Normal [facility]
[2022-09-01 02:37] LABS: Absolute Lymphocytes (CBC) 2.1 K/uL (0.7-4.9); Hematocrit 41.3 % (39.6-49.0); Lymphocytes % 34.9 % (15.3-44.8); MCV 98.2 fL (80-100); MPV 8.4 fL (7.6-11.3); RBC Red Blood Cell Count 4.21 M/uL (4.33-5.43)
[2022-09-01 02:45] LABS: Barbiturates NEGATIVE (NEGATIVE); Benzodiazepines NEGATIVE (NEGATIVE); Cocaine NEGATIVE (NEGATIVE); METHAMPHETAM NEGATIVE (NEGATIVE); Methadone NEGATIVE (NEGATIVE); Opiates NEGATIVE (NEGATIVE); Phencyclidine NEGATIVE (NEGATIVE); THC Cannibis NEGATIVE (NEGATIVE)
[2022-09-01 02:56] LABS: ALT/SGPT 17 U/L (16-61); AST/SGOT 12 U/L (15-37); Albumin 3.4 g/dL (3.4-5.0); Alkaline Phosphatase 86 U/L (45-117); BUN Blood Urea Nitrogen 3 mg/dL (7-18); Bicarbonate 19 mEq/L (21-32); Bilirubin Direct < 0.1 mg/dL (0-0.2); Bilirubin Total 0.3 mg/dL (0.2-1.0); Glomerular Filtration Rate 94 ml/min (=/>90); Glucose Level 112 mg/dL (74-106); Potassium 3.3 mEq/L (3.5-5.1); Protein, Total 7.2 g/dL (6.4-8.2); Sodium Level 127 mEq/L (136-145); Troponin High Sensitivity 8.5 pg/mL (<58.9)
--- NOTE | 2022-09-01 07:49 | EKG ---
Test Date: 2022-09-01 Test Time: 01:42:48 Aviation Safety Technician: TRUMAN MEASUREMENT RESULTS: Intervals: Rate: 80 AL: 208 QRSD: 82 QT: 362 QTc: 417 [place]: P: 54 AL: 208 QRS: 42 T: 58 INTERPRETIVE STATEMENTS: Normal sinus rhythm Nonspecific ST and T wave abnormality Abnormal ECG Compared to ECG 08/11/2022 01:01:37 ST (T wave) deviation now present Electronically Signed On 09-01-22 07:49:34 CDT by Gustavo Limon
--- NOTE | 2022-09-01 08:26 | ER ---
Nurse's Notes [facility] Name: Houston Neely Age: 71 yrs Sex: Male : 1950 Arrival Date: 09/01/2022 Time: 00:51 Bed 5 Private MD: Diagnosis: Alcohol abuse with intoxication, unspecified Presentation: 09/01 00:57 Chief complaint: EMS states: toned out for multiple falls and alcohol consumption. aa9 daughter state "He just seems off.". Coronavirus screen:. Ebola Screen: No symptoms or risks identified at this time. Initial Sepsis Screen: Does the patient meet any 2 criteria? No. Patient's initial sepsis screen is negative. Does the patient have a suspected source of infection? No. Patient's initial sepsis screen is negative. Risk Assessment: Do you want to hurt yourself or someone else? Patient reports no desire to harm self or others. Onset of symptoms was September 01, 2022. 00:57 Method Of Arrival: EMS: [facility] aa9 00:57 Acuity: CHUCK 3 aa9 Triage Assessment: 01:01 General: Appears in no apparent distress. comfortable, Behavior is calm, cooperative. aa9 Pain: Denies pain. Neuro: Level of Consciousness is awake, alert, Oriented to person, place, Member Service Specialist are weak on right Weakness in right Speech with expressive aphasia noted. Cardiovascular: Patient's skin is warm and dry. Respiratory: Airway is patent Respiratory effort is even, unlabored. : No signs and/or symptoms were reported regarding the genitourinary system. Historical: - Allergies: 01:00 Unable to obtain; aa9 - Home Meds: 01:00 aspirin 81 mg Oral tablet, delayed release (enteric coated) [Active]; atorvastatin 80 aa9 mg Oral tablet [Active]; Keppra 1,000 mg Oral tablet [Active]; lisinopril 20 mg Oral tab 1 tab once daily [Active]; - PMHx: 01:00 CVA; Hypertension; R sided weakness; Seizures; aa9 - PSHx: 01:00 Cholecystectomy; aa9 - Immunization history:: Adult Immunizations unknown. - Social history:: Smoking status: Patient reports the use of cigarette tobacco products. Screenin:26 Abuse screen: Denies threats or abuse. Denies injuries from another. Nutritional aa9 screening: No deficits noted. Tuberculosis screening: No symptoms or risk factors identified. 07:54 [facility] ED Fall Risk Assessment (Adult) History of falling in the last 3 months, ko1 including since admission Yes- single mechanical fall (1 pt) Confusion or Disorientation No (0 pts) Intoxicated or Sedated Yes (3 pts) Impaired Gait Yes (1 pt) Mobility Assist Device Used Yes (1 pt) Altered Elimination No (0 pt) Score/Fall Risk Level 3 or more points = High Risk Oriented to surroundings, Maintained a safe environment, Educated pt \\T\\ family on fall prevention, incl call for assistance when getting out of bed, Assessed \\T\\ reinforced patient's understanding of fall precautions, Provided non-skid footwear, Hourly rounding (assess needs \\T\\ fall precautionary measures) done, Used ambulatory aids as needed (educated on \\T\\ assisted with), Used gait belt as appropriate Implemented a Fall Risk Plan of Care, Remained w/in arm's length of patient and in sight while toileting, Offered frequent toileting (1:1 observation), Remained with patient while ambulating, Utilized family, sitter, or virtual necktie maker as indicated. Assessment: 02:40 Reassessment: Patient appears in no apparent distress at this time. Patient and/or aa9 family updated on plan of care and expected duration. Pain level reassessed. Patient is alert, oriented x 3, equal unlabored respirations, skin warm/dry/pink. 03:26 Reassessment: Patient appears in no apparent distress at this time. Patient and/or aa9 family updated on plan of care and expected duration. Pain level reassessed. Patient is alert, oriented x 3, equal unlabored respirations, skin warm/dry/pink. 05:42 Reassessment: Patient appears in no apparent distress at this time. Patient and/or aa9 family updated on plan of care and expected duration. Pain level reassessed. Patient is alert, oriented x 3, equal unlabored respirations, skin warm/dry/pink. 06:33 Reassessment: Patient appears in no apparent distress at this time. Patient and/or aa9 family updated on plan of care and expected duration. Pain level reassessed. Patient is alert, oriented x 3, equal unlabored respirations, skin warm/dry/pink. 07:50 Reassessment: patient asked to go to restroom, nurse accompanied her. Patient began ko1 skipping down the tracy on the way back to the room. She has remained respectful and cooperative. Patient entered room and jumped onto the bed in a frog position and began bouncing. Instructed patient to stop and she sat down on the bed and said "yes maam". 08:54 Reassessment: gave patient food and water, she is currently in the room crying, will ko1 not verbalize why. She is talking to the wall but I cant understand what she is saying. Vital Signs: 00:57 BP 92 / 58; Pulse 89; Resp 17; Temp 98.1; Pulse Ox 94% on 2 lpm NC; aa9 01:01 Weight 75.5 kg (M); aa9 01:48 BP 107 / 67; Pulse 82; Resp 17 S; Pulse Ox 96% on 2 lpm NC; aa9 02:30 BP 103 / 59; Pulse 66; Resp 17; Pulse Ox 94% on 2 lpm NC; aa9 04:30 BP 107 / 65; Pulse 72; Resp 17; Pulse Ox 96% on 2 lpm NC; aa9 05:30 BP 132 / 67; Pulse 72; Resp 17; Pulse Ox 94% on R/A; aa9 06:33 BP 104 / 59; Pulse 70; Resp 18; Temp 98.7; Pulse Ox 95% on R/A; aa9 08:50 BP 110 / 64; Pulse 75; Resp 16; Temp 98; Pulse Ox 99% ; ko1 ED Course: 00:53 Patient arrived in ED. sb4 00:54 Maurilio Burris MD is Attending Physician. kdr 01:00 Triage completed. aa9 01:01 Arm band placed on. aa9 01:22 Inserted saline lock: 20 gauge in right forearm, using aseptic technique. Blood aa9 collected. 01:23 Acetaminophen Sent. aa9 01:23 Basic Metabolic Panel Sent. aa9 01:23 CBC with Diff Sent. aa9 01:23 ETOH Level Sent. aa9 01:23 Hepatic Function Sent. aa9 01:23 Salicylate Sent. aa9 01:42 CT Head C Spine In Process Unspecified. EDMS 01:46 Michelle Shahid, FLAVIA is Primary Nurse. aa9 03:26 Cleaned of incontinence. Linen changed. aa9 06:34 Patient has correct armband on for positive identification. Placed in gown. Bed in low aa9 position. Call light in reach. Side rails up X2. Client placed on continuous cardiac and pulse oximetry monitoring. NIBP monitoring applied. Warm blanket given. 06:34 ETOH Level: send at 6:30 AM Sent. aa9 08:30 No provider procedures requiring assistance completed. IV discontinued, intact, ko1 bleeding controlled, No redness/swelling at site. Pressure dressing applied. 08:41 called daughter in law Agatha/ she will come get him. eb Administered Medications: No medications were administered Medication: 06:34 VIS not applicable for this client. aa9 Intake: 08:50 PO: 240ml (Water); Total: 240ml. ko1 Output: 08:50 Urine: 750ml (Voided); Total: 750ml. ko1 Outcome: 08:25 Discharge ordered by . rn 08:55 Discharged to home via wheelchair. ko1 08:55 Condition: improved 08:55 Discharge instructions given to patient, Instructed on discharge instructions, follow up and referral plans. Demonstrated understanding of instructions, follow-up care. 09:03 Patient left the ED. ko1 Signatures: Dispatcher [employer] EDMS Maurilio Burris MD MD kdr Nieto, Roman, MD MD rn Botello, Elizabeth eb Avalos, Aylin, RN RN aa9 Lara Ca RN RN ko1 Thalia Garcia, PA-Ivis PA-Ivis sb4 Corrections: (The following items were deleted from the chart) 01:00 01:00 Social history: Smoking status: unknown 04:46 01:48 BP 107 / 67; Pulse 82bpm; Resp 17bpm; Spontaneous; Pulse Ox 99% RA; 04:46 04:30 BP 103 / 59; Pulse 66bpm; Resp 17bpm; Pulse Ox 99% RA;
--- NOTE | 2022-09-01 08:26 | EDPHYS ---
Physician Documentation [facility] Name: Houston Neely Age: 71 yrs Sex: Male : 1950 Arrival Date: 09/01/2022 Time: 00:51 Bed 5 Private MD: ED Physician Maurilio Burris HPI: 09/01 02:56 This 71 yrs old Male presents to ER via EMS with complaints of Altered mental kdr status/intoxication. 02:56 Patient was brought to the ED by EMS. Apparently the patient's daughter had called EMS kdr because he has had multiple falls and appear to be intoxicated. Patient has had several prior visits when he was intoxicated. Patient has had a prior stroke with apparent right-sided deficits that is not fully recovered. Onset: The symptoms/episode began/occurred today. Severity of symptoms: At their worst the symptoms were mild moderate just prior to arrival, in the emergency department the symptoms are unchanged. The patient has experienced similar episodes in the past, multiple times. The patient has not recently seen a physician. Historical: - Allergies: 01:00 Unable to obtain; aa9 - Home Meds: 01:00 aspirin 81 mg Oral tablet, delayed release (enteric coated) [Active]; atorvastatin 80 aa9 mg Oral tablet [Active]; Keppra 1,000 mg Oral tablet [Active]; lisinopril 20 mg Oral tab 1 tab once daily [Active]; - PMHx: 01:00 CVA; Hypertension; R sided weakness; Seizures; aa9 - PSHx: 01:00 Cholecystectomy; aa9 - Immunization history:: Adult Immunizations unknown. - Social history:: Smoking status: Patient reports the use of cigarette tobacco products. ROS: 02:56 Constitutional: Patient is a poor historian and appears to be intoxicated and confused kdr we will get a head CT to make certain of any potential injury or intracranial issue 02:56 Unable to obtain ROS due to altered mental status. Exam: 02:31 ECG was reviewed by the Attending Physician. kdr 02:56 Constitutional: This is a well developed, well nourished patient who is awake, but kdr confused and in no acute distress. His main interest on presentation seems to be getting the TV working Head/Face: Normocephalic, atraumatic. Eyes: Pupils equal round and reactive to light, extra-ocular motions intact. Lids and lashes normal. Conjunctiva and sclera are non-icteric and not injected. Cornea within normal limits. Periorbital areas with no swelling, redness, or edema. Neck: Trachea midline, no thyromegaly or masses palpated, and no cervical lymphadenopathy. Supple, full range of motion without nuchal rigidity, or vertebral point tenderness. No Meningismus. Chest/axilla: Normal chest wall appearance and motion. Nontender with no deformity. No lesions are appreciated. Cardiovascular: Regular rate and rhythm with a normal S1 and S2. No gallops, murmurs, or rubs. Normal PMI, no JVD. No pulse deficits. Respiratory: Lungs have equal breath sounds bilaterally, clear to auscultation and percussion. No rales, rhonchi or wheezes noted. No increased work of breathing, no retractions or nasal flaring. Abdomen/GI: Soft, non-tender, with normal bowel sounds. No distension or tympany. No guarding or rebound. No evidence of tenderness throughout. Back: No spinal tenderness. No costovertebral tenderness. Full range of motion. Skin: Warm, dry with normal turgor. Normal color with no rashes, no lesions, and no evidence of cellulitis. MS/ Extremity: Pulses equal, no cyanosis. Neurovascular intact. Full, normal range of motion. Psych: Awake, alert, with orientation to person, place and time. Behavior, mood, and affect are within normal limits. 02:56 Neuro: Orientation: unable to test, Prior stroke, Motor: moves all fours, strength is 5/5 in the left arm and left leg, strength is 4/5 in the , Strength is 3/5 in the right arm and right leg. Vital Signs: 00:57 BP 92 / 58; Pulse 89; Resp 17; Temp 98.1; Pulse Ox 94% on 2 lpm NC; aa9 01:01 Weight 75.5 kg (M); aa9 01:48 BP 107 / 67; Pulse 82; Resp 17 S; Pulse Ox 96% on 2 lpm NC; aa9 02:30 BP 103 / 59; Pulse 66; Resp 17; Pulse Ox 94% on 2 lpm NC; aa9 04:30 BP 107 / 65; Pulse 72; Resp 17; Pulse Ox 96% on 2 lpm NC; aa9 05:30 BP 132 / 67; Pulse 72; Resp 17; Pulse Ox 94% on R/A; aa9 06:33 BP 104 / 59; Pulse 70; Resp 18; Temp 98.7; Pulse Ox 95% on R/A; aa9 08:50 BP 110 / 64; Pulse 75; Resp 16; Temp 98; Pulse Ox 99% ; ko1 MDM: 01:06 Patient medically screened. kdr 03:38 Data reviewed: vital signs, nurses notes, lab test result(s). ED course: The low sodium kdr is essentially unchanged from prior visit on the 13 of last month. 08:23 Differential Diagnosis ETOH intoxication, seizure, electrolyte problem, concussion. rn Counseling: I had a detailed discussion with the patient and/or guardian regarding: the historical points, exam findings, and any diagnostic results supporting the discharge/admit diagnosis, lab results, radiology results, the need for outpatient follow up, to return to the emergency department if symptoms worsen or persist or if there are any questions or concerns that arise at home. 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 Burris, plan is to dc home with family or ride when lorenzo up. CT head/cspine neg. No acute findings in workup other than ETOH intoxication. Stable vitals. Wide awake and urinating on his own. Will dc home as per Dr. Austin plan.. 09/01 00:55 Order name: Acetaminophen; Complete Time: 03:36 kdr 09/01 00:55 Order name: Basic Metabolic Panel; Complete Time: 03:36 kdr 09/01 00:55 Order name: CBC with Diff; Complete Time: 02:55 kdr 09/01 00:55 Order name: ETOH Level; Complete Time: 03:36 kdr 09/01 00:55 Order name: Hepatic Function; Complete Time: 03:36 kdr 09/01 00:55 Order name: Salicylate; Complete Time: 02:55 kdr 09/01 00:55 Order name: Urine Drug Screen; Complete Time: 02:55 kdr 09/01 00:55 Order name: Troponin High Sensitivity; Complete Time: 03:36 kdr 09/01 03:53 Order name: ETOH Level: send at 6:30 AM; Complete Time: 07:09 kdr 09/01 00:59 Order name: CT Head C Spine kdr 09/01 00:55 Order name: EKG; Complete Time: 00:56 [facility] 09/01 08:16 Order name: EKG Electrocardiogram [facility] 09/01 00:55 Order name: EKG - Nurse/Tech; Complete Time: 01:46 kdr 09/01 00:55 Order name: IV Saline Lock; Complete Time: : kdr 09/01 00:55 Order name: Labs collected and sent; Complete Time: : kdr 09/01 00:55 Order name: Suicide Screening ([place]); Complete Time: 08: [facility] EC:31 Rate is 80 beats/min. Rhythm is regular, Sinus Rhythm with No ectopy. QRS [place] is kdr Normal. GA interval is normal. QRS interval is normal. Clinical impression: NSR w/ Non-specific ST/T Changes. Administered Medications: No medications were administered Disposition Summary: 09/01/22 08:25 Discharge Ordered Location: Home rn Problem: an ongoing problem rn Symptoms: have improved rn Condition: Stable rn Diagnosis - Alcohol abuse with intoxication, unspecified rn Followup: rn - With: Private Physician - When: As needed - Reason: Recheck today's complaints, Re-evaluation by your physician Discharge Instructions: - Discharge Summary Sheet rn - Alcohol Intoxication rn - Alcohol Use Disorder rn Forms: - Medication Reconciliation Form rn - Thank You Letter rn - Antibiotic travel rn or - Prescription Opioid Use rn Signatures: Dispatcher [employer] [facility] Maurilio Burris MD MD kdr Nieto, Roman, MD MD rn Avalos, Aylin, RN RN aa9 Corrections: (The following items were deleted from the chart) 01:00 01:00 Social history: Smoking status: unknown aa9 aa9
[2022-09-01 09:34] VITALS: BP 110/64; TEMP 98; O2SAT 99
--- NOTE | 2022-09-01 11:02 | EKG ---
Test Date: 2022-09-01 Test Time: 01:43:20 Home Insurance Agent: TRUMAN MEASUREMENT RESULTS: Intervals: Rate: 80 NC: 210 QRSD: 80 QT: 360 QTc: 415 [place]: P: 47 NC: 210 QRS: 39 T: 52 INTERPRETIVE STATEMENTS: Sinus rhythm with 1st degree AV block Nonspecific ST and T wave abnormality Abnormal ECG Compared to ECG 09/01/2022 01:42:48 First degree AV block now present ST (T wave) deviation still present Electronically Signed On 09-01-22 11:01:32 CDT by Gustavo Limon
--- NOTE | 2022-09-01 12:48 | RAD REPORT ---
EXAM DESCRIPTION: CT - Head C Spine Mpr Wo Con - 09/01/2022 5:55 am CLINICAL HISTORY: CONFUSED TECHNIQUE: Axial computed tomography images of the head/brain and cervical spine without intravenous contrast. Sagittal and coronal reformatted images were created and reviewed. This CT exam was pe rformed using one or more of the following dose reduction techniques: automated exposure control, a djustment of the mA and/or kV according to patient size, and/or use of iterative reconstruction techn ique. COMPARISON: CT Head Cervical Spine dated 08/10/2022 FINDINGS: Brain: Mild cerebral atrophy, moderate bilateral periventricular and subcortical white m atter low-attenuation most compatible with chronic microvascular angiopathy and left frontoparietal a nd temporal encephalomalacia compatible with remote insult again demonstrated. No hemorrhage. Ventricles: Unremarkable. No ventriculomegaly. Skull: Remote left medial orbital wall and bilateral nasal bone fractures. Sinuses: Unremarkable as visualized. No acute sinusitis. Mastoid air cells: Unremarkable as visualized. No mastoid effusion. Vertebrae: No acute fracture. Normal alignment. Discs/spinal canal/neural foramina: Mild to moderate multilevel degenerative changes most pronounce d at C6-C7. No canal stenosis. Soft tissues: Mild left posterior parietal soft tissue swelling. Vasculature: There is atherosclerotic disease of the internal carotid arteries bilaterally. Ather osclerotic disease at the carotid bifurcation bilaterally. IMPRESSION: 1. No acute intracranial or extra-axial abnormality. 2. No acute cervical spine injury. 3. Other findings as above. Electronically signed by: Rodney Fischer MD 09/01/2022 3:04 AM CDT Due to temporary technical issues with the PACS/Fluency reporting system, reports are being signed by the in house radiologists without review as a courtesy to insure prompt reporting. The interpreting radiologist is fully responsible for the content of the report.
== END 2022-09-01 09:03 | disposition home or self-care (01) ==
LOC: LABNP 01:09 → ER 09-01 00:51 → LABNP 09-01 09:03
DX: F10.129 Alcohol abuse with intoxication, unspecified (principal); I10 Essential (primary) hypertension; Z86.73 Personal history of transient ischemic attack (TIA), and cerebral infarction without residual deficits; Z79.82 Long term (current) use of aspirin; Z72.0 Tobacco use
CPT/HCPCS: 70450; 72125; 80048; 80076; 80307; 84484; 85025; 93005; G0480

== ENCOUNTER 2022-11-28 21:58 | Inpatient (IN) | payer OTHER ==
--- OUTSIDE RECORDS SUMMARY | 2022-11-28 22:03 | XMS REPORT | Continuity of Care Document ---
:1950 Author Organization [facility] t Address [address] [place] [address] [place] [id number] Care Team Providers Name Role Phone TOYA Attending Clinician Unavailable Kendra Attending Clinician Unavailable SUDHIR SARAVIA Attending Clinician Unavailable Royal Rice Attending Clinician Toni Attending Clinician Unavailable Iliana Pinto MD Attending Clinician Sudhir Saravia MD Attending Clinician [facility] Cardio Fac Attending Clinician Unavailable 1, [facility] Cardio Fac Room Attending Clinician Unavailable 2, [facility] Cardio Fac Room Attending Clinician Unavailable Doctor Unassigned, [place] Attending Clinician Unavailable TOYA Admitting Clinician Unavailable Kendra Admitting Clinician Unavailable Toni Admitting Clinician Unavailable Payers Payer Name Policy Type Policy Number Effective Date Expiration Date S jose MEDICARE [place]: [id number] 2016 [employer] 00:00:00 MEDICARE PART A [id number] 2016 \T\ B 00:00:00 MEDICAID OF [place] [id number] 2016 00:00:00 Problems This patient has no known problems. Allergies, Adverse Reactions, Alerts Allergy Allergy Status Severity Reaction(s) Onset Inactive Treating Comm ents Source Name Type Date Date Clinician NO KNOWN Drug Active Univers ALLERGIE Class ity of S [facility] [place] Social History Social Habit Start Date Stop Date Quantity Comments Source History of tobacco Cigarette Smoker [facility] Sex Assigned At Universit y of [facility] [place] Cigarettes smoked 2018-12-19 2018-12-19 Univers ity of current (pack per 00:00:00 00:00:00 ) - Reported [place] Alcohol intake 2018-12-19 2018-12-19 University 00:00:00 00:00:00 [facility] [place] Smoking Status Start Date Stop Date Source Current every day smoker 2018-12-19 00:00:00 Uni versity of [facility] [place] Medications Ordered Filled Start Stop Current Ordering Indication Dosage Frequency Signature Comments Components Source Medication Medication Date Date Medication? Clinician (SIG) Name Name atorvastati 2020- No [id number] 40mg Take 1 Univers n 40 mg 09-10 tablet by ity of tablet 00:00: 04:59 mouth at [place] 00 :00 bedtime Medical for 90 Branch days. contrast 2019- No Intravenou Un royal previously 01-11 s, ONCE, 1 it y of administere 17:15: 16:30 dose, Fri [place] d 0 mL 00 :00 01/11/19 at [place] [id number], [place] Routine iohexol 2019- No 100mL 100 mL, Unive rs (OMNIPAQUE 01-11 Intravenou it y of 350 17:15: 16:30 s, ONCE, 1 [place] BULK-100 00 :00 dose, Fri Medica l mL) 01/11/19 at [place] injection 1215, 100 mL Routine ezetimibe 2018- Yes 10mg Take 10 mg Un royal 10 mg 9-06 by mouth ity of tablet 15:56: daily. [place] 28 [facility] Branch albuterol 2018-0 Yes 2.5mg Inhale 2.5 U nivers 2.5 mg /3 9-06 mg every 8 ity of mL (0.083 15:56: (eight) [place] %) 28 hours as Medical nebulizer needed. [place] solution albuterol 2018-0 Yes 2{puff} Inhale 2 U nivers 90 9-06 Puffs ity of mcg/actuati 15:56: every 6 [place] as on inhaler 28 (six) Medical hours as Branch needed. montelukast 2018- Yes 10mg Take 10 mg Univers 10 mg 9-06 by mouth ity of tablet 15:56: daily. [address] ezetimibe 2018- Yes 10mg Take 10 mg Un royal 10 mg 9-06 by mouth ity of tablet 15:56: daily. [address] albuterol 2018-0 Yes 2.5mg Inhale 2.5 U nivers 2.5 mg /3 9-06 mg every 8 ity of mL (0.083 15:56: (eight) [place] %) 28 hours as Medical nebulizer needed. [place] solution albuterol Yes 2{puff} Inhale 2 U nivers 90 9-06 Puffs ity of mcg/actuati 15:56: every 6 [place] as on inhaler 28 (six) Medical hours as Branch needed. montelukast 2018- Yes 10mg Take 10 mg Univers 10 mg 9-06 by mouth ity of tablet 15:56: daily. [address] ezetimibe Yes 10mg Take 10 mg Un royal 10 mg 9-06 by mouth ity of tablet 15:56: daily. [address] albuterol Yes 2.5mg Inhale 2.5 U nivers 2.5 mg /3 9-06 mg every 8 ity of mL (0.083 15:56: (eight) [place] %) 28 hours as Medical nebulizer needed. [place] solution albuterol Yes 2{puff} Inhale 2 U nivers 90 9-06 Puffs ity of mcg/actuati 15:56: every 6 [place] as on inhaler 28 (six) Medical hours as Branch needed. montelukast 2018-0 Yes 10mg Take 10 mg Univers 10 mg 9-06 by mouth ity of tablet 15:56: daily. [address] ezetimibe 0 Yes 10mg Take 10 mg Un royal 10 mg 9-06 by mouth ity of tablet 15:56: daily. [address] albuterol 0 Yes 2.5mg Inhale 2.5 [...] by mouth ity of tablet 15:56: daily. [address] ezetimibe 0 Yes 10mg Take 10 mg Un royal 10 mg 9-06 by mouth ity of tablet 15:56: daily. [address] albuterol 2018-0 Yes 2.5mg Inhale 2.5 U nivers 2.5 mg /3 9-06 mg every 8 ity of mL (0.083 15:56: (eight) [place] %) 28 hours as Medical nebulizer needed. [place] solution albuterol Yes 2{puff} Inhale 2 U nivers 90 9-06 Puffs ity of mcg/actuati 15:56: every 6 [place] as on inhaler 28 (six) Medical hours as Branch needed. montelukast 2018-0 Yes 10mg Take 10 mg Univers 10 mg 9-06 by mouth ity of tablet 15:56: daily. [address] ezetimibe Yes 10mg Take 10 mg Un royal 10 mg 9-06 by mouth ity of tablet 15:56: daily. [address] albuterol 0 Yes 2.5mg Inhale 2.5 U nivers 2.5 mg /3 9-06 mg every 8 ity of mL (0.083 15:56: (eight) [place] %) 28 hours as Medical nebulizer needed. [place] solution albuterol 0 Yes 2{puff} Inhale 2 U nivers 90 9-06 Puffs ity of mcg/actuati 15:56: every 6 [place] as on inhaler 28 (six) Medical hours as Branch needed. montelukast 2018-0 Yes 10mg Take 10 mg Univers 10 mg 9-06 by mouth ity of tablet 15:56: daily. [address] lisinopril 2018-0 Yes 20mg Take 20 mg U nivers 20 mg 9-06 by mouth ity of tablet 15:53: daily. [address] foLIC acid 2018-0 Yes 1mg Take 1 mg Un royal 1 mg tablet 9-06 by mouth ity of 15:53: daily. [address] levETIRAcet 2019-0 Yes 1000mg Take 1,000 Univers am (KEPPRA) 9-06 mg by ity of 1,000 mg 15:53: mouth 2 [place] tablet 50 (two) Medical times [place] daily. amLODIPine 2019-0 Yes 10mg Take 10 mg U nivers 10 mg 9-06 by mouth ity of tablet 15:53: daily. [address] lisinopril 2019-0 Yes 20mg Take 20 mg U nivers 20 mg 9-06 by mouth ity of tablet 15:53: daily. [address] foLIC acid 2019-0 Yes 1mg Take 1 mg Un royal 1 mg tablet 9-06 by mouth ity of 15:53: daily. [address] levETIRAcet 2019-0 Yes 1000mg Take 1,000 Univers am (KEPPRA) 9-06 mg by ity of 1,000 mg 15:53: mouth 2 [place] tablet 50 (two) Medical times [place] daily. amLODIPine 2019-0 Yes 10mg Take 10 mg U nivers 10 mg 9-06 by mouth ity of tablet 15:53: daily. [address] lisinopril 2019-0 Yes 20mg Take 20 mg U nivers 20 mg 9-06 by mouth ity of tablet 15:53: daily. [address] foLIC acid 2019-0 Yes 1mg Take 1 mg Un royal 1 mg tablet 9-06 by mouth ity of 15:53: daily. [address] levETIRAcet 2019-0 Yes 1000mg Take 1,000 Univers am (KEPPRA) 9-06 mg by ity of 1,000 mg 15:53: mouth 2 [place] tablet 50 (two) Medical times [place] daily. amLODIPine 2019-0 Yes 10mg Take 10 mg U nivers 10 mg 9-06 by mouth ity of tablet 15:53: daily. [address] lisinopril 2019-0 Yes 20mg Take 20 mg U nivers 20 mg 9-06 by mouth ity of tablet 15:53: daily. [address] foLIC acid 2019-0 Yes 1mg Take 1 mg Un royal 1 mg tablet 9-06 by mouth ity of 15:53: daily. [address] levETIRAcet 2019-0 Yes 1000mg Take 1,000 Univers am (KEPPRA) 9-06 mg by ity of 1,000 mg 15:53: mouth 2 [place] tablet 50 (two) Medical times Branch daily. amLODIPine 2019-0 Yes 10mg Take 10 mg U nivers 10 mg 9-06 by mouth ity of tablet 15:53: daily. [address] lisinopril 2019-0 Yes 20mg Take 20 mg U nivers 20 mg 9-06 by mouth ity of tablet 15:53: daily. [address] foLIC acid 2019-0 Yes 1mg Take 1 mg Un royal 1 mg tablet 9-06 by mouth ity of 15:53: daily. [address] levETIRAcet 2019-0 Yes 1000mg Take 1,000 Univers am (KEPPRA) 9-06 mg by ity of 1,000 mg 15:53: mouth 2 [place] tablet 50 (two) Medical times [place] daily. amLODIPine 2019-0 Yes 10mg Take 10 mg U nivers 10 mg 9-06 by mouth ity of tablet 15:53: daily. [address] lisinopril 0 Yes 20mg Take 20 mg U nivers 20 mg 9-06 by mouth ity of tablet 15:53: daily. [address] foLIC acid 2018-0 Yes 1mg Take 1 mg Un royal 1 mg tablet 9-06 by mouth ity of 15:53: daily. [address] levETIRAcet 2018-0 Yes 1000mg Take 1,000 Univers am (KEPPRA) 9-06 mg by ity of 1,000 mg 15:53: mouth 2 [place] tablet 50 (two) Medical times [place] daily. amLODIPine 2019-0 Yes 10mg Take 10 mg U nivers 10 mg 9-06 by mouth ity of tablet 15:53: daily. [address] atorvastati 2019-0 Yes [id number] 40mg Take 1 Univers n 40 mg 9-06 07 tablet by ity of tablet 00:00: mouth at [place] [address] bedtime. [facility] atorvastati 2019-0 Yes [id number] 40mg Take 1 Univers n 40 mg 9-06 07 tablet by ity of tablet 00:00: mouth at [place] [address] bedtime. [facility] atorvastati 2019-0 Yes [id number] 40mg Take 1 Univers n 40 mg 9-06 07 tablet by ity of tablet 00:00: mouth at [place] 00 bedtime. Medical Branch atorvastati Yes [id number] 40mg Take 1 Univers n 40 mg 9- 07 tablet by ity of tablet 00:00: mouth at [place] 00 bedtime. Medical Branch atorvastati Yes [id number] 40mg Take 1 Univers n 40 mg 9- 07 tablet by ity of tablet 00:00: mouth at [place] 00 bedtime. Medical Branch atorvastati Yes [id number] 40mg Take 1 Univers n 40 mg - 07 tablet by ity of tablet 00:00: mouth at [place] 00 bedtime. Medical Branch sulfur 2019- No 5mL Univers hexafluorid 01-01 ity of e microsphr 22:30: 21:28 [place] (LUMASON) 00 :00 Medical injection 5 Branch mL sulfur 2018- No 5mL 5 mL, Univers hexafluorid 01-01 Intravenou i ty of e microsphr 22:30: 21:28 s, ONCE, 1 [place] (LUMASON) 00 :00 dose, Tue Medic al injection 5 01/01/19 at [facility] mL 1730, Routine montelukast Yes 10mg Take 10 mg Univers 10 mg 8-26 by mouth ity of tablet 14:36: daily. [address] montelukast Yes 10mg Take 10 mg Univers 10 mg 8-26 by mouth ity of tablet 14:36: daily. [address] montelukast Yes 10mg Take 10 mg Univers 10 mg 8-26 by mouth ity of tablet 14:36: daily. [address] montelukast Yes 10mg Take 10 mg Univers 10 mg 8-26 by mouth ity of tablet 14:36: daily. [address] montelukast Yes 10mg Take 10 mg Univers 10 mg 8-26 by mouth ity of tablet 14:36: daily. [address] Branch albuterol 2018-0 Yes 2{puff} Inhale [...] by mouth ity of tablet 14:34: daily. [address] ezetimibe 2019-0 Yes 10mg Take 10 mg Un royal 10 mg 8-26 by mouth ity of tablet 14:34: daily. [address] ezetimibe 2019-0 Yes 10mg Take 10 mg Un royal 10 mg 8-26 by mouth ity of tablet 14:34: daily. [address] ezetimibe 2019-0 Yes 10mg Take 10 mg Un royal 10 mg 8-26 by mouth ity of tablet 14:34: daily. [address] ezetimibe 2019-0 Yes 10mg Take 10 mg Un royal 10 mg 8-26 by mouth ity of tablet 14:34: daily. [address] foLIC acid 2019-0 Yes 1mg Take 1 mg Un royal 1 mg tablet 8-21 by mouth ity of 14:22: daily. [address] levETIRAcet 2019-0 Yes 1000mg Take 1,000 Univers am (KEPPRA) 8-21 mg by ity of 1,000 mg 14:22: mouth 2 [place] tablet 48 (two) Medical times [facility] daily. amLODIPine 2019-0 Yes 10mg Take 10 mg U nivers 10 mg 8-21 by mouth ity of tablet 14:22: daily. [address] foLIC acid 2019-0 Yes 1mg Take 1 mg Un royal 1 mg tablet 8-21 by mouth ity of 14:22: daily. [address] levETIRAcet 2019-0 Yes 1000mg Take 1,000 Univers am (KEPPRA) 8-21 mg by ity of 1,000 mg 14:22: mouth 2 [place] tablet 48 (two) Medical times [place] daily. amLODIPine 2019-0 Yes 10mg Take 10 mg U nivers 10 mg 8-21 by mouth ity of tablet 14:22: daily. [address] foLIC acid 2019-0 Yes 1mg Take 1 mg Un royal 1 mg tablet 8-21 by mouth ity of 14:22: daily. [address] levETIRAcet 2019-0 Yes 1000mg Take 1,000 Univers am (KEPPRA) 8-21 mg by ity of 1,000 mg 14:22: mouth 2 [place] tablet 48 (two) Medical times [place] daily. amLODIPine 2019-0 Yes 10mg Take 10 mg U nivers 10 mg 8-21 by mouth ity of tablet 14:22: daily. [address] foLIC acid 2019-0 Yes 1mg Take 1 mg Un royal 1 mg tablet 8-21 by mouth ity of 14:22: daily. [address] levETIRAcet 2019-0 Yes 1000mg Take 1,000 Univers am (KEPPRA) 8-21 mg by ity of 1,000 mg 14:22: mouth 2 [place] tablet 48 (two) Medical times [place] daily. amLODIPine 2019-0 Yes 10mg Take 10 mg U nivers 10 mg 8-21 by mouth ity of tablet 14:22: daily. [address] foLIC acid 2019-0 Yes 1mg Take 1 mg Un royal 1 mg tablet 8-21 by mouth ity of 14:22: daily. [address] levETIRAcet 2019-0 Yes 1000mg Take 1,000 Univers am (KEPPRA) 8-21 mg by ity of 1,000 mg 14:22: mouth 2 [place] tablet 48 (two) Medical times [place] daily. amLODIPine 2019-0 Yes 10mg Take 10 mg U nivers 10 mg 8-21 by mouth ity of tablet 14:22: daily. [address] foLIC acid 2019-0 Yes 1mg Take 1 mg Un royal 1 mg tablet 8-21 by mouth ity of 14:22: daily. [address] levETIRAcet 2019-0 Yes 1000mg Take 1,000 Univers am (KEPPRA) 8-21 mg by ity of 1,000 mg 14:22: mouth 2 [place] tablet 48 (two) Medical times [place] daily. amLODIPine 2019-0 Yes 10mg Take 10 mg U nivers 10 mg 8-21 by mouth ity of tablet 14:22: daily. [address] foLIC acid 2019-0 Yes 1mg Take 1 mg Un royal 1 mg tablet 8-21 by mouth ity of 14:22: daily. [address] levETIRAcet 2019-0 Yes 1000mg Take 1,000 Univers am (KEPPRA) 8-21 mg by ity of 1,000 mg 14:22: mouth 2 [place] tablet 48 (two) Medical times [place] daily. amLODIPine 2019-0 Yes 10mg Take 10 mg U nivers 10 mg 8-21 by mouth ity of tablet 14:22: daily. [address] foLIC acid 2019-0 Yes 1mg Take 1 mg Un royal 1 mg tablet 8-21 by mouth ity of 14:22: daily. [address] levETIRAcet 2019-0 Yes 1000mg Take 1,000 Univers am (KEPPRA) 8-21 mg by ity of 1,000 mg 14:22: mouth 2 [place] tablet 48 (two) Medical times [place] daily. amLODIPine 2019-0 Yes 10mg Take 10 mg U nivers 10 mg 8-21 by mouth ity of tablet 14:22: daily. [address] foLIC acid 2019-0 Yes 1mg Take 1 mg Un royal 1 mg tablet 8-21 by mouth ity of 14:22: daily. [address] levETIRAcet 2019-0 Yes 1000mg Take 1,000 Univers am (KEPPRA) 8-21 mg by ity of 1,000 mg 14:22: mouth 2 [facility] 48 (two) Medical times [place] daily. amLODIPine 2019-0 Yes 10mg Take 10 mg U nivers 10 mg 8-21 by mouth ity of tablet 14:22: daily. [address] foLIC acid 2019-0 Yes 1mg Take 1 mg Un royal 1 mg tablet 8-21 by mouth ity of 14:22: daily. [address] levETIRAcet 2019-0 Yes 1000mg Take 1,000 Univers am (KEPPRA) 8-21 mg by ity of 1,000 mg 14:22: mouth 2 [place] tablet 48 (two) Medical times [place] daily. amLODIPine 2019-0 Yes 10mg Take 10 mg U nivers 10 mg 8-21 by mouth ity of tablet 14:22: daily. [address] lisinopril 2019-0 Yes 20mg Take 20 mg U nivers 20 mg 8-21 by mouth ity of tablet 14:22: daily. [address] lisinopril 2019-0 Yes 20mg Take 20 mg U nivers 20 mg 8-21 by mouth ity of tablet 14:22: daily. [address] lisinopril 2019-0 Yes 20mg Take 20 mg U nivers 20 mg 8-21 by mouth ity of tablet 14:22: daily. [address] lisinopril Yes 20mg Take 20 mg U nivers 20 mg 8-21 by mouth ity of tablet 14:22: daily. [address] lisinopril Yes 20mg Take 20 mg U nivers 20 mg 8-21 by mouth ity of tablet 14:22: daily. [address] lisinopril Yes 20mg Take 20 mg U nivers 20 mg 8-21 by mouth ity of tablet 14:22: daily. [address] lisinopril Yes 20mg Take 20 mg U nivers 20 mg 8-21 by mouth ity of tablet 14:22: daily. [address] lisinopril Yes 20mg Take 20 mg U nivers 20 mg 8-21 by mouth ity of tablet 14:22: daily. [address] lisinopril Yes 20mg Take 20 mg U nivers 20 mg 8-21 by mouth ity of tablet 14:22: daily. [address] lisinopril Yes 20mg Take 20 mg U nivers 20 mg 8-21 by mouth ity of tablet 14:22: daily. [address] atorvastati 2017-05 Yes 80mg Take 1 Univ ers n 80 mg 2-06 tablet by ity of tablet 00:00: mouth at [place] [address] bedtime. Medical onstatin Branch per recent notes. Updated chart with new order atorvastati 2017-05 Yes 80mg Take 1 Univ ers n 80 mg 2-06 tablet by ity of tablet 00:00: mouth at [place] [address] bedtime. Medical onstatin Branch per recent notes. Updated chart with new order atorvastati 2017-05 Yes 80mg Take 1 Univ ers n 80 mg 2-06 tablet by ity of tablet 00:00: mouth at [place] [address] bedtime. Medical onstatin Branch per recent notes. Updated chart with new order atorvastati 2017-05 Yes 80mg Take 1 Univ ers n 80 mg 2-06 tablet by ity of tablet 00:00: mouth at [place] [address] bedtime. Medical onstatin Branch per recent notes. [...] by ity of tablet 00:00: mouth at [place] 00 bedtime. Medical onstatin Branch per recent notes. Updated chart with new order atorvastati 2017-05 Yes 80mg Take 1 Univ ers n 80 mg 2-06 tablet by ity of tablet 00:00: mouth at [place] 00 bedtime. Medical onstatin Branch per recent notes. Updated chart with new order atorvastati 2017-05 Yes 80mg Take 1 Univ ers n 80 mg 2-06 tablet by ity of tablet 00:00: mouth at [place] 00 bedtime. Medical onstatin Branch per recent notes. Updated chart with new order atorvastati 2017-05 Yes 80mg Take 1 Univ ers n 80 mg 2-06 tablet by ity of tablet 00:00: mouth at [place] 00 bedtime. Medical onstatin Branch per recent notes. Updated chart with new order atorvastati 2017-05 Yes 80mg Take 1 Univ ers n 80 mg 2-06 tablet by ity of tablet 00:00: mouth at [place] 00 bedtime. Medical onstatin Branch per recent notes. Updated chart with new order atorvastati 2017-05 Yes 80mg Take 1 Univ ers n 80 mg 2-06 tablet by ity of tablet 00:00: mouth at [place] 00 bedtime. Medical onstatin Branch per recent notes. Updated chart with new order atorvastati 2017-05 Yes 80mg Take 1 Univ ers n 80 mg 2-06 tablet by ity of tablet 00:00: mouth at [place] 00 bedtime. Medical onstatin Branch per recent notes. Updated chart with new order atorvastati 2017-05 Yes 80mg Take 1 Univ ers n 80 mg 2-06 tablet by ity of tablet 00:00: mouth at [place] 00 bedtime. Medical onstatin Branch per recent notes. Updated chart with new order atorvastati 2017-05 Yes 80mg Take 1 Univ ers n 80 mg 2-06 tablet by ity of tablet 00:00: mouth at [place] 00 bedtime. Medical onstatin Branch per recent [...] by ity of tablet 00:00: mouth at [place] 00 bedtime. Medical onstatin Branch per recent notes. Updated chart with new order amLODIPine Yes 10mg Take 10 mg U nivers 10 mg 8-21 by mouth ity of tablet 14:41: daily. [place] [address] Medical Branch lisinopril Yes 20mg Take 20 mg U nivers 20 mg 8-21 by mouth ity of tablet 14:41: daily. [place] [address] Medical Branch foLIC acid Yes 1mg Take 1 mg Un royal 1 mg tablet 8-21 by mouth ity of 14:41: daily. [place] [address] Medical Branch levETIRAcet Yes 1000mg Take 1,000 [...] 15:52:00 133 mm[Hg] Univer sity of pressure [place] [facility] Diastolic blood 2019-01-04 15:52:00 67 mm[Hg] Unive rsity of pressure [facility] Branch Heart rate 2019-01-04 15:52:00 75 /min [facility] Body temperature 2019-01-04 15:52:00 36.78 Janett Univ ersity [facility] [place] [facility] Respiratory rate 2019-01-04 15:52:00 20 /min Univ ersity of [place] [facility] Body weight 2019-01-04 15:52:00 84.732 kg Universi ty of [place] [facility] BMI 2019-01-04 15:52:00 29.26 kg/m2 Universi ty of [place] [facility] Systolic blood 2019-01-04 15:52:00 133 mm[Hg] Univer sity of pressure [place] [facility] Diastolic blood 2019-01-04 15:52:00 67 mm[Hg] Unive rsity of pressure [place] [facility] Heart rate 2019-01-04 15:52:00 75 /min [facility]i ty [facility] [place] [facility] Body temperature 2019-01-04 15:52:00 36.78 Janett Univ ersity of [place] [facility] Respiratory rate 2019-01-04 15:52:00 20 /min Univ ersity of [place] [facility] Body weight 2019-01-04 15:52:00 84.732 kg Universi ty of [place] [facility] BMI 2019-01-04 15:52:00 29.26 kg/m2 [facility]i [facility] [place] [facility] Systolic blood 2018-12-19 14:21:00 111 mm[Hg] Univer sity of pressure [place] [facility] Diastolic blood 2018-12-19 14:21:00 62 mm[Hg] Unive rsity of pressure [place] [facility] Heart rate 2018-12-19 14:21:00 68 /min [facility]i ty [facility] [place] [facility] Respiratory rate 2018-12-19 14:21:00 18 /min Univ ersity of [place] [facility] Body height 2018-12-19 14:21:00 170.2 cm [facility] [place] [facility] Body weight 2018-12-19 14:21:00 85.684 kg [facility] [place] [facility] BMI 2018-12-19 14:21:00 29.59 kg/m2 [facility]i [facility] [place] [facility] Oxygen saturation in 2018-12-19 14:21:00 97 /min [facility] Arterial blood by [facility] Pulse oximetry Branch Systolic blood 2019-01-01 20:52:00 141 mm[Hg] Univer sity of pressure [place] [facility] Diastolic blood 2019-01-01 20:52:00 71 mm[Hg] Unive rsity of pressure [place] [facility] Heart rate 2019-01-01 20:52:00 87 /min [facility]i ty [facility] [place] [facility] Body height 2019-01-01 20:52:00 170.2 cm [facility] Body weight 2019-01-01 20:52:00 85.276 kg [facility] BMI 2019-01-01 20:52:00 29.44 kg/m2 [facility] Procedures Procedure Date / Time Performed Performing Clinician Britta campos CT ANGIOGRAM NECK 2019-01-11 17:12:41 Adolph Huitron [facility] CT ANGIOGRAM HEAD 2019-01-11 17:10:04 Adolph Huitron [facility] NOTICE OF BILLING 2019-01-11 15:34:57 Doctor Unassigned, No [facility] PRACTICES FOR MEDICARE Name Medical B ranch PATIENTS [facility] PATIENT FINANCIAL 2019-01-11 15:34:09 Doctor Unassigned, No [facility] POCT CREATININE 2019-01-11 15:10:00 Iliana Pinto [facility] EKG-12 LEAD 2018-12-19 14:29:02 Sudhir Saravia [facility] ASSIGNMENT OF BENEFITS 2018-12-19 14:07:02 Doctor Unassigned, No [facility] Encounters Start End Encounter Admission Attending Care Care Encounter Source Date/Time Date/Time Type Type Clinicians Facility Department ID 2021-11-10 2021-11-10 Outpatient COLETTE DOSHI [id number] [place] 02:08:00 02:08:00 HN [id number] da [facility] Program 2021-10-14 2021-10-14 Outpatient FOG_Loncari AOSM AOSM [id number] Jennifer 02:06:00 02:06:00 Camilla [id number] [facility] 2021-10-05 2021-10-05 Outpatient FOG_Loncari AOSM AOSM [id number] Jennifer 08:13:00 08:13:00 Camilla [id number] Orth [facility] Medicin e 2020-01-22 2020-01-22 Outpatient Juan Manuel SARAVIA [facility] [id number] Univers 15:20:00 15:20:00 SUDHIR garcia [facility] [place] 2019-12-23 2019-12-23 Outpatient R RANI, [facility] [id number] Univers 09:40:00 09:40:00 SUDHIR calderon o f [facility] [place] 2019-09-11 2019-09-11 Telephone FUAD JamesIT [id number] 00:00:00 00:00:00 [facility] [id number] CLINICS [id number] [facility] 2019-09-11 2019-09-11 Telephone Erika, FUADIT [id number] [facility] [place] 00:00:00 00:00:00 [facility] HE[facility] [id number] ity of [facility] [id number] [facility] s [id number] [address] 2019-08-27 2019-08-27 Outpatient C_Hall MMG MMG [id number] [place] 04:13:00 04:13:00 [facility] 2019-01-11 2019-01-11 [place] [id number] 10:33:32 23:59:00 Encounter Iliana Alexander [id number] [place] [id number] [place] [id number] [facility] 2019-01-11 2019-01-11 [place] [id number] [facility] 10:33:32 23:59:00 Encounter Iliana Alexander [id number] ity of [place] [id number] [facility] [place] [id number] [address] 2019-01-11 2019-01-11 [facility] [id number] 10:20:00 10:32:00 Encounter Iliana Alexander [id number] [place] [id number] [place] [id number] [facility] 2019-01-11 2019-01-11 [place] [id number] [facility] 10:20:00 10:32:00 Encounter Iliana Alexander [id number] [place] of [place] [phone] [facility] [address] 2019-01-04 2019-01-04 Office [facility] [id number] [facility] 10:21:42 18:59:26 Visit Iliana Catherine [id number] [place] [phone] [facility] 205 [facility] 2019-01-04 2019-01-04 Office [facility] [id number] 10:21:42 18:59:26 Visit Iliana Catherine [id number] [place] [id number] Professio [phone] [address] 2018-12-19 2019-01-03 Office [facility] [id number] [facility] 09:07:06 15:22:45 Visit Sudhir Alexander [id number] [id number] [phone] [address] 2019-01-03 2019-01-03 [facility] [id number] [facility] 00:00:00 00:00:00 Miguedenysjelena Catherine [id number] it[place] of [place] [phone] [address] 2019-01-01 2019-01-01 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 [id number] [facility] 14:30:23 16:38:50 Only 1, Adc Cardio Fac Count [facility]cludes [facility] 350.1. 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 [id number] [facility] 14:29:39 15:29:39 Visit 2, Adc Cardio Fac Room [place] 350.1. 13.10 ity of [place] 4.2.7.2.686 [place] Profess[place] [phone] N[place] dicdania nal 0[address] Branch Building 2018-12-24 2018-12-24 Telephone KHANG Saravia [id number] [facility] 00:00:00 00:00:00 Sudhir Alexander [id number] ity of [place] 4.2.7.2.686 [facility] [phone] [place] dicdania nal 059 Branch [facility] 2018-12-19 2018-12-19 Orders Doctor DELTA [id number] Univers 00:00:00 00:00:00 Only Unassigned, DONITA [id number] ity of [place] [facility] 4.2.7.2.686 [place] [phone] [facility] sha 009 Branch Results Test Test Test Results Result Source Description Time Comments Comments CT ANGIOGRAM 2018-12 Nonvisualization of the left [facility] -13 internal carotid artery from [facility] 19:52:1 its cervicalorigin/carotid Branch 1 [...] NECK: A three-vessel aortic arch is seen. Ncvv-uu-abmorgvx atheroscleroticdisease is noted in the arch. The vessels originating from the arch arepatent. Mild scattered atherosclerotic disease is noted in the common carotidarteries bilaterally, left greater than right. No flow-limiting stenosis isidentified. Avkz-zo-vqvpeblv atherosclerotic disease is seen in the left [...] NECK: A three-vessel aortic arch is seen. Mvag-rj-tzttytuz atheroscleroticdisease is noted in the arch. The vessels originating from the arch arepatent.Mild scattered atherosclerotic disease is noted in the common carotidarteries bilaterally, left greater than right. No flow-limiting stenosis isidentified.Vabo-vo-rjdlebnh atherosclerotic disease is seen in the left [...] of HEAD -13 internal carotid artery from [facility] 19:52:1 its cervicalorigin/carotid Branch 1 [...] NECK: A three-vessel aortic arch is seen. Juhf-bv-vqlrrdcb atheroscleroticdisease is noted in the arch. The vessels originating from the arch arepatent. Mild scattered atherosclerotic disease is noted in the common carotidarteries bilaterally, left greater than right. No flow-limiting stenosis isidentified. Qxhn-zb-pzalfopr atherosclerotic disease is seen in the left [...] NECK: A three-vessel aortic arch is seen. Kahz-ud-evmgrryn atheroscleroticdisease is noted in the arch. The vessels originating from the arch arepatent.Mild scattered atherosclerotic disease is noted in the common carotidarteries bilaterally, left greater than right. No flow-limiting stenosis isidentified.Xkqa-at-twtnawgk atherosclerotic disease is seen in the left [...] Comme nts POCT Creatinine (test code = [id number]) 0.8 mg/dL 0.6-1.3 Lab Interpretation (test code = 41321-4) Normal [facility]
[2022-11-28 22:48] LABS: Absolute Lymphocytes (CBC) 0.3 K/uL (0.7-4.9); Hematocrit 36.9 % (39.6-49.0); Lymphocytes % 7.6 % (15.3-44.8); MCV 97.7 fL (80-100); MPV 8.5 fL (7.6-11.3); RBC Red Blood Cell Count 3.77 M/uL (4.33-5.43)
[2022-11-28 22:52] LABS: Protime INR 1.2
[2022-11-28 23:05] LABS: Albumin 3.5 g/dL (3.4-5.0); Bilirubin Total 0.5 mg/dL (0.2-1.0); C-Reactive Protein 25.2 mg/L (<3.00); Potassium 3.3 mEq/L (3.5-5.1)
[2022-11-28] MEDS ORDERED: NA CHLORIDE 0.9% 2,000 ML ONE (23:22)
[2022-11-28] MEDS ORDERED: NA CHLORIDE 0.9% 100 ML ONE (23:22)
[2022-11-28] MEDS ORDERED: PIPERACIL/TAZO 3.375 GM VIAL IV ONE (23:23)
[2022-11-29] MEDS ORDERED: NA CHLORIDE 0.9% 250 ML ONE (00:38)
[2022-11-29] MEDS ORDERED: VANCOMYCIN 1 GM/VIAL ONE (00:38)
[2022-11-29 01:17] LABS: Blood Morphology Comment NOT SEEN (NOT SEEN); Platelet Estimate ADEQ
--- NOTE | 2022-11-29 01:25 | ER ---
Nurse's Notes [facility] Name: Houston Neely Age: 71 yrs Sex: Male : 1950 Arrival Date: 11/28/2022 Time: 21:58 Bed 20 Private MD: Diagnosis: Hypo-osmolality and hyponatremia;Hypokalemia, acute febrile illness, generalized weakness, fall at home;Acute COVID-19 with systemic viral illness and febrile illness Presentation: 11/28 22:00 Chief complaint: EMS states: they were called to patient's home for fall x3 today. EMS cm10 states that the patient's family states that the patient was complaining of abdominal pain and pt had a fever of 101.6f on EMS arrival. Coronavirus screen: Client denies travel out of the [place] in the last 14 days. Ebola Screen: Patient denies travel to an Ebola-affected area in the 21 days before illness onset. No symptoms or risks identified at this time. Initial Sepsis Screen: Does the patient meet any 2 criteria? No. Patient's initial sepsis screen is negative. Does the patient have a suspected source of infection? No. Patient's initial sepsis screen is negative. Risk Assessment: Do you want to hurt yourself or someone else? Patient reports no desire to harm self or others. Onset of symptoms was November 28, 2022. Care prior to arrival: Medication(s) given: Normal saline infusion, 250mL Tylenol, 650 mg, IV initiated. 20 GA, in the left antecubital area. 22:00 Acuity: CHUCK 3 cm10 22:00 Method Of Arrival: EMS: [facility] cm10 22:05 Care prior to arrival: IV initiated. 20 GA, in the right antecubital area. cm10 Triage Assessment: 22:58 General: Appears in no apparent distress. comfortable, Behavior is calm, cooperative. cm10 Pain: Complains of pain in abdomen. Neuro: No deficits noted. Level of Consciousness is awake, alert, obeys commands. Respiratory: No deficits noted. Airway is patent Respiratory effort is even, unlabored, Respiratory pattern is regular, symmetrical. Historical: - Allergies: 22:06 Unable to obtain; cm10 - PMHx: 22:06 CVA; Hypertension; R sided weakness; Seizures; cm10 - PSHx: 22:06 Cholecystectomy; cm10 - Immunization history:: Adult Immunizations unknown. - Social history:: Smoking status: unknown. - Family history:: not pertinent. Screenin:58 [facility] ED Fall Risk Assessment (Adult) History of falling in the last 3 months, cm10 including since admission Yes- fall prone (multiple falls) (3 pts) Confusion or Disorientation No (0 pts) Intoxicated or Sedated No (0 pts) Impaired Gait Yes (1 pt) Mobility Assist Device Used Yes (1 pt) Altered Elimination No (0 pt) Score/Fall Risk Level 3 or more points = High Risk Oriented to surroundings, Maintained a safe environment, Hourly rounding (assess needs \T\ fall precautionary measures) done. Abuse screen: Denies threats or abuse. Denies injuries from another. Nutritional screening: No deficits noted. Tuberculosis screening: No symptoms or risk factors identified. Assessment: 22:59 Reassessment: See triage assessment. 10 11/29 00:14 Reassessment: Attempted to straight cath patient for urine with no success. provider 10 made aware. 01:00 Reassessment: Pt is resting in bed with eyes closed, respirations are even and jb4 unlabored with no s/s of pain or distress noted. 02:22 Reassessment: Patient appears in no apparent distress at this time. No changes from jb4 previously documented assessment. Patient and/or family updated on plan of care and expected duration. Pain level reassessed. 03:30 Reassessment: Patient appears in no apparent distress at this time. Patient and/or jb4 family updated on plan of care and expected duration. Pain level reassessed. Patient is alert, oriented x 3, equal unlabored respirations, skin warm/dry/pink. Vital Signs: 11/28 22:00 BP 109 / 52; Pulse 83; Resp 18; Temp 98.6; Pulse Ox 95% on R/A; cm10 22:00 BP 117 / 55; Pulse 84; Resp 18; Pulse Ox 94% on R/A; cm10 22:30 BP 118 / 59; Pulse 82; Resp 21; Pulse Ox 94% on R/A; cm10 23:00 BP 114 / 71; Pulse 81; Resp 20; Pulse Ox 94% on R/A; cm10 23:15 BP 117 / 64; Pulse 88; Resp 20; Pulse Ox 93% on R/A; cm10 11/29 01:25 BP 121 / 59; Pulse 83; Resp 16; Pulse Ox 98% on R/A; jb4 02:15 BP 116 / 61; Pulse 78; Resp 19; Pulse Ox 94% on R/A; jb4 ED Course: 11/28 22:00 Patient arrived in ED. cm10 22:01 Mj Rodriguez PA is PHCP. cp 22:01 Kwame Espinal MD is Attending Physician. cp 22:04 Triage completed. cm10 22:06 Arm band placed on Patient placed in an exam room, on a stretcher. cm10 22:34 Blood Culture Adult (2) Sent. cm10 22:34 CBC with Diff Sent. cm10 22:34 CMP Sent. cm10 22:34 Lactate w/ 2H reflex if indic. Sent. cm10 22:34 Protime (+inr) Sent. cm10 22:34 Ptt, Activated Sent. cm10 22:34 Urinalysis w/ reflexes Sent. cm10 22:34 Procalcitonin Sent. cm10 22:34 CRP Sent. cm10 22:59 Patient has correct armband on for positive identification. Provided Education on: N/A. cm10 22:59 Maintain EMS IV. Dressing intact. Good blood return noted. Site clean \T\ dry. cm10 11/29 00:11 Head C Spine Cap W Con In Process Unspecified. EDMS 01:24 Ty Salomon MD is Hospitalizing Provider. sp4 01:54 Influenza Screen (a \T\ B) Sent. bc6 01:54 SARS RAPID Sent. bc6 03:40 Patient admitted, IV remains in place. jb4 03:40 No provider procedures requiring assistance completed. jb4 Administered Medications: 11/28 23:20 Drug: Piperacillin-Tazobactam IVPB 3.375 grams Route: IVPB; Infused Over: 60 mins; cm10 Site: right antecubital; 11/29 00:36 Follow up: IV Status: Completed infusion; IV Intake: 100ml cm10 00:36 Follow up: Response: No adverse reaction cm10 11/28 23:20 Drug: NS 0.9% IV 1000 ml Route: IV; Rate: 1 bolus; Site: left antecubital; cm10 11/29 00:36 Follow up: Response: No adverse reaction; IV Status: Completed infusion; IV Intake: cm10 1000ml 00:35 Drug: vancoMYCIN IVPB 1 grams Route: IVPB; Infused Over: 2 hrs; Site: left antecubital; cm10 00:35 Drug: NS 0.9% IV 1000 ml Route: IV; Rate: 125 ml/hr; Site: left antecubital; cm10 02:21 Not Given (Patient Refused): Ondansetron IVP 4 mg IVP once; over 2 minutes jb4 02:21 Drug: Keppra IV 1000 mg Route: IV; Rate: bolus; Site: left antecubital; jb4 02:39 Drug: Potassium Chloride IV 20 mEq Route: IV; Rate: calculated rate; Site: left jb4 antecubital; 03:34 Not Given (Given to receiving nurse to give once potassium finishes.): NS 0.9% with jb4 KCl IV 20 mEq/L 1000 ml IV at 100 ml/hr continuous Medication: 11/28 22:58 VIS not applicable for this client. cm10 Intake: 11/29 00:36 IV: 100ml; Total: 100ml. cm10 00:36 IV: 1000ml; Total: 1100ml. cm10 Outcome: 01:24 Decision to Hospitalize by Provider. sp4 03:40 Admitted to Med/surg accompanied by nurse, room 222, with chart, Report called to nelson Costa RN 03:40 Condition: stable 03:40 Discharge instructions given to patient, Instructed on the need for admit, Demonstrated understanding of instructions. 03:42 Patient left the ED. [facility] Signatures: Dispatcher [employer] EDOH Mj Rodriguez PA PA cp Bryson, James, RN RN jb4 Nina Ray Sergey, MD MD sp4 Kinza Andersen RN RN cm10 Corrections: (The following items were deleted from the chart) 11/28 22:05 22:00 Care prior to arrival: Medication(s) given: Normal saline infusion, 250mL cm10 Tylenol, 650 mg, cm10
--- NOTE | 2022-11-29 01:25 | EDPHYS ---
Physician Documentation [facility] Name: Houston Neely Age: 71 yrs Sex: Male : 1950 Arrival Date: 11/28/2022 Time: 21:58 Bed 20 Private MD: ED Physician Kwame Espinal HPI: 11/29 01:06 This 71 yrs old Male presents to ER via EMS with complaints of Fever, Fall sp4 Injury, Abdominal Pain. 01:06 71-year-old male nonverbal history of CVA left-sided hemiparesis poor mobility, sp4 presents with EMS for cute onset of fever and 3 falls at home. Patient's past medical history is positive for hyponatremia hemiparesis dysphagia hypertension seizure disorder. Patient's was admitted last time 08/09/2022 for seizure, fall, hyponatremia. Patient should be on Keppra. Patient's medications include amlodipine, atorvastatin, lisinopril, Keppra 1000 mg p.o. twice daily, aspirin p.o. daily, albuterol as needed, sorbic acid, cholecalciferol, fluvoxamine, prednisone, and zinc.. Historical: - Allergies: 11/28 22:06 Unable to obtain; cm10 - PMHx: 22:06 CVA; Hypertension; R sided weakness; Seizures; cm10 - PSHx: 22:06 Cholecystectomy; cm10 - Immunization history:: Adult Immunizations unknown. - Social history:: Smoking status: unknown. - Family history:: not pertinent. ROS: 11/29 01:06 Constitutional: patient not able to cooperate secondary to nonverbal status sp4 All other systems are negative. Unable to obtain ROS due to Nonverbal status. Exam: 01:06 Constitutional: This is a well developed, well nourished patient who is awake, sp4 physically deconditioned male, nonverbal status, left hemiparesis from prior CVA, signs of immobility, not able to cooperate for exam. Head/Face: Normocephalic, atraumatic. Eyes: Pupils equal round and reactive to light, extra-ocular motions intact. Lids and lashes normal. Conjunctiva and sclera are not injected. Cornea within normal limits. Periorbital areas with no swelling, redness, or edema. ENT: Nares patent. No nasal discharge, no septal abnormalities noted. Tympanic membranes are normal and external auditory canals are clear. Oropharynx with no redness, swelling, or masses, exudates, or evidence of obstruction, uvula midline. Mucous membranes moist. Neck: Trachea midline, no thyromegaly or masses palpated, and no cervical lymphadenopathy. Supple, full range of motion without nuchal rigidity, or vertebral point tenderness. Chest/axilla: Normal chest wall appearance and motion. Nontender with no deformity. No lesions are appreciated. Cardiovascular: Regular rate and rhythm with a normal S1 and S2. No gallops, murmurs, or rubs. Normal PMI, no JVD. No pulse deficits. Respiratory: Lungs have equal breath sounds bilaterally, clear to auscultation and percussion. No rales, rhonchi or wheezes noted. No increased work of breathing, no retractions or nasal flaring. Abdomen/GI: Soft, non-tender, with normal bowel sounds. No distension or tympany. No guarding or rebound. No evidence of tenderness throughout. Back: No spinal tenderness. No costovertebral tenderness. Male : Normal genitalia with no discharge or lesions. Skin: Warm, dry with normal turgor. Normal color with no rashes, no lesions, and no evidence of cellulitis. MS/ Extremity: Pulses equal, no cyanosis. Neurovascular intact. Left-sided hemiparesis with muscular contractures. Neuro: Awake and alert, GCS 15 nonverbal male, exam is limited, left-sided prior hemiparesis, no new neurologic deficits reported 01:06 ECG was reviewed by the Attending Physician. EKG time 2241, normal sinus rhythm, no ST elevation or depression. No ectopy. Overall normal EKG. Vital Signs: 11/28 22:00 BP 109 / 52; Pulse 83; Resp 18; Temp 98.6; Pulse Ox 95% on R/A; cm10 22:00 BP 117 / 55; Pulse 84; Resp 18; Pulse Ox 94% on R/A; cm10 22:30 BP 118 / 59; Pulse 82; Resp 21; Pulse Ox 94% on R/A; cm10 23:00 BP 114 / 71; Pulse 81; Resp 20; Pulse Ox 94% on R/A; cm10 23:15 BP 117 / 64; Pulse 88; Resp 20; Pulse Ox 93% on R/A; cm10 08/01 01:25 BP 121 / 59; Pulse 83; Resp 16; Pulse Ox 98% on R/A; jb4 02:15 BP 116 / 61; Pulse 78; Resp 19; Pulse Ox 94% on R/A; jb4 MDM: 11/28 22:01 Patient medically screened. cp 11/29 01:02 ED course: PROCEDURE: Head C Spine Cap W Con CLINICAL HISTORY: 71 years Male fall at sp4 home, abd pain, fever TECHNIQUE: Contiguous axial CT images obtained through the brain and cervical spine without IV contrast. Coronal and sagittal reformatted images also provided. Contiguous axial images obtained through the chest, abdomen, and pelvis following IV contrast. Coronal and sagittal reformatted images provided. This CT exam was performed according to our departmental dose-optimization program, which includes one or more of the following dose reduction techniques: automated exposure control, adjustment of the mA and/or kV according to patient size, and/or use of iterative reconstruction technique. COMPARISON: No prior exams provided for comparison. FINDINGS: There is no acute skull fracture, intracranial hemorrhage, extraaxial collection, or evidence of acute transcortical infarction. There is chronic encephalomalacia particularly involving the areas of the left MCA vascular territory. There are patchy chronic microvascular changes in the periventricular white matter bilaterally. There is volume loss without midline shift. Chronic left lamina papyracea and bilateral nasal bone fractures without associated soft tissue swelling. The paranasal sinuses and mastoid air cells are clear. No acute skull fracture. Intraorbital structures intact bilaterally. There is no acute cervical fracture or spondylolisthesis. There is mild multilevel degenerative disc disease and uncovertebral arthrosis without aggressive osseous lesion. No definite central canal stenosis. Mild scattered multilevel neural foraminal narrowing. No prevertebral or paraspinal soft tissue swelling. There are is no acute fracture in the chest or thoracic spine. There is no mediastinal hematoma, pericardial effusion, pleural effusion, or pneumothorax. The heart is normal in size. There is atherosclerosis without thoracic aortic aneurysm or dissection. Elevation of the right hemidiaphragm. Minimal dependent atelectasis, the lungs are clear without focal consolidation. The central airways are patent. No lymphadenopathy in the chest. There are no acute lumbar or pelvic fractures. The liver, biliary tree, gallbladder, pancreas, spleen, adrenal glands, and urinary bladder demonstrate no acute findings. Bilateral renal cysts are benign in appearance and do not require follow-up. No renal laceration or hydronephrosis on either side. Atherosclerosis without abdominal aortic aneurysm or retroperitoneal hemorrhage. No free intraperitoneal air or ascites. No bowel obstruction or wall thickening. IMPRESSION: No acute injury in the head, cervical spine, chest, abdomen, or pelvis. Chronic findings as described.. 01:11 Differential diagnosis: viral Infection, bacterial infection, URI, bronchitis, sp4 pneumonia UTI, gastroenteritis, meningitis. Data reviewed: vital signs, nurses notes, EMS record, old medical records, lab test result(s), EKG, radiologic studies, CT scan. Consideration of Admission/Observation Patient was admitted/placed on observation. Escalation of care including admission/observation considered. Management of patient was discussed with the following: Hospitalist: Discussed with primary admitting MD.. ED course: Patient had a full CT chest abdomen pelvis CT head and neck. This has revealed chronic findings, no acute injury to the head cervical spine chest abdomen pelvis. And some chronic findings. Bilateral renal cysts benign in appearance. 01:23 ED course: Patient warrants admission for hyponatremia, fever, further evaluation, sp4 hyperkalemia.. 02:58 ED course: Patient is COVID-positive which is likely the source of the fever.. 11/28 22:10 Order name: Blood Culture Adult (2) 11/28 22:10 Order name: CBC with Diff; Complete Time: 01:25 [facility] 11/28 22:10 Order name: CMP; Complete Time: 00:35 [facility] 11/28 22:10 Order name: Lactate w/ 2H reflex if indic.; Complete Time: 00:35 [facility] 11/28 22:10 Order name: Protime (+inr); Complete Time: 00:35 4 11/28 22:10 Order name: Ptt, Activated; Complete Time: 00:35 [facility] 11/28 22:10 Order name: Urinalysis w/ reflexes sp4 11/28 22:11 Order name: CRP; Complete Time: 00:35 [facility] 11/28 22:11 Order name: Procalcitonin; Complete Time: 00:35 [facility] 11/28 22:51 Order name: Manual Differential; Complete Time: 01:25 EDKS 11/29 01:15 Order name: SARS RAPID; Complete Time: 02:56 sp4 11/29 01:15 Order name: Influenza Screen (a \T\ B); Complete Time: 02:56 [facility] 11/28 22:17 Order name: Head C Spine Cap W Con EDMS 11/28 22:10 Order name: EKG; Complete Time: 22:11 [facility] 11/28 22:10 Order name: Accucheck; Complete Time: 23:37 4 11/28 22:10 Order name: Cardiac monitoring; Complete Time: 22:12 [facility] 11/28 22:10 Order name: EKG - Nurse/Tech; Complete Time: 22:56 [facility] 11/28 22:10 Order name: IV Saline Lock - Large Bore; Complete Time: 22:12 [facility] 11/28 22:10 Order name: Labs collected and sent; Complete Time: 22:56 [facility] 11/28 22:10 Order name: O2 Per Protocol; Complete Time: 22:12 [facility] 11/28 22:10 Order name: O2 Sat Monitoring; Complete Time: 22:12 [facility] 11/28 22:10 Order name: Vital Signs; Complete Time: 22:12 4 EC:06 Rate is 82 beats/min. Rhythm is regular, Normal Sinus Rhythm. QRS [place] is Normal. [place] sp4 interval is normal. QRS interval is normal. QT interval is normal. T waves are Normal. No ST changes noted. Clinical impression: No evidence of ischemia. Interpreted by me. Administered Medications: 11/28 23:20 Drug: Piperacillin-Tazobactam IVPB 3.375 grams Route: IVPB; Infused Over: 60 mins; cm10 Site: right antecubital; 11/29 00:36 Follow up: IV Status: Completed infusion; IV Intake: 100ml 10 00:36 Follow up: Response: No adverse reaction [facility] 11/28 23:20 Drug: NS 0.9% IV 1000 ml Route: IV; Rate: 1 bolus; Site: left antecubital; cm10 11/29 00:36 Follow up: Response: No adverse reaction; IV Status: Completed infusion; IV Intake: cm10 1000ml 00:35 Drug: vancoMYCIN IVPB 1 grams Route: IVPB; Infused Over: 2 hrs; Site: left antecubital; 10 00:35 Drug: NS 0.9% IV 1000 ml Route: IV; Rate: 125 ml/hr; Site: left antecubital; 10 02:21 Not Given (Patient Refused): Ondansetron IVP 4 mg IVP once; over 2 minutes jb4 02:21 Drug: Keppra IV 1000 mg Route: IV; Rate: bolus; Site: left antecubital; jb4 02:39 Drug: Potassium Chloride IV 20 mEq Route: IV; Rate: calculated rate; Site: left jb4 antecubital; 03:34 Not Given (Given to receiving nurse to give once potassium finishes.): NS 0.9% with jb4 KCl IV 20 mEq/L 1000 ml IV at 100 ml/hr continuous Disposition Summary: 11/29/22 01:24 Hospitalization Ordered Hospitalization Status: Inpatient Admission sp4 Provider: Ty Salomon sp4 Location: Telemetry/MedSurg (Inpatient) sp4 Condition: Fair sp4 Problem: new sp4 Symptoms: have improved sp4 Bed/Room Type: Standard sp4 Room Assignment: 222(11/29/22 02:47) as6 Diagnosis - Hypo-osmolality and hyponatremia sp4 - Hypokalemia, acute febrile illness, generalized weakness, fall at home sp4 - Acute COVID-19 with systemic viral illness and febrile illness sp4 Forms: - Medication Reconciliation Form sp4 - SBAR form sp4 Signatures: Dispatcher [employer] EDMS Candi Yanez RN RN mw Mj Rodriguez PA PA cp Bryson, James, RN RN jb4 David Ward RN RN as6 Kwame Espinal MD MD sp4 Kinza Andersen RN RN cm10 Corrections: (The following items were deleted from the chart) 11/28 22:15 22:12 Head C Spine MPR Wo Con+CT.RAD.BRZ ordered. EDMS EDMS 22:17 22:12 Chest Abdomen Pelvis W Con+CT.RAD.BRZ ordered. EDMS EDMS 11/29 01:45 01:24 sp4 mw 02:25 11/28 22:10 Smith ordered. sp4 jb4 11/29 02:47 01:45 230 mw as6
[2022-11-29] MEDS ORDERED: NS KCL 20MEQ 1,000 ML IV ONE (02:22)
[2022-11-29] MEDS ORDERED: LEVETIRACETAM 500 MG/5 ML VIAL IV ONE (02:22)
[2022-11-29] MEDS ORDERED: NA CHLORIDE 0.9% 100 ML ONE (02:23)
[2022-11-29] MEDS ORDERED: KCL 20 MEQ/100 mL IVPB 100 ML IV ONE (02:23)
[2022-11-29 02:37] LABS: SARS-CoV-2 Antigen Rapid Res Positive (Negative)
[2022-11-29] MEDS ORDERED: ZOLPIDEM TARTRATE 5 MG TABLET PO PRN (03:14)
[2022-11-29] MEDS ORDERED: ALBUTEROL 2.5 MG/3 ML NEB SOL NEB PRN ×2 (03:14→12:00)
[2022-11-29] MEDS ORDERED: ONDANSETRON 4 MG/2 ML VIAL IV PRN (03:14)
[2022-11-29] MEDS ORDERED: ACETAMINOPHEN 325 MG TABLET PO PRN (03:14)
[2022-11-29] MEDS: D5 0.9 NS 1,000 ML IV SCH ×3 (03:58→22:23)
[2022-11-29 04:33] VITALS: BMI 26.6
--- NOTE | 2022-11-29 08:41 | P.HP ---
Certification for Inpatient Patient admitted to: Inpatient With expected LOS: >2 Midnights Patient will require the following post-hospital care: Home Health Services Practitioner: I am a practitioner with admitting privileges, knowledge of patient current condition, hospital course, and medical plan of care. Services: Services provided to patient in accordance with Admission requirements found in Title 42 Section 412.3 of the Code of Federal Regulations Patient History Date of Service: 11/29/22 Primary Care Provider: Umm Reason for admission: covid positive History of Present Illness: Patient of mine with a history of right sided hemiplegia. He was falling at home and had a fever of approx 101. Feel 3 times and called ems. Was found to be covid positive in the ER. he has some shortness of breath. Otherwise the patient is stable. Allergies No Known Allergies Allergy (Verified 08/09/22 02:04) Home Medications: Amlodipine Besylate 10 mg PO DAILY 06/19/15 Atorvastatin Calcium [Lipitor] 80 mg PO BEDTIME 06/19/15 Lisinopril 20 mg PO DAILY 06/19/15 Levetiracetam [Keppra] 1,000 mg PO BID 05/11/17 Aspirin [Aspirin EC 81 MG] 81 mg PO DAILY 04/30/20 Albuterol Inhaler [Ventolin Inhaler*] 2 puff IH Q6H PRN #1 hfa.aer.ad 05/02/20 Amox/Clavulanate [Augmentin 875-125 Tab] 1 each PO BID #14 tab 05/02/20 Fluticasone/Salmeterol [Advair 250-50 Diskus] 1 each IH BID #1 disk.w.dev 05/02/20 Ascorbic Acid [Vitamin C*] 500 mg PO BID 90 Days #180 tablet 03/04/21 Cholecalciferol (Vitamin D3) [Vitamin D 5,000 IU Cap*] 5,000 unit PO DAILY 90 Days #90 cap 03/04/21 Fluvoxamine Maleate [Fluvoxamine Maleate ER] 100 mg PO TID 7 Days #21 cap.er.24h 03/04/21 Prednisone [Sterapred Ds] 10 mg PO BID #21 tab.ds.pk 03/04/21 Zinc 50 mg PO 30 MIN BEFORE HS 30 Days #30 tablet 03/04/21 - Past Medical/Surgical History Diabetic: No -: CVA -: HTN -: hyperlipidemia -: Appy - Family History Mother -: Hypertension Notes: states no health problems - Social History Smoking Status: Unknown if ever smoked Alcohol use: Yes CD- Drugs: No Caffeine use: No Place of Residence: Home Review of Systems 10-point ROS is otherwise unremarkable General: Weakness Respiratory: Cough, Shortness of Breath Physical Examination - Vital Signs Temperature: 98.6 F Blood Pressure: 117/58 Pulse: 79 Respirations: 18 Pulse Ox (%): 97 - Physical Exam General: Alert, In no apparent distress HEENT: Atraumatic, PERRLA, Mucous membr. moist/pink, EOMI, Sclerae nonicteric Neck: Supple, 2+ carotid pulse no bruit, No LAD, Without JVD or thyroid abnormality Respiratory: Clear to auscultation bilaterally, Normal air movement Cardiovascular: Regular rate/rhythm, Normal S1 S2 Gastrointestinal: Normal bowel sounds, No tenderness Musculoskeletal: No tenderness Integumentary: No rashes Neurological: Normal gait, Normal speech, Normal strength at 5/5 x4 extr, Normal tone, Normal affect Lymphatics: No axilla or inguinal lymphadenopathy - Studies Laboratory Data (last 24 hrs) 11/28/22 11/28/22 11/28/22 22:28 22:28 22:28 WBC 4.50 Hgb 12.4 L Hct 36.9 L Plt Count 177 PT 13.2 H INR 1.20 APTT 28.2 Sodium 123 L Potassium 3.3 L BUN 7 Creatinine 0.82 Glucose 102 Total Bilirubin 0.5 AST 18 ALT 17 Alkaline Phosphatase 67 Microbiology Data (last 24 hrs): 11/29/22 01:50 Nasopharnyx Influenza Type A Antigen Screen - Final 11/29/22 01:50 Nasopharnyx Influenza Type B Antigen Screen - Final Assessment and Plan - Problems (Diagnosis) (1) COVID Current Visit: No Status: Acute Plan: will start him on low dose steroids and paxlovid. Consult to Dr. Gambino (2) Hemiparesis Current Visit: No Status: Chronic Plan: continue fall precautions. 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 Qualifiers: Hypertension type: primary hypertension (4) Seizure disorder Current Visit: No Status: Chronic Plan: restart his home keppra Discharge Plan: Home Plan to discharge in: 72 Hours - Advance Directives Does patient have a Living Will: No Does patient have a Durable POA for Healthcare: No - Code Status/Comfort Care Code Status Assessed: No Critical Care: No Time Spent Managing Pts Care (In Minutes): 45
[2022-11-29] MEDS ORDERED: ALBUTEROL INHALER 60 PUFF/8 GM IH PRN (08:45)
[2022-11-29] MEDS ORDERED: dexAMETHasone 4 MG/ML VIAL IV SCH ×2 (09:00→21:00)
[2022-11-29] MEDS ORDERED: ASCORBIC ACID 500 MG TABLET PO SCH (09:00)
[2022-11-29] MEDS ORDERED: POTASSIUM CL SA 10 MEQ TAB PO ONE (09:00)
[2022-11-29] MEDS ORDERED: HOME MED 1 EA UNK (Fluticasone/Salmeterol [Advair 250-50 Diskus] Blst.W.Dev) IH SCH (09:00)
[2022-11-29] MEDS ORDERED: PIPER TAZO 3.375 GM in NA CHLORIDE 0.9% 100 ML IV SCH (09:00)
[2022-11-29] MEDS ORDERED: lisinopriL 20 MG TAB PO SCH (09:00)
[2022-11-29] MEDS: levETIRAcetam 500 MG TAB PO SCH ×2 (09:33→22:24)
[2022-11-29] MEDS: AMLODIPINE 10 MG TAB PO SCH (09:33)
[2022-11-29] MEDS: VITAMIN D 5,000 UNIT CAP PO SCH (09:33)
[2022-11-29] MEDS: ASPIRIN EC 81 MG TAB PO SCH (09:33)
[2022-11-29] MEDS: NIRMATRELVIR/RITONAVIR TABLET PO SCH ×2 (09:36→22:23)
--- NOTE | 2022-11-29 14:55 | RAD REPORT ---
EXAM DESCRIPTION: ADDENDUM #1 Examination is compared to the prior CT scans of the head and cervical spine dated 09/01/2022, the prio r CT scan of the chest dated 03/03/2021, and the prior CT of the abdomen dated 04/29/2020. No new find ings. Electronically signed by: Ashley Strange MD 11/29/2022 1:00 AM CDT End of Addendum EXAM DESCRIPTION: Head C Spine Cap W Con CLINICAL HISTORY: 71 years Male fall at home, abd pain, fever TECHNIQUE: Contiguous axial CT images obtained through the brain and cervical spine without IV contr ast. Coronal and sagittal reformatted images also provided. Contiguous axial images obtained through the chest, abdomen, and pelvis following IV contrast. Hall l and sagittal reformatted images provided. This CT exam was performed according to our departmental dose-optimization program, which includes on e or more of the following dose reduction techniques: automated exposure control, adjustment of the m A and/or kV according to patient size, and/or use of iterative reconstruction technique. COMPARISON: No prior exams provided for comparison. FINDINGS: There is no acute skull fracture, intracranial hemorrhage, extraaxial collection, or evide nce of acute transcortical infarction. There is chronic encephalomalacia particularly involving the areas of the left MCA vascular territory . There are patchy chronic microvascular changes in the periventricular white matter bilaterally. The re is volume loss without midline shift. Chronic left lamina papyracea and bilateral nasal bone fractures without associated soft tissue swell ing. The paranasal sinuses and mastoid air cells are clear. No acute skull fracture. Intraorbital str uctures intact bilaterally. There is no acute cervical fracture or spondylolisthesis. There is mild multilevel degenerative disc disease and uncovertebral arthrosis without aggressive oss eous lesion. No definite central canal stenosis. Mild scattered multilevel neural foraminal narrowing . No prevertebral or paraspinal soft tissue swelling. There are is no acute fracture in the chest or thoracic spine. There is no mediastinal hematoma, pericardial effusion, pleural effusion, or pneumothorax. The heart is normal in size. There is atherosclerosis without thoracic aortic aneurysm or dissection. Elevation of the right hemidiaphragm. Minimal dependent atelectasis, the lungs are clear without foca l consolidation. The central airways are patent. No lymphadenopathy in the chest. There are no acute lumbar or pelvic fractures. The liver, biliary tree, gallbladder, pancreas, spleen, adrenal glands, and urinary bladder demonstra te no acute findings. Bilateral renal cysts are benign in appearance and do not require follow-up. No renal laceration or h ydronephrosis on either side. Atherosclerosis without abdominal aortic aneurysm or retroperitoneal hemorrhage. No free intraperiton eal air or ascites. No bowel obstruction or wall thickening. IMPRESSION: No acute injury in the head, cervical spine, chest, abdomen, or pelvis. Chronic findings as described. Electronically signed by: Ashley Strange MD 11/29/2022 12:53 AM CDT Due to temporary technical issues with the PACS/Fluency reporting system, reports are being signed by the in house radiologists without review as a courtesy to insure prompt reporting. The interpreting radiologist is fully responsible for the content of the report.
--- NOTE | 2022-11-29 15:45 | P.CNS ---
Date of Consult: 11/29/22 Primary Care Provider: Umm Chief Complaint: covid positive History of Present Illness: Pt is 71 yrs of age AW COVID infection, FEVER and SOB. Non verbal stable Allergies No Known Allergies Allergy (Verified 08/09/22 02:04) Home Medications: Amlodipine Besylate 10 mg PO DAILY 06/19/15 Atorvastatin Calcium [Lipitor] 80 mg PO BEDTIME 06/19/15 Lisinopril 20 mg PO DAILY 06/19/15 Levetiracetam [Keppra] 1,000 mg PO BID 05/11/17 Aspirin [Aspirin EC 81 MG] 81 mg PO DAILY 04/30/20 Albuterol Inhaler [Ventolin Inhaler*] 2 puff IH Q6H PRN #1 hfa.aer.ad 05/02/20 Amox/Clavulanate [Augmentin 875-125 Tab] 1 each PO BID #14 tab 05/02/20 Fluticasone/Salmeterol [Advair 250-50 Diskus] 1 each IH BID #1 disk.w.dev 05/02/20 Ascorbic Acid [Vitamin C*] 500 mg PO BID 90 Days #180 tablet 03/04/21 Cholecalciferol (Vitamin D3) [Vitamin D 5,000 IU Cap*] 5,000 unit PO DAILY 90 Days #90 cap 03/04/21 Fluvoxamine Maleate [Fluvoxamine Maleate ER] 100 mg PO TID 7 Days #21 cap.er.24h 03/04/21 Prednisone [Sterapred Ds] 10 mg PO BID #21 tab.ds.pk 03/04/21 Zinc 50 mg PO 30 MIN BEFORE HS 30 Days #30 tablet 03/04/21 - Past Medical/Surgical History Diabetic: No -: CVA -: HTN -: hyperlipidemia -: Appy - Family History Mother Medical History: Hypertension Notes: states no health problems - Social History Smoking Status: Unknown if ever smoked Alcohol use: Yes CD- Drugs: No Caffeine use: No Place of Residence: Home Review of Systems is unable to be obtained Physical Examination Temp Pulse Resp BP Pulse Ox 98.8 F 64 22 H 100/57 L 94 11/29/22 12:00 11/29/22 12:00 11/29/22 12:00 11/29/22 12:00 11/29/22 12:00 General: Alert, Confused Neck: Supple Respiratory: Expiratory wheezes Cardiovascular: No edema, Regular rate/rhythm, Normal S1 S2 Laboratory Data (last 24 hrs) 11/28/22 11/28/22 11/28/22 22:28 22:28 22:28 WBC 4.50 Hgb 12.4 L Hct 36.9 L Plt Count 177 PT 13.2 H INR 1.20 APTT 28.2 Sodium 123 L Potassium 3.3 L BUN 7 Creatinine 0.82 Glucose 102 Total Bilirubin 0.5 AST 18 ALT 17 Alkaline Phosphatase 67 - Problems (1) COVID Current Visit: No Status: Acute Plan: Pt aW COVID infection. Doing well. NE of COVID pneumonia. Change to decadron 4 BID for now. DC CASSANDRA low BP. CT chest no pneumonia/ Labs rev PT has R sided hemiparesis and LEft sided stroke affecting speech / O2 satisfactory poss DC AM
[2022-11-29] MEDS ORDERED: ZINC SULFATE 220 MG CAP PO SCH (20:30)
[2022-11-29] MEDS ORDERED: ATORVASTATIN 80 MG TAB PO SCH (21:00)
[2022-11-30] MEDS: D5 0.9 NS 1,000 ML IV SCH (00:52)
[2022-11-30 03:18] LABS: Absolute Lymphocytes (CBC) 0.7 K/uL (0.7-4.9); Hematocrit 38.9 % (39.6-49.0); Lymphocytes % 12.6 % (15.3-44.8); MCV 97.8 fL (80-100); MPV 8.9 fL (7.6-11.3); RBC Red Blood Cell Count 3.98 M/uL (4.33-5.43)
[2022-11-30] MEDS: AMLODIPINE 10 MG TAB PO SCH (09:00)
[2022-11-30] MEDS: VITAMIN D 5,000 UNIT CAP PO SCH (09:27)
[2022-11-30] MEDS: ASPIRIN EC 81 MG TAB PO SCH (09:27)
[2022-11-30] MEDS: NIRMATRELVIR/RITONAVIR TABLET PO SCH (09:27)
[2022-11-30] MEDS: levETIRAcetam 500 MG TAB PO SCH (09:27)
[2022-11-30 09:55] VITALS: O2SAT 95
--- NOTE | 2022-11-30 10:18 | P.DS ---
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 He was falling at home and had a fever of approx 101. Feel 3 times and called ems. Was found to be covid positive in the ER. he has some shortness of breath. Otherwise the patient is stable. Hospital Course: Patient was admitted for fever and covid. Was started on paxlovid and steroids. Seen by Dr. Gambino He is vaccinated. The patient was not hypoxic. Will discharge him home with paxlovid. Discussed with Dr. Gambino. No need for steroids at this time. He had a clear chest CT. Vital Signs/Physical Exam: Temp Pulse Resp BP Pulse Ox 97.8 F 53 18 129/58 L 98 11/30/22 04:00 11/30/22 09:00 11/30/22 04:00 11/30/22 09:00 11/30/22 04:00 General: Alert, In no apparent distress HEENT: Atraumatic, PERRLA, EOMI Neck: Supple, JVD not distended Respiratory: Clear to auscultation bilaterally, Normal air movement Cardiovascular: Regular rate/rhythm, Normal S1 S2 Gastrointestinal: Normal bowel sounds, No tenderness Musculoskeletal: No tenderness Integumentary: No rashes Neurological: Normal speech, Normal tone, Normal affect Lymphatics: No axilla or inguinal lymphadenopathy Laboratory Data at Discharge: WBC 5.60 thou/uL (4.3-10.9) 11/30/22 02:18 Hgb 13.4 g/dL (13.6-17.9) L D 11/30/22 02:18 Hct 38.9 % (39.6-49.0) L 11/30/22 02:18 Plt Count 177 thou/uL (152-406) 11/30/22 02:18 PT 13.2 SECONDS (9.5-12.5) H 11/28/22 22:28 INR 1.20 11/28/22 22:28 APTT 28.2 SECONDS (24.3-36.9) 11/28/22 22:28 Sodium 131 mEq/L (136-145) L D 11/30/22 02:18 Potassium 4.0 mEq/L (3.5-5.1) 11/30/22 02:18 BUN 7 mg/dL (7-18) 11/30/22 02:18 Creatinine 0.58 mg/dL (0.70-1.30) L 11/30/22 02:18 Glucose 144 mg/dL (74-106) H 11/30/22 02:18 Total Bilirubin 0.5 mg/dL (0.2-1.0) 11/28/22 22:28 AST 18 U/L (15-37) 11/28/22 22:28 ALT 17 U/L (16-61) 11/28/22 22:28 Alkaline Phosphatase 67 U/L (45-117) 11/28/22 22:28 Home Medications: Amlodipine Besylate 10 mg PO DAILY 06/19/15 Atorvastatin Calcium [Lipitor] 80 mg PO BEDTIME 06/19/15 Lisinopril 20 mg PO DAILY 06/19/15 Levetiracetam [Keppra] 1,000 mg PO BID 05/11/17 Aspirin [Aspirin EC 81 MG] 81 mg PO DAILY 04/30/20 Albuterol Inhaler [Ventolin Inhaler*] 2 puff IH Q6H PRN #1 hfa.aer.ad 05/02/20 Amox/Clavulanate [Augmentin 875-125 Tab] 1 each PO BID #14 tab 05/02/20 Ascorbic Acid [Vitamin C*] 500 mg PO BID 90 Days #180 tablet 03/04/21 Cholecalciferol (Vitamin D3) [Vitamin D 5,000 IU Cap*] 5,000 unit PO DAILY 90 Days #90 cap 03/04/21 Fluvoxamine Maleate [Fluvoxamine Maleate ER] 100 mg PO TID 7 Days #21 cap.er.24h 03/04/21 Prednisone [Sterapred Ds] 10 mg PO BID #21 tab.ds.pk 03/04/21 Zinc 50 mg PO 30 MIN BEFORE HS 30 Days #30 tablet 03/04/21 Nirmatrelvir/Ritonavir [Paxlovid 2X150 mg-100 mg (Eua)] 0 tab PO BID 4 Days #21 tablet 11/30/22 New Medications: Nirmatrelvir/Ritonavir [Paxlovid 2X150 mg-100 mg (Eua)] 0 tab PO BID 4 Days #21 tablet Diet: Regular Activity: Fall precautions Followup: Ty Salomon MD [ACTIVE - CAN ADMIT] - Time spent managing pt's care (in minutes): 30
[2022-11-30 15:11] VITALS: BP 113/55; TEMP 97.6
--- NOTE | 2022-11-30 17:40 | EKG ---
Test Date: 2022-11-28 Test Time: 22:41:33 Front Services Agent: ROB MEASUREMENT RESULTS: Intervals: Rate: 82 RI: 198 QRSD: 78 QT: 326 QTc: 380 [place]: P: 56 RI: 198 QRS: 48 T: 65 INTERPRETIVE STATEMENTS: Normal sinus rhythm Nonspecific ST and T wave abnormality Abnormal ECG Compared to ECG 09/01/2022 01:43:20 First degree AV block no longer present ST (T wave) deviation still present Electronically Signed On 11-30-22 17:35:13 CDT by Loc Geronimo
== END 2022-11-30 13:24 | disposition home health service (06) | DRG 178 ==
LOC: ER 21:58 → 2ND 11-29 02:55
PROVIDERS: ADMIT Internal Medicine; ATTEND Internal Medicine
DX: U07.1 COVID-19 (principal); E87.1 Hypo-osmolality and hyponatremia; I69.354 Hemiplegia and hemiparesis following cerebral infarction affecting left non-dominant side; I10 Essential (primary) hypertension; E87.5 Hyperkalemia; E87.6 Hypokalemia; E78.5 Hyperlipidemia, unspecified; N28.1 Cyst of kidney, acquired; G40.909 Epilepsy, unspecified, not intractable, without status epilepticus; Z79.52 Long term (current) use of systemic steroids; Z79.82 Long term (current) use of aspirin; Z90.49 Acquired absence of other specified parts of digestive tract; Z79.899 Other long term (current) drug therapy; W18.30XA Fall on same level, unspecified, initial encounter; Y93.9 Activity, unspecified; Y92.019 Unspecified place in single-family (private) house as the place of occurrence of the external cause
CPT/HCPCS: 36415; 70450; 71260; 72125; 74177; 80048; 80053; 82947; 83605; 84132; 84145; 85025; 85610; 85730; 86140; 87040; 87804; 87811; 93005; 96365; 96375; 99285; J1100; J1953; J2543; J3480; J7030; J7042; J7050; Q9967

== ENCOUNTER 2022-12-17 23:59 | Emergency (ER) | payer OTHER ==
--- OUTSIDE RECORDS SUMMARY | 2022-12-18 00:03 | XMS REPORT | Continuity of Care Document ---
:1950 Author Organization [facility] t Address [address] [place] [address] [place] [id number] Care Team Providers Name Role Phone TOYA Attending Clinician Unavailable Kendra Attending Clinician Unavailable SUDHIR SARAVIA Attending Clinician Unavailable Royal Rice Attending Clinician Toni Attending Clinician Unavailable Iliana Pinto MD Attending Clinician Sudhir Saravia MD Attending Clinician [facility] Cardio Fac Attending Clinician Unavailable 1, [facility] Cardio Fac Room Attending Clinician Unavailable 2, [facility] Cardio Fac Room Attending Clinician Unavailable Doctor Unassigned, [facility] [place] Attending Clinician Unavailable TOYA Admitting Clinician Unavailable Kendra Admitting Clinician Unavailable Toni Admitting Clinician Unavailable Payers Payer Name Policy Type Policy Number Effective Date Expiration Date S jose MEDICARE [place]: [id number] 2016 [employer] 00:00:00 MEDICARE PART A [id number] 2016 \T\ B 00:00:00 MEDICAID OF [place] [id number] 2016 00:00:00 Problems This patient has no known problems. Allergies, Adverse Reactions, Alerts Allergy Allergy Status Severity Reaction(s) Onset Inactive Treating Comm ents Source Name Type Date Date Clinician NO KNOWN Drug Active Univers ALLERGIE Class ity of S [facility] Social History Social Habit Start Date Stop Date Quantity Comments Source History of tobacco Cigarette Smoker [facility] Sex Assigned At Universit y of [facility] Cigarettes smoked 2018-12-19 2018-12-19 Univers ity of current (pack per 00:00:00 00:00:00 ) - Reported [place] Alcohol intake 2018-12-19 2018-12-19 University 00:00:00 00:00:00 [facility] Smoking Status Start Date Stop Date Source Current every day smoker 2018-12-19 00:00:00 Uni versity of [facility] Medications Ordered Filled Start Stop Current Ordering Indication Dosage Frequency Signature Comments Components Source Medication Medication Date Date Medication? Clinician (SIG) Name Name atorvastati 2020- No [id number] 40mg Take 1 Univers n 40 mg 09-10 tablet by ity of tablet 00:00: 04:59 mouth at [place] 00 :00 bedtime Medical for 90 Branch days. contrast 2019- No Intravenou Un royal previously 01-11 s, ONCE, 1 it y of administere 17:15: 16:30 dose, Fri [place] d 0 mL 00 :00 01/11/19 at [place] [address], [place] Routine iohexol 2019- No 100mL 100 mL, Unive rs (OMNIPAQUE 01-11 Intravenou it y of 350 17:15: 16:30 s, ONCE, 1 [place] BULK-100 00 :00 dose, Fri Medica l mL) 01/11/19 at [place] injection 1215, 100 mL Routine ezetimibe 2018- Yes 10mg Take 10 mg Un royal 10 mg 9-06 by mouth ity of tablet 15:56: daily. [place] 28 [facility] Branch albuterol 2018-0 Yes 2.5mg Inhale 2.5 U nivers 2.5 mg /3 9-06 mg every 8 ity of mL (0.083 15:56: (eight) [place] %) 28 hours as Medical nebulizer needed. [place] solution albuterol 2018-0 Yes 2{puff} Inhale 2 U nivers 90 9-06 Puffs ity of mcg/actuati 15:56: every 6 [place] as on inhaler 28 (six) Medical hours as Branch needed. montelukast 2018- Yes 10mg Take 10 mg Univers 10 mg 9-06 by mouth ity of tablet 15:56: daily. [address] ezetimibe 2018- Yes 10mg Take 10 mg Un royal 10 mg 9-06 by mouth ity of tablet 15:56: daily. [address] albuterol 2018-0 Yes 2.5mg Inhale 2.5 U nivers 2.5 mg /3 9-06 mg every 8 ity of mL (0.083 15:56: (eight) [place] %) 28 hours as Medical nebulizer needed. [place] solution albuterol Yes 2{puff} Inhale 2 U nivers 90 9-06 Puffs ity of mcg/actuati 15:56: every 6 [place] as on inhaler 28 (six) Medical hours as Branch needed. montelukast 2018- Yes 10mg Take 10 mg Univers 10 mg 9-06 by mouth ity of tablet 15:56: daily. [address] ezetimibe Yes 10mg Take 10 mg Un royal 10 mg 9-06 by mouth ity of tablet 15:56: daily. [address] albuterol Yes 2.5mg Inhale 2.5 U nivers 2.5 mg /3 9-06 mg every 8 ity of mL (0.083 15:56: (eight) [place] %) 28 hours as Medical nebulizer needed. [place] solution albuterol Yes 2{puff} Inhale 2 U nivers 90 9-06 Puffs ity of mcg/actuati 15:56: every 6 [place] as on inhaler 28 (six) Medical hours as Branch needed. montelukast 2018-0 Yes 10mg Take 10 mg Univers 10 mg 9-06 by mouth ity of tablet 15:56: daily. [address] ezetimibe 0 Yes 10mg Take 10 mg Un royal 10 mg 9-06 by mouth ity of tablet 15:56: daily. [address] albuterol 0 Yes 2.5mg Inhale 2.5 [...] by mouth ity of tablet 15:56: daily. [address] ezetimibe 0 Yes 10mg Take 10 mg Un royal 10 mg 9-06 by mouth ity of tablet 15:56: daily. [address] albuterol 2018-0 Yes 2.5mg Inhale 2.5 U nivers 2.5 mg /3 9-06 mg every 8 ity of mL (0.083 15:56: (eight) [place] %) 28 hours as Medical nebulizer needed. [place] solution albuterol Yes 2{puff} Inhale 2 U nivers 90 9-06 Puffs ity of mcg/actuati 15:56: every 6 [place] as on inhaler 28 (six) Medical hours as Branch needed. montelukast 2018-0 Yes 10mg Take 10 mg Univers 10 mg 9-06 by mouth ity of tablet 15:56: daily. [address] ezetimibe Yes 10mg Take 10 mg Un royal 10 mg 9-06 by mouth ity of tablet 15:56: daily. [address] albuterol 0 Yes 2.5mg Inhale 2.5 U nivers 2.5 mg /3 9-06 mg every 8 ity of mL (0.083 15:56: (eight) [place] %) 28 hours as Medical nebulizer needed. [place] solution albuterol 0 Yes 2{puff} Inhale 2 U nivers 90 9-06 Puffs ity of mcg/actuati 15:56: every 6 [place] as on inhaler 28 (six) Medical hours as Branch needed. montelukast 2018-0 Yes 10mg Take 10 mg Univers 10 mg 9-06 by mouth ity of tablet 15:56: daily. [address] lisinopril 2018-0 Yes 20mg Take 20 mg U nivers 20 mg 9-06 by mouth ity of tablet 15:53: daily. [address] foLIC acid 2018-0 Yes 1mg Take 1 mg Un royal 1 mg tablet 9-06 by mouth ity of 15:53: daily. [address] levETIRAcet 2019-0 Yes 1000mg Take 1,000 Univers am (KEPPRA) 9-06 mg by ity of 1,000 mg 15:53: mouth 2 [place] tablet 50 (two) Medical times [place] daily. amLODIPine 2019-0 Yes 10mg Take 10 mg U nivers 10 mg 9-06 by mouth ity of tablet 15:53: daily. [address] lisinopril 2019-0 Yes 20mg Take 20 mg U nivers 20 mg 9-06 by mouth ity of tablet 15:53: daily. [address] foLIC acid 2019-0 Yes 1mg Take 1 mg Un royal 1 mg tablet 9-06 by mouth ity of 15:53: daily. [address] levETIRAcet 2019-0 Yes 1000mg Take 1,000 Univers am (KEPPRA) 9-06 mg by ity of 1,000 mg 15:53: mouth 2 [place] tablet 50 (two) Medical times [place] daily. amLODIPine 2019-0 Yes 10mg Take 10 mg U nivers 10 mg 9-06 by mouth ity of tablet 15:53: daily. [address] lisinopril 2019-0 Yes 20mg Take 20 mg U nivers 20 mg 9-06 by mouth ity of tablet 15:53: daily. [address] foLIC acid 2019-0 Yes 1mg Take 1 mg Un royal 1 mg tablet 9-06 by mouth ity of 15:53: daily. [address] levETIRAcet 2019-0 Yes 1000mg Take 1,000 Univers am (KEPPRA) 9-06 mg by ity of 1,000 mg 15:53: mouth 2 [place] tablet 50 (two) Medical times [place] daily. amLODIPine 2019-0 Yes 10mg Take 10 mg U nivers 10 mg 9-06 by mouth ity of tablet 15:53: daily. [address] lisinopril 2019-0 Yes 20mg Take 20 mg U nivers 20 mg 9-06 by mouth ity of tablet 15:53: daily. [address] foLIC acid 2019-0 Yes 1mg Take 1 mg Un royal 1 mg tablet 9-06 by mouth ity of 15:53: daily. [address] levETIRAcet 2019-0 Yes 1000mg Take 1,000 Univers am (KEPPRA) 9-06 mg by ity of 1,000 mg 15:53: mouth 2 [place] tablet 50 (two) Medical times Branch daily. amLODIPine 2019-0 Yes 10mg Take 10 mg U nivers 10 mg 9-06 by mouth ity of tablet 15:53: daily. [address] lisinopril 2019-0 Yes 20mg Take 20 mg U nivers 20 mg 9-06 by mouth ity of tablet 15:53: daily. [address] foLIC acid 2019-0 Yes 1mg Take 1 mg Un royal 1 mg tablet 9-06 by mouth ity of 15:53: daily. [address] levETIRAcet 2019-0 Yes 1000mg Take 1,000 Univers am (KEPPRA) 9-06 mg by ity of 1,000 mg 15:53: mouth 2 [place] tablet 50 (two) Medical times [place] daily. amLODIPine 2019-0 Yes 10mg Take 10 mg U nivers 10 mg 9-06 by mouth ity of tablet 15:53: daily. [address] lisinopril 0 Yes 20mg Take 20 mg U nivers 20 mg 9-06 by mouth ity of tablet 15:53: daily. [address] foLIC acid 2018-0 Yes 1mg Take 1 mg Un royal 1 mg tablet 9-06 by mouth ity of 15:53: daily. [address] levETIRAcet 2018-0 Yes 1000mg Take 1,000 Univers am (KEPPRA) 9-06 mg by ity of 1,000 mg 15:53: mouth 2 [place] tablet 50 (two) Medical times [place] daily. amLODIPine 2019-0 Yes 10mg Take 10 mg U nivers 10 mg 9-06 by mouth ity of tablet 15:53: daily. [address] atorvastati 2019-0 Yes [id number] 40mg Take 1 Univers n 40 mg 9-06 07 tablet by ity of tablet 00:00: mouth at [place] [address] bedtime. [facility] atorvastati 2019-0 Yes [id number] 40mg Take 1 Univers n 40 mg 9-06 07 tablet by ity of tablet 00:00: mouth at [place] [address] bedtime. [facility] atorvastati 2019-0 Yes [id number] 40mg Take 1 Univers n 40 mg 9-06 07 tablet by ity of tablet 00:00: mouth at [place] 00 bedtime. Medical Branch atorvastati Yes [id number] 40mg Take 1 Univers n 40 mg 9- 07 tablet by ity of tablet 00:00: mouth at [place] 00 bedtime. Medical Branch atorvastati Yes [id number] 40mg Take 1 Univers n 40 mg 9- 07 tablet by ity of tablet 00:00: mouth at [place] 00 bedtime. Medical Branch atorvastati Yes [id number] 40mg Take 1 Univers n 40 mg - 07 tablet by ity of tablet 00:00: mouth at [place] 00 bedtime. Medical Branch sulfur 2019- No 5mL Univers hexafluorid 01-01 ity of e microsphr 22:30: 21:28 [place] (LUMASON) 00 :00 Medical injection 5 Branch mL sulfur 2018- No 5mL 5 mL, Univers hexafluorid 01-01 Intravenou i ty of e microsphr 22:30: 21:28 s, ONCE, 1 [place] (LUMASON) 00 :00 dose, Tue Medic al injection 5 01/01/19 at [facility] mL 1730, Routine montelukast Yes 10mg Take 10 mg Univers 10 mg 8-26 by mouth ity of tablet 14:36: daily. [address] montelukast Yes 10mg Take 10 mg Univers 10 mg 8-26 by mouth ity of tablet 14:36: daily. [address] montelukast Yes 10mg Take 10 mg Univers 10 mg 8-26 by mouth ity of tablet 14:36: daily. [address] montelukast Yes 10mg Take 10 mg Univers 10 mg 8-26 by mouth ity of tablet 14:36: daily. [address] montelukast Yes 10mg Take 10 mg Univers 10 mg 8-26 by mouth ity of tablet 14:36: daily. [address] Branch albuterol 2018-0 Yes 2{puff} Inhale [...] by mouth ity of tablet 14:34: daily. [address] ezetimibe 2019-0 Yes 10mg Take 10 mg Un royal 10 mg 8-26 by mouth ity of tablet 14:34: daily. [address] ezetimibe 2019-0 Yes 10mg Take 10 mg Un royal 10 mg 8-26 by mouth ity of tablet 14:34: daily. [address] ezetimibe 2019-0 Yes 10mg Take 10 mg Un royal 10 mg 8-26 by mouth ity of tablet 14:34: daily. [address] ezetimibe 2019-0 Yes 10mg Take 10 mg Un royal 10 mg 8-26 by mouth ity of tablet 14:34: daily. [address] foLIC acid 2019-0 Yes 1mg Take 1 mg Un royal 1 mg tablet 8-21 by mouth ity of 14:22: daily. [address] levETIRAcet 2019-0 Yes 1000mg Take 1,000 Univers am (KEPPRA) 8-21 mg by ity of 1,000 mg 14:22: mouth 2 [place] tablet 48 (two) Medical times [place] daily. amLODIPine 2019-0 Yes 10mg Take 10 mg U nivers 10 mg 8-21 by mouth ity of tablet 14:22: daily. [address] foLIC acid 2019-0 Yes 1mg Take 1 mg Un royal 1 mg tablet 8-21 by mouth ity of 14:22: daily. [address] levETIRAcet 2019-0 Yes 1000mg Take 1,000 Univers am (KEPPRA) 8-21 mg by ity of 1,000 mg 14:22: mouth 2 [place] tablet 48 (two) Medical times [place] daily. amLODIPine 2019-0 Yes 10mg Take 10 mg U nivers 10 mg 8-21 by mouth ity of tablet 14:22: daily. [address] foLIC acid 2019-0 Yes 1mg Take 1 mg Un royal 1 mg tablet 8-21 by mouth ity of 14:22: daily. [address] levETIRAcet 2019-0 Yes 1000mg Take 1,000 Univers am (KEPPRA) 8-21 mg by ity of 1,000 mg 14:22: mouth 2 [place] tablet 48 (two) Medical times [place] daily. amLODIPine 2019-0 Yes 10mg Take 10 mg U nivers 10 mg 8-21 by mouth ity of tablet 14:22: daily. [address] foLIC acid 2019-0 Yes 1mg Take 1 mg Un royal 1 mg tablet 8-21 by mouth ity of 14:22: daily. [address] levETIRAcet 2019-0 Yes 1000mg Take 1,000 Univers am (KEPPRA) 8-21 mg by ity of 1,000 mg 14:22: mouth 2 [place] tablet 48 (two) Medical times [place] daily. amLODIPine 2019-0 Yes 10mg Take 10 mg U nivers 10 mg 8-21 by mouth ity of tablet 14:22: daily. [address] foLIC acid 2019-0 Yes 1mg Take 1 mg Un royal 1 mg tablet 8-21 by mouth ity of 14:22: daily. [address] levETIRAcet 2019-0 Yes 1000mg Take 1,000 Univers am (KEPPRA) 8-21 mg by ity of 1,000 mg 14:22: mouth 2 [place] tablet 48 (two) Medical times [place] daily. amLODIPine 2019-0 Yes 10mg Take 10 mg U nivers 10 mg 8-21 by mouth ity of tablet 14:22: daily. [address] foLIC acid 2019-0 Yes 1mg Take 1 mg Un royal 1 mg tablet 8-21 by mouth ity of 14:22: daily. [address] levETIRAcet 2019-0 Yes 1000mg Take 1,000 Univers am (KEPPRA) 8-21 mg by ity of 1,000 mg 14:22: mouth 2 [place] tablet 48 (two) Medical times [place] daily. amLODIPine 2019-0 Yes 10mg Take 10 mg U nivers 10 mg 8-21 by mouth ity of tablet 14:22: daily. [address] foLIC acid 2019-0 Yes 1mg Take 1 mg Un royal 1 mg tablet 8-21 by mouth ity of 14:22: daily. [address] levETIRAcet 2019-0 Yes 1000mg Take 1,000 Univers am (KEPPRA) 8-21 mg by ity of 1,000 mg 14:22: mouth 2 [place] tablet 48 (two) Medical times [place] daily. amLODIPine 2019-0 Yes 10mg Take 10 mg U nivers 10 mg 8-21 by mouth ity of tablet 14:22: daily. [address] foLIC acid 2019-0 Yes 1mg Take 1 mg Un royal 1 mg tablet 8-21 by mouth ity of 14:22: daily. [address] levETIRAcet 2019-0 Yes 1000mg Take 1,000 Univers am (KEPPRA) 8-21 mg by ity of 1,000 mg 14:22: mouth 2 [place] tablet 48 (two) Medical times [place] daily. amLODIPine 2019-0 Yes 10mg Take 10 mg U nivers 10 mg 8-21 by mouth ity of tablet 14:22: daily. [address] foLIC acid 2019-0 Yes 1mg Take 1 mg Un royal 1 mg tablet 8-21 by mouth ity of 14:22: daily. [address] levETIRAcet 2019-0 Yes 1000mg Take 1,000 Univers am (KEPPRA) 8-21 mg by ity of 1,000 mg 14:22: mouth 2 [facility] 48 (two) Medical times [place] daily. amLODIPine 2019-0 Yes 10mg Take 10 mg U nivers 10 mg 8-21 by mouth ity of tablet 14:22: daily. [address] foLIC acid 2019-0 Yes 1mg Take 1 mg Un royal 1 mg tablet 8-21 by mouth ity of 14:22: daily. [address] levETIRAcet 2019-0 Yes 1000mg Take 1,000 Univers am (KEPPRA) 8-21 mg by ity of 1,000 mg 14:22: mouth 2 [place] tablet 48 (two) Medical times [place] daily. amLODIPine 2019-0 Yes 10mg Take 10 mg U nivers 10 mg 8-21 by mouth ity of tablet 14:22: daily. [address] lisinopril 2019-0 Yes 20mg Take 20 mg U nivers 20 mg 8-21 by mouth ity of tablet 14:22: daily. [address] lisinopril 2019-0 Yes 20mg Take 20 mg U nivers 20 mg 8-21 by mouth ity of tablet 14:22: daily. [address] lisinopril 2019-0 Yes 20mg Take 20 mg U nivers 20 mg 8-21 by mouth ity of tablet 14:22: daily. [address] lisinopril Yes 20mg Take 20 mg U nivers 20 mg 8-21 by mouth ity of tablet 14:22: daily. [address] lisinopril Yes 20mg Take 20 mg U nivers 20 mg 8-21 by mouth ity of tablet 14:22: daily. [address] lisinopril Yes 20mg Take 20 mg U nivers 20 mg 8-21 by mouth ity of tablet 14:22: daily. [address] lisinopril Yes 20mg Take 20 mg U nivers 20 mg 8-21 by mouth ity of tablet 14:22: daily. [address] lisinopril Yes 20mg Take 20 mg U nivers 20 mg 8-21 by mouth ity of tablet 14:22: daily. [address] lisinopril Yes 20mg Take 20 mg U nivers 20 mg 8-21 by mouth ity of tablet 14:22: daily. [address] lisinopril Yes 20mg Take 20 mg U nivers 20 mg 8-21 by mouth ity of tablet 14:22: daily. [address] atorvastati 2017-05 Yes 80mg Take 1 Univ ers n 80 mg 2-06 tablet by ity of tablet 00:00: mouth at [place] [address] bedtime. Medical onstatin Branch per recent notes. Updated chart with new order atorvastati 2017-05 Yes 80mg Take 1 Univ ers n 80 mg 2-06 tablet by ity of tablet 00:00: mouth at [place] [address] bedtime. Medical onstatin Branch per recent notes. Updated chart with new order atorvastati 2017-05 Yes 80mg Take 1 Univ ers n 80 mg 2-06 tablet by ity of tablet 00:00: mouth at [place] [address] bedtime. Medical onstatin Branch per recent notes. Updated chart with new order atorvastati 2017-05 Yes 80mg Take 1 Univ ers n 80 mg 2-06 tablet by ity of tablet 00:00: mouth at [place] [address] bedtime. Medical onstatin Branch per recent notes. [...] by ity of tablet 00:00: mouth at [place] 00 bedtime. Medical onstatin Branch per recent notes. Updated chart with new order atorvastati 2017-05 Yes 80mg Take 1 Univ ers n 80 mg 2-06 tablet by ity of tablet 00:00: mouth at [place] 00 bedtime. Medical onstatin Branch per recent notes. Updated chart with new order atorvastati 2017-05 Yes 80mg Take 1 Univ ers n 80 mg 2-06 tablet by ity of tablet 00:00: mouth at [place] 00 bedtime. Medical onstatin Branch per recent notes. Updated chart with new order atorvastati 2017-05 Yes 80mg Take 1 Univ ers n 80 mg 2-06 tablet by ity of tablet 00:00: mouth at [place] 00 bedtime. Medical onstatin Branch per recent notes. Updated chart with new order atorvastati 2017-05 Yes 80mg Take 1 Univ ers n 80 mg 2-06 tablet by ity of tablet 00:00: mouth at [place] 00 bedtime. Medical onstatin Branch per recent notes. Updated chart with new order atorvastati 2017-05 Yes 80mg Take 1 Univ ers n 80 mg 2-06 tablet by ity of tablet 00:00: mouth at [place] 00 bedtime. Medical onstatin Branch per recent notes. Updated chart with new order atorvastati 2017-05 Yes 80mg Take 1 Univ ers n 80 mg 2-06 tablet by ity of tablet 00:00: mouth at [place] 00 bedtime. Medical onstatin Branch per recent notes. Updated chart with new order atorvastati 2017-05 Yes 80mg Take 1 Univ ers n 80 mg 2-06 tablet by ity of tablet 00:00: mouth at [place] 00 bedtime. Medical onstatin Branch per recent notes. Updated chart with new order atorvastati 2017-05 Yes 80mg Take 1 Univ ers n 80 mg 2-06 tablet by ity of tablet 00:00: mouth at [place] 00 bedtime. Medical onstatin Branch per recent [...] by ity of tablet 00:00: mouth at [place] 00 bedtime. Medical onstatin Branch per recent notes. Updated chart with new order amLODIPine Yes 10mg Take 10 mg U nivers 10 mg 8-21 by mouth ity of tablet 14:41: daily. [place] [address] Medical Branch lisinopril Yes 20mg Take 20 mg U nivers 20 mg 8-21 by mouth ity of tablet 14:41: daily. [place] [address] Medical Branch foLIC acid Yes 1mg Take 1 mg Un royal 1 mg tablet 8-21 by mouth ity of 14:41: daily. [place] [address] Medical Branch levETIRAcet Yes 1000mg Take 1,000 [...] 15:52:00 133 mm[Hg] Univer sity of pressure [place] [facility] Diastolic blood 2019-01-04 15:52:00 67 mm[Hg] Unive rsity of pressure [facility] Branch Heart rate 2019-01-04 15:52:00 75 /min [facility] Body temperature 2019-01-04 15:52:00 36.78 Janett Univ ersity [facility] Respiratory rate 2019-01-04 15:52:00 20 /min Univ ersity of [place] [facility] Body weight 2019-01-04 15:52:00 84.732 kg Universi ty of [place] [facility] BMI 2019-01-04 15:52:00 29.26 kg/m2 Universi ty of [place] [facility] Systolic blood 2019-01-04 15:52:00 133 mm[Hg] Univer sity of pressure [place] [facility] Diastolic blood 2019-01-04 15:52:00 67 mm[Hg] Unive rsity of pressure [place] [facility] Heart rate 2019-01-04 15:52:00 75 /min Universi ty of [place] [facility] Body temperature 2019-01-04 15:52:00 36.78 Janett Univ ersity of [place] [facility] Respiratory rate 2019-01-04 15:52:00 20 /min Univ ersity of [place] [facility] Body weight 2019-01-04 15:52:00 84.732 kg Universi ty of [place] [facility] BMI 2019-01-04 15:52:00 29.26 kg/m2 Universi ty of [place] [facility] Systolic blood 2018-12-19 14:21:00 111 mm[Hg] Univer sity of pressure [place] [facility] Diastolic blood 2018-12-19 14:21:00 62 mm[Hg] Unive rsity of pressure [place] [facility] Heart rate 2018-12-19 14:21:00 68 /min Universi ty of [place] [facility] Respiratory rate 2018-12-19 14:21:00 18 /min Univ ersity of [place] [facility] Body height 2018-12-19 14:21:00 170.2 cm Universi ty of [place] [facility] Body weight 2018-12-19 14:21:00 85.684 kg Universi ty of [place] [facility] BMI 2018-12-19 14:21:00 29.59 kg/m2 Universi ty of [place] [facility] Oxygen saturation in 2018-12-19 14:21:00 97 /min [facility] Arterial blood by [facility] Pulse oximetry Branch Systolic blood 2019-01-01 20:52:00 141 mm[Hg] Univer sity of pressure [place] [facility] Diastolic blood 2019-01-01 20:52:00 71 mm[Hg] Unive rsity of pressure [place] [facility] Heart rate 2019-01-01 20:52:00 87 /min Universi ty of [place] [facility] Body height 2019-01-01 20:52:00 170.2 cm [facility] Body weight 2019-01-01 20:52:00 85.276 kg [facility] BMI 2019-01-01 20:52:00 29.44 kg/m2 [facility] Procedures Procedure Date / Time Performed Performing Clinician Britta campos CT ANGIOGRAM NECK 2019-01-11 17:12:41 Adolph Huitron [facility] CT ANGIOGRAM HEAD 2019-01-11 17:10:04 Adolph Huitron [facility] NOTICE OF BILLING 2019-01-11 15:34:57 Doctor Unassigned, No [facility] PRACTICES FOR MEDICARE Name Medical B ranch PATIENTS [facility] PATIENT FINANCIAL 2019-01-11 15:34:09 Doctor Unassigned, No [facility] POCT CREATININE 2019-01-11 15:10:00 Iliana Pinto [facility] EKG-12 LEAD 2018-12-19 14:29:02 Sudhir Saravia [facility] ASSIGNMENT OF BENEFITS 2018-12-19 14:07:02 Doctor Unassigned, No [facility] Encounters Start End Encounter Admission Attending Care Care Encounter Source Date/Time Date/Time Type Type Clinicians Facility Department ID 2021-11-10 2021-11-10 Outpatient COLETTE DOSHI [id number] [place] 02:08:00 02:08:00 [place] [id number] da [facility] Program 2021-10-14 2021-10-14 Outpatient FOG_Loncari AOSM AOSM [id number] Jennifer 02:06:00 02:06:00 Camilla [id number] [facility] 2021-10-05 2021-10-05 Outpatient FOG_Loncari AOSM AOSM [id number] Jennifer 08:13:00 08:13:00 Camilla [id number] Orth [facility] e 2020-01-22 2020-01-22 Outpatient Juan Manuel SARAVIA [facility] [id number] Univers 15:20:00 15:20:00 SUDHIR garcia [facility] 2019-12-23 2019-12-23 Outpatient R RANI, [facility] [id number] Univers 09:40:00 09:40:00 SUDHIR calderon o f [facility] 2019-09-11 2019-09-11 Telephone FUAD JamesIT [id number] 00:00:00 00:00:00 [facility] [id number] CLINICS [id number] [facility] 2019-09-11 2019-09-11 Telephone Erika, FUADIT [id number] [facility] 00:00:00 00:00:00 Royal R Y HEALTH [id number] ity of [facility] [id number] [facility] s [id number] [address] 2019-08-27 2019-08-27 Outpatient C_Hall MMG MMG [id number] [place] 04:13:00 04:13:00 [facility] Medical Group 2019-01-11 2019-01-11 [place] [id number] 10:33:32 23:59:00 Encounter Iliana Alexander [id number] [place] [id number] [place] [id number] [facility] 2019-01-11 2019-01-11 [place] [id number] [facility] 10:33:32 23:59:00 Encounter Iliana Alexander [id number] ity of [place] [id number] [facility] [place] [id number] [address] 2019-01-11 2019-01-11 [facility] [id number] 10:20:00 10:32:00 Encounter Iliana Alexander [id number] [place] [id number] [place] [id number] [facility] 2019-01-11 2019-01-11 [place] [id number] [facility] 10:20:00 10:32:00 Encounter Iliana Alexander [id number] it[place] of [place] [phone] [facility] [place] [address] 2019-01-04 2019-01-04 Office [facility] [id number] [facility] 10:21:42 18:59:26 Visit Iliana Catherine [id number] it[place] of [place] [phone] [facility] 2019-01-04 2019-01-04 Office [facility] [id number] 10:21:42 18:59:26 Visit Iliana Catherine [id number] [place] 4.2.7.2.686 Professio [phone] [address] 2018-12-19 2019-01-03 Office [facility] [id number] [facility] 09:07:06 15:22:45 Visit Sudhir Alexander [id number] [place] of [place] [phone] [address] 2019-01-03 2019-01-03 [facility] [id number] [facility] 00:00:00 00:00:00 Miguedenysjelena Catherine [id number] [place] of [place] [phone] [address] 2019-01-01 2019-01-01 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 [id number] [facility] 14:30:23 16:38:50 Only 1, Ad[facility] 350.1. 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 [id number] [facility] 14:29:39 15:29:39 Visit 2, Adc Cardio Fac [place] 350.1. 13.10 ity of [place] 4.2.7.2.686 [place] Profess[place] [phone] Sc dicdania nal [address] 2018-12-24 2018-12-24 Telephone KHANG Saravia [id number] Univers 00:00:00 00:00:00 Sudhir Alexander [id number] ity of [place] 4.2.7.2.686 [facility] [phone] Sc dicdania nal 059 Branch [facility] 2018-12-19 2018-12-19 Orders Doctor DELTA [id number] Univers 00:00:00 00:00:00 Only Unassigned, DONITA 350.1.13.10 ity of [place] [facility] 4.2.7.2.686 [place] [phone] [facility] sha 009 Branch Results Test Test Test Results Result Source Description Time Comments Comments CT ANGIOGRAM 2018-12 Nonvisualization of the left [facility] -13 internal carotid artery from [facility] 19:52:1 its cervicalorigin/carotid Branch 1 bifurcation up [...] NECK: A three-vessel aortic arch is seen. Hnmd-eo-ikyrlcxz atheroscleroticdisease is noted in the arch. The vessels originating from the arch arepatent. Mild scattered atherosclerotic disease is noted in the common carotidarteries bilaterally, left greater than right. No flow-limiting stenosis isidentified. Rpmf-ju-qwefiqyb atherosclerotic disease is seen in the left [...] NECK: A three-vessel aortic arch is seen. Vsyw-sw-jtjplyyh atheroscleroticdisease is noted in the arch. The vessels originating from the arch arepatent.Mild scattered atherosclerotic disease is noted in the common carotidarteries bilaterally, left greater than right. No flow-limiting stenosis isidentified.Jiuf-qp-djmyjttf atherosclerotic disease is seen in the left [...] of HEAD -13 internal carotid artery from [facility] 19:52:1 its cervicalorigin/carotid Branch 1 bifurcation up [...] NECK: A three-vessel aortic arch is seen. Lehs-lt-usgaknfu atheroscleroticdisease is noted in the arch. The vessels originating from the arch arepatent. Mild scattered atherosclerotic disease is noted in the common carotidarteries bilaterally, left greater than right. No flow-limiting stenosis isidentified. Udot-vv-gyvjufvl atherosclerotic disease is seen in the left [...] NECK: A three-vessel aortic arch is seen. Ulyp-jo-jgikuady atheroscleroticdisease is noted in the arch. The vessels originating from the arch arepatent.Mild scattered atherosclerotic disease is noted in the common carotidarteries bilaterally, left greater than right. No flow-limiting stenosis isidentified.Twyg-kp-mobqvzhb atherosclerotic disease is seen in the left [...] Comme nts POCT Creatinine (test code = [id number]) 0.8 mg/dL 0.6-1.3 Lab Interpretation (test code = 81017-0) Normal [facility]
[2022-12-18 00:34] LABS: Absolute Lymphocytes (CBC) 2.1 K/uL (0.7-4.9); Hematocrit 36.8 % (39.6-49.0); MCV 97.4 fL (80-100); Platelets 199 thou/uL (152-406); RBC Red Blood Cell Count 3.78 M/uL (4.33-5.43)
[2022-12-18 00:53] LABS: Albumin 3.5 g/dL (3.4-5.0); Magnesium 1.8 mg/dL (1.6-2.4); Potassium 3.2 mEq/L (3.5-5.1); Protein, Total 6.9 g/dL (6.4-8.2); Troponin High Sensitivity 7.3 pg/mL (<58.9)
--- NOTE | 2022-12-18 02:10 | ER ---
Nurse's Notes [facility] Name: Houston Neely Age: 72 yrs Sex: Male : 1950 Arrival Date: 12/17/2022 Time: 23:59 Bed 3 Private MD: Diagnosis: Weakness;Cephalgia;Nonspecific chest pain Presentation: 12/18 00:01 Chief complaint: EMS states: daughter reported pt has seemed weaker and walking slower jw7 than normal. Pt has a past history of CVA with right sided deficits. Coronavirus screen: At this time, the client does not indicate any symptoms associated with coronavirus-19. Ebola Screen: No symptoms or risks identified at this time. Initial Sepsis Screen: Does the patient meet any 2 criteria? No. Patient's initial sepsis screen is negative. Does the patient have a suspected source of infection? No. Patient's initial sepsis screen is negative. Risk Assessment: Do you want to hurt yourself or someone else? Patient reports no desire to harm self or others. Onset of symptoms was December 17, 2022. 00:01 Method Of Arrival: EMS: [facility] 7 00:01 Acuity: CHUCK 3 jw7 Triage Assessment: 00:06 General: Appears in no apparent distress. comfortable, Behavior is calm, cooperative. jw7 Pain: Denies pain. EENT: No deficits noted. No signs and/or symptoms were reported regarding the EENT system. 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 Facial droop on right, Pupils are PERRLA. Cardiovascular: No deficits noted. Capillary refill < 3 seconds Clubbing of nail beds is absent JVD is absent Patient's skin is warm and dry. Respiratory: No deficits noted. Airway is patent Trachea midline Respiratory effort is even, unlabored, Respiratory pattern is regular, symmetrical. GI: No deficits noted. No signs and/or symptoms were reported involving the gastrointestinal system. Abdomen is flat, non-distended. : No deficits noted. No signs and/or symptoms were reported regarding the genitourinary system. Derm: No deficits noted. No signs and/or symptoms reported regarding the dermatologic system. Skin is intact, is healthy with good turgor, Skin is dry, Skin is normal, Skin temperature is warm. Musculoskeletal: Circulation, motion, and sensation intact. Capillary refill < 3 seconds. Musculoskeletal: Historical: - Allergies: 00:06 Unable to obtain; jw7 - Home Meds: 00:06 aspirin 81 mg Oral tablet, delayed release (enteric coated) [Active]; atorvastatin 80 jw7 mg Oral tablet [Active]; Keppra 1,000 mg Oral tablet [Active]; lisinopril 20 mg Oral tab 1 tab once daily [Active]; - PMHx: 00:06 CVA; Hypertension; R sided weakness; Seizures; jw7 - PSHx: 00:06 Cholecystectomy; jw7 - Immunization history:: Client reports having NOT received the Covid vaccine. - Social history:: Smoking status: Patient denies any tobacco usage or history of. Screenin:15 Abuse screen: Denies threats or abuse. Denies injuries from another. Nutritional jw7 screening: No deficits noted. Tuberculosis screening: No symptoms or risk factors identified. 00:46 [facility] ED Fall Risk Assessment (Adult) History of falling in the last 3 months, jw7 including since admission Yes- physiologic fall (2 pts) Confusion or Disorientation No (0 pts) Intoxicated or Sedated No (0 pts) Impaired Gait Yes (1 pt) Mobility Assist Device Used Yes (1 pt) Altered Elimination No (0 pt) Score/Fall Risk Level 3 or more points = High Risk Oriented to surroundings, Maintained a safe environment, Educated pt \T\ family on fall prevention, incl call for assistance when getting out of bed, Hourly rounding (assess needs \T\ fall precautionary measures) done. Assessment: 01:12 Reassessment: Patient appears in no apparent distress at this time. No changes from jw7 previously documented assessment. Patient and/or family updated on plan of care and expected duration. Pain level reassessed. Patient is alert, oriented x 3, equal unlabored respirations, skin warm/dry/pink. Patient denies pain at this time. 01:59 General: Zbpqbykw-tb-fgd: Agatha #[phone]. jw7 02:00 Reassessment: Patient appears in no apparent distress at this time. No changes from jw7 previously documented assessment. Patient and/or family updated on plan of care and expected duration. Pain level reassessed. Patient is alert, oriented x 3, equal unlabored respirations, skin warm/dry/pink. Patient denies pain at this time. 02:02 General: Eknphsro-pg-guq called, is on the way to pickup. jw7 Vital Signs: 00:01 BP 158 / 82; Pulse 77; Resp 18 S; Temp 97.8; Pulse Ox 99% on R/A; Weight 67 kg; Height jw7 5 ft. 11 in. ; 00:30 BP 152 / 77; Pulse 68; Resp 18 S; Pulse Ox 100% on R/A; jw7 02:02 BP 164 / 81; Pulse 70; Resp 19 S; Pulse Ox 100% on R/A; jw7 00:01 Body Mass Index 20.60 (67.00 kg, 180.34 cm) jw7 ED Course: 00:01 Patient arrived in ED. jw7 00:06 Triage completed. jw7 00:14 Hannah Arenas MD is Attending Physician. sd2 00:14 Arm band placed on. jw7 00:15 Patient has correct armband on for positive identification. Placed in gown. Bed in low jw7 position. Call light in reach. Side rails up X 1. 00:15 Maintain EMS IV. Dressing intact. Site clean \T\ dry. Gauge \T\ site: 20g L hand. jw 7 00:22 Crystal Raya, RN is Primary Nurse. jw7 00:36 XRAY Chest (1 view) In Process Unspecified. EDMS 01:04 CT Head Brain wo Cont In Process Unspecified. EDMS 01:12 Warm blanket given. Assisted to bathroom. Assisted with urinal. jw7 02:44 No provider procedures requiring assistance completed. IV discontinued, intact, jw7 bleeding controlled, No redness/swelling at site. Pressure dressing applied. 02:45 Provided Education on: discharge instructions. jw7 Administered Medications: No medications were administered Medication: 02:45 VIS not applicable for this client. jw7 Outcome: 02:10 Discharge ordered by . sd2 02:44 Discharged to home via wheelchair, with family. jw7 02:44 Condition: stable 02:44 Discharge instructions given to patient, family, Instructed on discharge instructions, follow up and referral plans. Demonstrated understanding of instructions, follow-up care. 02:45 Patient left the ED. jw7 Signatures: Dispatcher Crystal Figueredo RN RN jw7 Hannah Arenas MD MD sd2
--- NOTE | 2022-12-18 02:10 | EDPHYS ---
Physician Documentation [facility] Name: Houston Neely Age: 72 yrs Sex: Male : 1950 Arrival Date: 12/17/2022 Time: 23:59 Bed 3 Private MD: ED Physician Hannah Arenas HPI: 12/18 00:15 This 72 yrs old Male presents to ER via EMS with complaints of chest pain, sd2 headache. 00:15 72 yo M presents via EMS with CC of CP and headache. Per EMS report, patient's daughter sd2 called due to concern he was appearing weak when trying to walk with his walker. Prior hx of CVA with residual R sided weakness. The patient reports he felt normal and did not feel he was having any issues walking. EMS reports the pt only complained of CP and headache upon their arrival. 2 ASA 81 mg were given with complete resolution of symptoms. pt with no pain or complaints at this time. . Historical: - Allergies: 00:06 Unable to obtain; jw7 - Home Meds: 00:06 aspirin 81 mg Oral tablet, delayed release (enteric coated) [Active]; atorvastatin 80 jw7 mg Oral tablet [Active]; Keppra 1,000 mg Oral tablet [Active]; lisinopril 20 mg Oral tab 1 tab once daily [Active]; - PMHx: 00:06 CVA; Hypertension; R sided weakness; Seizures; jw7 - PSHx: 00:06 Cholecystectomy; jw7 - Immunization history:: Client reports having NOT received the Covid vaccine. - Social history:: Smoking status: Patient denies any tobacco usage or history of. ROS: 00:15 Constitutional: Negative for fever, chills, and weight loss, Eyes: Negative for injury, sd2 pain, redness, and discharge, Cardiovascular: Positive for chest pain, Negative for palpitations, and edema, Respiratory: Negative for shortness of breath, cough, wheezing. Abdomen/GI: Negative for abdominal pain, nausea, vomiting, diarrhea. MS/Extremity: Negative for injury and deformity, Skin: Negative for injury, rash, and discoloration, Neuro: Positive for headache, Negative for numbness and tingling. Exam: 00:15 Constitutional: This is a well developed, well nourished patient who is awake, alert, sd2 and in no acute distress. Head/Face: Normocephalic, atraumatic. Eyes: EOMI, normal conjunctiva bilaterally Chest/axilla: Normal chest wall appearance and motion. Nontender with no deformity. Cardiovascular: Regular rate and rhythm with a normal S1 and S2. No gallops, murmurs, or rubs. 2+ distal pulses. Respiratory: Lungs have equal breath sounds bilaterally, clear to auscultation and percussion. No rales, rhonchi or wheezes noted. No increased work of breathing, no retractions or nasal flaring. Abdomen/GI: Soft, non-tender, with normal bowel sounds. No guarding or rebound. No evidence of tenderness throughout. Skin: Warm, dry with normal turgor. Normal color with no rashes, no lesions, and no evidence of cellulitis. MS/ Extremity: Pulses equal, no cyanosis. Neurovascular intact. Full, normal range of motion. Ambulatory without difficulty. Psych: Awake, alert, with orientation to person, place and time. Behavior, mood, and affect are within normal limits. 01:02 ECG was reviewed by the Attending Physician. NSR, rate 67, no STEMI criteria sd2 Vital Signs: 00:01 BP 158 / 82; Pulse 77; Resp 18 S; Temp 97.8; Pulse Ox 99% on R/A; Weight 67 kg; Height jw7 5 ft. 11 in. ; 00:30 BP 152 / 77; Pulse 68; Resp 18 S; Pulse Ox 100% on R/A; jw7 02:02 BP 164 / 81; Pulse 70; Resp 19 S; Pulse Ox 100% on R/A; 7 00:01 Body Mass Index 20.60 (67.00 kg, 180.34 cm) [facility] MDM: 00:14 Patient medically screened. sd2 00:15 Differential Diagnosis Differential diagnosis includes but is not limited to: ACS, sd2 DVT/PE, pneumothorax, dissection, musculoskeletal, anxiety, anemia, electrolyte abnormality, pneumonia, CHF, COPD among others. 02:03 Data reviewed: vital signs, nurses notes, EMS record, lab test result(s), EKG, sd2 radiologic studies. Consideration of Admission/Observation Escalation of care including admission/observation considered. I considered the following discharge prescriptions or medication management in the emergency department Medications were administered in the Emergency Department. See MAR. Independent interpretation of the following test(s) in the Emergency Department X-Ray: My interpretation is no acute changes. Independent interpretation of the following test(s) in the Emergency Department CT Scan: My interpretation is no bleed. Historians other than the Patient: EMS: provides initial report. Daughter/Son: provides further HPI on the phone. She was concerned for possible seizure as patient had similar activity prior to having a large seizure in the past. Pt has been compliant with his home Keppra per his daughter's report with no missed doses. . Care significantly affected by the following chronic conditions: Hypertension, Seizures, CVA. Counseling: I had a detailed discussion with the patient and/or guardian regarding the historical points, exam findings, and any diagnostic results supporting the discharge/admit diagnosis, lab results, radiology results, the need for outpatient follow up, to return to the emergency department if symptoms worsen or persist or if there are any questions or concerns that arise at home. ED course: Discussed results with patient. He feels well with no complaints and remains asymptomatic. Advised continued home meds and follow up outpatient with PCP. Pt verbalizes understanding of discharge plan and strict return precautions. . 12/18 00:15 Order name: CBC with Diff; Complete Time: 00:56 sd2 12/18 00:15 Order name: CMP; Complete Time: 00:56 sd2 12/18 00:15 Order name: Magnesium; Complete Time: 00:56 sd2 12/18 00:15 Order name: Troponin High Sensitivity; Complete Time: 00:56 sd2 12/18 00:15 Order name: BNP; Complete Time: 00:56 sd2 12/18 00:15 Order name: XRAY Chest (1 view) sd2 12/18 00:15 Order name: CT Head Brain wo Cont sd2 Administered Medications: No medications were administered Disposition Summary: 12/18/22 02:10 Discharge Ordered Location: Home sd2 Problem: new sd2 Symptoms: are resolved sd2 Condition: Stable sd2 Diagnosis - Weakness sd2 - Cephalgia sd2 - Nonspecific chest pain sd2 Followup: sd2 - With: Private Physician - When: 2 - 3 days - Reason: Recheck today's complaints, Continuance of care, Re-evaluation by your physician Discharge Instructions: - Discharge Summary Sheet sd2 - Nonspecific Chest Pain, Adult sd2 - General Headache Without Cause sd2 - Weakness sd2 Forms: - Medication Reconciliation Form sd2 - Thank You Letter sd2 - Antibiotic Education sd2 - Prescription Opioid Use sd2 - Patient Portal Instructions sd2 - Leadership Thank You Letter sd2 Signatures: Dispatcher [employer] Crystal Coughlin RN RN jw7 Hannah Arenas MD MD sd2 Corrections: (The following items were deleted from the chart) 00:18 00:15 Constitutional: Negative for fever, chills, and weight loss, Eyes: Negative for sd2 injury, pain, redness, and discharge, Cardiovascular: Negative for chest pain, palpitations, and edema, Respiratory: Negative for shortness of breath, cough, wheezing. Abdomen/GI: Negative for abdominal pain, nausea, vomiting, diarrhea. MS/Extremity: Negative for injury and deformity, Skin: Negative for injury, rash, and discoloration, Neuro: Negative for headache, numbness and tingling. sd2
[2022-12-18 02:56] VITALS: TEMP 97.8
[2022-12-18 02:58] VITALS: O2SAT 100
[2022-12-18 02:59] VITALS: BP 164/81
--- NOTE | 2022-12-18 07:44 | RAD REPORT ---
EXAM DESCRIPTION: CT - Head Brain Wo Cont - 12/18/2022 6:36 am CLINICAL HISTORY: HEADACHE COMPARISON: Ct Stroke Brain Wo Cont dated 01/30/2022; Head Brain Wo Cont dated 03/14/2021 TECHNIQUE: All CT scans are performed using dose optimization technique as appropriate and may inclu de automated exposure control or mA/KV adjustment according to patient size. FINDINGS: No intracranial hemorrhage, hydrocephalus or extra-axial fluid collection.No areas of brai n edema or evidence of midline shift. The paranasal sinuses and mastoids are clear. The calvarium is intact. IMPRESSION: No acute intracranial abnormality.
--- NOTE | 2022-12-18 07:44 | RAD REPORT ---
EXAM DESCRIPTION: RAD - Chest Single View - 12/18/2022 12:34 am CLINICAL HISTORY: CHEST PAIN COMPARISON: Chest Single View dated 08/10/2022; Chest Single View dated 08/08/2022; Chest Single View dated 01/30/2022; Chest Single View dated 03/03/2021 FINDINGS: Lines: None. Lungs: No evidence of edema or pneumonia. Pleural: No significant pleural effusions or pneumothorax. Cardiac: The heart size is within normal limits. Mediastinum: Within normal limits. Bones: No acute fractures. Other: None IMPRESSION: No acute cardiopulmonary disease.
--- NOTE | 2022-12-19 18:00 | EKG ---
Test Date: 2022-12-18 Test Time: 00:36:07 Die Repairer Stamping: MEASUREMENT RESULTS: Intervals: Rate: 67 [place]: 190 QRSD: 84 QT: 390 QTc: 412 [place]: P: 49 [place]: 190 QRS: 34 T: 42 INTERPRETIVE STATEMENTS: Normal sinus rhythm Nonspecific ST abnormality Abnormal ECG Compared to ECG 11/28/2022 22:41:33 No significant changes Electronically Signed On 12-19-22 17:57:20 CDT by Loc Geronimo
== END 2022-12-18 02:45 | disposition home or self-care (01) ==
LOC: ER 23:59
DX: R07.9 Chest pain, unspecified (principal); R51.9 Headache, unspecified; R53.1 Weakness; I10 Essential (primary) hypertension; Z86.73 Personal history of transient ischemic attack (TIA), and cerebral infarction without residual deficits; Z79.82 Long term (current) use of aspirin
CPT/HCPCS: 36415; 70450; 71045; 80053; 83735; 83880; 84484; 85025; 93005; 99283

== ENCOUNTER 2023-03-07 11:08 | Inpatient (IN) | payer OTHER ==
--- OUTSIDE RECORDS SUMMARY | 2023-03-07 11:11 | XMS REPORT | Continuity of Care Document ---
:1950 Author Organization [facility] t Address [address] [place] [address] [place] [id number] Care Team Providers Name Role Phone TOYA Attending Clinician Unavailable Kendra Attending Clinician Unavailable SUDHIR SARAVIA Attending Clinician Unavailable Royal Rice Attending Clinician Toni Attending Clinician Unavailable Iliana Pinto MD Attending Clinician Sudhir Saravia MD Attending Clinician [facility] Cardio Fac Attending Clinician Unavailable 1, [facility] Cardio Fac Room Attending Clinician Unavailable 2, [facility] Cardio Fac Room Attending Clinician Unavailable Doctor Unassigned, [place] Attending Clinician Unavailable TOYA Admitting Clinician Unavailable Kendra Admitting Clinician Unavailable Toni Admitting Clinician Unavailable Payers Payer Name Policy Type Policy Number Effective Date Expiration Date S jose [place]: [id number] 2016 [employer] 00:00:00 MEDICARE PART A [id number] 2016 \T\ B 00:00:00 MEDICAID OF [place] [id number] 2016 00:00:00 Problems This patient has no known problems. Allergies, Adverse Reactions, Alerts Allergy Allergy Status Severity Reaction(s) Onset Inactive Treating Comm ents Source Name Type Date Date Clinician NO KNOWN Drug Active Univers ALLERGMAY [facility] ity of [facility] Social History Social Habit Start Date Stop Date Quantity Comments Source History of tobacco Cigarette Smoker University of use [facility] Sex Assigned At Universit y of [facility] Cigarettes smoked 2018-12-19 2018-12-19 Univers ity of current (pack per 00:00:00 00:00:00 [place] ) - Reported Branch Alcohol intake 2018-12-19 2018-12-19 University 00:00:00 00:00:00 [facility] Smoking Status Start Date Stop Date Source Current every day smoker 2018-12-19 00:00:00 Uni versity of [facility] Medications Ordered Filled Start Stop Current Ordering Indication Dosage Frequency Signature Comments Components Source Medication Medication Date Date Medication? Clinician (SIG) Name Name atorvastati 2020- No [id number] 40mg Take 1 Univers n 40 mg 09-10 tablet by ity of tablet 00:00: 04:59 mouth at [place] 00 :00 bedtime Medical for 90 Branch days. contrast 2019- No Intravenou Un royal previously 01-11 s, ONCE, 1 it y of administere 17:15: 16:30 dose, Fri [place] d 0 mL 00 :00 01/11/19 at [place] [id number], [place] Routine iohexol 2019- No 100mL 100 mL, Unive rs (OMNIPAQUE 01-11 Intravenou it y of 350 17:15: 16:30 s, ONCE, 1 [place] BULK-100 00 :00 dose, Fri Medica l mL) 01/11/19 at [place] injection 1215, 100 mL Routine ezetimibe Yes 10mg Take 10 mg Un royal 10 mg -06 by mouth ity of tablet 15:56: daily. [place] 28 [facility] Branch albuterol 2018-0 Yes 2.5mg Inhale 2.5 U nivers 2.5 mg /3 9-06 mg every 8 ity of mL (0.083 15:56: (eight) [place] %) 28 hours as Medical nebulizer needed. [place] solution albuterol 2018-0 Yes 2{puff} Inhale 2 U nivers 90 9-06 Puffs ity of mcg/actuati 15:56: every 6 [place] as on inhaler 28 (six) Medical hours as Branch needed. montelukast 2018- Yes 10mg Take 10 mg Univers 10 mg 9-06 by mouth ity of tablet 15:56: daily. [address] ezetimibe 2018- Yes 10mg Take 10 mg Un royal 10 mg 9-06 by mouth ity of tablet 15:56: daily. [address] albuterol 2018- Yes 2.5mg Inhale 2.5 U nivers 2.5 mg /3 9-06 mg every 8 ity of mL (0.083 15:56: (eight) [place] %) 28 hours as Medical nebulizer needed. Branch solution albuterol Yes 2{puff} Inhale 2 U nivers 90 9-06 Puffs ity of mcg/actuati 15:56: every 6 [place] as on inhaler 28 (six) Medical hours as Branch needed. montelukast Yes 10mg Take 10 mg Univers 10 mg 9-06 by mouth ity of tablet 15:56: daily. [address] ezetimibe Yes 10mg Take 10 mg Un royal 10 mg 9-06 by mouth ity of tablet 15:56: daily. [address] albuterol Yes 2.5mg Inhale 2.5 U nivers 2.5 mg /3 9-06 mg every 8 ity of mL (0.083 15:56: (eight) [place] %) 28 hours as Medical nebulizer needed. [place] solution albuterol Yes 2{puff} Inhale 2 U nivers 90 9-06 Puffs ity of mcg/actuati 15:56: every 6 [place] as on inhaler 28 (six) Medical hours as Branch needed. montelukast 2018-0 Yes 10mg Take 10 mg Univers 10 mg 9-06 by mouth ity of tablet 15:56: daily. [address] ezetimibe 0 Yes 10mg Take 10 mg Un royal 10 mg 9-06 by mouth ity of tablet 15:56: daily. [address] albuterol 0 Yes 2.5mg Inhale 2.5 [...] by mouth ity of tablet 15:56: daily. [address] ezetimibe 0 Yes 10mg Take 10 mg Un royal 10 mg 9-06 by mouth ity of tablet 15:56: daily. [address] albuterol 0 Yes 2.5mg Inhale 2.5 U nivers 2.5 mg /3 9-06 mg every 8 ity of mL (0.083 15:56: (eight) [place] %) 28 hours as Medical nebulizer needed. [place] solution albuterol Yes 2{puff} Inhale 2 U nivers 90 9-06 Puffs ity of mcg/actuati 15:56: every 6 [place] as on inhaler 28 (six) Medical hours as Branch needed. montelukast 2018-0 Yes 10mg Take 10 mg Univers 10 mg 9-06 by mouth ity of tablet 15:56: daily. [address] ezetimibe 0 Yes 10mg Take 10 mg Un royal 10 mg 9-06 by mouth ity of tablet 15:56: daily. [address] albuterol 0 Yes 2.5mg Inhale 2.5 U nivers 2.5 mg /3 9-06 mg every 8 ity of mL (0.083 15:56: (eight) [place] %) 28 hours as Medical nebulizer needed. [place] solution albuterol 0 Yes 2{puff} Inhale 2 U nivers 90 9-06 Puffs ity of mcg/actuati 15:56: every 6 [place] as on inhaler 28 (six) Medical hours as Branch needed. montelukast 2018-0 Yes 10mg Take 10 mg Univers 10 mg 9-06 by mouth ity of tablet 15:56: daily. [address] lisinopril 2019-0 Yes 20mg Take 20 mg U nivers 20 mg 9-06 by mouth ity of tablet 15:53: daily. [address] foLIC acid 2018-0 Yes 1mg Take 1 mg Un royal 1 mg tablet 9-06 by mouth ity of 15:53: daily. [address] levETIRAcet 2019-0 Yes 1000mg Take 1,000 Univers am (KEPPRA) 9-06 mg by ity of 1,000 mg 15:53: mouth 2 [place] tablet 50 (two) Medical times [place] daily. amLODIPine 2019-0 Yes 10mg Take 10 mg U nivers 10 mg 9-06 by mouth ity of tablet 15:53: daily. [address] lisinopril 2019-0 Yes 20mg Take 20 mg U nivers 20 mg 9-06 by mouth ity of tablet 15:53: daily. [address] foLIC acid 2019-0 Yes 1mg Take 1 mg Un royal 1 mg tablet 9-06 by mouth ity of 15:53: daily. [address] levETIRAcet 2019-0 Yes 1000mg Take 1,000 Univers am (KEPPRA) 9-06 mg by ity of 1,000 mg 15:53: mouth 2 [place] tablet 50 (two) Medical times [place] daily. amLODIPine 2019-0 Yes 10mg Take 10 mg U nivers 10 mg 9-06 by mouth ity of tablet 15:53: daily. [address] lisinopril 2019-0 Yes 20mg Take 20 mg U nivers 20 mg 9-06 by mouth ity of tablet 15:53: daily. [address] foLIC acid 2019-0 Yes 1mg Take 1 mg Un royal 1 mg tablet 9-06 by mouth ity of 15:53: daily. [address] levETIRAcet 2019-0 Yes 1000mg Take 1,000 Univers am (KEPPRA) 9-06 mg by ity of 1,000 mg 15:53: mouth 2 [place] tablet 50 (two) Medical times [place] daily. amLODIPine 2019-0 Yes 10mg Take 10 mg U nivers 10 mg 9-06 by mouth ity of tablet 15:53: daily. [address] lisinopril 2019-0 Yes 20mg Take 20 mg U nivers 20 mg 9-06 by mouth ity of tablet 15:53: daily. [address] foLIC acid 2019-0 Yes 1mg Take 1 mg Un royal 1 mg tablet 9-06 by mouth ity of 15:53: daily. [address] levETIRAcet 2019-0 Yes 1000mg Take 1,000 Univers am (KEPPRA) 9-06 mg by ity of 1,000 mg 15:53: mouth 2 [place] tablet 50 (two) Medical times Branch daily. amLODIPine 2019-0 Yes 10mg Take 10 mg U nivers 10 mg 9-06 by mouth ity of tablet 15:53: daily. [address] lisinopril 2019-0 Yes 20mg Take 20 mg U nivers 20 mg 9-06 by mouth ity of tablet 15:53: daily. [address] foLIC acid 2019-0 Yes 1mg Take 1 mg Un royal 1 mg tablet 9-06 by mouth ity of 15:53: daily. [address] levETIRAcet [address] Yes 1000mg Take 1,000 Univers am (KEPPRA) 9-06 mg by ity of 1,000 mg 15:53: mouth 2 [place] tablet 50 (two) Medical times [place] daily. amLODIPine 2018-0 Yes 10mg Take 10 mg U nivers 10 mg 9-06 by mouth ity of tablet 15:53: daily. [address] lisinopril 0 Yes 20mg Take 20 mg U nivers 20 mg 9-06 by mouth ity of tablet 15:53: daily. [address] foLIC acid 2018-0 Yes 1mg Take 1 mg Un royal 1 mg tablet 9-06 by mouth ity of 15:53: daily. [address] levETIRAcet 0 Yes 1000mg Take 1,000 Univers am (KEPPRA) 9-06 mg by ity of 1,000 mg 15:53: mouth 2 [place] tablet 50 (two) Medical times [place] daily. amLODIPine 2019-0 Yes 10mg Take 10 mg U nivers 10 mg 9-06 by mouth ity of tablet 15:53: daily. [address] atorvastati 2018-0 Yes [id number] 40mg Take 1 Univers n 40 mg 9-06 07 tablet by ity of tablet 00:00: mouth at [place] [address] bedtime. [facility] atorvastati 2019-0 Yes [id number] 40mg Take 1 Univers n 40 mg 9-06 07 tablet by ity of tablet 00:00: mouth at [place] 00 bedtime. [facility] atorvastati 0 Yes [id number] 40mg Take 1 Univers n 40 mg 9-06 07 tablet by ity of tablet 00:00: mouth at [place] 00 bedtime. Medical Branch atorvastati Yes [id number] 40mg Take 1 Univers n 40 mg 9- 07 tablet by ity of tablet 00:00: mouth at [place] 00 bedtime. Medical Branch atorvastati Yes [id number] 40mg Take 1 Univers n 40 mg 9- 07 tablet by ity of tablet 00:00: mouth at [place] 00 bedtime. Medical Branch atorvastati Yes [id number] 40mg Take 1 Univers n 40 mg - 07 tablet by ity of tablet 00:00: mouth at [place] 00 bedtime. Medical Branch sulfur 2019- No 5mL Univers hexafluorid 01-01 ity of e microsphr 22:30: 21:28 [place] (LUMASON) 00 :00 Medical injection 5 Branch mL sulfur 2019- No 5mL 5 mL, Univers hexafluorid 01-01 Intravenou i ty of e microsphr 22:30: 21:28 s, ONCE, 1 [place] (LUMASON) 00 :00 dose, Tue Medic al injection 5 01/01/19 at [facility] mL 1730, Routine montelukast Yes 10mg Take 10 mg Univers 10 mg 8-26 by mouth ity of tablet 14:36: daily. [address] montelukast Yes 10mg Take 10 mg Univers 10 mg 8-26 by mouth ity of tablet 14:36: daily. [address] montelukast Yes 10mg Take 10 mg Univers 10 mg 8-26 by mouth ity of tablet 14:36: daily. [address] montelukast Yes 10mg Take 10 mg Univers 10 mg 8-26 by mouth ity of tablet 14:36: daily. [address] montelukast Yes 10mg Take 10 mg Univers 10 mg 8-26 by mouth ity of tablet 14:36: daily. [address] Branch albuterol Yes 2{puff} Inhale 2 U nivers [...] as Medical nebulizer needed. Branch solution ezetimibe 0 Yes 10mg Take 10 mg Un royal 10 mg 8-26 by mouth ity of tablet 14:34: daily. [address] ezetimibe 2019-0 Yes 10mg Take 10 mg Un royal 10 mg 8-26 by mouth ity of tablet 14:34: daily. [address] ezetimibe 2018-0 Yes 10mg Take 10 mg Un royal 10 mg 8-26 by mouth ity of tablet 14:34: daily. [address] ezetimibe 2019-0 Yes 10mg Take 10 mg Un royal 10 mg 8-26 by mouth ity of tablet 14:34: daily. [address] ezetimibe 0 Yes 10mg Take 10 mg Un royal 10 mg 8-26 by mouth ity of tablet 14:34: daily. [address] foLIC acid 0 Yes 1mg Take 1 mg Un royal 1 mg tablet 8-21 by mouth ity of 14:22: daily. [address] levETIRAcet Yes 1000mg Take 1,000 Univers am (KEPPRA) 8-21 mg by ity of 1,000 mg 14:22: mouth 2 [place] tablet 48 (two) Medical times [place] daily. amLODIPine Yes 10mg Take 10 mg U nivers 10 mg 8-21 by mouth ity of tablet 14:22: daily. [address] foLIC acid 0 Yes 1mg Take 1 mg Un royal 1 mg tablet 8-21 by mouth ity of 14:22: daily. [address] levETIRAcet 0 Yes 1000mg Take 1,000 Univers am (KEPPRA) 8-21 mg by ity of 1,000 mg 14:22: mouth 2 [place] tablet 48 (two) Medical times [place] daily. amLODIPine 20190 Yes 10mg Take 10 mg U nivers 10 mg 8-21 by mouth ity of tablet 14:22: daily. [address] foLIC acid 2019-0 Yes 1mg Take 1 mg Un royal 1 mg tablet 8-21 by mouth ity of 14:22: daily. [address] levETIRAcet 0 Yes 1000mg Take 1,000 Univers am (KEPPRA) 8-21 mg by ity of 1,000 mg 14:22: mouth 2 [place] tablet 48 (two) Medical times [place] daily. amLODIPine 2019-0 Yes 10mg Take 10 mg U nivers 10 mg 8-21 by mouth ity of tablet 14:22: daily. [address] foLIC acid 2019-0 Yes 1mg Take 1 mg Un royal 1 mg tablet 8-21 by mouth ity of 14:22: daily. [address] levETIRAcet 2019-0 Yes 1000mg Take 1,000 Univers am (KEPPRA) 8-21 mg by ity of 1,000 mg 14:22: mouth 2 [place] tablet 48 (two) Medical times [place] daily. amLODIPine 2019-0 Yes 10mg Take 10 mg U nivers 10 mg 8-21 by mouth ity of tablet 14:22: daily. [address] foLIC acid 2019-0 Yes 1mg Take 1 mg Un royal 1 mg tablet 8-21 by mouth ity of 14:22: daily. [address] levETIRAcet 2019-0 Yes 1000mg Take 1,000 Univers am (KEPPRA) 8-21 mg by ity of 1,000 mg 14:22: mouth 2 [place] tablet 48 (two) Medical times [place] daily. amLODIPine 2019-0 Yes 10mg Take 10 mg U nivers 10 mg 8-21 by mouth ity of tablet 14:22: daily. [address] foLIC acid 2019-0 Yes 1mg Take 1 mg Un royla 1 mg tablet 8-21 by mouth ity of 14:22: daily. [address] levETIRAcet 2019-0 Yes 1000mg Take 1,000 Univers am (KEPPRA) 8-21 mg by ity of 1,000 mg 14:22: mouth 2 [place] tablet 48 (two) Medical times [place] daily. amLODIPine 2019-0 Yes 10mg Take 10 mg U nivers 10 mg 8-21 by mouth ity of tablet 14:22: daily. [address] foLIC acid 2019-0 Yes 1mg Take 1 mg Un royal 1 mg tablet 8-21 by mouth ity of 14:22: daily. [address] levETIRAcet 2019-0 Yes 1000mg Take 1,000 Univers am (KEPPRA) 8-21 mg by ity of 1,000 mg 14:22: mouth 2 [place] tablet 48 (two) Medical times [place] daily. amLODIPine 2019-0 Yes 10mg Take 10 mg U nivers 10 mg 8-21 by mouth ity of tablet 14:22: daily. [address] foLIC acid 2019-0 Yes 1mg Take 1 mg Un royal 1 mg tablet 8-21 by mouth ity of 14:22: daily. [address] levETIRAcet 2019-0 Yes 1000mg Take 1,000 Univers am (KEPPRA) 8-21 mg by ity of 1,000 mg 14:22: mouth 2 [place] tablet 48 (two) Medical times [place] daily. amLODIPine 2019-0 Yes 10mg Take 10 mg U nivers 10 mg 8-21 by mouth ity of tablet 14:22: daily. [address] foLIC acid 2019-0 Yes 1mg Take 1 mg Un royal 1 mg tablet 8-21 by mouth ity of 14:22: daily. [address] levETIRAcet 2019-0 Yes 1000mg Take 1,000 Univers am (KEPPRA) 8-21 mg by ity of 1,000 mg 14:22: mouth 2 [facility] 48 (two) Medical times [place] daily. amLODIPine 2019-0 Yes 10mg Take 10 mg U nivers 10 mg 8-21 by mouth ity of tablet 14:22: daily. [address] foLIC acid 2019-0 Yes 1mg Take 1 mg Un royal 1 mg tablet 8-21 by mouth ity of 14:22: daily. [address] levETIRAcet 2019-0 Yes 1000mg Take 1,000 Univers am (KEPPRA) 8-21 mg by ity of 1,000 mg 14:22: mouth 2 [facility] 48 (two) Medical times [place] daily. amLODIPine 2019-0 Yes 10mg Take 10 mg U nivers 10 mg 8-21 by mouth ity of tablet 14:22: daily. [address] lisinopril 2019-0 Yes 20mg Take 20 mg U nivers 20 mg 8-21 by mouth ity of tablet 14:22: daily. [address] lisinopril 2019-0 Yes 20mg Take 20 mg U nivers 20 mg 8-21 by mouth ity of tablet 14:22: daily. [address] lisinopril 2019-0 Yes 20mg Take 20 mg U nivers 20 mg 8-21 by mouth ity of tablet 14:22: daily. [address] lisinopril 2019-0 Yes 20mg Take 20 mg U nivers 20 mg 8-21 by mouth ity of tablet 14:22: daily. [address] lisinopril 0 Yes 20mg Take 20 mg U nivers 20 mg 8-21 by mouth ity of tablet 14:22: daily. [address] lisinopril Yes 20mg Take 20 mg U nivers 20 mg 8-21 by mouth ity of tablet 14:22: daily. [address] lisinopril Yes 20mg Take 20 mg U nivers 20 mg 8-21 by mouth ity of tablet 14:22: daily. [address] lisinopril Yes 20mg Take 20 mg U nivers 20 mg 8-21 by mouth ity of tablet 14:22: daily. [address] lisinopril Yes 20mg Take 20 mg U nivers 20 mg 8-21 by mouth ity of tablet 14:22: daily. [address] lisinopril Yes 20mg Take 20 mg U nivers 20 mg 8-21 by mouth ity of tablet 14:22: daily. [address] atorvastati 2017-05 Yes 80mg Take 1 Univ ers n 80 mg 2-06 tablet by ity of tablet 00:00: mouth at [place] [address] bedtime. Medical onstatin Branch per recent notes. Updated chart with new order atorvastati 2017-05 Yes 80mg Take 1 Univ ers n 80 mg 2-06 tablet by ity of tablet 00:00: mouth at [place] [address] bedtime. Medical onstatin Branch per recent notes. Updated chart with new order atorvastati 2017-05 Yes 80mg Take 1 Univ ers n 80 mg 2-06 tablet by ity of tablet 00:00: mouth at [place] [address] bedtime. Medical onstatin Branch per recent notes. Updated chart with new order atorvastati 2017-05 Yes 80mg Take 1 Univ ers n 80 mg 2-06 tablet by ity of tablet 00:00: mouth at [place] [address] bedtime. Medical onstatin Branch per recent notes. [...] by ity of tablet 00:00: mouth at [place] 00 bedtime. Medical onstatin Branch per recent notes. Updated chart with new order atorvastati 2017-05 Yes 80mg Take 1 Univ ers n 80 mg 2-06 tablet by ity of tablet 00:00: mouth at [place] 00 bedtime. Medical onstatin Branch per recent notes. Updated chart with new order atorvastati 2017-05 Yes 80mg Take 1 Univ ers n 80 mg 2-06 tablet by ity of tablet 00:00: mouth at [place] 00 bedtime. Medical onstatin Branch per recent notes. Updated chart with new order atorvastati 2017-05 Yes 80mg Take 1 Univ ers n 80 mg 2-06 tablet by ity of tablet 00:00: mouth at [place] 00 bedtime. Medical onstatin Branch per recent notes. Updated chart with new order atorvastati 2017-05 Yes 80mg Take 1 Univ ers n 80 mg 2-06 tablet by ity of tablet 00:00: mouth at [place] 00 bedtime. Medical onstatin Branch per recent notes. Updated chart with new order atorvastati 2017-05 Yes 80mg Take 1 Univ ers n 80 mg 2-06 tablet by ity of tablet 00:00: mouth at [place] 00 bedtime. Medical onstatin Branch per recent notes. Updated chart with new order atorvastati 2017-05 Yes 80mg Take 1 Univ ers n 80 mg 2-06 tablet by ity of tablet 00:00: mouth at [place] 00 bedtime. Medical onstatin Branch per recent notes. Updated chart with new order atorvastati 2017-05 Yes 80mg Take 1 Univ ers n 80 mg 2-06 tablet by ity of tablet 00:00: mouth at [place] 00 bedtime. Medical onstatin Branch per recent notes. Updated chart with new order atorvastati 2017-05 Yes 80mg Take 1 Univ ers n 80 mg 2-06 tablet by ity of tablet 00:00: mouth at [place] 00 bedtime. Medical onstatin Branch per recent [...] by mouth ity of tablet 14:41: daily. [address] Branch lisinopril Yes 20mg Take 20 mg U nivers 20 mg 8-21 by mouth ity of tablet 14:41: daily. [place] [address] Medical Branch foLIC acid Yes 1mg Take 1 mg Un royal 1 mg tablet 8-21 by mouth ity of 14:41: daily. [place] [address] Medical Branch levETIRAcet Yes 1000mg Take 1,000 [...] 15:52:00 133 mm[Hg] Univer sity of pressure [place] Medical Branch Diastolic blood 2019-01-04 15:52:00 67 mm[Hg] Unive rsity of pressure [place] Medical Branch Heart rate 2019-01-04 15:52:00 75 /min [facility] Body temperature 2019-01-04 15:52:00 36.78 Janett [facility] ersity [facility] Respiratory rate 2019-01-04 15:52:00 20 /min Univ ersity of [place] [facility] Body weight 2019-01-04 15:52:00 84.732 kg Universi ty of [place] [facility] BMI 2019-01-04 15:52:00 29.26 kg/m2 Universi ty of [place] [facility] Systolic blood 2019-01-04 15:52:00 133 mm[Hg] Univer sity of pressure [place] [facility] Diastolic blood 2019-01-04 15:52:00 67 mm[Hg] Unive rsity of pressure [place] [facility] Heart rate 2019-01-04 15:52:00 75 /min Universi ty of [place] [facility] Body temperature 2019-01-04 15:52:00 36.78 Janett Univ ersity of [place] [facility] Respiratory rate 2019-01-04 15:52:00 20 /min Univ ersity of [place] [facility] Body weight 2019-01-04 15:52:00 84.732 kg Universi ty of [place] [facility] BMI 2019-01-04 15:52:00 29.26 kg/m2 Universi ty of [place] [facility] Systolic blood 2018-12-19 14:21:00 111 mm[Hg] Univer sity of pressure [place] [facility] Diastolic blood 2018-12-19 14:21:00 62 mm[Hg] Unive rsity of pressure [place] [facility] Heart rate 2018-12-19 14:21:00 68 /min Universi ty of [place] [facility] Respiratory rate 2018-12-19 14:21:00 18 /min Univ ersity of [place] [facility] Body height 2018-12-19 14:21:00 170.2 cm [facility] [place] [facility] Body weight 2018-12-19 14:21:00 85.684 kg Universi ty of [place] [facility] BMI 2018-12-19 14:21:00 29.59 kg/m2 Universi ty of [place] [facility] Oxygen saturation in 2018-12-19 14:21:00 97 /min University Arterial blood by [facility] Pulse oximetry Branch Systolic blood 2019-01-01 20:52:00 141 mm[Hg] Univer sity of pressure [place] [facility] Diastolic blood 2019-01-01 20:52:00 71 mm[Hg] Unive rsity of pressure [place] [facility] Heart rate 2019-01-01 20:52:00 87 /min Universi ty of [place] [facility] Body height 2019-01-01 20:52:00 170.2 cm [facility] Body weight 2019-01-01 20:52:00 85.276 kg [facility] BMI 2019-01-01 20:52:00 29.44 kg/m2 [facility] Procedures Procedure Date / Time Performed Performing Clinician Britta campos CT ANGIOGRAM NECK 2019-01-11 17:12:41 Adolph Huitron [facility] CT ANGIOGRAM HEAD 2019-01-11 17:10:04 Adolph Huitron [facility] NOTICE OF BILLING 2019-01-11 15:34:57 Doctor Unassigned, No [facility] PRACTICES FOR MEDICARE Name Medical B ranch PATIENTS [facility] PATIENT FINANCIAL 2019-01-11 15:34:09 Doctor Unassigned, No [facility] POCT CREATININE 2019-01-11 15:10:00 Iliana Pinto [facility] EKG-12 LEAD 2018-12-19 14:29:02 Sudhir Saravia [facility] ASSIGNMENT OF BENEFITS 2018-12-19 14:07:02 Doctor Unassigned, No [facility] Encounters Start End Encounter Admission Attending Care Care Encounter Source Date/Time Date/Time Type Type Clinicians Facility Department ID 2021-11-10 2021-11-10 Outpatient COLETTE DOSHI [facility] [id number] [place] 02:08:00 02:08:00 HN [id number] da [facility] Program 2021-10-14 2021-10-14 Outpatient FOG_Loncari AOSM AOSM [id number] Jennifer 02:06:00 02:06:00 Camilla [id number] [facility] 2021-10-05 2021-10-05 Outpatient FOG_Loncari AOSM AOSM [id number] Jennifer 08:13:00 08:13:00 Camilla [id number] Orth ope [facility] Medicin e 2020-01-22 2020-01-22 Outpatient Juan Manuel SARAVIA [facility] [id number] Univers 15:20:00 15:20:00 SUDHIR calderon o [facility] 2019-12-23 2019-12-23 Outpatient R RANI, [facility] [id number] Univers 09:40:00 09:40:00 YASMEENMYA yumiko o f [facility] 2019-09-11 2019-09-11 Tele[facility] [id number] 00:00:00 00:00:00 Royal R Y HEALTH [id number] CLINICS [id number] [facility] 2019-09-11 2019-09-11 Telephone Erika, UNIVERSIT [id number] [facility] 00:00:00 00:00:00 Royal R Y HEALTH [id number] ity [facility] [id number] [facility] [id number] [facility] 205 Branch 2019-08-27 2019-08-27 Outpatient C_Hall [facility] [id number] [place] 04:13:00 04:13:00 0428 Medical Group 2019-01-11 2019-01-11 [place] [id number] 10:33:32 23:59:00 Encounter Iliana Alexander [id number] [place] [id number] [place] [id number] [facility] 2019-01-11 2019-01-11 [facility] [id number] [facility] 10:33:32 23:59:00 Encounter Iliana Alexander [id number] ity [facility] [id number] [facility] [id number] [place] [address] Branch 2019-01-11 2019-01-11 [facility] [id number] 10:20:00 10:32:00 Encounter Iliana Alexander [id number] [place] [id number] [place] [id number] [facility] 2019-01-11 2019-01-11 [facility] [id number] [facility] 10:20:00 10:32:00 Encounter Iliana Alexander [id number] ity of [place] [id number] [place] [id number] [facility] [address] [place] 2019-01-04 2019-01-04 Office [facility] [id number] [facility] 10:21:42 18:59:26 Visit Iliana Alexander [id number] ity of [place] [id number] [phone] [facility] 205 [facility] 2019-01-04 2019-01-04 Office [facility] [id number] 10:21:42 18:59:26 Visit Iliana Alexander [id number] [place] [id number] Professio [phone] [address] 2018-12-19 2019-01-03 Office [facility] [id number] Univers 09:07:06 15:22:45 Visit Sudhir Lincoln [id number] [id number] [phone] [place] [id number] [facility] 2019-01-03 2019-01-03 [facility] [id number] [facility] 00:00:00 00:00:00 Sudhir Alexander [id number] [id number] [phone] [facility] 059 [facility] 2019-01-01 2019-01-01 Clipping Marker, Adc Cardio Fac [facility] 1. [id number] [facility] 14:30:23 16:38:50 Only 1, Adc Cardio Fac [facility] 350.1. 13.10 ity of [place]hir [place] [id number] [place] Profess[facility] [phone] [facility] 059 [facility] 2019-01-01 2019-01-01 Machine Stripper Tech, Adc Cardio Fac [facility] 1. [id number] [facility] 14:29:39 15:29:39 Visit 2, Adc Cardio Fac [facility] 350.1. 13.10 ity of Sudhir Saraviabury 4.2.7.2.686 [place] Professio [phone] Ri dicdania nal 059 Branch Building 2018-12-24 2018-12-24 Telephone KHANG Saravia [id number] Univers 00:00:00 00:00:00 Sudhir Alexander [id number] [place] [id number] [facility] [place] [facility] [phone] Ri dicmo nal 059 Branch [facility] 2018-12-19 2018-12-19 Orders Doctor DELTA [id number] Univers 00:00:00 00:00:00 Only Unassigned, DONITA [id number] ity of [place] [facility] 4.2.7.2.686 [place] [phone] [facility] sha 009 Branch Results Test Test Test Results Result Source Description Time Comments Comments CT ANGIOGRAM 2018-12 Nonvisualization of the left [facility] -13 internal carotid artery from [facility] 19:52:1 its cervicalorigin/carotid Branch 1 [...] NECK: A three-vessel aortic arch is seen. Vqwg-ez-xtcnvwfk atheroscleroticdisease is noted in the arch. The vessels originating from the arch arepatent. Mild scattered atherosclerotic disease is noted in the common carotidarteries bilaterally, left greater than right. No flow-limiting stenosis isidentified. Hzct-gv-gahdfwam atherosclerotic disease is seen in the left [...] NECK: A three-vessel aortic arch is seen. Hair-wt-vfalcpqq atheroscleroticdisease is noted in the arch. The vessels originating from the arch arepatent.Mild scattered atherosclerotic disease is noted in the common carotidarteries bilaterally, left greater than right. No flow-limiting stenosis isidentified.Ofid-fo-imniijij atherosclerotic disease is seen in the left [...] of HEAD -13 internal carotid artery from [facility] 19:52:1 its cervicalorigin/carotid Branch 1 bifurcation up [...] NECK: A three-vessel aortic arch is seen. Xqmd-jw-kvysdogy atheroscleroticdisease is noted in the arch. The vessels originating from the arch arepatent. Mild scattered atherosclerotic disease is noted in the common carotidarteries bilaterally, left greater than right. No flow-limiting stenosis isidentified. Qhyj-ng-ngcohtzm atherosclerotic disease is seen in the left [...] NECK: A three-vessel aortic arch is seen. Blzw-ud-atnalrjl atheroscleroticdisease is noted in the arch. The vessels originating from the arch arepatent.Mild scattered atherosclerotic disease is noted in the common carotidarteries bilaterally, left greater than right. No flow-limiting stenosis isidentified.Apbx-yx-qeoptfxw atherosclerotic disease is seen in the left [...] Test Item Value Reference Range Interpretation Comme [facility] POCT Creatinine (test code = [id number]) 0.8 mg/dL 0.6-1.3 Lab Interpretation (test code = 84917-1) Normal [facility]
--- NOTE | 2023-03-07 11:48 | RAD REPORT ---
EXAM DESCRIPTION: CT - Head C Spine Cap Wo Con - 03/07/2023 11:29 am CLINICAL HISTORY: Head and neck injury with chest and abdominal pain status post fall TECHNIQUE: Computed axial tomography of head, neck, chest, abdomen and pelvis obtained. IV and oral contrast not requested. Coronal and sagittal reconstruction performed. All CT scans are performed using dose optimization technique as appropriate and may include automated exposure control or mA/KV adjustment according to patient size. COMPARISON: Made December 2022 FINDINGS: An intracranial bleed is not seen. Gliosis left cerebrum The ventricles are normal in caliber. An extra-axial fluid collection is not noted. Fluid within the sinuses/mastoids is not seen. A cervical fracture is not seen. No dislocation is noted. The evaluation of mediastinum, ana, vessels, solid organs and bowel are limited secondary to the lac k of contrast administration. A mediastinal hematoma is not noted. A pleural effusion is not seen. A lung contusion is not present. The liver,spleen, pancreas, adrenals,kidneys and bladder do not demonstrate an acute traumatic injury Renal cysts. Atherosclerosis IMPRESSION: No acute intracranial abnormality is seen. A cervical fracture is not visualized. If the patient continues to have symptoms to suggest intracran ial/spinal cord pathology MRI be recommended No acute traumatic abnormality involving the chest, abdomen or pelvis
[2023-03-07 12:22] LABS: Hematocrit 38.5 % (39.6-49.0); Lymphocytes % 6.9 % (15.3-44.8); MCV 100.4 fL (80-100); MPV 8.4 fL (7.6-11.3); Platelets 220 thou/uL (152-406); RBC Red Blood Cell Count 3.83 M/uL (4.33-5.43)
[2023-03-07 12:43] LABS: Albumin 3.9 g/dL (3.4-5.0); Bilirubin Direct 0.3 mg/dL (0-0.2); Bilirubin Total 1.3 mg/dL (0.2-1.0); Potassium 3.4 mEq/L (3.5-5.1); Protein, Total 7.6 g/dL (6.4-8.2); Troponin High Sensitivity 33.3 pg/mL (<58.9)
[2023-03-07 12:51] LABS: Protime INR 1.08
--- NOTE | 2023-03-07 12:53 | EDPHYS ---
Physician Documentation [facility] Name: Houston Neely Age: 72 yrs Sex: Male : 1950 Arrival Date: 03/07/2023 Time: 11:08 Bed 14 Private MD: ED Physician Samara Daniels HPI: 03/07 11:31 This 72 yrs old Male presents to ER via Ambulatory with complaints of Fall sp3 Injury. 11:31 72-year-old male with a history of CVA leading him to be in a nonverbal state, sp3 hypertension, seizure history now presents to the ED via EMS for ground-level fall out of bed. Patient's family found patient laying on the floor immediately adjacent to the bed at his baseline level of consciousness. It is unknown the amount of time he was on the ground or when he fell exactly. History and physical, and review of systems limited secondary to patient being nonverbal. Limited history from EMS noted. Family not yet at bedside.. Historical: - Allergies: 11:22 NKDA; jl7 - PMHx: 11:22 Covid-19 in 2022; CVA; Hypertension; R sided weakness; Seizures; jl7 - PSHx: 11:22 Cholecystectomy; jl7 - Immunization history:: Adult Immunizations unknown. - Social history:: Smoking status: Patient denies any tobacco usage or history of. ROS: 11:32 Unable to obtain ROS due to patient's inability to understand questions, Patient sp3 nonverbal, Exam: 11:32 Constitutional: This is a well developed, well nourished patient who is awake, alert, sp3 and in no acute distress. Head/Face: Normocephalic, atraumatic. Eyes: Pupils equal round and reactive to light, extra-ocular motions intact. Lids and lashes normal. Conjunctiva and sclera are non-icteric and not injected. Cornea within normal limits. Periorbital areas with no swelling, redness, or edema. ENT: Nares patent. No nasal discharge, no septal abnormalities noted. External auditory canals are clear. Oropharynx with no redness, swelling, or masses, exudates, or evidence of obstruction, uvula midline. Mucous membranes moist. Neck: Trachea midline, no thyromegaly or masses palpated, and no cervical lymphadenopathy. Supple, full range of motion without nuchal rigidity, or vertebral point tenderness. No Meningismus. Chest/axilla: Normal chest wall appearance and motion. Nontender with no deformity. No lesions are appreciated. Cardiovascular: Regular rate and rhythm with a normal S1 and S2. No gallops, murmurs, or rubs. Normal PMI, no JVD. No pulse deficits. Respiratory: Lungs have equal breath sounds bilaterally, clear to auscultation and percussion. No rales, rhonchi or wheezes noted. No increased work of breathing, no retractions or nasal flaring. Abdomen/GI: Soft, non-tender, with normal bowel sounds. No distension or tympany. No guarding or rebound. No evidence of tenderness throughout. Skin: Warm, dry with normal turgor. Normal color with no rashes, no lesions, and no evidence of cellulitis. MS/ Extremity: Pulses equal, no cyanosis. Neurovascular intact. Full, normal range of motion. 11:32 Neuro: Patient awake and looking around and continues to be nonverbal. This is presumed to be his baseline level of consciousness. Patient moves all extremities. Grossly normal neurological exam given no communication. No facial droop noted., 12:53 ECG was reviewed by the Attending Physician. EKG demonstrates normal sinus rhythm at 81 sp3 bpm with normal intervals, normal QRS, normal axis, nonspecific diffuse ST/T changes without evidence of acute ischemia. Vital Signs: 11:16 BP 132 / 62; Pulse 87; Resp 17; Temp 97.5; Pulse Ox 96% ; Weight 55.5 kg; jl7 12:21 BP 138 / 62; Pulse 82; Resp 19; Pulse Ox 98% ; nj1 13:30 BP 162 / 78; Pulse 95; Resp 22; Pulse Ox 97% on R/A; nj1 MDM: 11:15 Patient medically screened. sp3 11:33 Data reviewed: vital signs, nurses notes, lab test result(s), EKG, radiologic studies. sp3 ED course: 72-year-old male found down next to the bed with presumed fall sometime in the middle of the night. Patient is at his baseline neurological status is a presumption. Will await family to come to bedside. Work-up will include CT scan of the head, C-spine, chest abdomen pelvis and a trauma work-up. Routine labs as well as troponin and total CK will also be obtained as well as urine analysis. Will observe in the ED while work-up is pending and if work-up is negative, we will safely discharge patient home. I am not highly suspicious for new CVA, intracranial hemorrhage, sepsis, shock or any other critical pathology. Vital signs remain normal we will monitor patient while in the ED.. 12:52 ED course: Hyponatremia at 127 and mild elevation in CK. Traumagram is negative. Will sp3 admit for slow IV fluids and rehydration.. 03/07 11:16 Order name: Basic Metabolic Panel; Complete Time: 12:46 sp3 03/07 11:16 Order name: CBC with Diff; Complete Time: 12:46 sp3 03/07 11:16 Order name: Type And Screen sp3 03/07 11:16 Order name: LFT's; Complete Time: 12:46 sp3 03/07 11:16 Order name: UAM sp3 03/07 11:16 Order name: Troponin High Sensitivity; Complete Time: 12:46 sp3 03/07 11:16 Order name: PT-INR sp3 03/07 11:16 Order name: CK; Complete Time: 12:46 sp3 03/07 13:17 Order name: Urinalysis w/ reflexes EDMS 03/07 13:17 Order name: Basic Metabolic Panel EDMS 03/07 13:17 Order name: Basic Metabolic Panel EDMS 03/07 13:17 Order name: Basic Metabolic Panel EDMS 03/07 13:17 Order name: Basic Metabolic Panel EDMS 03/07 13:17 Order name: CBC with Automated Diff EDMS 03/07 13:17 Order name: CBC with Automated Diff EDMS 03/07 13:17 Order name: CBC with Automated Diff EDMS 03/07 13:17 Order name: CBC with Automated Diff EDMS 03/07 13:17 Order name: Lipid Profile EDMS 03/07 13:17 Order name: Lipid Profile EDMS 03/07 13:18 Order name: Magnesium EDMS 03/07 13:18 Order name: Magnesium EDMS 03/07 13:18 Order name: Phosphorus EDMS 03/07 13:18 Order name: Phosphorus EDMS 03/07 13:18 Order name: Protime (+INR) EDMS 03/07 13:18 Order name: Protime (+INR) EDMS 03/07 11:16 Order name: CT Traumagram (Head C Spine CAP wo con); Complete Time: 11:53 sp3 03/07 11:16 Order name: EKG; Complete Time: 11:17 sp3 03/07 11:16 Order name: Labs collected and sent; Complete Time: 12:23 sp3 03/07 11:16 Order name: EKG - Nurse/Tech; Complete Time: 12:23 sp3 03/07 11:16 Order name: Monitor; Complete Time: 12:19 sp3 03/07 11:16 Order name: NPO; Complete Time: 12:44 sp3 Administered Medications: 12:59 Drug: NS 0.9% IV 1000 ml IV at 125 ml/hr continuous Route: IV; Rate: 125 ml/hr; Site: nj left forearm; Disposition Summary: 03/07/23 12:53 Hospitalization Ordered Notes: Hospitalization Status: Inpatient Admission sp3 Provider: Rik Hernandez sp3 Location: Telemetry/MedSurg (Inpatient) sp3 Condition: Stable sp3 Problem: an acute exacerbation sp3 Symptoms: have worsened sp3 Bed/Room Type: Standard sp3 Room Assignment: 208(03/07/23 17:21) bd Diagnosis - Ground-level fall, hyponatremia, mild rhabdomyolysis sp3 Forms: - Medication Reconciliation Form sp3 - SBAR form sp3 - Leadership Thank You Letter sp3 Signatures: Dispatcher [employer] Norma Coates Jahala RN RN jl7 Samara Daniels MD MD sp3 Tanisha Lizama RN RN nj1 Corrections: (The following items were deleted from the chart) 17:21 12:53 sp3 bd
--- NOTE | 2023-03-07 12:53 | ER ---
Nurse's Notes [facility] Name: Houston Neely Age: 72 yrs Sex: Male : 1950 Arrival Date: 03/07/2023 Time: 11:08 Bed 14 Private MD: Diagnosis: Ground-level fall, hyponatremia, mild rhabdomyolysis Presentation: 03/07 11:16 Chief complaint: EMS states: Toned out for fall from bed last night. found down at 7 0630, pt with hx of CVA with verbal and right sided deficits. Coronavirus screen: At this time, the client does not indicate any symptoms associated with coronavirus-19. Ebola Screen: No symptoms or risks identified at this time. Initial Sepsis Screen: Does the patient meet any 2 criteria? No. Patient's initial sepsis screen is negative. Does the patient have a suspected source of infection? No. Patient's initial sepsis screen is negative. Risk Assessment: Do you want to hurt yourself or someone else? Patient reports no desire to harm self or others. Onset of symptoms is unknown. 11:16 Method Of Arrival: Ambulatory [facility] 11:16 Acuity: CHUCK 4 jl7 11:46 Acuity: CHUCK 3 nj1 Triage Assessment: 12:45 General: Appears in no apparent distress. comfortable, Behavior is calm, cooperative. nj1 12:45 Neuro: Level of Consciousness is awake, alert, obeys commands, Oriented to unable to nj1 assess. Cardiovascular: Patient's skin is warm and dry. Respiratory: Airway is patent Respiratory effort is even, unlabored. Historical: - Allergies: 11:22 NKDA; jl7 - PMHx: 11:22 Covid-19 in 2022; CVA; Hypertension; R sided weakness; Seizures; jl7 - PSHx: 11:22 Cholecystectomy; jl7 - Immunization history:: Adult Immunizations unknown. - Social history:: Smoking status: Patient denies any tobacco usage or history of. Screenin:48 [facility] ED Fall Risk Assessment (Adult) Score/Fall Risk Level 3 or more points = High nj1 Risk Oriented to surroundings, Maintained a safe environment, Educated pt \T\ family on fall prevention, incl call for assistance when getting out of bed, Assessed \T\ reinforced patient's understanding of fall precautions, Provided non-skid footwear, Hourly rounding (assess needs \T\ fall precautionary measures) done, Used ambulatory aids as needed (educated on \T\ assisted with), Used gait belt as appropriate Remained w/in arm's length of patient and in sight while toileting, Offered frequent toileting (1:1 observation), Remained with patient while ambulating, Utilized family, sitter, or virtual senior information security architect as indicated. Abuse screen: Unable to assess, non verbal. Nutritional screening: No deficits noted. Tuberculosis screening: No symptoms or risk factors identified. Assessment: 12:26 General: Behavior is pt aphasic unable to communicate . Pain: Unable to use pain scale. cm13 aphasic. Neuro: Oriented to unable to communicate . Musculoskeletal: Right sided weakness, contracted right arm hx cva, unable to gauge pt strength unable to communicate. 13:30 Reassessment: Patient appears in no apparent distress at this time. No changes from [facility] previously documented assessment. 15:24 General: Pt cleaned of incontinence, placed in a gown, full bed change. Pt straight kd3 cath for urine. . Vital Signs: 11:16 BP 132 / 62; Pulse 87; Resp 17; Temp 97.5; Pulse Ox 96% ; Weight 55.5 kg; jl7 12:21 BP 138 / 62; Pulse 82; Resp 19; Pulse Ox 98% ; nj1 13:30 BP 162 / 78; Pulse 95; Resp 22; Pulse Ox 97% on R/A; nj1 ED Course: 11:14 Patient arrived in ED. sp3 11:14 Samara Daniels MD is Attending Physician. sp3 11:22 Triage completed. jl7 11:22 Arm band placed on right wrist. jl7 11:28 Tanisha Lizama, FLAVIA is Primary Nurse. nj1 11:31 CT Traumagram (Head C Spine CAP wo con) In Process Unspecified. EDMS 12:51 Patient has correct armband on for positive identification. Bed in low position. Call [facility] light in reach. Side rails up X2. 12:52 Rik Hernandez MD is Hospitalizing Provider. sp3 13:50 Report given to Kinza ALEJANDRO. nj1 18:49 No provider procedures requiring assistance completed. Patient admitted, IV remains in kd3 place. 18:52 Provided Education on: . kd3 Administered Medications: 12:59 Drug: NS 0.9% IV 1000 ml IV at 125 ml/hr continuous Route: IV; Rate: 125 ml/hr; Site: nj1 left forearm; Medication: 18:53 VIS not applicable for this client. kd3 Outcome: 12:53 Decision to Hospitalize by Provider. sp3 18:49 Discharged to home ambulatory, kd3 18:49 Condition: stable 18:49 Discharge instructions given to patient, Instructed on discharge instructions, follow up and referral plans. Demonstrated understanding of instructions, follow-up care, 18:53 Patient left the ED. kd3 Signatures: Dispatcher [employer] EDScooter Cuevas, RN RN jl7 Samara Daniels MD MD sp3 Sondra Webb RN RN kd3 Tanisha Lizama RN RN nj1 Avelino Esposito RN RN cm13
[2023-03-07] MEDS ORDERED: ONDANSETRON 4 MG/2 ML VIAL IV PRN (13:10)
[2023-03-07] MEDS ORDERED: MAGNESIUM HYDROXIDE 8% 30 ML PO PRN (13:10)
[2023-03-07] MEDS ORDERED: ACETAMINOPHEN 500 MG TAB PO PRN (13:10)
[2023-03-07] MEDS ORDERED: ALBUTEROL 2.5 MG/3 ML NEB SOL NEB PRN (13:10)
[2023-03-07] MEDS ORDERED: NA CHLORIDE 0.9% 1,000 ML ONE (13:10)
--- NOTE | 2023-03-07 13:27 | P.HP ---
Certification for Inpatient With expected LOS: <2 Midnights Patient will require the following post-hospital care: None Practitioner: I am a practitioner with admitting privileges, knowledge of patient current condition, hospital course, and medical plan of care. Services: Services provided to patient in accordance with Admission requirements found in Title 42 Section 412.3 of the Code of Federal Regulations Patient History Date of Service: 03/07/23 Reason for admission: Fall, hyponatremia, mild rhabdomyolysis History of Present Illness: Mr. Neely 72-year-old male patient with a history of CVA, left hemiparesis, hypertension, seizures. Patient was brought to emergency room via ambulatory with complaints of fall injury. Patient family found the patient laying on the floor immediately adjacent to the bed at his baseline level of consciousness. Patient was on the floor for unknown time, Patient did not remember when he fell exactly. Patient is nonverbal. Patient is alert, not in any acute distress at this time. Patient is moving all extremities no signs of pain or discomfort, no signs of fracture. Patient is denying chest pain, palpitation, shortness of breath. Patient denies abdominal pain nausea vomiting fever or chills. ED course Vital signs blood pressure 132/62, pulse 87, respirations 17, temperature 97.5, pulse ox 96% on RA. Initial laboratory report shows hyponatremia 127, mild elevation of CK of 769, leukocytosis WBC 13.8, initial CT head neck chest abdomen and pelvis is negative. Admitting the patient with a diagnosis of ground-level fall, hyponatremia, mild rhabdomyolysis Allergies No Known Allergies Allergy (Verified 08/09/22 02:04) Home medications list reviewed: Yes Home Medications: Amlodipine Besylate 10 mg PO DAILY 06/19/15 Atorvastatin Calcium [Lipitor] 80 mg PO BEDTIME 06/19/15 Lisinopril 20 mg PO DAILY 06/19/15 Levetiracetam [Keppra] 1,000 mg PO BID 05/11/17 Aspirin [Aspirin EC 81 MG] 81 mg PO DAILY 04/30/20 Albuterol Inhaler [Ventolin Inhaler*] 2 puff IH Q6H PRN #1 hfa.aer.ad 05/02/20 Amox/Clavulanate [Augmentin 875-125 Tab] 1 each PO BID #14 tab 05/02/20 Ascorbic Acid [Vitamin C*] 500 mg PO BID 90 Days #180 tablet 11/04/21 Cholecalciferol (Vitamin D3) [Vitamin D 5,000 IU Cap*] 5,000 unit PO DAILY 90 Days #90 cap 03/04/21 Fluvoxamine Maleate [Fluvoxamine Maleate ER] 100 mg PO TID 7 Days #21 cap.er.24h 03/04/21 Prednisone [Sterapred Ds] 10 mg PO BID #21 tab.ds.pk 03/04/21 Zinc 50 mg PO 30 MIN BEFORE HS 30 Days #30 tablet 03/04/21 Nirmatrelvir/Ritonavir [Paxlovid 2X150 mg-100 mg (Eua)] 0 tab PO BID 4 Days #21 tablet 11/30/22 - Past Medical/Surgical History Diabetic: No -: CVA -: HTN -: hyperlipidemia -: Appy - Family History Mother -: Hypertension Notes: states no health problems - Social History Smoking Status: Never smoker Alcohol use: Yes CD- Drugs: No Caffeine use: No Place of Residence: Home Review of Systems 10-point ROS is otherwise unremarkable Physical Examination - Physical Exam General: Alert, Oriented x3 HEENT: Atraumatic, Normocephalic Neck: 2+ carotid pulse no bruit, No LAD Respiratory: Clear to auscultation bilaterally, Normal air movement Cardiovascular: No edema, Normal pulses, Normal S1 S2 Capillary refill: <2 Seconds Gastrointestinal: Normal bowel sounds, Soft and benign Musculoskeletal: No clubbing, No swelling, Other (Right-sided weakness) Integumentary: No rashes, No breakdown, No erythema Neurological: Other (Aphasia, right hemiparesis) - Studies Laboratory Data (last 24 hrs) 03/07/23 03/07/23 03/07/23 12:35 12:08 11:17 WBC 13.80 H Hgb 13.4 L Hct 38.5 L Plt Count 220 PT 11.9 INR 1.08 Sodium 127 L Potassium 3.4 L BUN 7 Creatinine 0.92 Glucose 135 H Total Bilirubin 1.3 H AST 25 ALT 18 Alkaline Phosphatase 83 Assessment and Plan - Problems (Diagnosis) (1) Fall from ground level Current Visit: Yes Status: Acute Plan: Acute, patient's family found the patient laying on the floor of The bed. Patient at his baseline level of consciousness. Patient was on the floor for a unknown time. Patient is nonverbal as from CVA in 2022 Patient is awake, nonverbal, responding appropriately for the questionS, patient denies any pain or discomfort at this time Initial CT scan head neck chest abdomen pelvis shows no acute findings Fall precautions (2) Rhabdomyolysis Current Visit: Yes Status: Acute Plan: Acute, patient was brought to the hospital after a ground level fall patient was found on the floor in his baseline level of consciousness. Initial CPK 769 Admitting the patient to hydrate intravenously and monitor labS We will monitor CPK and other electrolytes and treat accordingly Patient is alert and oriented, looking extremely tired Qualifiers: Rhabdomyolysis type: non-traumatic Qualified Code(s): M62.82 - Rhabdomyolysis (3) Hyponatremia Current Visit: No Status: Acute Plan: Acute, initial sodium 127 Admitting the patient in the hospital IV hydration normal saline 100 cc/h We will recheck the sodium and other electrolytes and replace as per hospital protocol (4) Leukocytosis Current Visit: No Status: Acute Plan: Acute, leukocytosis of 13.8 No fever, no tachycardia CT ,head, chest,abdomen,pelvis with no acute findings Pending urine analysis We will continue to monitor the patient and treat accordingly Qualifiers: Leukocytosis type: unspecified Qualified Code(s): D72.829 - Elevated white blood cell count, unspecified (5) HTN (hypertension) Onset Date: 05/11/17 Current Visit: No Status: Chronic Plan: Chronic, controlled, amlodipine and lisinopril GFR 89 We will resume the home medications Qualifiers: Hypertension type: primary hypertension Qualified Code(s): I10 - Essential (primary) hypertension (6) Hemiparesis Current Visit: No Status: Chronic Qualifiers: 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 daily at home We will resume the home medications Fall precautions Qualifiers: CVA mechanism: unspecified Qualified Code(s): I63.9 - Cerebral infarction, unspecified Discharge Plan: Home Plan to discharge in: 48 Hours - Advance Directives Does patient have a Living Will: No Does patient have a Durable POA for Healthcare: No - Code Status/Comfort Care Code Status Assessed: Yes (Full code) Code Status: Full Code Physician Review: Patient Assessed, Agree with Above Assessment and Plan Critical Care: No Time Spent Managing Pts Care (In Minutes): 55 (Minutes)
[2023-03-07] MEDS: ENOXAPARIN 40 MG/0.4 ML SQ SCH (14:00)
[2023-03-07] MEDS: NA CHLORIDE 0.9% 1,000 ML IV SCH ×2 (14:00→23:52)
[2023-03-07 15:51] LABS: Renal Epithelial <5 /HPF (None Seen); Specific Gravity 1.009 (1.005-1.030); Urine Bacteria <20 /HPF (<20); Urine Bilirubin NEGATIVE (Negative); Urine Blood Negative (Negative); Urine Clarity Turbid (Clear); Urine Color Light-Yellow (Yellow); Urine Crystals Unidentified Few /HPF (None Seen); Urine Glucose NEGATIVE (Negative); Urine Mucus Slight /HPF (None Seen); Urine Protein TRACE (Negative); Urine RBC <5 /HPF (None Seen); Urine Sperm Present (None Seen); Urine Urobilinogen Normal (Normal); Urine pH 5.5 (5.0-7.0)
[2023-03-07 21:49] VITALS: BMI 20.9
[2023-03-08 03:10] LABS: Absolute Lymphocytes (CBC) 2.4 K/uL (0.7-4.9); Hematocrit 35.7 % (39.6-49.0); MCV 101.2 fL (80-100); MPV 8.7 fL (7.6-11.3); Platelets 215 thou/uL (152-406); RBC Red Blood Cell Count 3.53 M/uL (4.33-5.43)
[2023-03-08 03:13] LABS: Magnesium 2.1 mg/dL (1.6-2.4); Potassium 3.3 mEq/L (3.5-5.1); Protime INR 1.12
[2023-03-08 04:23] LABS: Blood Morphology Comment NOT SEEN (NOT SEEN); Platelet Estimate ADEQ
--- NOTE | 2023-03-08 08:51 | P.PN ---
Subjective Date of Service: 03/08/23 Chief Complaint: Fall, hyponatremia, mild rhabdomyolysis Subjective: No new changes, Improving, Doing well Patient is alert and orientedx2 Denies any pain or discomfort Vital stable Discussed with nursing staff Review of Systems 10-point ROS is otherwise unremarkable Physical Examination - Vital Signs Temperature: 97.7 F Blood Pressure: 144/63 Pulse: 58 Respirations: 17 Pulse Ox (%): 96 - Physical Exam General: Alert, Oriented x2 HEENT: Atraumatic, Normocephalic Neck: Supple, JVD not distended Respiratory: Clear to auscultation bilaterally, Normal air movement Cardiovascular: Normal pulses Capillary refill: <2 Seconds Gastrointestinal: Normal bowel sounds, Soft and benign, Non-distended Musculoskeletal: No clubbing, No swelling Integumentary: No rashes, No significant lesion Neurological: Normal affect, Other (Aphasia, left hemiparesis) - Studies Laboratory Data (last 24 hrs) 03/07/23 03/07/23 03/07/23 12:35 12:08 11:17 WBC 13.80 H Hgb 13.4 L Hct 38.5 L Plt Count 220 PT 11.9 INR 1.08 Sodium 127 L Potassium 3.4 L BUN 7 Creatinine 0.92 Glucose 135 H Total Bilirubin 1.3 H AST 25 ALT 18 Alkaline Phosphatase 83 Assessment And Plan - Current Problems (Diagnosis) (1) Fall from ground level Current Visit: Yes Status: Acute Plan: Acute, patient's family found the patient laying on the floor of The bed. Patient at his baseline level of consciousness. Patient was on the floor for a unknown time. Patient is nonverbal as from CVA in 2022 Patient is awake, nonverbal, responding appropriately, answering questions, patient denies any pain or discomfort at this time Initial CT scan head neck chest abdomen pelvis 03/07/2023 shows no acute findings Fall precautions (2) Rhabdomyolysis Current Visit: Yes Status: Acute Plan: Acute, patient was brought to the hospital after a ground level fall patient was found on the floor in his baseline level of consciousness. Initial CPK 769 Admitting the patient to hydrate intravenously and monitor labs We will monitor CPK and other electrolytes and treat accordingly Patient is alert and oriented, looking extremely tired Qualifiers: Rhabdomyolysis type: non-traumatic Qualified Code(s): M62.82 - Rhabdomyolysis (3) Hyponatremia Current Visit: No Status: Acute Plan: Acute, initial sodium 127, improved sodium 133 today Admitting the patient in the hospital Continue IV hydration normal saline 100 cc/h We will recheck the sodium and other electrolytes and replace as per hospital protocol (4) Leukocytosis Current Visit: No Status: Acute Plan: Acute, l resolved WBCs 10.3 today No fever, no tachycardia CT ,head, chest,abdomen,pelvis with no acute findings Pending urine analysis We will continue to monitor the patient and treat accordingly Qualifiers: Leukocytosis type: unspecified Qualified Code(s): D72.829 - Elevated white blood cell count, unspecified (5) HTN (hypertension) Onset Date: 05/11/17 Current Visit: No Status: Chronic Plan: Chronic, controlled, amlodipine and lisinopril GFR 94 We will resume the home medications Qualifiers: Hypertension type: primary hypertension Qualified Code(s): I10 - Essential (primary) hypertension (6) Hemiparesis Current Visit: No Status: Chronic Qualifiers: 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 daily at home We will resume the home medications Fall precautions Qualifiers: CVA mechanism: unspecified Qualified Code(s): I63.9 - Cerebral infarction, unspecified Discharge Plan: Home Plan to discharge in: 48 Hours - Code Status/Comfort Care Code Status Assessed: Yes (Full code) Code Status: Full Code Physician Review: Patient Assessed, Agree with Above Assessment and Plan Critical Care: No Time Spent Managing PTS Care (In Minutes): 35 (Minutes)
[2023-03-08] MEDS ORDERED: POTASSIUM CL SA 10 MEQ TAB PO ONE (09:00)
[2023-03-08] MEDS: NA CHLORIDE 0.9% 1,000 ML IV SCH ×2 (10:04→19:58)
[2023-03-08] MEDS: ENOXAPARIN 40 MG/0.4 ML SQ SCH (10:04)
[2023-03-09 02:20] LABS: Absolute Lymphocytes (CBC) 2.3 K/uL (0.7-4.9); Hematocrit 33.9 % (39.6-49.0); Lymphocytes % 32.7 % (15.3-44.8); MCV 102.2 fL (80-100); MPV 8.7 fL (7.6-11.3); Platelets 185 thou/uL (152-406); RBC Red Blood Cell Count 3.31 M/uL (4.33-5.43)
[2023-03-09 02:32] LABS: Potassium 3.7 mEq/L (3.5-5.1)
[2023-03-09] MEDS: ENOXAPARIN 40 MG/0.4 ML SQ SCH (08:09)
[2023-03-09] MEDS: NA CHLORIDE 0.9% 1,000 ML IV SCH (08:09)
[2023-03-09 08:38] VITALS: BP 146/60; TEMP 98.5
[2023-03-09] MEDS ORDERED: POTASSIUM CL SA 10 MEQ TAB PO ONE (09:00)
[2023-03-09 09:21] VITALS: O2SAT 97
--- NOTE | 2023-03-09 09:23 | P.DS ---
Admission Date: 03/07/23 Discharge Date: 03/09/23 Disposition: ROUTINE DISCHARGE Discharge Condition: GOOD Reason for Admission: Fall, hyponatremia, mild rhabdomyolysis - Problems (1) Fall from ground level Current Visit: Yes Status: Acute (2) Rhabdomyolysis Current Visit: Yes Status: Acute Qualifiers: Rhabdomyolysis type: non-traumatic Qualified Code(s): M62.82 - Rhabdomyolysis (3) Hyponatremia Current Visit: No Status: Acute (4) Leukocytosis Current Visit: No Status: Acute Qualifiers: Leukocytosis type: unspecified Qualified Code(s): D72.829 - Elevated white blood cell count, unspecified (5) HTN (hypertension) Onset Date: 05/11/17 Current Visit: No Status: Chronic Qualifiers: Hypertension type: primary hypertension Qualified Code(s): I10 - Essential (primary) hypertension (6) Hemiparesis Current Visit: No Status: Chronic Qualifiers: 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 Neely 72-year-old male patient with a history of CVA, left hemiparesis, hypertension, seizures. Patient was brought to emergency room via ambulatory with complaints of fall injury. Patient family found the patient laying on the floor immediately adjacent to the bed at his baseline level of consciousness. Patient was on the floor for unknown time, Patient did not remember when he fell exactly. Patient is nonverbal. Patient is alert, not in any acute distress at this time. Patient is moving all extremities no signs of pain or discomfort, no signs of fracture. Patient is denying chest pain, palpitation, shortness of breath. Patient denies abdominal pain nausea vomiting fever or chills. ED course Vital signs blood pressure 132/62, pulse 87, respirations 17, temperature 97.5, pulse ox 96% on RA. Initial laboratory report shows hyponatremia 127, mild elevation of CK of 769, leukocytosis WBC 13.8, initial CT head neck chest abdomen and pelvis is negative. Admitting the patient with a diagnosis of ground-level fall, hyponatremia, mild rhabdomyolysis Hospital Course: Mr. Neely is a pleasant 72-year-old male with a past medical history significant for CVA with left-sided weakness, hypertension, seizures who was admitted to the [facility] on 03/07/2023 for ground-level fall, hyponatremia, and mild rhabdo myolysis.. Patient was admitted, started on IV fluid, IV antibiotics. Patient was monitored closely. On 03/09/2020, patient was seen on morning rounds and deemed medically stable for discharge. Patient was discharged with instructions to schedule follow-up appointments with PCP in 3 to 5 days The patient and family members were given the opportunity to ask questions and reported no further questions. Vital Signs/Physical Exam: Temp Pulse Resp BP Pulse Ox 98.5 F 50 16 146/60 H 96 03/09/23 08:00 03/09/23 08:00 03/09/23 08:00 03/09/23 08:00 03/09/23 08:00 General: Alert, Oriented x3 HEENT: Atraumatic Neck: Supple, 2+ carotid pulse no bruit Respiratory: Clear to auscultation bilaterally, Normal air movement Cardiovascular: No edema, Normal pulses Capillary refill: <2 Seconds Gastrointestinal: Normal bowel sounds, Soft and benign Musculoskeletal: No clubbing, No swelling Integumentary: No rashes, No breakdown Neurological: Normal gait, Normal speech, Normal affect, Other (Aphasia, left- sided weakness from old CVA) Laboratory Data at Discharge: WBC 7.00 thou/uL (4.3-10.9) 03/09/23 01:53 Hgb 11.6 g/dL (13.6-17.9) L 03/09/23 01:53 Hct 33.9 % (39.6-49.0) L 03/09/23 01:53 Plt Count 185 thou/uL (152-406) 03/09/23 01:53 PT 12.3 SECONDS (9.5-12.5) 03/08/23 02:18 INR 1.12 03/08/23 02:18 Sodium 133 mEq/L (136-145) L 03/09/23 01:53 Potassium 3.7 mEq/L (3.5-5.1) 03/09/23 01:53 BUN 5 mg/dL (7-18) L 03/09/23 01:53 Creatinine 0.71 mg/dL (0.70-1.30) 03/09/23 01:53 Glucose 94 mg/dL (74-106) 03/09/23 01:53 Phosphorus 3.0 mg/dL (2.5-4.9) 03/08/23 02:18 Magnesium 2.1 mg/dL (1.6-2.4) 03/08/23 02:18 Total Bilirubin 1.3 mg/dL (0.2-1.0) H 03/07/23 12:08 AST 25 U/L (15-37) 03/07/23 12:08 ALT 18 U/L (16-61) 03/07/23 12:08 Alkaline Phosphatase 83 U/L (45-117) 03/07/23 12:08 Triglycerides 98 mg/dL (<150) 03/08/23 02:18 Cholesterol 118 mg/dL (<200) 03/08/23 02:18 HDL Cholesterol 47 mg/dL (40-60) 03/08/23 02:18 Cholesterol/HDL Ratio 2.51 03/08/23 02:18 Home Medications: Amlodipine Besylate 10 mg PO DAILY 06/19/15 Atorvastatin Calcium [Lipitor] 80 mg PO BEDTIME 06/19/15 Lisinopril 20 mg PO DAILY 06/19/15 Levetiracetam [Keppra] 1,000 mg PO BID 05/11/17 Aspirin [Aspirin EC 81 MG] 81 mg PO DAILY 04/30/20 Albuterol Inhaler [Ventolin Inhaler*] 2 puff IH Q6H PRN #1 hfa.aer.ad 05/02/20 Amox/Clavulanate [Augmentin 875-125 Tab*] 1 each PO BID #14 tab 05/02/20 Ascorbic Acid [Vitamin C*] 500 mg PO BID 90 Days #180 tablet 03/04/21 Cholecalciferol (Vitamin D3) [Vitamin D 5,000 IU Cap*] 5,000 unit PO DAILY 90 Days #90 cap 03/04/21 Fluvoxamine Maleate [Fluvoxamine Maleate ER] 100 mg PO TID 7 Days #21 cap.er.24h 03/04/21 Prednisone [Sterapred Ds] 10 mg PO BID #21 tab.ds.pk 03/04/21 Zinc 50 mg PO 30 MIN BEFORE HS 30 Days #30 tablet 03/04/21 Nirmatrelvir/Ritonavir [Paxlovid 2X150 mg-100 mg (Eua)] 0 tab PO BID 4 Days #21 tablet 11/30/22 Physician Discharge Instructions: You were admitted on 03/07/2023 after a ground-level fall and your family found on the floor and intubated. Initial laboratory report shows low sodium 127, high WBC 13.8, initial CT head neck chest abdomen and pelvis is negative You were admitted in the hospital at a monitored you closely Your blood work got better over time. On 03/09/2020, you were seen on morning rounds and deemed medically stable for discharge. No new prescriptions, no change in your medications. -Follow-up with PCP in 1 to 2 weeks -Please call at [phone] if any questions regarding hospital stay -Please call nursing station at [phone] if any nursing or medication questions -Return to the emergency room if symptoms worsen Followup: NONE,NONE [Primary Care Provider] -
--- NOTE | 2023-03-11 14:26 | EKG ---
Test Date: 2023-03-07 Test Time: 13:22:53 [employer]using Furnace [employer]er: SANDY MEASUREMENT RESULTS: Intervals: Rate: 81 NC: 190 QRSD: 70 QT: 330 QTc: 383 [place]: P: 47 NC: 190 QRS: 34 T: 45 INTERPRETIVE STATEMENTS: Normal sinus rhythm Nonspecific ST and T wave abnormality Abnormal ECG Compared to ECG 01/03/2023 20:41:44 ST (T wave) deviation now present T-wave abnormality no longer present Electronically Signed On 03-11-23 14:14:46 [employer] REC[employer] SPECIALIST by Loc Geronimo
== END 2023-03-09 15:40 | disposition home or self-care (01) | DRG 558 ==
LOC: ER 11:08 → ERHOLD 13:08 → 2ND 18:02
PROVIDERS: ADMIT Internal Medicine Nephrology; ATTEND Internal Medicine Nephrology
DX: M62.82 Rhabdomyolysis (principal); E87.1 Hypo-osmolality and hyponatremia; I69.351 Hemiplegia and hemiparesis following cerebral infarction affecting right dominant side; I10 Essential (primary) hypertension; E78.5 Hyperlipidemia, unspecified; D72.829 Elevated white blood cell count, unspecified; Z79.82 Long term (current) use of aspirin; Z79.52 Long term (current) use of systemic steroids; Z86.16 Personal history of COVID-19; Z90.49 Acquired absence of other specified parts of digestive tract; Z79.899 Other long term (current) drug therapy; W06.XXXA Fall from bed, initial encounter; Y93.9 Activity, unspecified; Y92.9 Unspecified place or not applicable; Y99.9 Unspecified external cause status
CPT/HCPCS: 36415; 70450; 71250; 72125; 80048; 80061; 80076; 81001; 82550; 83735; 84100; 84132; 84484; 85025; 85610; 86850; 86900; 86901; 92523; 93005; 99284; J1650; J7030

== ENCOUNTER 2023-08-29 04:54 | Emergency (ER) | payer OTHER ==
--- OUTSIDE RECORDS SUMMARY | 2023-08-29 04:56 | XMS REPORT | Continuity of Care Document ---
Author Name Unknown Address [address] [facility] [place] [address] [facility] [address] [facility] [place] [address] Care Team Providers Care Chip Silo Tender Name Role Phone TOYA Attending Clinician Unavailable Kendra Attending Clinician Unavail able SUDHIR SARAVIA Attending Clinician Unavailable Royal Rice Attending Clinician [phone] Toni Attending Clinician Unavailable Iliana Pinto MD Attending Clinician [phone] Sudhir Saravia MD Attending Clinician [phone] [facility] Attending Clinician Unavail able 1, [facility] Room Attending Clinician Unava ilable 2, [facility] Room Attending Clinician Unava ilable Doctor Unassigned, [place] Attending Clinician U navailable TOYA Admitting Clinician Unavailable Kendra Admitting Clinician Unavail able Toni Admitting Clinician Unavailable Payers Payer Name Policy Type Policy Number Effective Date Expirati on Date Source MEDICARE [place]: [employer] [id number] 2016 00:00:00 MEDICARE PART A \T\ B [id number] 2016 00:00:00 MEDICAID OF [place] [id number] 2016 00:00:00 Allergies, Adverse Reactions, Alerts Allergy Name Allergy Type Status Severity Reaction(s) Onset Date Inactive Date Treating Clinician Comments Source NO KNOWN ALLERGIE S Drug Class Active [facility] Social History Social Habit Start Date Stop Date Quantity Comments Source History of tobacco use Cigarette Smoker [facility] Sex Assigned At [facility] Cigarettes smoked current (pack per day) - Reported 2018-12-19 00:00:00 2018-12-19 00:00:00 [facility] Alcohol intake 2018-12-19 00:00:00 2018-12-19 00:00:00 [facility] Smoking Status Start Date Stop Date Source Current every day smoker 2018-12-19 00:00:00 [facility] Medications Ordered Medication Name Filled Medication Name Start Date Stop Date Current Medication? Ordering Clinician Indication Dosage Frequency Signature (SIG) Comments Components Source atorvastati n 40 mg tablet 09-10 00:00: 00 12-10 04:59 :00 No [id number] 40mg Take 1 tablet by mouth at bedtime for 90 days. [facility] contrast previously administere d 0 mL 01-11 17:15: 00 01-11 16:30 :00 No Intravenou s, ONCE, 1 dose, 01/11/19 at 1215, Routine [facility] iohexol (OMNIPAQUE 350 BULK-100 mL) injection 100 mL 01-11 17:15: 00 01-11 16:30 :00 No 100mL 100 mL, Intravenou s, ONCE, 1 dose, Mon01/11/19 at 1215, Routine [facility] ezetimibe 10 mg tablet 01-04 15:56: 28 Yes 10mg Take 10 mg by mouth daily. [facility] albuterol 2.5 mg /3 mL (0.083 %) nebulizer solution 01-04 15:56: 28 Yes 2.5mg Inhale 2.5 mg every 8 (eight) hours as needed. [facility] albuterol 90 mcg/actuati on inhaler 01-04 15:56: 28 Yes 2{puff} Inhale 2 Puffs every 6 (six) hours as needed. [facility] montelukast 10 mg tablet 01-04 15:56: 28 Yes 10mg Take 10 mg by mouth daily. [facility] lisinopril 20 mg tablet 01-04 15:53: 50 Yes 20mg Take 20 mg by mouth daily. [facility] foLIC acid 1 mg tablet 01-04 15:53: 50 Yes 1mg Take 1 mg by mouth daily. [facility] levETIRAcet am (KEPPRA) 1,000 mg tablet 01-04 15:53: 50 Yes 1000mg Take 1,000 mg by mouth 2 (two) times daily. [facility] amLODIPine 10 mg tablet 01-04 15:53: 50 Yes 10mg Take 10 mg by mouth daily. [facility] atorvastati n 40 mg tablet 01-04 00:00: 00 Yes [id number] 40mg Take 1 tablet by mouth at bedtime. [facility] sulfur hexafluorid e microsphr (LUMASON) injection 5 mL 01-01 22:30: 00 01-01 21:28 :00 No 5mL [facility] montelukast 10 mg tablet 12-24 14:36: 58 Yes 10mg Take 10 mg by mouth daily. [facility] albuterol 90 mcg/actuati on inhaler 12-24 14:36: 28 Yes 2{puff} Inhale 2 Puffs every 6 (six) hours as needed. [facility] albuterol 2.5 mg /3 mL (0.083 %) nebulizer solution 12-24 14:35: 59 Yes 2.5mg Inhale 2.5 mg every 8 (eight) hours as needed. [facility] ezetimibe 10 mg tablet 12-24 14:34: 32 Yes 10mg Take 10 mg by mouth daily. [facility] foLIC acid 1 mg tablet 12-19 14:22: 48 Yes 1mg Take 1 mg by mouth daily. [facility] levETIRAcet am (KEPPRA) 1,000 mg tablet 12-19 14:22: 48 Yes 1000mg Take 1,000 mg by mouth 2 (two) times daily. [facility] amLODIPine 10 mg tablet 12-19 14:22: 48 Yes 10mg Take 10 mg by mouth daily. [facility] lisinopril 20 mg tablet 12-19 14:22: 47 Yes 20mg Take 20 mg by mouth daily. [facility] atorvastati n 80 mg tablet 2017-05 00:00: 00 Yes 80mg Take 1 tablet by mouth at bedtime. onstatin per recent notes. Updated chart with new order [facility] amLODIPine 10 mg tablet 12-19 14:41: 35 Yes 10mg Take 10 mg by mouth daily. [facility] lisinopril 20 mg tablet 12-19 14:41: 35 Yes 20mg Take 20 mg by mouth daily. [facility] foLIC acid 1 mg tablet 12-19 14:41: 35 Yes 1mg Take 1 mg by mouth daily. [facility] levETIRAcet am (KEPPRA) 1,000 mg tablet 12-19 14:41: 35 Yes 1000mg Take 1,000 mg by mouth 2 (two) times daily. [facility] aspirin 81 mg EC tablet 12-19 00:00: 00 Yes 81mg Take 1 tablet by mouth daily. [facility] Vital Signs Vital Name Observation Time Observation Value Comments Bernie garcia Systolic blood pressure 2019-01-04 15:52:00 133 mm[Hg] [facility] Diastolic blood pressure 2019-01-04 15:52:00 67 mm[Hg] [facility] Heart rate 2019-01-04 15:52:00 75 /min [facility] Body temperature 2019-01-04 15:52:00 36.78 Janett [facility] Respiratory rate 2019-01-04 15:52:00 20 /min [facility] Body weight 2019-01-04 15:52:00 84.732 kg [facility] BMI 2019-01-04 15:52:00 29.26 kg/m2 [facility] Systolic blood pressure 2019-01-04 15:52:00 133 mm[Hg] [facility] Diastolic blood pressure 2019-01-04 15:52:00 67 mm[Hg] [facility] Heart rate 2019-01-04 15:52:00 75 /min [facility] Body temperature 2019-01-04 15:52:00 36.78 Janett [facility] Respiratory rate 2019-01-04 15:52:00 20 /min [facility] Body weight 2019-01-04 15:52:00 84.732 kg [facility] BMI 2019-01-04 15:52:00 29.26 kg/m2 [facility] Systolic blood pressure 2018-12-19 14:21:00 111 mm[Hg] [facility] Diastolic blood pressure 2018-12-19 14:21:00 62 mm[Hg] [facility] Heart rate 2018-12-19 14:21:00 68 /min [facility] Respiratory rate 2018-12-19 14:21:00 18 /min [facility] Body height 2018-12-19 14:21:00 170.2 cm [facility] Body weight 2018-12-19 14:21:00 85.684 kg [facility] BMI 2018-12-19 14:21:00 29.59 kg/m2 [facility] Oxygen saturation in Arterial blood by Pulse oximetry 2018-12-19 14:21:00 97 /min [facility] Systolic blood pressure 2019-01-01 20:52:00 141 mm[Hg] [facility] Diastolic blood pressure 2019-01-01 20:52:00 71 mm[Hg] [facility] Heart rate 2019-01-01 20:52:00 87 /min [facility] Body height 2019-01-01 20:52:00 170.2 cm [facility] Body weight 2019-01-01 20:52:00 85.276 kg [facility] BMI 2019-01-01 20:52:00 29.44 kg/m2 [facility] Procedures Procedure Date / Time Performed Performing Clinicia n Source CT ANGIOGRAM NECK 2019-01-11 17:12:41 Adolph Huitron [facility] CT ANGIOGRAM HEAD 2019-01-11 17:10:04 Adolph Huitron [facility] NOTICE OF BILLING PRACTICES FOR MEDICARE PATIENTS 2019-01-11 15:34:57 Doctor Unassigned, [place] [facility] PATIENT FINANCIAL POLICY 2019-01-11 15:34:09 Doctor Unassigned, [place] [facility] POCT CREATININE 2019-01-11 15:10:00 Iliana Pinto [facility] EKG-12 LEAD 2018-12-19 14:29:02 Sudhir Saravia [facility] ASSIGNMENT OF BENEFITS 2018-12-19 14:07:02 Eduar thompson Unassigned, [place] [facility] Encounters Start Date/Time End Date/Time Encounter Type Admission Type Attending [facility] Facility Care Department Encounter ID Source 2021-11-10 02:08:00 2021-11-10 02:08:00 Outpatient COLETTE FUENTES [facility] [id number] [facility] 2021-10-14 02:06:00 2021-10-14 02:06:00 Outpatient ZAKI_Shashi Sampson AO AO [id number] [facility] 2021-10-05 08:13:00 2021-10-05 08:13:00 Outpatient ZAKI_Shashi Sampson AOSM AO [id number] [facility] 2020-01-22 15:20:00 2020-01-22 15:20:00 Outpatient SUDHIR OCONNELL [facility] [id number] [facility] 2019-12-23 09:40:00 2019-12-23 09:40:00 Outpatient SUDHIR OCONNELL [facility] [id number] [facility] 2019-09-11 00:00:00 2019-09-11 00:00:00 Telephone Royal James [facility] [id number] [id number] [id number] 2019-09-11 00:00:00 2019-09-11 00:00:00 Telephone Royal James [facility] [id number] 350.1.13.10 [id number] [id number] [facility] 2019-08-27 04:13:00 2019-08-27 04:13:00 Outpatient [facility] [id number] [facility] 2019-01-11 10:33:32 2019-01-11 23:59:00 Hospital Encounter [facility] [id number] 350.1.13.10 [id number] [id number] 2019-01-11 10:33:32 2019-01-11 23:59:00 Hospital Encounter [facility] [id number] 350.1.13.10 4.2.7.2.686 [id number] [facility] 2019-01-11 10:20:00 2019-01-11 10:32:00 Hospital Encounter [facility] [id number] [id number] [id number] [id number] 2019-01-11 10:20:00 2019-01-11 10:32:00 Hospital Encounter [facility] [id number] 350.1.13.10 4.2.7.2.686 [id number] [facility] 2019-01-04 10:21:42 2019-01-04 18:59:26 Office Visit [facility] [id number] 350.1.13.10 4.2.7.2.686 [id number] [facility] 2019-01-04 10:21:42 2019-01-04 18:59:26 Office Visit Iliana Pinto [facility] [id number] 350.1.13.10 4.2.7.2.686 [id number] 2018-12-19 09:07:06 2019-01-03 15:22:45 Office Visit Sudhir Saravia [facility] [id number] 350.1.13.10 4.2.7.2.686 [id number] [facility] 2019-01-03 00:00:00 2019-01-03 00:00:00 Telephone Sudhir Saravia [facility] [id number] 350.1.13.10 4.2.7.2.686 [id number] [facility] 2019-01-01 14:30:23 2019-01-01 16:38:50 Laboratory Only Tech, [facility] 1, [facility] [id number] 350.1.13.10 4.2.7.2.686 [id number] [facility] 2019-01-01 14:29:39 2019-01-01 15:29:39 [employer] Visit Tech, [facility] Cardio Fac 2, [facility] [id number] 350.1.13.10 4.2.7.2.686 [id number] [facility] 2018-12-24 00:00:00 2018-12-24 00:00:00 Telephone Sudhir Saravia [facility] [id number] 350.1.13.10 4.2.7.2.686 [id number] [facility] 2018-12-19 00:00:00 2018-12-19 00:00:00 Orders Only Doctor Unassigned, [place] [facility] [id number] 350.1.13.10 4.2.7.2.686 [id number] [facility] Results Test Description Test Time Test Comments Results Result Comments Source CT ANGIOGRAM NECK 2018-12 19:52:1 1 Nonvisualization of the left internal carotid artery from [...] NECK: A three-vessel aortic arch is seen. Lyyl-gt-vyeoirjg atheroscleroticdisease is noted in the arch. The vessels originating from the arch arepatent. Mild scattered atherosclerotic disease is noted in the common carotidarteries bilaterally, left greater than right. No flow-limiting stenosis isidentified. Bqmu-sf-lnexlzxy atherosclerotic disease is seen in the left [...] NECK: A three-vessel aortic arch is seen. Kqgm-no-ekzaiddj atheroscleroticdisease is noted in the arch. The vessels originating from the arch arepatent.Mild scattered atherosclerotic disease is noted in the common carotidarteries bilaterally, left greater than right. No flow-limiting stenosis isidentified.Uyxl-wx-whbiwtgj atherosclerotic disease is seen in the left [...] this study and agree with the abovereport. [facility] CT ANGIOGRAM HEAD 2018-12 19:52:1 1 Nonvisualization of the left internal carotid artery from [...] NECK: A three-vessel aortic arch is seen. Nqqv-ib-mxkloteh atheroscleroticdisease is noted in the arch. The vessels originating from the arch arepatent. Mild scattered atherosclerotic disease is noted in the common carotidarteries bilaterally, left greater than right. No flow-limiting stenosis isidentified. Rxoj-fp-busdofyp atherosclerotic disease is seen in the left [...] NECK: A three-vessel aortic arch is seen. Nque-yd-rffcnolo atheroscleroticdisease is noted in the arch. The vessels originating from the arch arepatent.Mild scattered atherosclerotic disease is noted in the common carotidarteries bilaterally, left greater than right. No flow-limiting stenosis isidentified.Cigg-ew-sgicjnhk atherosclerotic disease is seen in the left [...] this study and agree with the abovereport. [facility]
[2023-08-29] MEDS ORDERED: LEVETIRACETAM 500 MG/5 ML VIAL IV ONE (05:09)
[2023-08-29] MEDS ORDERED: LIDOCAINE 1% 20 ML MDV ONE (05:09)
[2023-08-29] MEDS ORDERED: LORazepam 2 MG/ML VIAL ONE (05:09)
[2023-08-29] MEDS ORDERED: NA CHLORIDE 0.9% 100 ML ONE (05:10)
[2023-08-29 05:44] LABS: Absolute Lymphocytes (CBC) 1.6 K/uL (0.7-4.9); Absolute Monocytes 0.8 K/uL (0.1-1.3); Absolute Neutrophil 2.5 K/uL (1.8-8.0); Basophils % 0.5 % (0-1.3); Eosinophils % 0.7 % (0-4.4); Hematocrit 40.4 % (39.6-49.0); Hemoglobin 13.6 g/dL (13.6-17.9); Lymphocytes % 32.4 % (15.3-44.8); MCH 33.5 pg (27.0-35.0); MCHC 33.7 g/dL (32.0-36.0); MCV 99.3 fL (80-100); Monocytes % 16.1 % (3.3-12.3); Neutrophils % 50.3 % (41.7-73.7); Platelets 246 thou/uL (152-406); RBC Red Blood Cell Count 4.07 M/uL (4.33-5.43); Red Cell Distribution Width 15.3 % (12.1-15.2)
[2023-08-29 05:58] LABS: Anion Gap 16.5 mEq/L (5.0-15.0); Potassium 3.5 mEq/L (3.5-5.1)
--- NOTE | 2023-08-29 07:39 | ER ---
Nurse's Notes [facility] Name: Houston Neely Age: 72 yrs Sex: Male : 1950 Arrival Date: 08/29/2023 Time: 04:54 Bed 5 Private MD: Diagnosis: Acute forehead laceration, acute fall at home, acute recurrent seizure Presentation: 08/28 04:57 Chief complaint: EMS states: 72 year old male family members report patient was having ha1 a seizure and during the seizure activity he cut his forehead. bleeding stopped with pressure. 04:57 Coronavirus screen: Vaccine status:. Ebola Screen: No symptoms or risks identified at [facility] this time. Initial Sepsis Screen: Does the patient meet any 2 criteria? No. Patient's initial sepsis screen is negative. Does the patient have a suspected source of infection? No. Patient's initial sepsis screen is negative. Risk Assessment: Do you want to hurt yourself or someone else? Patient reports no desire to harm self or others. Onset of symptoms was August 29, 2023. 04:57 Method Of Arrival: EMS: [place] [id number] 04:57 Acuity: CHUCK 3 ha1 Triage Assessment: 04:57 General: Appears comfortable, Behavior is calm. Pain: Unable to use pain scale. FLACC ha1 scale score is 0 out of 10. Neuro: Level of Consciousness is awake, Oriented to unable to speak . Cardiovascular: Capillary refill < 3 seconds Patient's skin is warm and dry. Respiratory: Airway is patent Respiratory effort is even, unlabored, Respiratory pattern is regular, symmetrical. GI: No signs and/or symptoms were reported involving the gastrointestinal system. Musculoskeletal: Range of motion: limited in right elbow. Injury Description: Laceration sustained to forehead is 0.5 to 2.5 cm long, not bleeding. Historical: - Allergies: 05:22 NKDA; ha1 - Home Meds: 05:22 lisinopril 20 mg Oral tab 1 tab once daily [Active]; Keppra 1 Oral tablet [Active]; ha1 atorvastatin 80 mg Oral tablet [Active]; - PMHx: 05:22 Covid-19 in 2022; CVA; Hypertension; R sided weakness; Seizures; ha1 05:23 nonverbal; ha1 - PSHx: 05:22 Cholecystectomy; ha1 - Immunization history:: Adult Immunizations unknown. - Infectious Disease History:: Denies. - Social history:: Smoking status: unknown. - Family history:: not pertinent. Screenin:28 Abuse screen: Denies threats or abuse. Denies injuries from another. Nutritional ha1 screening: No deficits noted. Tuberculosis screening: No symptoms or risk factors identified. 08:08 [facility] ED Fall Risk Assessment (Adult) History of falling in the last 3 months, ld1 including since admission Yes- single mechanical fall (1 pt) Confusion or Disorientation Yes (5 pts). Assessment: 05:00 Reassessment: see triage assessment. ha1 06:00 Reassessment: Patient and/or family updated on plan of care and expected duration. Pain ha1 level reassessed. 07:32 Reassessment: Dr. Espinal at bedside completing laceration repair to forehead. ld1 Vital Signs: 04:57 BP 153 / 75; Pulse 105; Resp 18 S; Temp 98.2; Pulse Ox 94% on R/A; Weight 86.18 kg; ha1 06:00 BP 112 / 62; Pulse 88; Resp 17 S; Pulse Ox 98% on R/A; ha1 07:32 BP 125 / 63; Pulse 81; Resp 18; Pulse Ox 100% on R/A; ld1 Ayaka Coma Score: 05:23 Eye Response: spontaneous(4). Motor Response: obeys commands(6). Verbal Response: ha1 oriented(5). Total: 15. 21:23 Eye Response: spontaneous(4). Motor Response: obeys commands(6). Verbal Response: sp4 oriented(5). Total: 15. ED Course: 04:55 Patient arrived in ED. jj6 04:57 Bed in low position. Call light in reach. Side rails up X2. Adult w/ patient. Seizure ha1 precautions initiated. 05:03 Kwame Espinal MD is Attending Physician. sp4 05:22 Triage completed. ha1 05:44 CT Head C Spine In Process Unspecified. EDMS 08:07 Erin Flores, RN is Primary Nurse. ld1 08:08 Arm band placed on right wrist. ld1 08:08 Assist provider with laceration repair on forehead using sutures. Set up tray. ld1 Performed by Kwame Espinal MD Patient tolerated well. IV discontinued, intact, bleeding controlled, No redness/swelling at site. Administered Medications: 05:37 Drug: Ativan IVP 2 mg IVP once Route: IVP; Site: left hand; 7 05:37 Drug: Keppra IV 1000 mg IV at calculated rate once Route: IV; Rate: calculated rate; jw7 Site: left hand; 07:31 Drug: Lidocaine Infiltration (1 %) 20 ml 20 ml Infiltration once; to bedside {Note: ld1 Administered by Dr. Lopez..} Volume: 20 ml; Route: Infiltration; Medication: 08:08 VIS not applicable for this client. ld1 Outcome: 07:38 Discharge ordered by . sp4 08:08 Discharged to home via wheelchair, with friend, ld1 08:08 Condition: stable 08:08 Discharge instructions given to patient, family, Instructed on discharge instructions, follow up and referral plans. Demonstrated understanding of instructions, follow-up care, 08:09 Patient left the ED. ld1 Signatures: Dispatcher [employer] EDMS Erin Flores RN RN ld1 Iliana Garciaj6 Crystal Raya RN RN jw7 Jennifer Leon RN RN ha1 Kwame Espinal MD MD sp4 Corrections: (The following items were deleted from the chart) 05:26 05:23 PMHx: non verbal; ha1 ha1
--- NOTE | 2023-08-29 07:39 | EDPHYS ---
Physician Documentation [facility] Name: Houston Neely Age: 72 yrs Sex: Male : 1950 Arrival Date: 08/29/2023 Time: 04:54 Bed 5 Private MD: ED Physician Kwame Espinal HPI: 08/28 05:03 This 72 yrs old Male presents to ER via Unassigned with complaints of Seizure, sp4 Fall Injury. 21:23 80-year-old male with history of hypertension, seizures on Keppra at home presents sp4 after acute seizure at home fall and forehead laceration. Patient presents with EMS in c-collar on spinal board. . Historical: - Allergies: 05:22 NKDA; ha1 - Home Meds: 05:22 lisinopril 20 mg Oral tab 1 tab once daily [Active]; Keppra 1 Oral tablet [Active]; ha1 atorvastatin 80 mg Oral tablet [Active]; - PMHx: 05:22 Covid-19 in 2022; CVA; Hypertension; R sided weakness; Seizures; ha1 05:23 nonverbal; ha1 - PSHx: 05:22 Cholecystectomy; ha1 - Immunization history:: Adult Immunizations unknown. - Infectious Disease History:: Denies. - Social history:: Smoking status: unknown. - Family history:: not pertinent. ROS: 21:23 Constitutional: Positive for reported seizure, positive fall, positive forehead sp4 laceration. 21:23 All other systems are negative, Exam: 21:23 Constitutional: This is a well developed, well nourished patient who is awake, alert, sp4 and in no acute distress. Nonverbal male, in c-collar and on spinal board, there is mild restlessness. Head/Face: Normocephalic, there is approximately 5 cm laceration mid forehead at diagonal orientation Eyes: Pupils equal round and reactive to light, extra-ocular motions intact. Lids and lashes normal. Conjunctiva and sclera are not injected. Cornea within normal limits. Periorbital areas with no swelling, redness, or edema. ENT: Nares patent. No nasal discharge, no septal abnormalities noted. Tympanic membranes are normal and external auditory canals are clear. Oropharynx with no redness, swelling, or masses, exudates, or evidence of obstruction, uvula midline. Mucous membranes moist. Neck: Trachea midline, no thyromegaly or masses palpated, and no cervical lymphadenopathy. Supple, full range of motion without nuchal rigidity, or vertebral point tenderness. Chest/axilla: Normal chest wall appearance and motion. Nontender with no deformity. No lesions are appreciated. Cardiovascular: Regular rate and rhythm with a normal S1 and S2. No gallops, murmurs, or rubs. Normal PMI, no JVD. No pulse deficits. Respiratory: Lungs have equal breath sounds bilaterally, clear to auscultation and percussion. No rales, rhonchi or wheezes noted. No increased work of breathing, no retractions or nasal flaring. Abdomen/GI: Soft, with normal bowel sounds. No distension or tympany. No guarding or rebound. No evidence of tenderness throughout. Back: No spinal tenderness. No costovertebral tenderness. Male : Normal genitalia with no discharge or lesions. Skin: Warm, dry with normal turgor. Normal color with no rashes, no lesions, and no evidence of cellulitis. MS/ Extremity: Pulses equal, no cyanosis. Neurovascular intact. Full, normal range of motion. Neuro: Awake and alert, GCS 15, patient is nonverbal but is following commands, motor strength 5/5 in all extremities. Sensory grossly intact. Vital Signs: 04:57 BP 153 / 75; Pulse 105; Resp 18 S; Temp 98.2; Pulse Ox 94% on R/A; Weight 86.18 kg; ha1 06:00 BP 112 / 62; Pulse 88; Resp 17 S; Pulse Ox 98% on R/A; ha1 07:32 BP 125 / 63; Pulse 81; Resp 18; Pulse Ox 100% on R/A; ld1 Richardson Coma Score: 05:23 Eye Response: spontaneous(4). Motor Response: obeys commands(6). Verbal Response: ha1 oriented(5). Total: 15. 21:23 Eye Response: spontaneous(4). Motor Response: obeys commands(6). Verbal Response: sp4 oriented(5). Total: 15. Laceration: 07:35 Wound Repair of 5cm ( 2.0in ) subcutaneous laceration to forehead Mid to right forehead sp4 diagonal laceration . Irregularly shaped.. Hemostasis noted.. Distal neuro/vascular/tendon intact. Anesthesia: Wound infiltrated with 10 mls of 1% lidocaine. Wound prep: Moderate cleansing by me, Copious irrigation. Skin closed with 10 5-0 Prolene using interrupted sutures and sterile technique. Dressed with Neosporin. Patient tolerated well. MDM: 05:25 Patient medically screened. sp4 07:07 ED course: IMPRESSION: 1. No acute intracranial abnormality by CT criteria. 2. No acute sp4 fracture or subluxation of the cervical spine. 3. Multilevel degenerative change of the cervical spine. Electronically signed by: Russ Zayas DO 08/29/2023 06:25 AM. 07:35 Differential diagnosis: drug overdose, seizure, TIA, fall , head injury . Data sp4 reviewed: vital signs, nurses notes, EMS record, old medical records, lab test result(s), radiologic studies, CT scan. Consideration of Admission/Observation Escalation of care including admission/observation considered. ED course: Patient was given a loading Dose of IV Keppra and also Ativan for acute agitation. Laceration repaired . ED course: Patient stable for discharge home. . 08/28 05:04 Order name: Alcohol Level; Complete Time: 07:08 sp4 08/28 05:04 Order name: Basic Metabolic Panel; Complete Time: 07:08 sp4 08/28 05:04 Order name: CBC with Diff; Complete Time: 07:08 sp4 08/28 05:04 Order name: Type And Screen; Complete Time: 07:34 sp4 08/28 05:04 Order name: CT Head C Spine sp4 08/28 05:04 Order name: Labs collected and sent; Complete Time: 05:37 sp4 08/28 05:04 Order name: Dressing - Wound; Complete Time: 06:46 sp4 08/28 05:04 Order name: Gloves, Sterile; Complete Time: 05:47 sp4 08/28 05:04 Order name: Setup Suture Tray; Complete Time: 05:47 sp4 Administered Medications: 05:37 Drug: Ativan IVP 2 mg IVP once Route: IVP; Site: left hand; jw7 05:37 Drug: Keppra IV 1000 mg IV at calculated rate once Route: IV; Rate: calculated rate; jw7 Site: left hand; 07:31 Drug: Lidocaine Infiltration (1 %) 20 ml 20 ml Infiltration once; to bedside {Note: ld1 Administered by Dr. Lopez..} Volume: 20 ml; Route: Infiltration; Disposition Summary: 08/29/23 07:38 Discharge Ordered Notes: Suture removal advised after 14 days Location: Home sp4 Problem: new sp4 Symptoms: have improved sp4 Condition: Stable sp4 Diagnosis - Acute forehead laceration, acute fall at home, acute recurrent seizure sp4 Followup: sp4 - With: Private Physician - When: 10 - 14 days - Reason: Recheck today's complaints Discharge Instructions: - Discharge Summary Sheet sp4 - Facial Laceration, [id number]-[id number] sp4 Forms: - Patient Portal Instructions sp4 Signatures: Dispatcher [employer] EDErin Coker RN RN ld1 Crystal Raya RN RN jw7 Jennifer Leon RN RN ha1 Kwame Espinal MD MD sp4 Corrections: (The following items were deleted from the chart) 05:04 05:04 ETHANOL+C.LAB.BRZ ordered. EDMS EDMS 05:04 05:04 BASIC METABOLIC PANEL+C.LAB.BRZ ordered. EDMS EDMS 05:04 05:04 CBC+H.LAB.BRZ ordered. EDMS EDMS 05:04 05:04 TYPE AND SCREEN+BB.LAB.BRZ ordered. EDMS EDMS 05:04 05:04 Head C Spine MPR Wo Con+CT.RAD.BRZ ordered. EDMS EDMS 05:26 05:23 PMHx: non verbal; ha1 ha1
[2023-08-29 08:23] VITALS: BP 125/63; TEMP 98.2; O2SAT 100
--- NOTE | 2023-08-29 11:27 | RAD REPORT ---
EXAM DESCRIPTION: CT - Head C Spine Mpr Wo Con - 08/29/2023 6:34 am CLINICAL HISTORY: Fall , head lac COMPARISON: 03/07/2023 TECHNIQUE: Axial CT of the head obtained from the skull apex to the skull base without contrast. Axi al CT images of the cervical spine obtained without contrast. This exam was performed according to [facility] departmental dose-optimization program, which includes automated exposure control, adjustment of th e mA and/or kV according to patient size and/or use of iterative reconstruction technique. FINDINGS: Head CT: No acute intracranial hemorrhage identified. No mass, mass effect, shift of the midline, abnormal ext ra-axial fluid collection or CT evidence of acute ischemic change identified. The ventricular system and sulcal spaces are mildly enlarged compatible with mild cerebral atrophy. Confluent areas of hyp odensity throughout the supratentorial white matter are nonspecific and may be related to chronic sma ll vessel ischemic change. Left frontotemporoparietal encephalomalacia compatible with remote left MC A distribution infarction. The visualized paranasal sinuses and the mastoids are clear. No skull fracture identified. Visualiz ed orbits and globes are unremarkable. Atherosclerotic calcification of the intracranial internal car otid arteries. Cervical CT : Straightening of the cervical lordosis may be secondary to patient positioning. The atlantoaxial, a tlantodental, and occipitoatlantal intervals are preserved. No fracture identified. Vertebral body height preserved. Prevertebral soft tissues are unremarkable. Mild multilevel loss of intervertebral disc height with endplate spondylosis, facet arthropathy, and uncovertebral spurring. Posterior disc osteophyte complex at multiple levels mildly encroach upon the anterior spinal canal. Mild neural foraminal narrowing. Visualized skull base is intact. Atherosclerotic vascular calcification. Visualized thyroid is unremarkable. No cervical lymphadenopathy. No pneumothorax in the visualized lung apices. IMPRESSION: 1. No acute intracranial abnormality by CT criteria. 2. No acute fracture or subluxation of the cervical spine. 3. Multilevel degenerative change of the cervical spine. Electronically signed by: Russ Zayas DO 08/29/2023 06:25 AM CDT M Due to temporary technical issues with the PACS/Fluency reporting system, reports are being signed by the in house radiologists without review as a courtesy to insure prompt reporting. The interpreting radiologist is fully responsible for the content of the report.
== END 2023-08-29 08:09 | disposition home or self-care (01) ==
LOC: ER 04:54
PROC: 0HQ1XZZ Repair Face Skin, External Approach (ICD-10-PCS; principal; 2023-08-29)
DX: S01.81XA Laceration without foreign body of other part of head, initial encounter (principal); G40.909 Epilepsy, unspecified, not intractable, without status epilepticus; W19.XXXA Unspecified fall, initial encounter; Y92.009 Unspecified place in unspecified non-institutional (private) residence as the place of occurrence of the external cause; I10 Essential (primary) hypertension
CPT/HCPCS: 85025; 80048; 36415; 86900; 86850; 86901; 70450; 72125; 96375; 96374; 99284; 82077; 12013; J1953; J2001

== ENCOUNTER 2024-01-01 01:13 | Inpatient (IN) | payer OTHER ==
--- OUTSIDE RECORDS SUMMARY | 2024-01-01 01:17 | XMS REPORT | Continuity of Care Document ---
Author Name Unknown Address [address] [facility] [address] [place] [address] [facility] Address [address] [facility] [place] [address] Care Team Providers Care Cbx Operator Name Role Phone AMARA TAVAREZ Primary Care Physician Unavailab anam PITTMAN Attending Clinician Unavailable Kendra Attending Clinician Unavail able SUDHIR SARAVIA Attending Clinician Unavailable Royal Rice Attending Clinician [phone] Toni Attending Clinician Unavailable Iliana Pinto MD Attending Clinician [phone] Sudhir Saravia MD Attending Clinician [phone] [facility], [facility] Cardio Fac Attending Clinician Unavail able 1, Adc Cardio Fac Room Attending Clinician Unava ilable 2, Adc Cardio Fac Room Attending Clinician Unava ilable Doctor Unassigned, [place] Attending Clinician U navailkei PITTMAN Admitting Clinician Unavailable Kendra Admitting Clinician Unavail able Toni Admitting Clinician Unavailable Payers Payer Name Policy Type Policy Number Effective Date Expirati on Date Source [place]IC[place]: [employer] [id number] 2016 00:00:00 MEDICARE PART A \T\ B [id number] 2016 00:00:00 MEDICAID OF [place] [id number] 2016 00:00:00 Allergies, Adverse Reactions, Alerts Allergy Name Allergy Type Status Severity Reaction(s) Onset Date Inactive Date Treating Clinician Comments Source NO KNOWN ALLERGIE S Drug Class Active [facility] Social History Social Habit Start Date Stop Date Quantity Comments Source History of tobacco use Cigarette Smoker [facility] Sex Assigned At [facility] Cigarettes smoked current (pack per day) - Reported 2018-12-19 00:00:00 2018-12-19 00:00:00 [facility] Alcohol intake 2018-12-19 00:00:00 2018-12-19 00:00:00 [facility] Smoking Status Start Date Stop Date Source Current every day smoker 2018-12-19 00:00:00 [facility] Medications Ordered Medication Name Filled Medication Name Start Date Stop Date Current Medication? Ordering Clinician Indication Dosage Frequency Signature (SIG) Comments Components Source atorvastati n 40 mg tablet 09-10 00:00: 00 12-10 04:59 :00 No [id number] 40mg Take 1 tablet by mouth at bedtime for 90 days. [facility] contrast previously administere d 0 mL 01-11 17:15: 00 01-11 16:30 :00 No Intravenou s, ONCE, 1 dose, 01/11/19 at 1215, Routine [facility] iohexol (OMNIPAQUE 350 BULK-100 mL) injection 100 mL 01-11 17:15: 00 01-11 16:30 :00 No 100mL 100 mL, Intravenou s, ONCE, 1 dose, 01/11/19 at 1215, Routine [facility] ezetimibe 10 mg tablet 01-04 15:56: 28 Yes 10mg Take 10 mg by mouth daily. [facility] albuterol 2.5 mg /3 mL (0.083 %) nebulizer solution 01-04 15:56: 28 Yes 2.5mg Inhale 2.5 mg every 8 (eight) hours as needed. [facility] albuterol 90 mcg/actuati on inhaler 01-04 15:56: 28 Yes 2{puff} Inhale 2 Puffs every 6 (six) hours as needed. [facility] montelukast 10 mg tablet 01-04 15:56: 28 Yes 10mg Take 10 mg by mouth daily. [facility] lisinopril 20 mg tablet 01-04 15:53: 50 Yes 20mg Take 20 mg by mouth daily. [facility] foLIC acid 1 mg tablet 01-04 15:53: 50 Yes 1mg Take 1 mg by mouth daily. [facility] levETIRAcet am (KEPPRA) 1,000 mg tablet 01-04 15:53: 50 Yes 1000mg Take 1,000 mg by mouth 2 (two) times daily. [facility] amLODIPine 10 mg tablet 01-04 15:53: 50 Yes 10mg Take 10 mg by mouth daily. [facility] atorvastati n 40 mg tablet 01-04 00:00: 00 Yes [id number] 07 40mg Take 1 tablet by mouth at bedtime. [facility] sulfur hexafluorid e microsphr (LUMASON) injection 5 mL 01-01 22:30: 00 01-01 21:28 :00 No 5mL [facility] montelukast 10 mg tablet 12-24 14:36: 58 Yes 10mg Take 10 mg by mouth daily. [facility] albuterol 90 mcg/actuati on inhaler 12-24 14:36: 28 Yes 2{puff} Inhale 2 Puffs every 6 (six) hours as needed. [facility] albuterol 2.5 mg /3 mL (0.083 %) nebulizer solution 12-24 14:35: 59 Yes 2.5mg Inhale 2.5 mg every 8 (eight) hours as needed. [facility] ezetimibe 10 mg tablet 12-24 14:34: 32 Yes 10mg Take 10 mg by mouth daily. [facility] foLIC acid 1 mg tablet 12-19 14:22: 48 Yes 1mg Take 1 mg by mouth daily. [facility] levETIRAcet am (KEPPRA) 1,000 mg tablet 12-19 14:22: 48 Yes 1000mg Take 1,000 mg by mouth 2 (two) times daily. [facility] amLODIPine 10 mg tablet 12-19 14:22: 48 Yes 10mg Take 10 mg by mouth daily. [facility] lisinopril 20 mg tablet 12-19 14:22: 47 Yes 20mg Take 20 mg by mouth daily. [facility] atorvastati n 80 mg tablet 2017-05 00:00: 00 Yes 80mg Take 1 tablet by mouth at bedtime. onstatin per recent notes. Updated chart with new order [facility] amLODIPine 10 mg tablet 12-19 14:41: 35 Yes 10mg Take 10 mg by mouth daily. [facility] lisinopril 20 mg tablet 12-19 14:41: 35 Yes 20mg Take 20 mg by mouth daily. [facility] foLIC acid 1 mg tablet 12-19 14:41: 35 Yes 1mg Take 1 mg by mouth daily. [facility] levETIRAcet am (KEPPRA) 1,000 mg tablet 12-19 14:41: 35 Yes 1000mg Take 1,000 mg by mouth 2 (two) times daily. [facility] aspirin 81 mg EC tablet 12-19 00:00: 00 Yes 81mg Take 1 tablet by mouth daily. [facility] Vital Signs Vital Name Observation Time Observation Value Comments Bernie garcia Systolic blood pressure 2019-01-04 15:52:00 133 mm[Hg] [facility] Diastolic blood pressure 2019-01-04 15:52:00 67 mm[Hg] [facility] Heart rate 2019-01-04 15:52:00 75 /min [facility] Body temperature 2019-01-04 15:52:00 36.78 Janett [facility] Respiratory rate 2019-01-04 15:52:00 20 /min [facility] Body weight 2019-01-04 15:52:00 84.732 kg [facility] BMI 2019-01-04 15:52:00 29.26 kg/m2 [facility] Systolic blood pressure 2019-01-04 15:52:00 133 mm[Hg] [facility] Diastolic blood pressure 2019-01-04 15:52:00 67 mm[Hg] [facility] Heart rate 2019-01-04 15:52:00 75 /min [facility] Body temperature 2019-01-04 15:52:00 36.78 Janett [facility] Respiratory rate 2019-01-04 15:52:00 20 /min [facility] Body weight 2019-01-04 15:52:00 84.732 kg [facility] BMI 2019-01-04 15:52:00 29.26 kg/m2 [facility] Systolic blood pressure 2018-12-19 14:21:00 111 mm[Hg] [facility] Diastolic blood pressure 2018-12-19 14:21:00 62 mm[Hg] [facility] Heart rate 2018-12-19 14:21:00 68 /min Un[facility] Respiratory rate 2018-12-19 14:21:00 18 /min [facility] Body height 2018-12-19 14:21:00 170.2 cm [facility] Body weight 2018-12-19 14:21:00 85.684 kg [facility] BMI 2018-12-19 14:21:00 29.59 kg/m2 [facility] Oxygen saturation in Arterial blood by Pulse oximetry 2018-12-19 14:21:00 97 /min [facility] Systolic blood pressure 2019-01-01 20:52:00 141 mm[Hg] [facility] Diastolic blood pressure 2019-01-01 20:52:00 71 mm[Hg] [facility] Heart rate 2019-01-01 20:52:00 87 /min Un[facility] Body height 2019-01-01 20:52:00 170.2 cm [facility] Body weight 2019-01-01 20:52:00 85.276 kg [facility] BMI 2019-01-01 20:52:00 29.44 kg/m2 [facility] Procedures Procedure Date / Time Performed Performing Clinicia n Source CT ANGIOGRAM NECK 2019-01-11 17:12:41 Adolph Huitron [facility] CT ANGIOGRAM HEAD 2019-01-11 17:10:04 Adolph Huitron [facility] NOTICE OF BILLING PRACTICES FOR MEDICARE PATIENTS 2019-01-11 15:34:57 Doctor Unassigned, [place] [facility] PATIENT FINANCIAL POLICY 2019-01-11 15:34:09 Doctor Unassigned, [place] [facility] POCT CREATININE 2019-01-11 15:10:00 Iliana Pinto [facility] EKG-12 LEAD 2018-12-19 14:29:02 Sudhir Saravia [facility] ASSIGNMENT OF BENEFITS 2018-12-19 14:07:02 Eduar r Unassigned, [place] [facility] Encounters Start Date/Time End Date/Time Encounter Type Admission Type Attending [facility] Facility Care Department Encounter ID Source 2021-11-10 02:08:00 2021-11-10 02:08:00 Outpatient CARLOS_TRISTON FUENTES [facility] [id number] [facility] Outre [facility] 2021-10-14 02:06:00 2021-10-14 02:06:00 Outpatient Corby Sampson AO AO [id number] [facility] 2021-10-05 08:13:00 2021-10-05 08:13:00 Outpatient Corby Sampson AO AO [id number] [facility] 2020-01-22 15:20:00 2020-01-22 15:20:00 Outpatient SUDHIR OCONNELL [facility] [id number] [facility] 2019-12-23 09:40:00 2019-12-23 09:40:00 Outpatient SUDHIR OCONNELL [facility] [id number] [facility] 2019-09-11 00:00:00 2019-09-11 00:00:00 [facility] [id number] 2019-09-11 00:00:00 2019-09-11 00:00:00 Telephone Royal James [facility] [id number] [facility] 2019-08-27 04:13:00 2019-08-27 04:13:00 Outpatient [facility] [id number] [facility] 2019-01-11 10:33:32 2019-01-11 23:59:00 Hospital Encounter [facility] [id number] 2019-01-11 10:33:32 2019-01-11 23:59:00 Hospital Encounter [facility] [id number] [facility] 2019-01-11 10:20:00 2019-01-11 10:32:00 Hospital Encounter [facility] [id number] 2019-01-11 10:20:00 2019-01-11 10:32:00 Hospital Encounter [facility] [id number] [facility] 2019-01-04 10:21:42 2019-01-04 18:59:26 [facility] [id number] [id number] [id number] [facility] 2019-01-04 10:21:42 2019-01-04 18:59:26 [facility] [id number] [id number] [id number] [id number] 2018-12-19 09:07:06 2019-01-03 15:22:45 Office Visit Sudhir Saravia [facility] [id number] [id number] [id number] [facility] 2019-01-03 00:00:00 2019-01-03 00:00:00 [facility] [id number] [id number] [id number] [facility] 2019-01-01 14:30:23 2019-01-01 16:38:50 Laboratory Only [facility], [facility] Cardio Fac 1, Ad[facility] Cardio Fac [facility] [id number] [id number] [id number] [id number] [facility] 2019-01-01 14:29:39 2019-01-01 15:29:39 [employer] Officer Visit [facility], [facility] Cardio Fac 2, Adc Cardio Fac [facility] [id number] 350.1.13.10 4.2.7.2.686 [id number] [facility] 2018-12-24 00:00:00 2018-12-24 00:00:00 Telephone [facility] [id number] [id number] [id number] [id number] [facility] 2018-12-19 00:00:00 2018-12-19 00:00:00 Orders Only Doctor Unassigned, [place] [facility] [id number] 350.1.13.10 [id number] [id number] [facility] Results Test Description Test Time [...] NECK: A three-vessel aortic arch is seen. Akmh-fm-curjytys atheroscleroticdisease is noted in the arch. The vessels originating from the arch arepatent. Mild scattered atherosclerotic disease is noted in the common carotidarteries bilaterally, left greater than right. No flow-limiting stenosis isidentified. Ztzg-xv-lrsfecoo atherosclerotic disease is seen in the left [...] NECK: A three-vessel aortic arch is seen. Dgqu-kt-aonwpgiq atheroscleroticdisease is noted in the arch. The vessels originating from the arch arepatent.Mild scattered atherosclerotic disease is noted in the common carotidarteries bilaterally, left greater than right. No flow-limiting stenosis isidentified.Tkok-qj-ppovmbta atherosclerotic disease is seen in the left [...] this study and agree with the abovereport. [facility] CT ANGIOGRAM HEAD 2018-12 19:52:1 1 [...] NECK: A three-vessel aortic arch is seen. Joil-xz-msczztvd atheroscleroticdisease is noted in the arch. The vessels originating from the arch arepatent. Mild scattered atherosclerotic disease is noted in the common carotidarteries bilaterally, left greater than right. No flow-limiting stenosis isidentified. Hupi-fr-ngjmpxhb atherosclerotic disease is seen in the left [...] NECK: A three-vessel aortic arch is seen. Ahic-yx-aiujpmsd atheroscleroticdisease is noted in the arch. The vessels originating from the arch arepatent.Mild scattered atherosclerotic disease is noted in the common carotidarteries bilaterally, left greater than right. No flow-limiting stenosis isidentified.Uvns-eu-xobqgxkm atherosclerotic disease is seen in the left [...] this study and agree with the abovereport. [facility]
[2024-01-01] MEDS ORDERED: LORazepam 2 MG/ML VIAL ONE (01:40)
[2024-01-01] MEDS ORDERED: LEVETIRACETAM 500 MG/5 ML VIAL IV ONE (01:41)
[2024-01-01] MEDS ORDERED: NA CHLORIDE 0.9% 100 ML ONE (01:41)
[2024-01-01 02:34] LABS: Absolute Monocytes 0.7 K/uL (0.1-1.3); Absolute Neutrophil 2.2 K/uL (1.8-8.0); Basophils % 0.3 % (0-1.3); Eosinophils % 0.4 % (0-4.4); Hematocrit 37.8 % (39.6-49.0); Hemoglobin 12.8 g/dL (13.6-17.9); Lymphocytes % 25.8 % (15.3-44.8); MCHC 33.9 g/dL (32.0-36.0); MCV 97.2 fL (80-100); Monocytes % 18.7 % (3.3-12.3); Neutrophils % 54.8 % (41.7-73.7); Nucleated Red Blood Cells % 0.1 % (0-0); Platelets 204 thou/uL (152-406); RBC Red Blood Cell Count 3.89 M/uL (4.33-5.43); Red Cell Distribution Width 15.7 % (12.1-15.2)
[2024-01-01 02:45] LABS: ALT/SGPT 15 U/L (16-61); Albumin 3.6 g/dL (3.4-5.0); Alkaline Phosphatase 79 U/L (45-117); Anion Gap 13.8 mEq/L (5.0-15.0); BUN Blood Urea Nitrogen 7 mg/dL (7-18); Bicarbonate 18 mEq/L (21-32); Bilirubin Direct 0.2 mg/dL (0-0.2); Bilirubin Indirect, Calculated 0.3 mg/dL (0.2-0.8); Bilirubin Total 0.5 mg/dL (0.2-1.0); Globulin 3.7 g/dL (2.3-3.5); Glomerular Filtration Rate 91 ml/min (=/>90); Glucose Level 117 mg/dL (74-106); Potassium 2.8 mEq/L (3.5-5.1); Protein, Total 7.3 g/dL (6.4-8.2); Sodium Level 125 mEq/L (136-145)
[2024-01-01 03:04] LABS: AST/SGOT < 10 U/L (15-37)
[2024-01-01] MEDS ORDERED: NA CHLORIDE 0.9% 1,000 ML ONE (03:07)
--- NOTE | 2024-01-01 03:35 | ER ---
Nurse's Notes [facility] [place] Name: Houston Neely Age: 73 yrs Sex: Male : 1950 Arrival Date: 01/01/2024 Time: 01:13 Bed 14 Private MD: Diagnosis: Other seizures;Hypo-osmolality and hyponatremia;Hypokalemia Presentation: 12/31 01:25 Chief complaint: EMS states: Witnessed seizure at home lasting 5min per family, 1 pc2 episode witnessed en route lasting 3min. Gave 2mg Ativan. 01:25 Coronavirus screen: At this time, the client does not indicate any symptoms associated pc2 with coronavirus-19. Ebola Screen: No symptoms or risks identified at this time. Initial Sepsis Screen: Does the patient meet any 2 criteria? HR > 90 bpm. No. Patient's initial sepsis screen is negative. Does the patient have a suspected source of infection? No. Patient's initial sepsis screen is negative. Risk Assessment: Do you want to hurt yourself or someone else? Patient reports no desire to harm self or others. Onset of symptoms was January 01, 2024. Care prior to arrival: Medication(s) given: Ativan 2mg. 01:25 Method Of Arrival: EMS: [facility] pc2 01:25 Acuity: CHUCK 3 pc2 Triage Assessment: 01:20 General: Appears in no apparent distress. comfortable, Behavior is calm, cooperative, pc2 appropriate for age. Pain: Denies pain. Neuro: Gil Agitation-Sedation Scale (RASS): -1 Drowsy Level of Consciousness is awake, alert, obeys commands, Oriented to person, place, time, situation, Appropriate for age Buffer Chrome are weak on right Weakness in right arm(s) leg(s). Neuro: Seizure activity Type of seizure: tonic-clonic seizure. Seizure lasted approximately 5 minutes. 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 Cardiovascular: Patient's skin is warm and dry. Rhythm is sinus tachycardia. Respiratory: Airway is patent Respiratory effort is even, unlabored, Respiratory pattern is regular, symmetrical. GI: Abdomen is non-distended. : Reports incontinent episode. Derm: No signs and/or symptoms reported regarding the dermatologic system. Musculoskeletal: No signs and/or symptoms reported regarding the musculoskeletal system. Historical: - Allergies: 01:54 NKDA; pc2 - Home Meds: :54 aspirin 81 mg Oral tablet [Active]; atorvastatin 80 mg Oral tablet [Active]; Keppra 1 pc2 Oral tablet [Active]; lisinopril 20 mg Oral tab 1 tab once daily [Active]; - PMHx: 01:54 Seizures; R sided weakness; nonverbal; Hypertension; CVA; Covid-19 in 2022; pc2 - PSHx: 01:54 Cholecystectomy; pc2 - Immunization history:: Adult Immunizations up to date. - Infectious Disease History:: Denies. - Social history:: Smoking status: Patient denies any tobacco usage or history of. Screenin:59 [facility] ED Fall Risk Assessment (Adult) History of falling in the last 3 months, pc2 including since admission Yes- single mechanical fall (1 pt) Confusion or Disorientation Yes (5 pts) Intoxicated or Sedated No (0 pts) Impaired Gait Yes (1 pt) Mobility Assist Device Used No (0 pt) Altered Elimination Yes (1 pt) Score/Fall Risk Level 3 or more points = High Risk Oriented to surroundings, Maintained a safe environment, Hourly rounding (assess needs \T\ fall precautionary measures) done, Utilized family, sitter, or virtual sql analyst as indicated. Abuse screen: Denies threats or abuse. Denies injuries from another. Nutritional screening: No deficits noted. Tuberculosis screening: No symptoms or risk factors identified. Assessment: 01:59 Reassessment: see triage. pc2 03:00 Reassessment: Straight cath unsuccessful. V.O received for 1L NS bolus and repeat pc2 straight cath in 1 hour if unable to urinate. 07:05 Reassessment: Patient appears in no apparent distress at this time. Patient and/or db family updated on plan of care and expected duration. Pain level reassessed. 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 General: Appears in no apparent distress. Vital Signs: 01:25 BP 116 / 74; Pulse 103; Resp 16; Temp 97.9; Pulse Ox 95% on R/A; Weight 69 kg; pc2 02:30 BP 109 / 61; Pulse 85; Resp 16; Pulse Ox 97% on R/A; pc2 03:00 BP 102 / 50; Pulse 71; Resp 16; Pulse Ox 99% on R/A; pc2 04:00 BP 106 / 56; Pulse 76; Resp 16; Pulse Ox 98% on R/A; pc2 06:00 BP 111 / 97; Pulse 67; Resp 16; Temp 97.9; Pulse Ox 99% on R/A; pc2 [place] Coma Score: 01:20 Eye Response: spontaneous(4). Motor Response: obeys commands(6). Verbal Response: pc2 oriented(5). Total: 15. ED Course: 01:17 Patient arrived in ED. ec2 01:18 Melanie Spaulding, RN is Primary Nurse. pc2 01:18 Rivas Prather MD is Attending Physician. ec2 01:34 EKG done, by ED staff. af3 01:45 Inserted saline lock: 18 gauge in left antecubital area, using aseptic technique. Blood pc2 collected. Flushed with 10 mL NS. 01:50 Basic Metabolic Panel Sent. pc2 01:50 CBC with Diff Sent. pc2 01:54 Triage completed. pc2 02:00 Patient has correct armband on for positive identification. Bed in low position. Call pc2 light in reach. Side rails up X2. Provided Education on: POC and time frame. Client placed on continuous cardiac and pulse oximetry monitoring. NIBP monitoring applied. 02:00 Seizure precautions initiated. pc2 02:01 No provider procedures requiring assistance completed. pc2 02:01 Arm band placed on left wrist. pc2 02:[address] via stretcher. pc2 02:44 CT Head Brain wo Cont In Process Unspecified. EDMS 03:34 Matt Valiente MD is Hospitalizing Provider. ec2 03:39 Ty Salomon MD is Hospitalizing Provider. ec2 07:16 Patient admitted, IV remains in place. pc2 Administered Medications: 01:48 Drug: Keppra IV 1000 mg IV at bolus once Route: IV; Rate: bolus; Site: left antecubital;rg5 02:02 Follow up: Response: No adverse reaction; IV Status: Completed infusion; IV Intake: pc2 100ml 01:50 CANCELLED (Inappropriate at this time; received dose en routee): ativan1 mg IVP once pc2 03:14 Drug: NS 0.9% IV 1000 ml IV at 1000 ml once Route: IV; Rate: 1000 ml; Site: left pc2 antecubital; 03:58 Follow up: Response: No adverse reaction; IV Status: Completed infusion; IV Intake: pc2 1000ml 04:09 Drug: Potassium Chloride IV 20 mEq IV at calculated rate once; administer over 1-2 pc2 hours Route: IV; Rate: calculated rate; Site: left antecubital; 06:00 Follow up: Response: No adverse reaction; IV Status: Completed infusion; IV Intake: pc2 100ml 04:09 Drug: Rocephin IV 1 grams IV at calculated rate once; Given slow IV push per pharmacy pc2 instructions Route: IV; Rate: calculated rate; Site: left antecubital; 04:39 Follow up: Response: No adverse reaction; IV Status: Completed infusion; IV Intake: [id number] Medication: 02:00 VIS not applicable for this client. pc2 Intake: 02:02 IV: 100ml; Total: 100ml. pc2 03:58 IV: 1000ml; Total: 1100ml. pc2 04:39 IV: 10ml; Total: 1110ml. pc2 06:00 IV: 100ml; Total: 1210ml. pc2 Outcome: 03:34 Decision to Hospitalize by Provider. ec2 07:15 Admitted to Med/surg accompanied by tech, via stretcher, room 410, with chart, pc2 07:15 Condition: stable 07:15 Instructed on the need for admit, Demonstrated understanding of instructions, 07:28 Patient left the ED. db Signatures: Dispatcher [employer] Mary Ellen Fabian RN RN db Rivas Prather MD MD ec2 Galileo Emerson RN RN Melanie Esqueda RN RN pc2 Anne Sparks3 Corrections: (The following items were deleted from the chart) 03:59 01:25 BP 116 / 74; Pulse 103bpm; Resp 16bpm; Pulse Ox 95% RA; Temp 97.9F; pc2 pc2
--- NOTE | 2024-01-01 03:35 | EDPHYS ---
Physician Documentation [facility] Name: Houston Neely Age: 73 yrs Sex: Male : 1950 Arrival Date: 01/01/2024 Time: 01:13 Bed 14 Private MD: ED Physician Rivas Prather HPI: 12/31 01:24 This 73 yrs old Male presents to ER via Unassigned with complaints of Seizure. ec2 01:24 Patient with history of CVA, history of seizure arrives today for seizure x 2 today. ec2 Patient is on Keppra, 1000 mg twice a day, reported medication compliance per family per EMS. Patient is minimally verbal with profound right-sided deficits at baseline. . Historical: - Allergies: 01:54 NKDA; pc2 - Home Meds: 01:54 aspirin 81 mg Oral tablet [Active]; atorvastatin 80 mg Oral tablet [Active]; Keppra 1 pc2 Oral tablet [Active]; lisinopril 20 mg Oral tab 1 tab once daily [Active]; - PMHx: 01:54 Seizures; R sided weakness; nonverbal; Hypertension; CVA; Covid-19 in 2022; pc2 - PSHx: 01:54 Cholecystectomy; pc2 - Immunization history:: Adult Immunizations up to date. - Infectious Disease History:: Denies. - Social history:: Smoking status: Patient denies any tobacco usage or history of. ROS: 01:24 Constitutional: as per hpi ec2 Exam: 01:24 Constitutional: GEN: NAD Head: atraumatic Eyes: EOMI Ears: External ears are ec2 normal. CV: regular rate LUNGS: no respiratory distress ABD: non-distended SKIN: no evidence of rashes MSK: no evidence of trauma. Neuro: Weakness in the right upper and lower extremity as well as right-sided facial droop noted. Vital Signs: 01:25 BP 116 / 74; Pulse 103; Resp 16; Temp 97.9; Pulse Ox 95% on R/A; Weight 69 kg; pc2 02:30 BP 109 / 61; Pulse 85; Resp 16; Pulse Ox 97% on R/A; pc2 03:00 BP 102 / 50; Pulse 71; Resp 16; Pulse Ox 99% on R/A; pc2 04:00 BP 106 / 56; Pulse 76; Resp 16; Pulse Ox 98% on R/A; pc2 06:00 BP 111 / 97; Pulse 67; Resp 16; Temp 97.9; Pulse Ox 99% on R/A; pc2 [place] Coma Score: 01:20 Eye Response: spontaneous(4). Motor Response: obeys commands(6). Verbal Response: pc2 oriented(5). Total: 15. MDM: 01:18 Patient medically screened. ec2 01:24 Data reviewed: vital signs. ED course: Patient arrives today for evaluation of seizure ec2 x 2. Examination markable for baseline individuals otherwise in no acute distress. History gathered by EMS. Will obtain lab work, CT scan of the head, urine studies. Will treat with Keppra load and a dose of Ativan as well.. 01:41 ED course: EKG independently reviewed and interpreted by me, shows sinus tachycardia, ec2 rate 103, no acute ST segment elevations, intervals are nonconcerning.. 03:30 ED course: CT scan of the head shows no acute intracranial process.. ec2 03:32 ED course: Metabolic profile shows hyponatremia with a sodium of 125, slight ec2 hypokalemia of 2.8. . 03:33 ED course: Will admit for hyponatremia, hypokalemia, concern for possible urinary tract ec2 infection. Patient had voided on himself multiple times and we were unable to collect a urine specimen. Will empirically treat with antibiotics.. 03:34 ED course: Discussed case with hospitalist, pending admission. ec2 03:41 ED course: When compared to external records, patient's sodium level is at similar ec2 levels, I do not suspect this is causing patient seizure today however will admit for possible UTI, seizure, hyponatremia.. 12/31 01:21 Order name: Basic Metabolic Panel; Complete Time: 03:32 ec2 12/31 01:21 Order name: CBC with Diff; Complete Time: 02:45 ec2 12/31 01:21 Order name: LFT's; Complete Time: 03:32 ec2 12/31 01:23 Order name: UAM ec2 12/31 03:46 Order name: Urinalysis w/ reflexes EDMS 12/31 03:46 Order name: CBC with Automated Diff EDMS 12/31 03:46 Order name: CBC with Automated Diff EDMS 12/31 03:46 Order name: Comprehensive Metabolic Panel EDPA 12/31 03:46 Order name: Comprehensive Metabolic Panel EDPA 12/31 01:21 Order name: CT Head Brain wo Cont ec2 12/31 01:21 Order name: EKG; Complete Time: 01:22 ec2 12/31 03:46 Order name: CONS Physician Consult EDPA 12/31 01:21 Order name: Cardiac monitoring; Complete Time: 01:50 ec2 12/31 01:21 Order name: EKG - Nurse/Tech; Complete Time: 01:33 ec2 12/31 01:21 Order name: IV Saline Lock; Complete Time: 01:50 ec2 12/31 01:21 Order name: Labs collected and sent; Complete Time: 01:50 ec2 12/31 01:21 Order name: O2 Per Protocol; Complete Time: 01:50 ec2 12/31 01:21 Order name: O2 Sat Monitoring; Complete Time: 01:50 ec2 12/31 01:23 Order name: Cath; Complete Time: 05:15 ec2 Administered Medications: 01:48 Drug: Keppra IV 1000 mg IV at bolus once Route: IV; Rate: bolus; Site: left antecubital;rg5 02:02 Follow up: Response: No adverse reaction; IV Status: Completed infusion; IV Intake: pc2 100ml 01:50 CANCELLED (Inappropriate at this time; received dose en routee): ativan1 mg IVP once pc2 03:14 Drug: NS 0.9% IV 1000 ml IV at 1000 ml once Route: IV; Rate: 1000 ml; Site: left pc2 antecubital; 03:58 Follow up: Response: No adverse reaction; IV Status: Completed infusion; IV Intake: pc2 1000ml 04:09 Drug: Potassium Chloride IV 20 mEq IV at calculated rate once; administer over 1-2 pc2 hours Route: IV; Rate: calculated rate; Site: left antecubital; 06:00 Follow up: Response: No adverse reaction; IV Status: Completed infusion; IV Intake: pc2 100ml 04:09 Drug: Rocephin IV 1 grams IV at calculated rate once; Given slow IV push per pharmacy pc2 instructions Route: IV; Rate: calculated rate; Site: left antecubital; 04:39 Follow up: Response: No adverse reaction; IV Status: Completed infusion; IV Intake: [id number] Disposition Summary: 01/01/24 03:34 Hospitalization Ordered Notes: Hospitalization Status: Inpatient Admission ec2 Location: Telemetry/MedSurg (Inpatient) ec2 Condition: Stable ec2 Problem: an acute exacerbation ec2 Symptoms: have improved ec2 Bed/Room Type: Standard ec2 Provider: Ty Salomon(01/01/24 03:39) ec2 Room Assignment: [facility](01/01/24 05:50) vc1 Diagnosis - Other seizures ec2 - Hypo-osmolality and hyponatremia ec2 - Hypokalemia ec2 Discharge Instructions: - Discharge Summary Sheet ec2 - Seizure, Adult ec2 Forms: - Medication Reconciliation Form ec2 - SBAR form ec2 - Leadership Thank You Letter ec2 Signatures: Dispatcher [employer] EDGabrielle Delong RN RN vc1 Rivas Prather MD MD ec2 Galileo Emerson RN RN rg5 Melanie Spaulding RN RN pc2 Corrections: (The following items were deleted from the chart) 01:50 01:21 Ativan IVP 1 mg IVP once ordered. ec2 pc2 03:39 03:34 Matt Valiente ec2 ec2 05:50 03:34 ec2 vc1
[2024-01-01] MEDS ORDERED: ONDANSETRON 4 MG/2 ML VIAL IV PRN (03:41)
[2024-01-01] MEDS ORDERED: CEFTRIAXONE 1000 MG/VIAL ONE (04:04)
[2024-01-01] MEDS ORDERED: KCL 20 MEQ/100 mL IVPB 100 ML IV ONE (04:05)
[2024-01-01 05:27] VITALS: BMI 22.4
[2024-01-01 05:42] LABS: Specific Gravity 1.005 (1.005-1.030); Sqamous Epithelial None Seen /HPF (None Seen); Urine Bacteria None Seen /HPF (<20); Urine Bilirubin NEGATIVE (Negative); Urine Blood 3+ (Negative); Urine Clarity Clear (Clear); Urine Color Colorless (Yellow); Urine Culture Reflex Order NOT NEEDED; Urine Glucose NEGATIVE (Negative); Urine Ketones NEGATIVE (Negative); Urine Micro Reflex YN NO BILL MICROSCOPIC; Urine Mucus Slight /HPF (None Seen); Urine Nitrite NEGATIVE (Negative); Urine Protein NEGATIVE (Negative); Urine Sperm Present (None Seen); Urine Urobilinogen Normal (Normal); Urine WBC <5 /HPF (<5)
[2024-01-01 07:38] VITALS: O2SAT 99
--- NOTE | 2024-01-01 12:54 | P.HP ---
Certification for Inpatient Patient admitted to: Observation With expected LOS: <2 Midnights Patient will require the following post-hospital care: Home Health Services Practitioner: I am a practitioner with admitting privileges, knowledge of patient current condition, hospital course, and medical plan of care. 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 He has a history of stroke. has hemiplegia and relies on wheelchairs and rolling walker. He had a seizure yesterday. Was admitted. Per his daughter he has not been taking Keppra. She was told that the doctors stopped this. I have had him on Keppra in my records. The patient is awake and at his baseline this morning Allergies No Known Allergies Allergy (Verified 08/09/22 02:04) Home Medications: Amlodipine Besylate 10 mg PO DAILY 06/19/15 Atorvastatin Calcium [Lipitor] 80 mg PO BEDTIME 06/19/15 Lisinopril 20 mg PO DAILY 06/19/15 Levetiracetam [Keppra] 1,000 mg PO BID 05/11/17 Aspirin [Aspirin EC 81 MG] 81 mg PO DAILY 04/30/20 - Past Medical/Surgical History Diabetic: No -: CVA -: HTN -: hyperlipidemia -: Appy - Family History Mother -: Hypertension Notes: states no health problems - Social History Smoking Status: Current some day smoker Alcohol use: Yes CD- Drugs: No Caffeine use: No Review of Systems 10-point ROS is otherwise unremarkable Musculoskeletal: Other (rightn knee pain ) Physical Examination - Vital Signs Temperature: 97.0 F Blood Pressure: 127/81 Pulse: 86 Respirations: 18 Pulse Ox (%): 99 - Physical Exam General: Alert, In no apparent distress HEENT: Atraumatic, PERRLA, Mucous membr. moist/pink, EOMI, Sclerae nonicteric Neck: Supple, 2+ carotid pulse no bruit, No LAD, Without JVD or thyroid abnormality Respiratory: Clear to auscultation bilaterally, Normal air movement Cardiovascular: Regular rate/rhythm, Normal S1 S2 Gastrointestinal: Normal bowel sounds, No tenderness Musculoskeletal: No tenderness Integumentary: No rashes Neurological: Normal gait, Normal speech, Normal strength at 5/5 x4 extr, Normal tone, Normal affect Lymphatics: No axilla or inguinal lymphadenopathy - Studies Laboratory Data (last 24 hrs) 01/01/24 01/01/24 01:45 01:45 WBC 4.00 L Hgb 12.8 L Hct 37.8 L Plt Count 204 Sodium 125 L Potassium 2.8 L BUN 7 Creatinine 0.90 Glucose 117 H Total Bilirubin 0.5 AST < 10 L ALT 15 L Alkaline Phosphatase 79 Assessment and Plan - Problems (Diagnosis) (1) Seizure Onset Date: 05/11/17 Current Visit: No Status: Chronic Plan: restart keppra. discussed with the family Patient should be on keppra for the rest of his life. Will keep him on neurochecks. Consult to Dr. Arnold. Will check Magnesium and keep him on Potassium, mag replacement protochols (2) HTN (hypertension) Onset Date: 05/11/17 Current Visit: No Status: Chronic Qualifiers: (3) Right hemiplegia Current Visit: Yes Status: Acute Plan: chronic after his stroke. Will have him seen by PT. (4) History of stroke Current Visit: Yes Status: Chronic Plan: He has hemiplegia. Will continue atorvastatin, lisinopril and low dose aspirin Discharge Plan: Home Plan to discharge in: 24 Hours - Advance Directives Does patient have a Living Will: No Does patient have a Durable POA for Healthcare: No - Code Status/Comfort Care Code Status Assessed: No Code Status: Full Code Critical Care: No Time Spent Managing Pts Care (In Minutes): 45
[2024-01-01] MEDS: MAGNESIUM OXIDE 400 MG TAB PO ONE (13:21)
--- NOTE | 2024-01-01 14:25 | RAD REPORT ---
EXAM DESCRIPTION: CT - Head Brain Wo Cont - 01/01/2024 6:37 am CLINICAL HISTORY: 73 years, Male, Seizure. COMPARISON: CT Head and C-spine 08/29/2023. FINDINGS: Multiple transaxial tomograms of the brain were obtained from the base of the skull to the vertex without contrast. An individualized dose optimization technique, Automated Exposure Control, was utilized for the perfo rmed procedure. Brain: The brain demonstrate prominence of the sulci and gyri corresponding to mild brain atrophy. Th ere is porencephalic changes within the left posterior temporal left frontal lobe and left parietal l obe corresponding to a focal area of subpleural infarction left MCA distribution. Questionable minima l hypodensity within the left inferior frontal lobe could correspond to chronic subdural and/or cysti c hygroma on axial image 20-24, findings are similar to prior study. No acute intracranial hemorrhage . No midline shift and/or mass effect. No intra-/or extra-axial fluid collections. Ventricles: Minimal compensatory dilatation left lateral ventricle posterior horn. Otherwise the late ral ventricles and cisterns displace normal appearance. Vasculature: No visualized abnormalities in the arteries or dural venous sinuses. Scalp/skull: The calvarium demonstrate to be intact with no evidence for acute bony injuries. Sinuses: The visualized paranasal sinuses and mastoid air cells demonstrate to be clear. Orbits: No significant abnormalities in the visualized orbital structures. IMPRESSION: No acute intracranial hemorrhage. 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 Questionable minimal hypodensity within the left inferior frontal lobe could correspond to chronic davila bdural and/or cystic hygroma, findings are similar to prior study. Electronically signed by: Dominguez Hollis MD 01/01/2024 03:12 AM CDT Due to temporary technical issues with the PACS/Fluency reporting system, reports are being signed by the in house radiologist without review as a courtesy to ensure prompt reporting. The interpreting r adiologist is fully responsible for the content of the report.
--- NOTE | 2024-01-01 15:02 | RAD REPORT ---
EXAM DESCRIPTION: RAD - Knee Right 2 View - 01/01/2024 2:52 pm CLINICAL HISTORY: right knee pain COMPARISON: No comparisons FINDINGS/IMPRESSION: No acute fracture. No malalignment. No significant focal degenerative changes.
[2024-01-01] MEDS: ACETAMINOPHEN 500 MG TAB PO SCH (17:05)
[2024-01-01] MEDS: ATORVASTATIN 40 MG TAB PO SCH (21:25)
[2024-01-01] MEDS: levETIRAcetam 500 MG TAB PO SCH (21:25)
--- NOTE | 2024-01-01 22:36 | CON ---
Reason For Consultation: The patient was seen due to seizures. History Of Present Illness: Mr. Neely is a 73-year-old patient with history of stroke, hypertens ion, seizures, who was not compliant with Keppra. He does have chronic left posterotemporal and fron huma and parietal stroke in the left MCA territory with right-sided upper and lower extremity weakness and numbness. The patient's grandson was in the room and provided additional information. As noted , he was not compliant with Keppra, which was used for his localization-related complex partial seizu res. He did have a seizure on 12/31/2023 and was then brought to [facility]. It is noted t hat the patient's grandson said that his medication was stopped by a doctor, although it is not clear who stopped that medication. In any event, he did receive a gram of Keppra and is now on 500 mg twi ce daily and no additional seizures since hospitalization. Past Medical History: As noted above. Allergies: NO KNOWN DRUG ALLERGIES. Home Medications: Amlodipine 10 mg daily, Lipitor 80 mg at bedtime, lisinopril 20 mg daily, Keppra s hould be 1000 mg twice daily, and aspirin 81 mg daily. Family History: Hypertension in mother. Social History: The patient smokes tobacco and drinks alcohol regularly. Review of Systems: Aside from the patient's paresis and incoordination related to his chronic stroke, which again involv es his right body, left brain. He does have some myalgias and arthralgias on the right side upper an d lower extremity. No fevers, chills. No recent nausea, vomiting. Laboratory Studies: White blood cell count 4.0, hemoglobin 12.8, platelets 204. Sodium 125, potassi um 2.8, chloride 96, carbon dioxide 18, BUN 7, creatinine 0.9, calcium 8.2, AST less than 10, ALT 15, alkaline phosphatase 79. Urinalysis, 3+ blood, 11 to 20 red blood cells present, otherwise unremark able. Again, head CT scan shows no acute intracranial hemorrhage. Stable poor encephalic changes in the left posterotemporal, left frontal, and left parietal lobes corresponding to area of infarction in the left MCA distribution. There is also a questionable minimal hypodensity in the left inferior frontal lobe that represent chronic subdural and cystic hygroma. Findings were similar to a prior [facility] done on 08/29/2023 and this was on 01/01/2024. Physical Examination: Vital Signs: Blood pressure 133/63, pulse 58, respiratory rate 16, temperature 97.0, oxygen saturati on 98%. General: Mr. Neely is resting comfortably in bed. His grandson is at bedside. HEENT: He is normocephalic, atraumatic. Sclerae anicteric. Oropharynx pink, moist. Neck: Supple. Chest: Clear. Heart: Regular. Extremities: Show no significant clubbing, cyanosis, or edema. He does have significant paresis in the right upper and lower extremity and decreased sensation in right upper and lower extremity compar ed to the left side. Increased tone and reflexes in the right upper and lower extremity compared to the left side. In terms of his gait, he did work with physical therapist scooted in bed independentl y. He did mobilize a wheelchair around the unit. He is able to stand and pivot at the edge of bed, [id number] done with minimum assistance. Note, his strength in right upper and lower extremity is 3/5. Assessment: Mr. Neely is a 73-year-old patient with left MCA artery stroke, right-sided paresis, and he has localization-related complex partial seizures and was off Keppra when a recent seizure oc curred. He does appear to potentially have electrolyte abnormalities with hyponatremia and hypokalem ia which may be contributing to his seizure risk. Plan: Please correct electrolytes and continue Keppra 1000 mg daily. Continue comorbid medication, risk reduction for stroke and myocardial infarction as noted. The patient was evaluated by Physical Therapy and he at least should continue with therapy. If able to, it should be done either outpatien t or via home health depending on transportation availability. May follow up with Dr. Arnold's clinic within the month. GALILEA/AUDREYL Voice ID: [id number] Report ID: [id number]
[2024-01-02 08:27] LABS: Absolute Lymphocytes (CBC) 1.7 K/uL (0.7-4.9); Absolute Monocytes 0.8 K/uL (0.1-1.3); Absolute Neutrophil 1.5 K/uL (1.8-8.0); Basophils % 0.3 % (0-1.3); Eosinophils % 0.9 % (0-4.4); Hematocrit 37.3 % (39.6-49.0); Hemoglobin 12.5 g/dL (13.6-17.9); Lymphocytes % 42.3 % (15.3-44.8); MCH 32.8 pg (27.0-35.0); MCHC 33.6 g/dL (32.0-36.0); MCV 97.9 fL (80-100); MPV 9.3 fL (7.6-11.3); Monocytes % 19.2 % (3.3-12.3); Neutrophils % 37.3 % (41.7-73.7); Nucleated Red Blood Cells % 0.1 % (0-0); Platelets 190 thou/uL (152-406); RBC Red Blood Cell Count 3.82 M/uL (4.33-5.43); Red Cell Distribution Width 15.9 % (12.1-15.2)
[2024-01-02] MEDS: AMLODIPINE 10 MG TAB PO SCH (08:31)
[2024-01-02] MEDS: ASPIRIN EC 81 MG TAB PO SCH (08:31)
[2024-01-02] MEDS: lisinopriL 20 MG TAB PO SCH (08:32)
[2024-01-02 08:44] LABS: AST/SGOT 18 U/L (15-37); Albumin 3.3 g/dL (3.4-5.0); Alkaline Phosphatase 72 U/L (45-117); Anion Gap 4.1 mEq/L (5.0-15.0); BUN Blood Urea Nitrogen 7 mg/dL (7-18); Bicarbonate 28 mEq/L (21-32); Bilirubin Total 0.8 mg/dL (0.2-1.0); Globulin 3.4 g/dL (2.3-3.5); Glomerular Filtration Rate 101 ml/min (=/>90); Glucose Level 97 mg/dL (74-106); Potassium 3.1 mEq/L (3.5-5.1); Protein, Total 6.7 g/dL (6.4-8.2); Sodium Level 133 mEq/L (136-145)
[2024-01-02 08:46] LABS: ALT/SGPT < 14 U/L (16-61)
--- NOTE | 2024-01-02 08:56 | P.DS ---
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 He has a history of stroke. has hemiplegia and relies on wheelchairs and rolling walker. He had a seizure yesterday. Was admitted. Per his daughter he has not been taking Keppra. She was told that the doctors stopped this. I have had him on Keppra in my records. The patient is awake and at his baseline this morning Hospital Course: patient was admitted to hospital. Keppra restarted. He is doing well. Will discharge him home. Have the patient follow up with myself and Dr. Arnold. Thank you for allowing me to take part in his care. Vital Signs/Physical Exam: Temp Pulse Resp BP Pulse Ox 97.9 F 51 18 157/68 H 97 01/01/24 23:56 01/02/24 08:32 01/01/24 23:56 01/02/24 08:32 01/01/24 23:56 General: Alert, In no apparent distress HEENT: Atraumatic, PERRLA, EOMI Neck: Supple, JVD not distended Respiratory: Clear to auscultation bilaterally, Normal air movement Cardiovascular: Regular rate/rhythm, Normal S1 S2 Gastrointestinal: Normal bowel sounds, No tenderness Musculoskeletal: No tenderness Integumentary: No rashes Neurological: Normal speech, Normal tone, Normal affect Lymphatics: No axilla or inguinal lymphadenopathy Laboratory Data at Discharge: WBC 4.00 thou/uL (4.3-10.9) L 01/02/24 08:09 Hgb 12.5 g/dL (13.6-17.9) L 01/02/24 08:09 Hct 37.3 % (39.6-49.0) L 01/02/24 08:09 Plt Count 190 thou/uL (152-406) 01/02/24 08:09 Sodium 133 mEq/L (136-145) L 01/02/24 07:45 Potassium 3.1 mEq/L (3.5-5.1) L 01/02/24 07:45 BUN 7 mg/dL (7-18) 01/02/24 07:45 Creatinine 0.63 mg/dL (0.70-1.30) L 01/02/24 07:45 Glucose 97 mg/dL (74-106) 01/02/24 07:45 Total Bilirubin 0.8 mg/dL (0.2-1.0) 01/02/24 07:45 AST 18 U/L (15-37) 01/02/24 07:45 ALT < 14 U/L (16-61) L 01/02/24 07:45 Alkaline Phosphatase 72 U/L (45-117) 01/02/24 07:45 Home Medications: Amlodipine Besylate 10 mg PO DAILY 06/19/15 Atorvastatin Calcium [Lipitor] 80 mg PO BEDTIME 06/19/15 Lisinopril 20 mg PO DAILY 06/19/15 Levetiracetam [Keppra] 1,000 mg PO BID 05/11/17 Aspirin [Aspirin EC 81 MG] 81 mg PO DAILY 04/30/20 Physician Discharge Instructions: Home Health: [facility] P:[phone] F:[phone] Diet: AHA Activity: Fall precautions Followup: Ty Salomon MD [Primary Care Provider] - 1 Week Jarad Arnold MD [ASSOCIATE-ACTIVE - CAN ADMIT] - 1-2 Weeks Time spent managing pt's care (in minutes): 30
[2024-01-02 08:57] LABS: Platelet Estimate ADEQ; White Blood Cell Scan OK (OK)
[2024-01-02 08:58] LABS: Magnesium 2.2 mg/dL (1.6-2.4); Thyroid Stimulating Hormone 2.13 uIU/mL (0.358-3.740)
[2024-01-02 08:58] LABS: Band Neutrophils 6 % (0-1); Blood Morphology Comment NOT SEEN (NOT SEEN); Differential Total Cells Count 100; Eosinophils 2 % (0-3); Lymphocytes 41 % (15-42); Monocytes 9 % (0-10); Segmented Neutrophils 42 % (40-80)
[2024-01-02] MEDS: POTASSIUM CL SA 10 MEQ TAB PO ONE (09:12)
--- NOTE | 2024-01-02 12:39 | EKG ---
Test Date: 2024-01-01 Test Time: 01:24:54 Housing Management Officer: AF MEASUREMENT RESULTS: Intervals: Rate: 103 MI: 192 QRSD: 66 QT: 332 QTc: 434 [place]: P: 57 MI: 192 QRS: 54 T: 52 INTERPRETIVE STATEMENTS: Sinus tachycardia Otherwise normal ECG Compared to ECG 01/01/2024 01:24:08 No significant changes Electronically Signed On 01-02-24 12:37:15 CDT by Rui Hutton
--- NOTE | 2024-01-02 12:39 | EKG ---
Test Date: 2024-01-01 Test Time: 01:24:08 Straightening Roll Operator: AF MEASUREMENT RESULTS: Intervals: Rate: 104 CA: 188 QRSD: 68 QT: 334 QTc: 439 [place]: P: 61 CA: 188 QRS: 56 T: 54 INTERPRETIVE STATEMENTS: Sinus tachycardia Otherwise normal ECG Compared to ECG 03/07/2023 13:22:53 Sinus rhythm no longer present ST (T wave) deviation no longer present Electronically Signed On 01-02-24 12:37:17 CDT by Rui Hutton
[2024-01-02 14:38] VITALS: TEMP 97.2
[2024-01-02 16:42] VITALS: BP 136/61
[2024-01-04 16:17] LABS: Homocysteine 11.3 umol/L (<11.4)
== END 2024-01-02 16:20 | disposition home health service (06) | DRG 101 ==
LOC: ER 01:13 → ERHOLD 03:41 → 4TH 07:14
PROVIDERS: ADMIT Internal Medicine; ATTEND Internal Medicine
DX: G40.209 Localization-related (focal) (partial) symptomatic epilepsy and epileptic syndromes with complex partial seizures, not intractable, without status epilepticus (principal); E87.1 Hypo-osmolality and hyponatremia; N39.0 Urinary tract infection, site not specified; I69.351 Hemiplegia and hemiparesis following cerebral infarction affecting right dominant side; E87.6 Hypokalemia; E78.5 Hyperlipidemia, unspecified; I10 Essential (primary) hypertension; F17.200 Nicotine dependence, unspecified, uncomplicated; Z86.16 Personal history of COVID-19; Z79.82 Long term (current) use of aspirin; Z90.49 Acquired absence of other specified parts of digestive tract; Z79.899 Other long term (current) drug therapy
CPT/HCPCS: 36415; 70450; 80048; 80053; 80076; 81001; 83090; 83735; 83921; 84443; 85025; 93005; 96361; 96365; 96366; 96368; 96375; 97161; 97530; 99285; J0696; J1953; J3480; J7030